=== PATIENT | male | born 1945 | race Caucasian/White ===

== ENCOUNTER 2017-10-09 15:33 | Inpatient (IN) ==
[2017-10-09] MEDS ORDERED: IOPAMIDOL 100 ML BOTTLE IV ONE (15:34)
[2017-10-09 17:16] LABS: Basophils # (Auto) 0 K/mcL (0.0-0.3); Basophils % (Auto) 0.3 % (0.0-2.0); Eosinophils # (Auto) 0.4 K/mcL (0.0-0.7); Eosinophils % (Auto) 5.2 % (0.0-7.0); Granulocytes % (Auto) 60.6 % (38.0-78.0); Lymphocytes # (Auto) 1.8 K/mcL (1.5-4.8); Lymphocytes % (Auto) 24.1 % (15.5-49.0); Mean Corpuscular HGB Conc 32.5 g/dL (31.0-36.0); Mean Corpuscular Hemoglobin 31.5 pg (26.0-34.0); Monocytes # (Auto) 0.7 K/mcL (0.1-0.9); Monocytes % (Auto) 9.8 % (1.0-12.0); Platelet Count 317 K/mcL (140-440); RBC 4.07 M/mcL (4.50-5.90); Red Cell Distribution Width 15.4 % (11.5-14.5)
[2017-10-09 17:29] LABS: Prealbumin 34.5 mg/dl (20-40)
[2017-10-09 17:39] LABS: ALT/SGPT 12 U/l (0-40); Albumin/Globulin Ratio 1.2 (1.0-2.3); Alkaline Phosphatase 97 U/L (39-117); Blood Urea Nitrogen 19 mg/dl (8-23); C-Reactive Protein 3.8 mg/dl (0.0-0.8)
--- NOTE | 2017-10-09 18:32 | Cat Scan Report ---
CLINICAL INFORMATION: Dorsal cutaneous ulcer pain and swelling evaluate for osteomyelitis COMPARISON: None. TECHNIQUE: 0.625 mm helical slices were obtained through the foot and ankle. Following reconstruction, sagittal, coronal axial reformatted images were processed and reviewed at bone and soft tissue windows. FINDINGS: Moderate diffuse cellulitis is seen throughout the lower tibia-fibula ankle and foot. There is no evidence of soft tissue abscess in the second ray amputation at the MTP level. The second metatarsal head is eroded and there is moderate surrounding cellulitis this could indicate osteomyelitis. No other potential regions of osteomyelitis. The calcaneus is deformed and fused with both the cuboid and talus. Talar dome is flattened. There is severe degenerative change in the first MTP also severe degeneration ankle mortise. Severe hallux valgus, metatarsus adductus deformity with hammertoe deformity second through fifth digits. The top of the first distal phalanx is eroded likely chronic IMPRESSION: 1. Second ray amputation at the MTP level. Moderate erosion of the second metatarsal head with overlying cellulitis - this could indicate osteomyelitis. No other potential regions of osteomyelitis 2. Moderate diffuse cellulitis 3. Solid talocalcaneal and calcaneal cuboid fusion 4. Other chronic changes - as described Interpreted and Authenticated by: Harrison Barbosa 10/09/17
[2017-10-09] MEDS ORDERED: VANCOMYCIN 1,000 MG in 0.9 % SODIUM CHLORIDE 250 ML IV ONE (18:54)
[2017-10-09] MEDS ORDERED: LABETALOL 5 MG/ML ML IV ONE (19:00)
[2017-10-09] MEDS ORDERED: VANCOMYCIN 500 MG in 0.9 % SODIUM CHLORIDE 100 ML IV ONE (19:26)
--- NOTE | 2017-10-09 20:18 | Internal Med History&Physical ---
Medical - H&P: HPI Patient information: Note initiated : 10/09/17 at 8:15 pm Service Date, if different from initiated Date: [] Patient: Taz Parra 72 y/o M admitted on 10/09/17 for 3 open wounds with r/o of ostomylitis. Chief Complaint: [] History of present illness: Mr. Parra is a 72 year old M with h/o HIV, left toe amputation in july, presents to the ER from the wound clinic for worsening infection on the left toe wound. The patient notes he has been following up in the wound care clinic for over 2 yrs for some wound or the other on the left foot. He had a left 2nd toe amputation in july, post op it seems wound was not healing well, but was being followed by Dr Seth in the wound clinic. The patent notes that for the last week or so there has been increased warmth and redness on the left foot, when noticed by the wound care physician he was advised to come to the ER for further evaluation. The patient denies any pain, any other acute issues he has h/o HIV aids, h/o UTI in the past, enterococcus, vre but sensitive to ampicilin (admitted to [facility] may 03), HIV is well controlled as per pt, undectable viral count, follows with ID physician in [place]. He is not sure of his CD4 count, but notes not been an issue. In the ER he was hemodynamically stable, afebrile, with good BP, labs unremarkable, CT of the leg done, shows cellulitis, possible osteomyelitis. 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 Given presence of osteomyelitis, pt admitted to the hospital for further management. 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) Osteoarthritis of ankle (Chronic) Degenerative joint disease (DJD) of lumbar spine (Chronic) Hip pain (Chronic) Renal insufficiency (Chronic) Hyperlipidemia (Chronic) Sprain and strain of unspecified site of shoulder and upper arm (Chronic) Pressure ulcer, stage III (Chronic) Unspecified osteomyelitis, site unspecified (Chronic) Dysphagia (Chronic) Abdominal pain (Chronic) Mental status change (Chronic) Dementia (Chronic) Hypogonadism (Chronic) Osteoarthritis of both hips (Chronic) Benign prostatic hyperplasia with lower urinary tract symptoms (Chronic) Acquired immune deficiency syndrome (Chronic) Nocturia (Chronic) Pressure ulcer of coccygeal region (Chronic) Daytime somnolence (Chronic) Pain in left lower leg (Chronic) Abdominal bloating (Chronic) Unspecified open wound, left foot, initial encounter (Chronic) Cellulitis of left leg (Chronic) Unspecified open wound, unspecified foot, subsequent encounter (Chronic) Unspecified open wound, unspecified knee, initial encounter (Chronic) Anemia due to acute blood loss (Chronic) Degenerative joint disease of left shoulder (Chronic) Degenerative joint disease of left hip (Chronic) Effusion of left knee (Chronic) Cellulitis of left knee (Chronic) Other acute osteomyelitis, left tibia and fibula (Chronic) Degenerative joint disease of left knee (Chronic) Osteoarthritis of shoulder (Chronic) Chronic hip pain (Acute) Testosterone deficiency (Acute) Osteoporosis (Acute) Wears partial dentures (Acute) HIV (human immunodeficiency virus infection) (Acute) DJD (degenerative joint disease) (Acute) GERD (gastroesophageal reflux disease) (Acute) Joint pain (Acute) Incontinence (Acute) Fatigue (Acute) Surgical history: Past Surgical History (Last Reviewed 05/27/17 @ 13:23 by Haydee Paniagua RN) History of surgery (Acute) Status post hip surgery (Acute) Hx of inguinal hernia surgery (Acute) Cleft palate (Acute) History of hand surgery (Acute) History of total right knee replacement (Acute) Hx of foot surgery (Acute) Status post total hip replacement, right (Acute) History of total left hip replacement (Chronic) Pertinent family history: Family History (Last Reviewed 05/27/17 @ 13:23 by Haydee Paniagua RN) Mother Malignant neoplasm Father Myocardial infarction Medical - H&P: Meds Home Medications Medication Instructions Recorded Confirmed Type sennosides 8.6 mg capsule 8.6 mg PO BID PRN cap 12/04/14 10/09/17 History tamsulosin 0.4 mg capsule 0.4 mg PO QDAY cap 12/04/14 10/09/17 History ferrous sulfate 325 mg (65 mg 325 mg PO QDAY 05/20/16 10/09/17 History iron) tablet memantine ER 28 mg-donepezil 10 mg 1 cap PO QDAY 05/20/16 10/09/17 History capsule sprinkle,ext.release 24 hr metoprolol succinate ER 50 mg 50 mg PO QDAY 05/20/16 10/09/17 History tablet,extended release 24 hr aspirin 81 mg tablet,delayed 81 mg PO QDAY 08/20/16 10/09/17 History release methadone 10 mg tablet 10 mg PO TID tab 08/20/16 10/09/17 History rilpivirine 25 mg tablet 25 mg PO QDAY 08/20/16 10/09/17 History Omeprazole [PriLOSEC] 20 mg PO DAILY 12/23/16 10/09/17 History abacavir 600 mg-lamivudine 300 mg 1 tab PO QDAY 01/20/17 10/09/17 History tablet pregabalin 150 mg capsule 150 mg PO QDAY cap 01/20/17 10/09/17 History trospium ER 60 mg capsule,extended 60 mg PO QAM #30 cap 01/21/17 10/09/17 Rx release 24 hr Sulfamethoxazole/Trimethoprim 1 tab PO BID #20 tab 06/12/17 10/09/17 Rx [Bactrim Ds] Allergies Allergy/AdvReac Type Severity Reaction Status Date / Time fentanyl Allergy Unknown unknown Verified 06/12/17 14:16 codeine AdvReac Mild Itching Verified 06/12/17 14:16 Medical - H&P: Exam - Constitutional Vitals: Temp Pulse Resp BP Pulse Ox 98.5 F 70 15 127/81 98 10/09/17 15:35 10/09/17 15:35 10/09/17 15:35 10/09/17 20:01 10/09/17 15:35 Exam: GENERAL: The patient is a well-developed, well-nourished in no apparent distress. Is alert and oriented x3. wc bound due to weight bearing restrictions. VITAL SIGNS: Reviewed and as noted elsewhere. HEENT: Head is normocephalic and atraumatic. Extraocular muscles are intact. Pupils are equal, round, and reactive to light. Nares appeared normal. Mouth appears any without lesions. Mucous membranes are moist. NECK: Normal to inspection, Supple, No lymphadenopathy or thyromegaly. LUNGS: Air entry equal on both sides, no wheezing, crackles or rhonchi noted. No accessory muscles of respiration HEART: Regular rate and rhythm normal, S1 and S2 heard, no Gallop, S3 or Rub Noted, No Gross murmur heard. ABDOMEN: Soft, mild flank tenderness , and nondistended. Positive bowel sounds. No hepatosplenomegaly was noted. EXTREMITIES: No cyanosis, clubbing, rash, lesions or edema. Left lower extremity- 2x3 cms wound left 2nd toe region, black ischar, surrounding cellulitis upto ankle. NEUROLOGIC: Cranial nerves II through XII are grossly intact. Motor and Sensory System Grossly Intact PSYCHIATRIC: Normal affect, Normal Mood. Appropriate Behavior. SKIN: No ulceration or wounds noted, No jaundice, No rash noted. Medical - H&P: Reslt - Labs CBC & Chem 7: 10/09/17 16:13 10/09/17 16:13 Labs: Short CBC 10/09/17 Range/Units 16:13 WBC 7.5 (4.5-11.0) K/mcL Hgb 12.8 L (13.5-16.5) g/dL Hct 39.4 L (41.0-55.0) % Plt Count 317 (140-440) K/mcL BMP 10/09/17 16:13 Sodium 137 Potassium 4.3 Chloride 101 Carbon Dioxide 22 BUN 19 Creatinine 1.1 Glucose 89 Calcium 9.4 Liver Function 10/09/17 Range/Units 16:13 Total Bilirubin 0.3 (0.0-1.0) mg/dL AST 14 (0-37) U/l ALT 12 (0-40) U/l Alkaline Phosphatase 97 (39-117) U/L Albumin 4.0 (3.2-5.2) gm/dL Medical - H&P: A/P - Narrative A/P Narrative: A/P Acute osteomyelitis Acute cellulitis HIV AIDS Urinary Incontinence HTN Chronic pain DJD Dementia Plan Admit to Med surg Given some ambiguity regarding osteomyelitis on CT, discuss with wound care on need for MRI to confirm, vs direct visuliazaion IV vanco adn zosyn picc line 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 Social History - Social History housing: house marital status: occupational status: retired - Exercise physical activity: none - Tobacco smoking status: Never smoker - Alcohol alcohol intake frequency: a few times a week - Substance use substance use type: does not use
[2017-10-09] MEDS ORDERED: ALBUTEROL SULFATE 2.5 MG/3 ML NEBULIZER NEB PRN (20:23)
[2017-10-09] MEDS ORDERED: HYDROmorphone 2 MG/ML VIAL IV PRN (20:23)
[2017-10-09] MEDS ORDERED: cloNIDine HCL 0.1 MG TABLET PO PRN (20:23)
[2017-10-09] MEDS ORDERED: VANCOMYCIN PER PHARMACY IV ONE (20:23)
[2017-10-09] MEDS ORDERED: ACETAMINOPHEN 325 MG TABLET PO PRN (20:23)
[2017-10-09] MEDS ORDERED: ONDANSETRON 4 MG/2 ML VIAL IV PRN (20:23)
[2017-10-09] MEDS ORDERED: NALOXONE HCL 0.4 MG/ML VIAL IV PRN (20:23)
[2017-10-09] MEDS ORDERED: SENNOSIDES 1 TABLET PO PRN (20:46)
--- NOTE | 2017-10-09 20:47 | General Surgery Consult Note ---
History of Present Illness Patient information: Note initiated : 10/09/17 at 8:30 pm Service Date, if different from initiated Date: [] Patient: Taz Parra 72 y/o M admitted on 10/09/17 for 3 open wounds with r/o of ostomylitis. Chief Complaint: [] Consult date: 10/09/17 Requesting physician: Jeanette Dimas (Cellulitis LEFT foot) History of present illness: Patient was admitted via ER with cellulitis of LEFT foot and CSSSI, evolving SIRS. He is an established patient at wound center with multiple co morbid problems / chronically immunosuppressed and past h/o undergoing several prior surgical procedures of LE. The last procedure was for LEFT 2 nd toe amputation for osteomyelitis. Post operatively the wound had dehisced and was being treated with debridement and local wound care. There was an interval change in his presentation today with acute inflammatory signs and drainage from the wound with purulence and cellulitis. He was sent to the ER for further work up, imaging and in house IV antibiotics and wound care. Medications and Allergies Home Medications Medication Instructions Recorded Confirmed Type sennosides 8.6 mg capsule 8.6 mg PO BID PRN cap 12/04/14 10/09/17 History tamsulosin 0.4 mg capsule 0.4 mg PO QDAY cap 12/04/14 10/09/17 History ferrous sulfate 325 mg (65 mg 325 mg PO QDAY 05/20/16 10/09/17 History iron) tablet memantine ER 28 mg-donepezil 10 mg 1 cap PO QDAY 05/20/16 10/09/17 History capsule sprinkle,ext.release 24 hr aspirin 81 mg tablet,delayed 81 mg PO QDAY 08/20/16 10/09/17 History release methadone 10 mg tablet 30 mg PO TID tab 08/20/16 10/10/17 History rilpivirine 25 mg tablet 25 mg PO QDAY 08/20/16 10/09/17 History abacavir 600 mg-lamivudine 300 mg 1 tab PO QDAY 01/20/17 10/09/17 History tablet trospium ER 60 mg capsule,extended 60 mg PO QAM #30 cap 01/21/17 10/09/17 Rx release 24 hr Clopidogrel Bisulfate [Plavix] 75 mg PO DAILY 10/10/17 10/10/17 History Metoprolol Succinate [Toprol Xl] 100 mg PO DAILY 10/10/17 10/10/17 History Pantoprazole Sodium [Protonix] 40 mg PO DAILY 10/10/17 10/10/17 History Pregabalin [Lyrica] 75 mg PO BID 10/10/17 10/10/17 History Allergies Allergy/AdvReac Type Severity Reaction Status Date / Time codeine AdvReac Mild Itching Verified 06/12/17 14:16 fentanyl AdvReac Unknown unknown Verified 10/09/17 21:00 Exam Temp Pulse Resp BP Pulse Ox 98.5 F 70 15 127/81 98 10/09/17 15:35 10/09/17 15:35 10/09/17 15:35 10/09/17 20:01 10/09/17 15:35 - General physical appearance well developed, well nourished, no distress, chronically ill, other (Mostly confined to bed or wheelchair. H/O HIV since 1980. 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 ) - Head Head exam IM: Present: atraumatic, normal inspection, normocephalic - Neck no masses, no bruits, trachea midline, no lymphadectomy, no venous distension - Cardiovascular Cardiovascular exam IM: Present: normal rate and rhythm - Respiratory normal expansion, normal respiratory effort, clear to auscultation - Abdomen Abdomen: Present: soft, non tender, bowel sounds - Integumentary Present: other (Acute inflammatory changes of LEFT foot from toes up to ankle. Patient with prior foot drop and hip / knee replacements and LEFT 2nd toe amptation with open surgical wound treated with local wound care. ) - Neurologic Present: other (Detailed examination NOT done. NO gross focalneurological deficits. ) - Musculoskeletal Present: other (Short statured. Non ambulatory. ) - Psychiatric Present: oriented to time, oriented to person, oriented to place, speech is normal, memory intact Results - Labs 10/10/17 04:10 10/10/17 04:10 Abnormal lab results 10/09/17 10/09/17 Range/Units 16:13 16:13 RBC 4.07 L (4.50-5.90) M/mcL Hgb 12.8 L (13.5-16.5) g/dL Hct 39.4 L (41.0-55.0) % RDW 15.4 H (11.5-14.5) % C-Reactive Protein 3.8 H (0.0-0.8) mg/dl Diabetes panel 10/09/17 Range/Units 16:13 Sodium 137 (133-145) mmol/L Potassium 4.3 (3.3-5.1) mmol/L Chloride 101 (96-108) mmol/L Carbon Dioxide 22 (22-30) mmol/L BUN 19 (8-23) mg/dl Creatinine 1.1 (0.7-1.2) mg/dl Glucose 89 (70-105) mg/dL Calcium 9.4 (8.6-10.4) mg/dl AST 14 (0-37) U/l ALT 12 (0-40) U/l Alkaline Phosphatase 97 (39-117) U/L Total Protein 7.3 (5.9-8.4) gm/dL Albumin 4.0 (3.2-5.2) gm/dL Thyroid panel 10/09/17 Range/Units 16:13 TSH 1.46 (0.27-5.01) uIU/ml Calcium panel 10/09/17 Range/Units 16:13 Calcium 9.4 (8.6-10.4) mg/dl Albumin 4.0 (3.2-5.2) gm/dL Pituitary panel 10/09/17 Range/Units 16:13 Sodium 137 (133-145) mmol/L Potassium 4.3 (3.3-5.1) mmol/L Chloride 101 (96-108) mmol/L Carbon Dioxide 22 (22-30) mmol/L BUN 19 (8-23) mg/dl Creatinine 1.1 (0.7-1.2) mg/dl Glucose 89 (70-105) mg/dL Calcium 9.4 (8.6-10.4) mg/dl TSH 1.46 (0.27-5.01) uIU/ml Adrenal panel 10/09/17 Range/Units 16:13 Sodium 137 (133-145) mmol/L Potassium 4.3 (3.3-5.1) mmol/L Chloride 101 (96-108) mmol/L Carbon Dioxide 22 (22-30) mmol/L BUN 19 (8-23) mg/dl Creatinine 1.1 (0.7-1.2) mg/dl Glucose 89 (70-105) mg/dL Calcium 9.4 (8.6-10.4) mg/dl Total Bilirubin 0.3 (0.0-1.0) mg/dL AST 14 (0-37) U/l ALT 12 (0-40) U/l Alkaline Phosphatase 97 (39-117) U/L Total Protein 7.3 (5.9-8.4) gm/dL Albumin 4.0 (3.2-5.2) gm/dL All other labs normal. Assessment and Plan (1) Sepsis affecting skin Assessment: CSSSI Sepsis. Source is LEFT foot and toe amputation site . Plan: See orders. Local wound care. Dressings / MIST treatment and IV antibiotics. INFECTIOUS DISEASE consult Dr. Rolly Elmore. Status: Acute Priority: High Comment: Evolving SIRS with CSSSI around LEFT foot open wound and spreading proximally. (2) Avulsion of skin Status: Acute Priority: Medium
[2017-10-09] MEDS ORDERED: SULFAMETHOXAZOLE/TRIMETHOPRIM 1 TABLET PO SCH (21:00)
[2017-10-09 21:49] LABS: Appearance,Urine CLEAR; Bacteria,Urine 0 /hpf (0); Bilirubin,Urine NEG (NEG); Color,Urine STRAW; Glucose,Urine (UA) NEGATIVE (NEG); Leukocyte Esterase,Urine NEG /uL (NEG); Protein,Urine NEG (NEG); Specific Gravity,Urine 1.025 (1.000-1.035); Urine Blood NEG mg/dL (<0.03); Urine RBC 2 /hpf (0-1); Urine Squamous Epithelial Cell 0 /hpf (0-4); Urine WBC 1 /hpf (0-4); Urobilinogen,Urine NEG (NEG)
[2017-10-09] MEDS ORDERED: GENTAMICIN SULFATE 40 MG, CLINDAMYCIN 300 MG, BACITRACIN 25,000 UNIT in SODIUM CHLORIDE... IRR ONE (22:00)
[2017-10-09] MEDS: oxyCODONE HCL 5 MG TABLET PO PRN (23:28)
[2017-10-09] MEDS: PIPERACILLIN SODIUM/TAZOBACTAM 3.375 GM in DEXTROSE 5% IN WATER 50 ML IV SCH (23:29)
[2017-10-09] MEDS: 0.9 % SODIUM CHLORIDE 10 ML SYRINGE IV SCH (23:34)
[2017-10-09] MEDS: HEPARIN 5,000 UNIT/ML VIAL SQ SCH (23:34)
[2017-10-09] MEDS: METHADONE 5 MG TABLET PO SCH (23:35)
--- NOTE | 2017-10-10 02:25 | Emergency Department Note ---
Wound/Laceration HPI - General Chief Complaint: Wound/Laceration Stated Complaint: 3 open wounds with r/o of ostomylitis Time Seen by Provider: 10/09/17 15:39 Source: patient Mode of arrival: wheelchair Limitations: no limitations - History of Present Illness HPI Narrative: This is a patient known and seen by wound care who was instructed to come to the ER today after an interval change was observed of his left foot wounds. History of a left 2nd oe amputation on 08/11 for osteomyelitis and post operatively the wound had dehisced and was being treated by local wound care. Patient reports that the redness has significantly worsened recently. No fevers or chills. He is unable to move the toes on his left side. the patient does have a history of HIV. - Related Data Home Medications Medication Instructions Recorded Confirmed sennosides 8.6 mg capsule 8.6 mg PO BID PRN cap 12/04/14 10/09/17 tamsulosin 0.4 mg capsule 0.4 mg PO QDAY cap 12/04/14 10/09/17 ferrous sulfate 325 mg (65 mg 325 mg PO QDAY 05/20/16 10/09/17 iron) tablet memantine ER 28 mg-donepezil 10 mg 1 cap PO QDAY 05/20/16 10/09/17 capsule sprinkle,ext.release 24 hr metoprolol succinate ER 50 mg 50 mg PO QDAY 05/20/16 10/09/17 tablet,extended release 24 hr aspirin 81 mg tablet,delayed 81 mg PO QDAY 08/20/16 10/09/17 release methadone 10 mg tablet 10 mg PO TID tab 08/20/16 10/09/17 rilpivirine 25 mg tablet 25 mg PO QDAY 08/20/16 10/09/17 abacavir 600 mg-lamivudine 300 mg 1 tab PO QDAY 01/20/17 10/09/17 tablet pregabalin 150 mg capsule 150 mg PO QDAY cap 01/20/17 10/09/17 Previous Rx's Medication Instructions Recorded trospium ER 60 mg capsule,extended 60 mg PO QAM #30 cap 01/21/17 release 24 hr Allergies Allergy/AdvReac Type Severity Reaction Status Date / Time codeine AdvReac Mild Itching Verified 06/12/17 14:16 fentanyl AdvReac Unknown unknown Verified 10/09/17 21:00 Review of Systems All systems ED: reviewed and negative except as stated. Past Medical History - Past Medical History Medical history: Reports: HIV/AIDS, other (long history of wound care left foot) - Social History smoking status: Never smoker Physical Exam Limitations: no limitations General appearance: alert, in no apparent distress (comes in in wheelchair with friend) Head: atraumatic ENT: normal exam Neck: Present: normal inspection Chest: Present: normal inspection Respiratory: Present: normal lung sounds bilaterally Cardiovascular: Present: regular rate, normal rhythm Abdominal: Present: soft, normal bowel sounds Foot/toe: Present: other (erythema at the midfoot on the left, healing wounds on hunter tissue just proximal to where the second toe was amputated - 3x1 cm , open sore on the third toe, 3x0.8 cm in size. ) Neurovascular/Tendon: Present: other (swelling diffusely on th left foot, unable to palpate pulses) Neurological: Present: alert, oriented X3 Psychiatric: Present: normal affect, normal mood Skin: Present: warm, dry Course Course Narrative: Patient sent here from wound care clinic. We got a CT of his foot, blood work ordered per the wound care doctor's request. Patient's vital signs had a slightly elevated blood pressure here for which she received labetalol 10 mg - Reevaluation(s) Reevaluation #1: CT results returned showing diffuse cellulitis with an area of possible osteomyelitis. Started on Vanco and admitted to the hospital service with Dr. Mcallister to consult Vital Signs Temperature 98.5 F 10/09/17 15:35 Pulse Rate 70 10/09/17 15:35 Respiratory Rate 15 10/09/17 15:35 Blood Pressure 195/89 10/09/17 15:35 Pulse Oximetry (%) 98 10/09/17 15:35 Temperature 97.7 F 10/10/17 00:00 Pulse Rate 86 10/10/17 00:00 Respiratory Rate 14 10/10/17 00:00 Blood Pressure 171/88 10/10/17 00:00 Pulse Oximetry (%) 100 10/10/17 00:00 Wound/Laceration - MDM Narrative Medical decision making narrative: HIV-positive patient with postsurgical complications from left second toe amputation, presenting with cellulitis and possible recurrence of osteomyelitis. - Lab Data Lab results reviewed: Yes I reviewed the patient's lab results. Result diagrams: 10/09/17 16:13 10/09/17 16:13 Lab Results 10/09/17 10/09/17 10/09/17 Range/Units 16:13 16:13 16:13 WBC 7.5 (4.5-11.0) K/mcL RBC 4.07 L (4.50-5.90) M/mcL Hgb 12.8 L (13.5-16.5) g/dL Hct 39.4 L (41.0-55.0) % POC Hct (41.0-55.0) % MCV 97.0 (80.0-100.0) fL MCH 31.5 (26.0-34.0) pg MCHC 32.5 (31.0-36.0) g/dL RDW 15.4 H (11.5-14.5) % Plt Count 317 (140-440) K/mcL MPV 8.4 (7.4-10.4) fL Gran % 60.6 (38.0-78.0) % Lymph % (Auto) 24.1 (15.5-49.0) % Cannon % (Auto) 9.8 (1.0-12.0) % Eos % (Auto) 5.2 (0.0-7.0) % Baso % (Auto) 0.3 (0.0-2.0) % Gran # 4.5 (1.8-8.0) K/mcL Lymph # (Auto) 1.8 (1.5-4.8) K/mcL Cannon # (Auto) 0.7 (0.1-0.9) K/mcL Eos # (Auto) 0.4 (0.0-0.7) K/mcL Baso # (Auto) 0 (0.0-0.3) K/mcL POC PT 14.4 (11.9-14.5) sec POC INR 1.2 (0.9-1.2) APTT 35 (20-37) sec POC Sodium (133-145) mmol/L Sodium (133-145) mmol/L POC Potassium (3.3-5.1) mmol/L Potassium (3.3-5.1) mmol/L POC Chloride (96-108) mmol/L Chloride (96-108) mmol/L Carbon Dioxide (22-30) mmol/L POC Total CO2 (22-30) mmol/L Anion Gap (8-16) POC BUN (8-23) mg/dl BUN (8-23) mg/dl Creatinine (0.7-1.2) mg/dl POC Creatinine (0.7-1.2) mg/dl GFR Calculation Glucose (70-105) mg/dL POC Glucose (70-105) mg/dL Calcium (8.6-10.4) mg/dl POC WB Ioniz Calcium (1.16-1.32) mmol/L Magnesium (1.6-2.5) mg/dL Total Bilirubin (0.0-1.0) mg/dL AST (0-37) U/l ALT (0-40) U/l Alkaline Phosphatase (39-117) U/L C-Reactive Protein (0.0-0.8) mg/dl Total Protein (5.9-8.4) gm/dL Albumin (3.2-5.2) gm/dL Globulin (2.2-3.7) gm/dL Albumin/Globulin Ratio (1.0-2.3) Prealbumin (20-40) mg/dl TSH (0.27-5.01) uIU/ml 10/09/17 Range/Units 16:13 WBC (4.5-11.0) K/mcL RBC (4.50-5.90) M/mcL Hgb (13.5-16.5) g/dL Hct (41.0-55.0) % POC Hct 41.0 (41.0-55.0) % MCV (80.0-100.0) fL MCH (26.0-34.0) pg MCHC (31.0-36.0) g/dL RDW (11.5-14.5) % Plt Count (140-440) K/mcL MPV (7.4-10.4) fL Gran % (38.0-78.0) % Lymph % (Auto) (15.5-49.0) % Cannon % (Auto) (1.0-12.0) % Eos % (Auto) (0.0-7.0) % Baso % (Auto) (0.0-2.0) % Gran # (1.8-8.0) K/mcL Lymph # (Auto) (1.5-4.8) K/mcL Cannon # (Auto) (0.1-0.9) K/mcL Eos # (Auto) (0.0-0.7) K/mcL Baso # (Auto) (0.0-0.3) K/mcL POC PT (11.9-14.5) sec POC INR (0.9-1.2) APTT (20-37) sec POC Sodium 141 (133-145) mmol/L Sodium 137 (133-145) mmol/L POC Potassium 4.3 (3.3-5.1) mmol/L Potassium 4.3 (3.3-5.1) mmol/L POC Chloride 106 (96-108) mmol/L Chloride 101 (96-108) mmol/L Carbon Dioxide 22 (22-30) mmol/L POC Total CO2 24 (22-30) mmol/L Anion Gap 14.0 (8-16) POC BUN 23 (8-23) mg/dl BUN 19 (8-23) mg/dl Creatinine 1.1 (0.7-1.2) mg/dl POC Creatinine 1.2 (0.7-1.2) mg/dl GFR Calculation 66 Glucose 89 (70-105) mg/dL POC Glucose 91 (70-105) mg/dL Calcium 9.4 (8.6-10.4) mg/dl POC WB Ioniz Calcium 1.19 (1.16-1.32) mmol/L Magnesium 1.8 (1.6-2.5) mg/dL Total Bilirubin 0.3 (0.0-1.0) mg/dL AST 14 (0-37) U/l ALT 12 (0-40) U/l Alkaline Phosphatase 97 (39-117) U/L C-Reactive Protein 3.8 H (0.0-0.8) mg/dl Total Protein 7.3 (5.9-8.4) gm/dL Albumin 4.0 (3.2-5.2) gm/dL Globulin 3.3 (2.2-3.7) gm/dL Albumin/Globulin Ratio 1.2 (1.0-2.3) Prealbumin 34.5 (20-40) mg/dl TSH 1.46 (0.27-5.01) uIU/ml Disposition Pt seen by CERTIFIED TECHNICIAN SPECIALIST/PA only: No Clinical Impression: Cellulitis Disposition: Xfer As Inpt ([facility]) Condition: Fair
[2017-10-10] MEDS: 0.9 % SODIUM CHLORIDE 10 ML SYRINGE IV SCH ×3 (04:55→21:34)
[2017-10-10] MEDS: PIPERACILLIN SODIUM/TAZOBACTAM 3.375 GM in DEXTROSE 5% IN WATER 50 ML IV SCH ×4 (04:55→23:45)
[2017-10-10 05:36] LABS: Basophils # (Auto) 0 K/mcL (0.0-0.3); Basophils % (Auto) 0.3 % (0.0-2.0); Eosinophils # (Auto) 0.4 K/mcL (0.0-0.7); Eosinophils % (Auto) 4.6 % (0.0-7.0); Granulocytes % (Auto) 63.4 % (38.0-78.0); Lymphocytes # (Auto) 1.8 K/mcL (1.5-4.8); Lymphocytes % (Auto) 22.6 % (15.5-49.0); Mean Cell Volume 96.8 fL (80.0-100.0); Mean Corpuscular HGB Conc 32.3 g/dL (31.0-36.0); Mean Corpuscular Hemoglobin 31.3 pg (26.0-34.0); Monocytes # (Auto) 0.7 K/mcL (0.1-0.9); Monocytes % (Auto) 9.1 % (1.0-12.0); Platelet Count 277 K/mcL (140-440); Red Cell Distribution Width 14.9 % (11.5-14.5)
[2017-10-10 06:18] LABS: ALT/SGPT 9 U/l (0-40); Albumin 3.5 gm/dL (3.2-5.2); Albumin/Globulin Ratio 1.2 (1.0-2.3); Alkaline Phosphatase 87 U/L (39-117); Bilirubin,Direct < 0.2 mg/dL (0.0-0.3); Blood Urea Nitrogen 17 mg/dl (8-23); Gamma Glutamyl Transpeptidase 41 U/L (8-61); Uric Acid 5.7 mg/dL (2.5-8.0)
[2017-10-10] MEDS ORDERED: VANCOMYCIN PER PHARMACY IV SCH (07:45)
[2017-10-10] MEDS: OMEPRAZOLE 20 MG CAPSULE PO SCH (07:55)
[2017-10-10] MEDS: FERROUS SULFATE 325 MG TABLET PO SCH (07:55)
[2017-10-10] MEDS: METHADONE 5 MG TABLET PO SCH ×3 (08:34→21:31)
[2017-10-10] MEDS: HEPARIN 5,000 UNIT/ML VIAL SQ SCH ×2 (08:35→21:33)
[2017-10-10] MEDS ORDERED: METOPROLOL SUCCINATE 50 MG TAB.XL.24H PO SCH (09:00)
[2017-10-10] MEDS ORDERED: TROSPIUM CHLORIDE 60 MG PO SCH (09:00)
[2017-10-10] MEDS ORDERED: PREGABALIN 150 MG CAPSULE PO SCH (09:00)
[2017-10-10] MEDS ORDERED: ASPIRIN 81 MG TAB.CHEW PO SCH (09:00)
[2017-10-10] MEDS ORDERED: TAMSULOSIN 0.4 MG CAPSULE PO SCH (09:00)
[2017-10-10] MEDS ORDERED: METHADONE 5 MG TABLET PO ONE (10:04)
[2017-10-10] MEDS: VANCOMYCIN 1,000 MG in 0.9 % SODIUM CHLORIDE 250 ML IV SCH (10:27)
[2017-10-10] MEDS: GENTAMICIN SULFATE 40 MG, CLINDAMYCIN 300 MG, BACITRACIN 25,000 UNIT in SODIUM CHLORIDE... IRR SCH ×2 (11:12→21:33)
--- NOTE | 2017-10-10 11:44 | General Surgery Progress Note ---
Subjective Patient reports: other (Patient had an uneventful night. Rounded on patient with Danica CROSS and Dr. Dimas, Hospitlaist Physician. ) Narrative: Note initiated : 10/10/17 at 11:42 am Service Date, if different from initiated Date: [] Patient: Taz Parra 72 y/o M admitted on 10/09/17 for 3 open wounds with r/o of ostomylitis. Chief Complaint: [] Objective Temp Pulse Resp BP Pulse Ox 99.5 F H 70 18 134/73 95 10/10/17 07:59 10/10/17 07:59 10/10/17 07:59 10/10/17 07:59 10/10/17 07:59 AVSS. No acute changes in JEAN. L/E: No tenderness. Minimal drainage and NO odor. Resolving redness and edema. - Additional Data Intake & Output - Last 24 hours: Intake & Output 10/08/17 10/09/17 10/10/17 10/11/17 05:59 05:59 05:59 05:59 Intake Total 500 / 500 Output Total 475 / 475 Balance Weight 136 lb - Labs 10/10/17 04:10 10/10/17 04:10 Diabetes panel 10/09/17 10/10/17 Range/Units 16:13 04:10 Sodium 137 139 (133-145) mmol/L Potassium 4.3 4.5 (3.3-5.1) mmol/L Chloride 101 101 (96-108) mmol/L Carbon Dioxide 22 24 (22-30) mmol/L BUN 19 17 (8-23) mg/dl Creatinine 1.1 1.1 (0.7-1.2) mg/dl Glucose 89 84 (70-105) mg/dL Calcium 9.4 9.0 (8.6-10.4) mg/dl AST 14 13 (0-37) U/l ALT 12 9 (0-40) U/l Alkaline Phosphatase 97 87 (39-117) U/L Total Protein 7.3 6.4 (5.9-8.4) gm/dL Albumin 4.0 3.5 (3.2-5.2) gm/dL Triglycerides 372 H (<150) mg/dl Thyroid panel 10/09/17 Range/Units 16:13 TSH 1.46 (0.27-5.01) uIU/ml Calcium panel 10/09/17 10/10/17 Range/Units 16:13 04:10 Calcium 9.4 9.0 (8.6-10.4) mg/dl Phosphorus 3.3 (2.7-4.5) mg/dL Albumin 4.0 3.5 (3.2-5.2) gm/dL Pituitary panel 10/09/17 10/10/17 Range/Units 16:13 04:10 Sodium 137 139 (133-145) mmol/L Potassium 4.3 4.5 (3.3-5.1) mmol/L Chloride 101 101 (96-108) mmol/L Carbon Dioxide 22 24 (22-30) mmol/L BUN 19 17 (8-23) mg/dl Creatinine 1.1 1.1 (0.7-1.2) mg/dl Glucose 89 84 (70-105) mg/dL Calcium 9.4 9.0 (8.6-10.4) mg/dl TSH 1.46 (0.27-5.01) uIU/ml Adrenal panel 10/09/17 10/10/17 Range/Units 16:13 04:10 Sodium 137 139 (133-145) mmol/L Potassium 4.3 4.5 (3.3-5.1) mmol/L Chloride 101 101 (96-108) mmol/L Carbon Dioxide 22 24 (22-30) mmol/L BUN 19 17 (8-23) mg/dl Creatinine 1.1 1.1 (0.7-1.2) mg/dl Glucose 89 84 (70-105) mg/dL Calcium 9.4 9.0 (8.6-10.4) mg/dl Total Bilirubin 0.3 0.3 (0.0-1.0) mg/dL AST 14 13 (0-37) U/l ALT 12 9 (0-40) U/l Alkaline Phosphatase 97 87 (39-117) U/L Total Protein 7.3 6.4 (5.9-8.4) gm/dL Albumin 4.0 3.5 (3.2-5.2) gm/dL Assessment and Plan (1) Sepsis affecting skin Problem details: Evolving SIRS with CSSSI around LEFT foot open wound and spreading proximally. Status: Acute Current Visit: Yes (2) Avulsion of skin Status: Acute Current Visit: No - Narrative A/P Narrative: Assessment: Satisfactory progress. Plan: Continue current management. AWAIT Infectious Disease Consult and recommendations. - Time Spent With Patient Total time spent is greater than 50% in coordination of care (as documented) at patient's floor/unit and/or counseling patient: 15 - 24 minutes
[2017-10-10] MEDS: RILPIVIRINE HCL 25 MG PO SCH ×2 (12:30→15:51)
[2017-10-10] MEDS: DONEPEZIL HCL PO SCH ×2 (12:30→21:33)
[2017-10-10] MEDS: ABACAVIR SULFATE PO SCH ×2 (12:30→15:50)
[2017-10-10] MEDS: LAMIVUDINE PO SCH ×2 (12:30→15:50)
[2017-10-10] MEDS: MEMANTINE HCL PO SCH ×2 (12:30→21:33)
--- NOTE | 2017-10-10 13:46 | Internal Med Progress Note ---
Medical - PN: Subj Patient information: Note initiated : 10/10/17 at 1:43 pm Service Date, if different from initiated Date: [] Patient: Taz Parra 72 y/o M admitted on 10/09/17 for 3 open wounds with r/o of ostomylitis. Chief Complaint: [] Interval history: Mr. Parra is a 72 year old M with h/o HIV, left toe amputation in july, presents to the ER from the wound clinic for worsening infection on the left toe wound. The patient notes he has been following up in the wound care clinic for over 2 yrs for some wound or the other on the left foot. He had a left 2nd toe amputation in july, post op it seems wound was not healing well, but was being followed by Dr Seth in the wound clinic. The patent notes that for the last week or so there has been increased warmth and redness on the left foot, when noticed by the wound care physician he was advised to come to the ER for further evaluation. The patient denies any pain, any other acute issues he has h/o HIV aids, h/o UTI in the past, enterococcus, vre but sensitive to ampicilin (admitted to [facility] may 03), HIV is well controlled as per pt, undectable viral count, follows with ID physician in [place]. He is not sure of his CD4 count, but notes not been an issue. In the ER he was hemodynamically stable, afebrile, with good BP, labs unremarkable, CT of the leg done, shows cellulitis, possible osteomyelitis. MRI not done due to non availability of instrumentation tech. Given presence of osteomyelitis, pt admitted to the hospital for further management. 09/10 Pt seen examined, no acute overnight issues pt infection / cellulitis much better pt has no new complaints labs stable await MRI, no tech over the weekend on iv abx, ID consult pending . Pertinent ROS: Denies headache, dizziness Denies chest pain, palpitations Denies cough or shortness of breath Denies abdominal pain, nausea or vomiting. - Constitutional Vitals: Vital Signs Temp Pulse Resp BP Pulse Ox 99 F 80 16 156/80 98 10/10/17 12:00 10/10/17 12:00 10/10/17 12:00 10/10/17 12:10/10/17 12:00 Period Temp Pulse Resp BP Sys/Celis Pulse Ox Last 24 Hr 97.7 F-99.5 F 70-86 14-18 127-216/69-174 94-100 Intake and Output 10/09/17 10/10/17 10/10/17 21:59 05:59 13:59 Intake Total 250 / 250 250 / 250 250 / 250 Output Total 475 / 475 Balance 250 / 250 -225 / -225 250 / 250 Weight 136 lb Intake & Output: Intake & Output 10/09/17 10/10/17 10/10/17 21:59 05:59 13:59 Intake Total 250 / 250 250 / 250 250 / 250 Output Total 475 / 475 Balance 250 / 250 -225 / -225 250 / 250 Weight 136 lb Intake: IV 250 / 250 100 / 100 250 / 250 Zosyn 3.375 gm In Dextrose 5% 100 / 100 in Water 50 ml @ 100 mls/hr IV Q6H [facility] Rx#:[id number] Vancomycin 1,000 mg In Sodium 250 / 250 Chloride 0.9% 250 ml @ 250 mls/ hr IV DAILY [facility] Rx#:[id number] Oral 150 / 150 Output: Void Amount 475 / 475 Exam: Constitutional; Afebrile, cooperative, alert, not in distress. Eyes- No icterus, , No periorbital swelling Ears- Ext ear normal, hearing normal to conversation. Neck- Midline trachea, supple Respiratory system: Air Entry equal on both sides, No crackles or wheezing, no rhonchi. CVS- Rate rhythm regular, S1,S2 heard, no gallop, no rub. 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 Foot- erythema improved, no pus draining. Medical - PN: Obj Da - Labs CBC & Chem 7: 10/10/17 04:10 10/10/17 04:10 Labs: Abnormal Lab Results 10/10/17 10/10/17 10/09/17 04:10 04:10 20:55 RBC 3.60 L Hgb 11.3 L Hct 34.9 L RDW 14.9 H C-Reactive Protein Triglycerides 372 H Urine RBC 2 H 10/09/17 10/09/17 16:13 16:13 RBC 4.07 L Hgb 12.8 L Hct 39.4 L RDW 15.4 H C-Reactive Protein 3.8 H Triglycerides Urine RBC Meds: Medications Acetaminophen (Tylenol) 650 mg PO Q6HP PRN PRN Reason: PAIN/FEVER > 101 Albuterol Sulfate (Ventolin) 2.5 mg NEB Q2HP PRN PRN Reason: Shortness Of Breath Aspirin (Aspirin) 81 mg PO HS [facility] Clonidine HCl (Catapres) 0.1 mg PO Q2HP PRN PRN Reason: Hypertension [facility]ous [facility]) [facility] Last Admin: 10/10/17 07:55 Dose: 325 mg Heparin Sodium (Porcine) (Heparin) 5,000 unit SQ Q12 [facility] Last Admin: 10/10/17 08:35 Dose: 5,000 unit Piperacillin Sod/Tazobactam (Sod 3.375 gm/ Dextrose) 50 mls @ 100 mls/hr IV Q6H [facility] Last Admin: 10/10/17 12:59 Dose: 100 mls/hr Gentamicin Sulfate 40 mg/Clindamycin Phosphate 300 mg/Bacitracin 25,000 unit/ Sodium Chloride 503 mls @ 0 mls/hr IRR BID [facility] Last Admin: 10/10/17 11:12 Dose: 1 mls/hr Vancomycin HCl 1,000 mg/ (Sodium Chloride) 250 mls @ 250 mls/hr IV DAILY [facility] Last Infusion: 10/10/17 11:27 Dose: Infused Methadone HCl (Dolophine) 30 mg PO TID [facility] Metoprolol Succinate (Toprol Xl) 100 mg PO DAILY@1500 [facility] Naloxone HCl (Narcan) 0.1 mg IV Q2MIN PRN PRN Reason: Opiate Reversal Omeprazole (Prilosec) 20 mg PO ACB [facility] Last Admin: 10/10/17 07:55 Dose: 20 mg Ondansetron HCl (Zofran) 4 mg IV Q6HP PRN PRN Reason: Nausea And Vomiting Oxycodone HCl (Roxicodone) 5 mg PO Q4HP PRN PRN Reason: PAIN LEVEL 3-6 Last Admin: 10/09/17 23:28 Dose: 5 mg Abacavir Sulfate/Lamivudine 600 Mg/300 Mg Tablet 1 dose PO DAILY@1500 [facility] Rilpivirine Hcl [ Edurant] 25 Mg Tablet 1 dose PO DAILY@1500 [facility] Trospium Chloride [ Trospium Chloride Er ] 60 Mg Capsule 1 dose PO DAILY@1500 [facility] Memantine Hcl/Donepezil Hcl [ Namzaric 28 Mg-10 Mg ] Capsule 1 dose PO HS [facility] Pregabalin (Lyrica) 75 mg PO HS [facility] Senna (Senokot) 1 tab PO BIDP PRN PRN Reason: Constipation Sodium Chloride (Saline Flush) 10 ml IV Q8 [facility] Last Admin: 10/10/17 04:55 Dose: 10 ml Tamsulosin HCl (Flomax) 0.4 mg PO DAILY@1500 [facility] Vancomycin HCl (Vancomycin Per Pharmacy) 1 order IV UD [facility] Medical - PN: A/P - Time Spent With Patient Total time spent is greater than 50% in coordination of care (as documented) at patient's floor/unit and/or counseling patient: - Narrative A/P Narrative: A/P Acute osteomyelitis Acute cellulitis HIV AIDS Urinary Incontinence HTN Chronic pain DJD Dementia Plan continue home meds for HIV and other chr meds continue iv vancomycin and zosyn ID consult awaited MRI pending, no tech available place picc if MRI confirms osteomyelitis DVT hep sq Diet regular Full code.
[2017-10-10] MEDS: TAMSULOSIN 0.4 MG CAPSULE PO SCH (15:54)
[2017-10-10] MEDS: METOPROLOL SUCCINATE 50 MG TAB.XL.24H PO SCH (15:54)
[2017-10-10] MEDS: TROSPIUM CHLORIDE 60 MG PO SCH (16:00)
[2017-10-10] MEDS: oxyCODONE HCL 5 MG TABLET PO PRN (19:22)
[2017-10-10] MEDS: ASPIRIN 81 MG TAB.CHEW PO SCH (21:31)
[2017-10-10] MEDS: PREGABALIN 75 MG CAPSULE PO SCH (21:33)
[2017-10-11] MEDS: oxyCODONE HCL 5 MG TABLET PO PRN ×3 (04:17→20:20)
[2017-10-11] MEDS: PIPERACILLIN SODIUM/TAZOBACTAM 3.375 GM in DEXTROSE 5% IN WATER 50 ML IV SCH ×3 (05:33→17:41)
[2017-10-11] MEDS: 0.9 % SODIUM CHLORIDE 10 ML SYRINGE IV SCH ×4 (05:33→23:07)
[2017-10-11 05:53] LABS: Basophils # (Auto) 0 K/mcL (0.0-0.3); Basophils % (Auto) 0.6 % (0.0-2.0); Eosinophils # (Auto) 0.4 K/mcL (0.0-0.7); Eosinophils % (Auto) 4.8 % (0.0-7.0); Lymphocytes # (Auto) 1.7 K/mcL (1.5-4.8); Lymphocytes % (Auto) 22.5 % (15.5-49.0); Mean Cell Volume 96.8 fL (80.0-100.0); Mean Corpuscular Hemoglobin 31.9 pg (26.0-34.0); Monocytes # (Auto) 0.8 K/mcL (0.1-0.9); Monocytes % (Auto) 11.1 % (1.0-12.0); Platelet Count 255 K/mcL (140-440); RBC 3.42 M/mcL (4.50-5.90); Red Cell Distribution Width 15.5 % (11.5-14.5)
[2017-10-11 06:17] LABS: ALT/SGPT 9 U/l (0-40); Albumin 3.3 gm/dL (3.2-5.2); Albumin/Globulin Ratio 1.1 (1.0-2.3); Alkaline Phosphatase 74 U/L (39-117); Bilirubin,Direct < 0.2 mg/dL (0.0-0.3); Blood Urea Nitrogen 24 mg/dl (8-23); Gamma Glutamyl Transpeptidase 38 U/L (8-61); Uric Acid 6.2 mg/dL (2.5-8.0)
[2017-10-11] MEDS ORDERED: 0.9 % SODIUM CHLORIDE 1,000 ML IV SCH (07:30)
[2017-10-11] MEDS: OMEPRAZOLE 20 MG CAPSULE PO SCH (08:19)
[2017-10-11] MEDS: FERROUS SULFATE 325 MG TABLET PO SCH (08:22)
[2017-10-11] MEDS: HEPARIN 5,000 UNIT/ML VIAL SQ SCH ×2 (08:22→20:20)
[2017-10-11] MEDS: METHADONE 5 MG TABLET PO SCH ×3 (08:22→20:19)
[2017-10-11] MEDS: GENTAMICIN SULFATE 40 MG, CLINDAMYCIN 300 MG, BACITRACIN 25,000 UNIT in SODIUM CHLORIDE... IRR SCH ×2 (10:37→20:20)
[2017-10-11] MEDS: VANCOMYCIN 1,000 MG in 0.9 % SODIUM CHLORIDE 250 ML IV SCH (10:37)
[2017-10-11 12:42] LABS: Appearance,Urine CLEAR; Bacteria,Urine 0 /hpf (0); Bilirubin,Urine NEG (NEG); Color,Urine YELLOW; Glucose,Urine (UA) NEGATIVE (NEG); Leukocyte Esterase,Urine 25 /uL (NEG); Protein,Urine 30 mg/dL (NEG); Specific Gravity,Urine 1.026 (1.000-1.035); Urine Blood NEG mg/dL (<0.03); Urine RBC 3 /hpf (0-1); Urine Squamous Epithelial Cell < 1 /hpf (0-4); Urine WBC 11 /hpf (0-4); Urobilinogen,Urine NEG (NEG)
--- NOTE | 2017-10-11 12:43 | General Surgery Progress Note ---
Subjective Patient reports: no new complaints, other (Tolerating in bed physical therapy.) Narrative: Note initiated : 10/11/17 at 12:41 pm Service Date, if different from initiated Date: [] Patient: Taz Parra 72 y/o M admitted on 10/09/17 for 3 Open Wounds with r/o of Ostomylitis. Chief Complaint: [] Objective Temp Pulse Resp BP Pulse Ox 98.9 F 72 18 117/69 97 10/11/17 08:00 10/11/17 08:00 10/11/17 08:00 10/11/17 08:00 10/11/17 08:00 AVSS. No changes JEAN. Local wound care is ongoing. Resolvin inflammatory changes. - Additional Data Intake & Output - Last 24 hours: Intake & Output 10/09/17 10/10/17 10/11/17 10/12/17 05:59 05:59 05:59 05:59 Intake Total 500 / 500 1015 / 1015 50 / 50 Output Total 475 / 475 351 / 351 Balance 664 / 664 50 / 50 Weight 136 lb 136 lb 8 oz - Labs 10/11/17 05:00 10/11/17 05:00 Diabetes panel 10/11/17 Range/Units 05:00 Sodium 139 (133-145) mmol/L Potassium 4.8 (3.3-5.1) mmol/L Chloride 104 (96-108) mmol/L Carbon Dioxide 22 (22-30) mmol/L BUN 24 H (8-23) mg/dl Creatinine 1.6 H (0.7-1.2) mg/dl Glucose 80 (70-105) mg/dL Calcium 8.7 (8.6-10.4) mg/dl AST 9 (0-37) U/l ALT 9 (0-40) U/l Alkaline Phosphatase 74 (39-117) U/L Total Protein 6.2 (5.9-8.4) gm/dL Albumin 3.3 (3.2-5.2) gm/dL Triglycerides 305 H (<150) mg/dl Calcium panel 10/11/17 Range/Units 05:00 Calcium 8.7 (8.6-10.4) mg/dl Phosphorus 4.7 H (2.7-4.5) mg/dL Albumin 3.3 (3.2-5.2) gm/dL Pituitary panel 10/11/17 Range/Units 05:00 Sodium 139 (133-145) mmol/L Potassium 4.8 (3.3-5.1) mmol/L Chloride 104 (96-108) mmol/L Carbon Dioxide 22 (22-30) mmol/L BUN 24 H (8-23) mg/dl Creatinine 1.6 H (0.7-1.2) mg/dl Glucose 80 (70-105) mg/dL Calcium 8.7 (8.6-10.4) mg/dl Adrenal panel 10/11/17 Range/Units 05:00 Sodium 139 (133-145) mmol/L Potassium 4.8 (3.3-5.1) mmol/L Chloride 104 (96-108) mmol/L Carbon Dioxide 22 (22-30) mmol/L BUN 24 H (8-23) mg/dl Creatinine 1.6 H (0.7-1.2) mg/dl Glucose 80 (70-105) mg/dL Calcium 8.7 (8.6-10.4) mg/dl Total Bilirubin 0.4 (0.0-1.0) mg/dL AST 9 (0-37) U/l ALT 9 (0-40) U/l Alkaline Phosphatase 74 (39-117) U/L Total Protein 6.2 (5.9-8.4) gm/dL Albumin 3.3 (3.2-5.2) gm/dL Assessment and Plan (1) Sepsis affecting skin Problem details: Evolving SIRS with CSSSI around LEFT foot open wound and spreading proximally. Status: Acute Current Visit: Yes (2) Avulsion of skin Status: Acute Current Visit: No - Time Spent With Patient Total time spent is greater than 50% in coordination of care (as documented) at patient's floor/unit and/or counseling patient: Assessment: Satisfactory progress at this time. Plan: CPT. less than 15 minutes
--- NOTE | 2017-10-11 13:53 | Internal Med Progress Note ---
Medical - PN: Subj Patient information: Note initiated : 10/11/17 at 1:50 pm Service Date, if different from initiated Date: [] Patient: Taz Parra 72 y/o M admitted on 10/09/17 for 3 Open Wounds with r/o of Ostomylitis. Chief Complaint: [] Interval history: Mr. Parra is a 72 year old M with h/o HIV, left toe amputation in july, presents to the ER from the wound clinic for worsening infection on the left toe wound. The patient notes he has been following up in the wound care clinic for over 2 yrs for some wound or the other on the left foot. He had a left 2nd toe amputation in july, post op it seems wound was not healing well, but was being followed by Dr Seth in the wound clinic. The patent notes that for the last week or so there has been increased warmth and redness on the left foot, when noticed by the wound care physician he was advised to come to the ER for further evaluation. The patient denies any pain, any other acute issues he has h/o HIV aids, h/o UTI in the past, enterococcus, vre but sensitive to ampicilin (admitted to [facility] may 03), HIV is well controlled as per pt, undectable viral count, follows with ID physician in [place]. He is not sure of his CD4 count, but notes not been an issue. In the ER he was hemodynamically stable, afebrile, with good BP, labs unremarkable, CT of the leg done, shows cellulitis, possible osteomyelitis. MRI not done due to non availability of communications tech. Given presence of osteomyelitis, pt admitted to the hospital for further management. 09/10 Pt seen examined, no acute overnight issues pt infection / cellulitis much better pt has no new complaints labs stable await MRI, no tech over the weekend on iv abx, ID consult pending . 09/11 Patient seen and examined, no acute overnight events. Today patient reports that his right shoulder has been hurting since that time he has been in the hospital, 3 days, progressively getting worse to a point that he is unable to move it. He thinks that maybe perhaps a medication caused it. The patient's kidney function slightly worsened today. IV fluids started. His vancomycin level is therapeutic. The patient notes in the past he has had some issues with vancomycin and kidney problems. Wound on his lower extremity improving, awaiting MRI of the foot, awaiting infectious disease consult. Pertinent ROS: Denies headache, dizziness Denies chest pain, palpitations Denies cough or shortness of breath Denies abdominal pain, nausea or vomiting. - Constitutional Vitals: Vital Signs Temp Pulse Resp BP Pulse Ox 98.3 F 85 18 154/83 95 10/11/17 12:30 10/11/17 12:30 10/11/17 12:30 10/11/17 12:30 10/11/17 12:30 Period Temp Pulse Resp BP Sys/Celis Pulse Ox Last 24 Hr 97.4 F-98.9 F 66-85 16-20 112-154/53-83 95-98 Intake and Output 10/10/17 10/11/17 10/11/17 21:59 05:59 13:59 Intake Total 590 / 590 125 / 125 50 / 50 Output Total 201 / 201 150 / 150 Balance 389 / 389 -25 / -25 50 / 50 Weight 136 lb 8 oz Intake & Output: Intake & Output 10/10/17 10/11/17 10/11/17 21:59 05:59 13:59 Intake Total 590 / 590 125 / 125 50 / 50 Output Total 201 / 201 150 / 150 Balance 389 / 389 -25 / -25 50 / 50 Weight 136 lb 8 oz Intake: IV 50 / 50 50 / 50 50 / 50 Zosyn 3.375 gm In Dextrose 5% 50 / 50 50 / 50 50 / 50 in Water 50 ml @ 100 mls/hr IV Q6H [facility] Rx#:[id number] Oral 540 / 540 75 / 75 Output: Void Amount 200 / 200 150 / 150 # of times incontinent of urine Exam: Constitutional; Afebrile, cooperative, alert, not in distress. Respiratory system: Air Entry equal on both sides, No crackles or wheezing, no rhonchi. CVS- Rate rhythm regular, S1,S2 heard, no gallop, no rub. 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 Ruight shoulder, mild swelling, tender to deep palpation. Medical - PN: Obj Da - Labs CBC & Chem 7: 10/11/17 05:00 10/11/17 05:00 Labs: Abnormal Lab Results 10/11/17 10/11/17 10/11/17 11:35 11:35 05:00 RBC Hgb Hct RDW BUN 24 H Creatinine 1.6 H Phosphorus 4.7 H C-Reactive Protein Triglycerides 305 H Urine Protein 30 A Ur Leukocyte Esterase 25 A Urine RBC 3 H Urine WBC 11 H U [place] Prot/Creat Ratio 0.24 H 10/11/17 10/10/17 10/10/17 05:00 04:10 04:10 RBC 3.42 L 3.60 L Hgb 10.9 L 11.3 L Hct 33.1 L 34.9 L RDW 15.5 H 14.9 H BUN Creatinine Phosphorus C-Reactive Protein Triglycerides 372 H Urine Protein Ur Leukocyte Esterase Urine RBC Urine WBC U [place] Prot/Creat Ratio 10/09/17 10/09/17 10/09/17 20:55 16:13 16:13 RBC 4.07 L Hgb 12.8 L Hct 39.4 L RDW 15.4 H BUN Creatinine Phosphorus C-Reactive Protein 3.8 H Triglycerides Urine Protein Ur Leukocyte Esterase Urine RBC 2 H Urine WBC U [place] Prot/Creat Ratio Meds: Medications Acetaminophen (Tylenol) 650 mg PO Q6HP PRN PRN Reason: PAIN/FEVER > 101 Last Admin: 10/10/17 16:22 Dose: 650 mg Albuterol Sulfate (Ventolin) 2.5 mg NEB Q2HP PRN PRN Reason: Shortness Of Breath Aspirin (Aspirin) 81 mg PO [facility] Last Admin: 10/10/17 21:31 Dose: 81 mg Clonidine HCl (Catapres) 0.1 mg PO Q2HP PRN PRN Reason: Hypertension Ferrous Sulfate (Ferrous Sulfate) 325 mg PO [facility] Last Admin: 10/11/17 08:22 Dose: Not Given Heparin Sodium (Porcine) (Heparin) 5,000 unit SQ Q12 [facility] Last Admin: 10/11/17 08:22 Dose: 5,000 unit Piperacillin Sod/Tazobactam (Sod 3.375 gm/ Dextrose) 50 mls @ 100 mls/hr IV Q6H [facility] Last Admin: 10/11/17 12:45 Dose: 100 mls/hr Gentamicin Sulfate 40 mg/Clindamycin Phosphate 300 mg/Bacitracin 25,000 unit/ Sodium Chloride 503 mls @ 0 mls/hr IRR BID [facility] Last Admin: 10/11/17 10:37 Dose: 1 mls/hr Vancomycin HCl 1,000 mg/ (Sodium Chloride) 250 mls @ 250 mls/hr IV DAILY [facility] Last Admin: 10/11/17 10:37 Dose: 250 mls/hr Sodium Chloride (Sodium Chloride 0.9%) 1,000 mls @ 150 mls/hr IV .Q6H40M [facility] Stop: 10/11/17 14:09 Last Admin: 10/11/17 08:18 Dose: 150 mls/hr Methadone HCl (Dolophine) 30 mg PO TID [facility] Last Admin: 10/11/17 08:22 Dose: 30 mg Metoprolol Succinate (Toprol Xl) 100 mg PO DAILY@1500 [facility] Last Admin: 10/10/17 15:54 Dose: 100 mg Naloxone HCl (Narcan) 0.1 mg IV Q2MIN PRN PRN Reason: Opiate Reversal Omeprazole (Prilosec) 20 mg PO ACB [facility] Last Admin: 10/11/17 08:19 Dose: 20 mg Ondansetron HCl (Zofran) 4 mg IV Q6HP PRN PRN Reason: Nausea And Vomiting Oxycodone HCl (Roxicodone) 5 mg PO Q4HP PRN PRN Reason: PAIN LEVEL 3-6 Last Admin: 10/11/17 13:07 Dose: 5 mg Abacavir Sulfate/Lamivudine 600 Mg/300 Mg Tablet 1 dose PO DAILY@1500 [facility] Last Admin: 10/10/17 15:50 Dose: 1 dose Rilpivirine Hcl [ Edurant] 25 Mg Tablet 1 dose PO DAILY@1500 [facility] Last Admin: 10/10/17 15:51 Dose: 1 dose Trospium Chloride [ Trospium Chloride Er ] 60 Mg Capsule 1 dose PO DAILY@1500 [facility] Last Admin: 10/10/17 16:00 Dose: Not Given Memantine Hcl/Donepezil Hcl [ Namzaric 28 Mg-10 Mg ] Capsule 1 dose PO [facility] Last Admin: 10/10/17 21:33 Dose: 1 dose Pregabalin (Lyrica) 75 mg PO [facility] Last Admin: 10/10/17 21:33 Dose: 75 mg Senna (Senokot) 1 tab PO BIDP PRN PRN Reason: Constipation Sodium Chloride (Saline Flush) 10 ml IV Q8 [facility] Last Admin: 10/11/17 05:33 Dose: 10 ml Tamsulosin HCl (Flomax) 0.4 mg PO DAILY@1500 [facility] Last Admin: 10/10/17 15:54 Dose: 0.4 mg Vancomycin HCl (Vancomycin Per Pharmacy) 1 order IV UD [facility] Medical - PN: A/P - Time Spent With Patient Total time spent is greater than 50% in coordination of care (as documented) at patient's floor/unit and/or counseling patient: - Narrative A/P Narrative: A/P Acute osteomyelitis Acute cellulitis HIV AIDS Urinary Incontinence HTN Chronic pain DJD Dementia Right shoulder pain Acute kidney injury Plan continue home meds for HIV and other chr meds continue iv vancomycin and zosyn, vanco level therapeutic ID consult awaited MRI pending, no tech available place picc if MRI confirms osteomyelitis IV saliuen 1 L to be givne CT shoulder to further evaluate swelling and pain, if neg consider steroid injection DVT hep sq Diet regular Full code.
[2017-10-11] MEDS: TAMSULOSIN 0.4 MG CAPSULE PO SCH (15:36)
[2017-10-11] MEDS: METOPROLOL SUCCINATE 50 MG TAB.XL.24H PO SCH (15:36)
[2017-10-11] MEDS: ABACAVIR SULFATE PO SCH (15:37)
[2017-10-11] MEDS: TROSPIUM CHLORIDE 60 MG PO SCH (15:37)
[2017-10-11] MEDS: RILPIVIRINE HCL 25 MG PO SCH (15:37)
[2017-10-11] MEDS: LAMIVUDINE PO SCH (15:37)
[2017-10-11] MEDS ORDERED: LIDOCAINE 1% 20 ML VIAL SQ ONE (17:30)
--- NOTE | 2017-10-11 17:47 | XRay Report ---
CLINICAL INFORMATION: Right shoulder pain with effusion evaluate for septic arthritis TECHNIQUE: The procedure and risks collecting the possibility of bleeding and infection were explained to the patient. He understood and wished to proceed. With the patient supine on fluoroscopy table, the skin overlying inferior glenohumeral joint was fluoroscopically marked, prepped and locally anesthetized with a 25-gauge spinal needle using 1% lidocaine to the level of the inferior humeral head. An 18-gauge spinal needle was then placed under fluoroscopic guidance into the inferior periarticular region and approximately 8 cc of synovitis tinged joint fluid was aspirated. It appeared to be apurulent. It was sent in a sterile specimen cup for requested studies. No apparent complication. Patient tolerated procedure well. IMPRESSION: Successful fluoroscopic guided aspiration of right glenohumeral joint yielding 8 cc of sanguinous tinged, but otherwise normal appearing, synovial fluid. No evidence of purulence. Fluid was sent for requested studies to pathology Interpreted and Authenticated by: Harrison Barbosa 10/11/17
--- NOTE | 2017-10-11 18:09 | Cat Scan Report ---
CLINICAL INFORMATION: Pain and swelling HIV positivity TECHNIQUE: 2.625 mm helical slices were obtained of the right shoulder, following reconstruction, 2.5 mm oblique sagittal coronal axial images were processed and reviewed at bone and soft tissue windows. COMPARISON: None. FINDINGS: A large effusion in the glenohumeral joint distends all synovial recesses. No evidence of periarticular erosion, but there is severe glenohumeral degeneration featuring severe joint space narrowing, large marginal osteophytes and subchondral erosions. A nondisplaced old fracture through the posterior superior osseous glenoid is noted. The coracoacromial clavicular joint shows moderate degeneration. No evidence of AC inflammation. Periarticular muscle and fascial planes are otherwise normal IMPRESSION: Large glenohumeral effusion distending all synovial recesses. 3-4 small loose bodies are present in the synovial fluid ranging up to 11 mm. This could indicate infectious or inflammatory arthropathy. Follow-up fluoroscopic guided aspiration will be performed for synovial fluid analysis. Severe glenohumeral degenerative change and moderate acromioclavicular degenerative change Minimally displaced old ununited fracture - posterior superior osseous glenoid Interpreted and Authenticated by: Harrison Barbosa 10/11/17
[2017-10-11] MEDS: PREGABALIN 75 MG CAPSULE PO SCH (20:19)
[2017-10-11] MEDS: ASPIRIN 81 MG TAB.CHEW PO SCH (20:20)
[2017-10-11] MEDS: MEMANTINE HCL PO SCH (20:21)
[2017-10-11] MEDS: DONEPEZIL HCL PO SCH (20:21)
[2017-10-11] MEDS: HYDROmorphone 2 MG/ML VIAL IV PRN (23:05)
[2017-10-11] MEDS ORDERED: HYDROmorphone 2 MG/ML VIAL ONE (23:07)
[2017-10-12] MEDS: oxyCODONE HCL 5 MG TABLET PO PRN ×2 (00:20→05:01)
[2017-10-12] MEDS: PIPERACILLIN SODIUM/TAZOBACTAM 3.375 GM in DEXTROSE 5% IN WATER 50 ML IV SCH ×5 (00:20→23:22)
[2017-10-12] MEDS ORDERED: HYDROmorphone 2 MG/ML VIAL ONE (02:53)
[2017-10-12 05:35] LABS: Basophils # (Auto) 0 K/mcL (0.0-0.3); Basophils % (Auto) 0.4 % (0.0-2.0); Eosinophils # (Auto) 0.4 K/mcL (0.0-0.7); Eosinophils % (Auto) 4.3 % (0.0-7.0); Granulocytes % (Auto) 64.3 % (38.0-78.0); Lymphocytes # (Auto) 1.6 K/mcL (1.5-4.8); Lymphocytes % (Auto) 19.1 % (15.5-49.0); Mean Cell Volume 96.5 fL (80.0-100.0); Mean Corpuscular HGB Conc 32.3 g/dL (31.0-36.0); Mean Corpuscular Hemoglobin 31.2 pg (26.0-34.0); Monocytes % (Auto) 11.9 % (1.0-12.0); Platelet Count 268 K/mcL (140-440); RBC 3.69 M/mcL (4.50-5.90); Red Cell Distribution Width 15.2 % (11.5-14.5)
[2017-10-12 06:07] LABS: ALT/SGPT 9 U/l (0-40); Albumin 3.5 gm/dL (3.2-5.2); Albumin/Globulin Ratio 1.1 (1.0-2.3); Alkaline Phosphatase 80 U/L (39-117); Bilirubin,Direct < 0.2 mg/dL (0.0-0.3); Blood Urea Nitrogen 20 mg/dl (8-23); Gamma Glutamyl Transpeptidase 46 U/L (8-61); Uric Acid 4.7 mg/dL (2.5-8.0)
[2017-10-12] MEDS: 0.9 % SODIUM CHLORIDE 10 ML SYRINGE IV SCH ×3 (06:07→23:26)
[2017-10-12] MEDS: OMEPRAZOLE 20 MG CAPSULE PO SCH (07:18)
[2017-10-12] MEDS: HYDROmorphone 2 MG/ML VIAL IV PRN ×2 (07:45→15:55)
[2017-10-12] MEDS: HEPARIN 5,000 UNIT/ML VIAL SQ SCH ×2 (08:29→23:14)
[2017-10-12] MEDS: FERROUS SULFATE 325 MG TABLET PO SCH (08:29)
[2017-10-12] MEDS: METHADONE 5 MG TABLET PO SCH ×3 (08:29→23:11)
[2017-10-12] MEDS: GENTAMICIN SULFATE 40 MG, CLINDAMYCIN 300 MG, BACITRACIN 25,000 UNIT in SODIUM CHLORIDE... IRR SCH ×3 (12:22→23:21)
--- NOTE | 2017-10-12 14:44 | Consultation ---
DATE OF CONSULTATION: 10/12/2017 REASON FOR CONSULTATION: rule out right shoulder septic arthritis. HISTORY OF PRESENT ILLNESS: Orthopedics was consulted by Dr. Wing Reid evaluation of increasing right shoulder pain and rule out septic arthritis. Patient is a 72-year-old male with HIV/AIDs who was admitted 09 October 2017 for left foot cellulitis and to rule out osteomyelitis. He had a 2nd toe amputation in July by Dr. Almanzar with post op wound healing issues and has been followed by wound care. He has been on zosyn and vancomycin since admit for his foot cellulitis with MRI being completed today. Pending results may require PICC line. With regards to his shoulder- has had progressive pain and decrease in motion. He is to the point that he is unable to move the shoulder at all secondary to pain. He had a joint aspirate but reported to be clotted by pathology and unable to complete cell count but was negative for crystals. Dr. Reid reported that initially he was able to take his shoulder through a ROM but now is unable to move it at all secondary to pain. Patient denies any prior episodes of such pain or gout affecting the joint. PAST MEDICAL HISTORY: HIV/AIDS, renal insufficiency, prior osteomyelitis lower extremity, dementia, GERD, hyperlipidemia, hypogonadism, incontinence, idiopathic hypertension, DJD affecting multiple joints. PAST SURGICAL HISTORY: Significant for cleft palate, right hand joint fusion, hemorrhoidectomy, left total hip, right total knee replacement, bilateral club foot surgery, inguinal hernia repair in addition to HPI ALLERGIES: 1. CODEINE. 2. FENTANYL. MEDICATIONS: 1. Aspirin 81 mg. 2. Plavix- no cardiac history per pt and no prior DVT. 3. Iron. 4. Memantine ER. 5. Methadone. 6. Metoprolol. 7. Pregabalin. 8. Sennoside. 9. Abacavir 600 mg - lamivudine 300 mg. Social Hx: non tobacco user, wheelchair dependent, resides with partner at home Family Hx: no history of coagulopathy REVIEW OF SYSTEMS: He has no shortness of breath or chest pain, no recent illnesses, no cough. PHYSICAL EXAMINATION: GENERAL: The patient is resting comfortably in nonacute distress in supine position, easily arousable. EXTREMITIES: Right shoulder: skin intact with obvious swelling through anterior shoulder. Positive tenderness to palpation throughout the anterior shoulder including posterior shoulder as well. No skin erythema notable. Pain with any motion with ER maximum 10 degrees with 0 degrees abduction and position of comfort being IR to belly. No abduction or forward flexion. His sensation is intact distally and has a warm and well-perfused hand LABS: CRP on admission 3.8. WBC Nl with todays being 8.2 with very slight shift this AM. INR 1.2 Joint aspirate 11 October 2017: 8ml of serious fluid with minimal bld, no purulence. Per Lab- clotted unable to perform cell count. Negative crystals. Gram stain positive IMAGING: CT scan of his right shoulder demonstrated a joint effusion, primarily in the axillary and posteriorly. Significant arthritic findings with osteophytosis, as well as subchondral cyst, loose bodies within the shoulder joint itself. ASSESSMENT AND PLAN: This is a 72-year-old male with past medical history of HIV/AIDS admitted for cellulitis/osteomyelitis with concerning clinic exam of the right shoulder. However, is underlying arthritis could contribute to the pain as well as a non infectious inflammatory process such as gout. However, no crystals seen on aspirate. Joint fluid does not clot in my experience. Discussed this with the pathologist at the lab and she assured me that it indeed had clotted. It was non purulent in appearance. They are off site so I did not visualize the fluid. The infection labs are not overly concerning. However, given his underlying diagnosis and immunocompromised state, I wish to repeat the joint aspirate including cultures/fungals. Will re visit treatment options upon completion. UPDATE: repeat aspirate: almost 12K with 95% neutrophils. I think given the overall clinical exam, immunocompromised nature of the patient, negative crystals that doing an irrigation and debridement of the shoulder is very reasonable. Discussed the options with the patient and his partner at home who agree with proceeding with surgery. Discussed the risks and may require multiple washouts as well. Discussed the risks of not treating septic shoulders with an I&D leads to cartilage damage which he already has very significant right shoulder arthritis. They both understand the risks and treatment options and wish to proceed. [id number] Business Services Clerk: CC: ~ Portions of this chart may have been created with [employer] voice recognition software. Occasional wrong-word or sound-like substitutions may have occurred due to the inherent limitations of voice recognition software. Please read the chart carefully and recognize, using context, where the substitutions have occurred. CLINTON:miakol Job ID: [id number] Doc ID: [id number] Luke LINDQUIST
--- NOTE | 2017-10-12 14:51 | Internal Medicine Consult Note ---
Medical - CN: HPI - Data of Consult Consult date: 10/12/17 Requesting Physician: Jeanette Dimas Primary Care Provider: Jimy Platt Family Provider: Jimy Platt - Consult Narrative Reason for consult: left foot SSTI with concerns for Osteomyelitis History of present illness: Mr. 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 He noted for the last week there has been redness over his left foot accompanied with warmth. Denied any pain, fever, chills, local trauma. His VS in ER were normal, with temp of 98.5F, BP 195/89, O2 sats 98% on room air. CT of the Left LE on same day showed moderate erosion of the second metatarsal head with overlying cellulitis, with concerns for osteomyelitis, and moderate diffuse cellulitis. MRI not done due to non-availability of electrical laboratory technician. Pt was started on IV Vanc and IV Zosyn per admitting team. No wound cultures were sent. Hospital course had been unremarkable except for mild elev in Cr to 1.6 (CrCl 36 ). WBC have remained around 7.5, with no fever. Pt reported pain in his right shoulder for last 2 days or so, with worsening with movement. A tap was attempted but was bloody, but didnot show any crystals. Pt also had a brief elevation in Cr to 1.6 yesterday, following which IV Vanc was stopped. Today at time of visit: Pt was lying in bed. He endorsed pain in his right shoulder, rated it 9/10. For the left foot pain, he reported 5/10 pain, much better than when he came initially. Denied any fever, chills, n/v/ diarrhea. Patient denies any other joint pain, shortness of breath, rash, headache, difficulty swallowing, oral sores. CC: Jeanette Dimas Medical - CN: PMH Pertinent family history: mother had a malignant neoplasm and father had a [place] Social history: Sexual history: Patient has been sexually active in the past with multiple male partners. Last few years he has been sexually active with one male partner, who is also HIV positive, and on treatment. Denies smoking, alcohol, illicit drugs. Medical - CN: Meds Home Medications Medication Instructions Recorded Confirmed Type sennosides 8.6 mg capsule 8.6 mg PO BID PRN cap 12/04/14 10/09/17 History tamsulosin 0.4 mg capsule 0.4 mg PO QDAY cap 12/04/14 10/09/17 History ferrous sulfate 325 mg (65 mg 325 mg PO QDAY 05/20/16 10/09/17 History iron) tablet memantine ER 28 mg-donepezil 10 mg 1 cap PO QDAY 05/20/16 10/09/17 History capsule sprinkle,ext.release 24 hr aspirin 81 mg tablet,delayed 81 mg PO QDAY 08/20/16 10/09/17 History release methadone 10 mg tablet 30 mg PO TID tab 08/20/16 10/10/17 History rilpivirine 25 mg tablet 25 mg PO QDAY 08/20/16 10/09/17 History abacavir 600 mg-lamivudine 300 mg 1 tab PO QDAY 01/20/17 10/09/17 History tablet trospium ER 60 mg capsule,extended 60 mg PO QAM #30 cap 01/21/17 10/09/17 Rx release 24 hr Clopidogrel Bisulfate [Plavix] 75 mg PO DAILY 10/10/17 10/10/17 History Metoprolol Succinate [Toprol Xl] 100 mg PO DAILY 10/10/17 10/10/17 History Pantoprazole Sodium [Protonix] 40 mg PO DAILY 10/10/17 10/10/17 History Pregabalin [Lyrica] 75 mg PO BID 10/10/17 10/10/17 History Allergies Allergy/AdvReac Type Severity Reaction Status Date / Time codeine AdvReac Mild Itching Verified 06/12/17 14:16 fentanyl AdvReac Unknown unknown Verified 10/09/17 21:00 Medical - CN: Exam - Constitutional Vitals: Temp Pulse Resp BP Pulse Ox 99 F 75 18 187/92 98 10/12/17 11:17 10/12/17 05:33 10/12/17 11:17 10/12/17 11:17 10/12/17 11:17 General appearance: thin - ENT ENT exam: Present: mucous membranes moist - Neck Neck exam: Present: normal inspection. Absent: lymphadenopathy - Respiratory Respiratory exam: Present: CTAB - Cardiovascular Cardiovascular exam: Present: +S1, +S2 - GI/Abdominal GI/Abdominal exam: Present: normal bowel sounds, soft. Absent: tenderness - Extremities Exam Additional comments: Left foot was wrapped in a bandage. On unwrapping the left foot showed deformity of toes, with superficial shallow ulcerations over the toes and dorsum of the foot, with resolving redness, no purulent drainage, minimally tender. 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] Medical - CN: Result - Labs CBC & Chem 7: 10/12/17 04:15 10/12/17 04:15 Labs: Short CBC 10/12/17 Range/Units 04:15 WBC 8.2 (4.5-11.0) K/mcL Hgb 11.5 L (13.5-16.5) g/dL Hct 35.6 L (41.0-55.0) % Plt Count 268 (140-440) K/mcL BMP 10/12/17 04:15 Sodium 139 Potassium 4.3 Chloride 103 Carbon Dioxide 20 L BUN 20 Creatinine 1.3 H Glucose 94 Calcium 9.0 Liver Function 10/12/17 Range/Units 04:15 Total Bilirubin 0.5 (0.0-1.0) mg/dL Direct Bilirubin < 0.2 (0.0-0.3) mg/dL GGT 46 (8-61) U/L AST 10 (0-37) U/l ALT 9 (0-40) U/l Alkaline Phosphatase 80 (39-117) U/L Albumin 3.5 (3.2-5.2) gm/dL Medical - CN: A/P - Narrative A/P Narrative: 72-year-old man with HIV [on Abacavir/Lamivudine and Rilpivirine], seems well controlled according to patient [records need to be obtained from the HIV doctor in [place]], with chronic left foot ulcers admitted with: #1 cellulitis of the left foot; MRI report s/o 2nd toe osteomyelitis - no Cx data available so far #No sepsis # Rt shoulder arthritis: s/p I&D today, with op findings of :"non purulence, appeared somewhat calcification in the soft tissues consistant with gout/ pseudogout, severe GH joint arthritis, RTC tendonitis with significant intra substance tearing, bicep autoruptured, degen labrum" Recommendations: -will request a bone biopsy to get a microbiological diagnosis, so as to decide choice and dose of antibiotics - hold off antibiotics for now to increase the yield of bone Bx. If pt spikes a fever or becomes hemodynamically unstable, consider sending blood Cx and starting IV Vanc and IV Zosyn. -Given creatinine has stabilized around normal, continue HAART with Abacavir/ Lamivudine and Rilpiverine. Will plan to get more data from his HIV doctor in [place]. Patient agreeable to follow-up with ID clinic at [facility] after discharge for his HIV care Will follow Rolly Elmore MD Infectious disease
[2017-10-12] MEDS ORDERED: LIDOCAINE 1% 20 ML VIAL SQ ONE (15:07)
--- NOTE | 2017-10-12 15:24 | XRay Report ---
CLINICAL INFORMATION: HIV-positive right shoulder pain with effusion. Evaluate for septic arthritis TECHNIQUE: Procedure risks including possibly bleeding and infection were explained the patient. He understood and wished to proceed. With the patient supine on fluoroscopy table, the skin overlying the inferior glenohumeral joint was marked, prepped and locally anesthetized 1% lidocaine using a 25-gauge spinal needle. An 18-gauge spinal was then placed under fluoroscopic guidance and the axillary recess and approximately five cc of nonpurulent synovial fluid was aspirated. Sample was sent to pathology for requested studies. Needle was removed. No apparent complication IMPRESSION: Successful fluoroscopic guided aspiration of the right glenohumeral joint yielding five cc of nonpurulent synovial fluid.. Interpreted and Authenticated by: Harrison Barbosa 10/12/17
--- NOTE | 2017-10-12 16:16 | Internal Med Progress Note ---
Medical - PN: Subj Patient information: Note initiated : 10/12/17 at 4:15 pm Service Date, if different from initiated Date: [] Patient: Taz Parra 72 y/o M admitted on 10/09/17 for 3 Open Wounds with r/o of Ostomylitis. Chief Complaint: [] Interval history: Mr. Parra is a 72 year old M with h/o HIV, left toe amputation in july, presents to the ER from the wound clinic for worsening infection on the left toe wound. The patient notes he has been following up in the wound care clinic for over 2 yrs for some wound or the other on the left foot. He had a left 2nd toe amputation in july, post op it seems wound was not healing well, but was being followed by Dr Seth in the wound clinic. The patent notes that for the last week or so there has been increased warmth and redness on the left foot, when noticed by the wound care physician he was advised to come to the ER for further evaluation. The patient denies any pain, any other acute issues he has h/o HIV aids, h/o UTI in the past, enterococcus, vre but sensitive to ampicilin (admitted to [facility] may 03), HIV is well controlled as per pt, undectable viral count, follows with ID physician in [place]. He is not sure of his CD4 count, but notes not been an issue. In the ER he was hemodynamically stable, afebrile, with good BP, labs unremarkable, CT of the leg done, shows cellulitis, possible osteomyelitis. MRI not done due to non availability of pharmacy tech customer service. Given presence of osteomyelitis, pt admitted to the hospital for further management. 09/10 Pt seen examined, no acute overnight issues pt infection / cellulitis much better pt has no new complaints labs stable await MRI, no tech over the weekend on iv abx, ID consult pending . 09/11 Patient seen and examined, no acute overnight events. Today patient reports that his right shoulder has been hurting since that time he has been in the hospital, 3 days, progressively getting worse to a point that he is unable to move it. He thinks that maybe perhaps a medication caused it. The patient's kidney function slightly worsened today. IV fluids started. His vancomycin level is therapeutic. The patient notes in the past he has had some issues with vancomycin and kidney problems. Wound on his lower extremity improving, awaiting MRI of the foot, awaiting infectious disease consult. 09/12 Patient seen and examined, still has significant right shoulder pain, swelling in his right shoulder has worsened compared to yesterday. We had a CT scan of the shoulder done which showed effusion, we aspirated the shoulder joint, she was inflammatory cells on the Gram stain but no organism, no crystals. The patient cell count was not done because the sample clotted?. Orthopedics was consulted, repeat cell count ordered repeat sample to be sent. If sample suggestive of an infection patient will get surgical drainage. Patient denies any other acute complaints or concerns Pertinent ROS: Denies headache, dizziness Denies chest pain, palpitations Denies cough or shortness of breath Denies abdominal pain, nausea or vomiting. - Constitutional Vitals: Vital Signs Temp Pulse Resp BP Pulse Ox 99 F 75 18 134/77 96 10/12/17 15:59 10/12/17 05:33 10/12/17 15:59 10/12/17 15:59 10/12/17 15:59 Period Temp Pulse Resp BP Sys/Celis Pulse Ox Last 24 Hr 98.5 F-99.1 F 74-86 14-18 134-187/75-92 93-98 Intake and Output 10/12/17 10/12/17 10/12/17 05:59 13:59 21:59 Intake Total 198 / 198 50 / 50 800 / 800 Output Total 201 / 201 2 / 2 Balance -3 / -3 50 / 50 798 / 798 Intake & Output: Intake & Output 10/12/17 10/12/17 10/12/17 05:59 13:59 21:59 Intake Total 198 / 198 50 / 50 800 / 800 Output Total 201 / 201 2 / 2 Balance -3 / -3 50 / 50 798 / 798 Intake: IV 98 / 98 50 / 50 Zosyn 3.375 gm In Dextrose 5% 98 / 98 50 / 50 in Water 50 ml @ 100 mls/hr IV Q6H [facility] Rx#:[id number] Oral 100 / 100 800 / 800 Output: Void Amount 200 / 200 # of times incontinent of urine 1 / 1 2 / 2 Other: Stool Size Moderate Stool Color Brown Green Black Stool Consistency Soft Loose # Bowel Movements 1 Exam: Constitutional; Afebrile, cooperative, alert, not in distress. Eyes- No icterus, , No periorbital swelling Ears- Ext ear normal, hearing normal to conversation. Neck- Midline trachea, supple Respiratory system: Air Entry equal on both sides, No crackles or wheezing, no rhonchi. CVS- Rate rhythm regular, S1,S2 heard, no gallop, no rub. Abdomen- Soft nontender abdomen, no organomegaly, no tenderness, no guarding or rigidity, [employer]GE [employer] TE[employer]ER- AOOx3, moving all extremities, no gross focal deficit noted. Right shoulder- painful, distended veins on top, effusion clearly obvious. Medical - PN: Obj Da - Labs CBC & Chem 7: 10/12/17 04:15 10/12/17 04:15 Labs: Abnormal Lab Results 10/12/17 10/12/17 10/11/17 04:15 04:15 11:35 RBC 3.69 L Hgb 11.5 L Hct 35.6 L RDW 15.2 H [place] # (Auto) 1.0 H Carbon Dioxide 20 L BUN Creatinine 1.3 H Phosphorus C-Reactive Protein Triglycerides 332 H Urine Protein 30 A Ur Leukocyte Esterase 25 A Urine RBC 3 H Urine WBC 11 H U [place] Prot/Creat Ratio 10/11/17 10/11/17 10/11/17 11:35 05:00 05:00 RBC 3.42 L Hgb 10.9 L Hct 33.1 L RDW 15.5 H [place] # (Auto) Carbon Dioxide BUN 24 H Creatinine 1.6 H Phosphorus 4.7 H C-Reactive Protein Triglycerides 305 H Urine Protein Ur Leukocyte Esterase Urine RBC Urine WBC U [place] Prot/Creat Ratio 0.24 H 10/10/17 10/10/17 10/09/17 04:10 04:10 20:55 RBC 3.60 L Hgb 11.3 L Hct 34.9 L RDW 14.9 H [place] # (Auto) Carbon Dioxide BUN Creatinine Phosphorus C-Reactive Protein Triglycerides 372 H Urine Protein Ur Leukocyte Esterase Urine RBC 2 H Urine WBC U [place] Prot/Creat Ratio 10/09/17 10/09/17 16:13 16:13 RBC 4.07 L Hgb 12.8 L Hct 39.4 L RDW 15.4 H [place] # (Auto) Carbon Dioxide BUN Creatinine Phosphorus C-Reactive Protein 3.8 H Triglycerides Urine Protein Ur Leukocyte Esterase Urine RBC Urine WBC U [place] Prot/Creat Ratio Meds: Medications Acetaminophen (Tylenol) 650 mg PO Q6HP PRN PRN Reason: PAIN/FEVER > 101 Last Admin: 10/10/17 16:22 Dose: 650 mg Albuterol Sulfate (Ventolin) 2.5 mg NEB Q2HP PRN PRN Reason: Shortness Of Breath Aspirin (Aspirin) 81 mg PO HS [facility] Last Admin: 10/11/17 20:20 Dose: 81 mg Clonidine HCl (Catapres) 0.1 mg PO Q2HP PRN PRN Reason: Hypertension Ferrous Sulfate ([facility]errous Sulfate) [facility] [address] [facility] Last Admin: 10/12/17 08:29 Dose: 325 mg Heparin Sodium (Porcine) (Heparin) 5,000 unit SQ Q12 [facility] Last Admin: 10/12/17 08:29 Dose: 5,000 unit Hydromorphone HCl (Dilaudid) 1 mg IV Q4HP PRN PRN Reason: PAIN LEVEL > 6 Last Admin: 10/12/17 15:55 Dose: 1 mg Piperacillin Sod/Tazobactam (Sod 3.375 gm/ Dextrose) 50 mls @ 100 mls/hr IV Q6H [facility] Last Infusion: 10/12/17 13:25 Dose: Infused Gentamicin Sulfate 40 mg/Clindamycin Phosphate 300 mg/Bacitracin 25,000 unit/ Sodium Chloride 503 mls @ 0 mls/hr IRR BID [facility] Last Admin: 10/12/17 12:22 Dose: 1 mls/hr Methadone HCl (Dolophine) 30 mg PO TID [facility] Last Admin: 10/12/17 08:29 Dose: 30 mg Metoprolol Succinate (Toprol Xl) 100 mg PO DAILY@1500 [facility] Last Admin: 10/11/17 15:36 Dose: 100 mg Naloxone HCl (Narcan) 0.1 mg IV Q2MIN PRN PRN Reason: Opiate Reversal Omeprazole (Prilosec) 20 mg PO ACB [facility] Last Admin: 10/12/17 07:18 Dose: 20 mg Ondansetron HCl (Zofran) 4 mg IV Q6HP PRN PRN Reason: Nausea And Vomiting Oxycodone HCl (Roxicodone) 5 mg PO Q4HP PRN PRN Reason: PAIN LEVEL 3-6 Last Admin: 10/12/17 05:01 Dose: 5 mg Abacavir Sulfate/Lamivudine 600 Mg/300 Mg Tablet 1 dose PO DAILY@1500 [facility] Last Admin: 10/11/17 15:37 Dose: 1 dose Rilpivirine Hcl [ Edurant] 25 Mg Tablet 1 dose PO DAILY@1500 [facility] Last Admin: 10/11/17 15:37 Dose: 1 dose Trospium Chloride [ Trospium Chloride Er ] 60 Mg Capsule 1 dose PO DAILY@1500 [facility] Last Admin: 10/11/17 15:37 Dose: Not Given Memantine Hcl/Donepezil Hcl [ Namzaric 28 Mg-10 Mg ] Capsule 1 dose PO HS [facility] Last Admin: 10/11/17 20:21 Dose: 1 dose Pregabalin (Lyrica) 75 mg PO [facility] Last Admin: 10/11/17 20:19 Dose: 75 mg Senna (Senokot) 1 tab PO BIDP PRN PRN Reason: Constipation Sodium Chloride (Saline Flush) 10 ml IV Q8 [facility] Last Admin: 10/12/17 13:41 Dose: Not Given Tamsulosin HCl (Flomax) 0.4 mg PO DAILY@1500 [facility] Last Admin: 10/11/17 15:36 Dose: 0.4 mg Medical - PN: A/P - Time Spent With Patient Total time spent is greater than 50% in coordination of care (as documented) at patient's floor/unit and/or counseling patient: - Narrative A/P Narrative: A/P Acute osteomyelitis Acute cellulitis HIV AIDS Urinary Incontinence HTN Chronic pain DJD Dementia Right shoulder pain Acute kidney injury Plan continue home meds for HIV and other chr meds d/c vanco, given worsening renal function continue zosyn ID consult appreciated, ortho consult appreciated MRI pending, no tech available place picc if MRI confirms osteomyelitis shoulder tap, repeate today await cell count and microbiology DVT hep sq Diet regular Full code.
[2017-10-12] MEDS: METOPROLOL SUCCINATE 50 MG TAB.XL.24H PO SCH (16:23)
[2017-10-12] MEDS: TAMSULOSIN 0.4 MG CAPSULE PO SCH (16:24)
[2017-10-12] MEDS: ABACAVIR SULFATE PO SCH ×2 (16:25)
[2017-10-12] MEDS: LAMIVUDINE PO SCH ×2 (16:25)
[2017-10-12] MEDS: RILPIVIRINE HCL 25 MG PO SCH ×2 (16:26)
[2017-10-12] MEDS: MEMANTINE HCL PO SCH (16:26)
[2017-10-12] MEDS: DONEPEZIL HCL PO SCH (16:26)
[2017-10-12] MEDS: TROSPIUM CHLORIDE 60 MG PO SCH (16:27)
[2017-10-12 17:23] LABS: Appearance,Synovial Fluid CLOUDY; Color,Synovial Fluid RED; Lymphocytes,Synovial Fluid 5 %; Neutrophils,Synovial Fluid 95 % (0-25)
--- NOTE | 2017-10-12 17:52 | Magnetic Resonance Report ---
CLINICAL INFORMATION: Osteomyelitis COMPARISON: Plain films from 11/02/2016 and 06/12/2017. TECHNIQUE: Axial T1-T2 sagittal STIR images were obtained of the foot and ankle FINDINGS: Since plain films, four months prior, a second ray amputation has been performed at the MTP level. There is moderate erosive changes in the second metatarsal head and neck. In addition, increased intramedullary signal is seen throughout the mid and distal diaphysis of the second metatarsal compatible osteomyelitis. There is moderate cellulitis and fasciitis in these adjacent plantar soft tissues. No discrete abscess is appreciated. The marrow signal of the foot and ankle is normal. There is solid fusion of the hindfoot joints including the talonavicular and calcaneocuboid joints. Marked pes planus is noted. Moderate degeneration noted in the ankle mortise. There is diffuse cellulitis lateral fasciitis seen throughout the entire foot and ankle. Tendons and sheaths are grossly normal IMPRESSION: 1. Second ray amputation at the MTP level. The second metatarsal head and neck is moderately eroded and there is increased intramedullary signal throughout the distal one half of the second metatarsal diaphysis. Findings compatible with osteomyelitis. There is moderate phlegmon in the adjacent soft tissues and diffuse cellulitis throughout the entire foot and ankle. 2. Chronic hindfoot fusion changes, either congenital or surgical, as previously seen. There is marked pes planus. Interpreted and Authenticated by: Harrison Barbosa 10/12/17
--- NOTE | 2017-10-12 18:18 | General Surgery Progress Note ---
Subjective Patient reports: other (In pain Right shoulder area. Seen by ALESSANDRA Lowry and awaits irrigation of right shoulder .) Narrative: Note initiated : 10/12/17 at 6:14 pm Service Date, if different from initiated Date: [] Patient: Taz Parra 72 y/o M admitted on 10/09/17 for 3 Open Wounds with r/o of Ostomylitis. Chief Complaint: [] Objective Temp Pulse Resp BP Pulse Ox 99 F 75 18 134/77 96 10/12/17 15:59 10/12/17 05:33 10/12/17 15:59 10/12/17 15:59 10/12/17 15:59 In pain and awaiting surgery for Right shoulder irrigation tonite. Left foot inflammatory changes improved over week end. Dressings changed per Bebe CROSS I have reviewed input from ID, Orthopedics and Hospitalist physicians and lab results and imaging studies. - Additional Data Intake & Output - Last 24 hours: Intake & Output 10/10/17 10/11/17 10/12/17 10/13/17 05:59 05:59 05:59 05:59 Intake Total 500 / 500 1015 / 1015 1803 / 1803 850 / 850 Output Total 475 / 475 351 / 351 602 / 602 2 / 2 Balance 664 / 664 1201 / 1201 848 / 848 Weight 136 lb 136 lb 8 oz 137 lb - Labs 10/12/17 04:15 10/12/17 04:15 Diabetes panel 10/12/17 Range/Units 04:15 Sodium 139 (133-145) mmol/L Potassium 4.3 (3.3-5.1) mmol/L Chloride 103 (96-108) mmol/L Carbon Dioxide 20 L (22-30) mmol/L BUN 20 (8-23) mg/dl Creatinine 1.3 H (0.7-1.2) mg/dl Glucose 94 (70-105) mg/dL Calcium 9.0 (8.6-10.4) mg/dl AST 10 (0-37) U/l ALT 9 (0-40) U/l Alkaline Phosphatase 80 (39-117) U/L Total Protein 6.7 (5.9-8.4) gm/dL Albumin 3.5 (3.2-5.2) gm/dL Triglycerides 332 H (<150) mg/dl Calcium panel 10/12/17 Range/Units 04:15 Calcium 9.0 (8.6-10.4) mg/dl Phosphorus 2.8 (2.7-4.5) mg/dL Albumin 3.5 (3.2-5.2) gm/dL Pituitary panel 10/12/17 Range/Units 04:15 Sodium 139 (133-145) mmol/L Potassium 4.3 (3.3-5.1) mmol/L Chloride 103 (96-108) mmol/L Carbon Dioxide 20 L (22-30) mmol/L BUN 20 (8-23) mg/dl Creatinine 1.3 H (0.7-1.2) mg/dl Glucose 94 (70-105) mg/dL Calcium 9.0 (8.6-10.4) mg/dl Adrenal panel 10/12/17 Range/Units 04:15 Sodium 139 (133-145) mmol/L Potassium 4.3 (3.3-5.1) mmol/L Chloride 103 (96-108) mmol/L Carbon Dioxide 20 L (22-30) mmol/L BUN 20 (8-23) mg/dl Creatinine 1.3 H (0.7-1.2) mg/dl Glucose 94 (70-105) mg/dL Calcium 9.0 (8.6-10.4) mg/dl Total Bilirubin 0.5 (0.0-1.0) mg/dL AST 10 (0-37) U/l ALT 9 (0-40) U/l Alkaline Phosphatase 80 (39-117) U/L Total Protein 6.7 (5.9-8.4) gm/dL Albumin 3.5 (3.2-5.2) gm/dL Assessment and Plan (1) Sepsis affecting skin Problem details: Evolving SIRS with CSSSI around LEFT foot open wound and spreading proximally. Status: Acute Current Visit: Yes (2) Avulsion of skin Status: Acute Current Visit: No - Narrative A/P Narrative: Assessment: ?? Arthritis Right shoulder Etiology unknown at present. Post surgical inflammatory changes of LEFT foot vs osteomyelitis Plan: Await developments and results of studies / procedure pending. Following patient. - Time Spent With Patient Total time spent is greater than 50% in coordination of care (as documented) at patient's floor/unit and/or counseling patient: 15 - 24 minutes
[2017-10-12] MEDS ORDERED: ONDANSETRON 4 MG/2 ML VIAL IV ONE (19:30)
[2017-10-12] MEDS ORDERED: ePHEDrine 50 MG/ML AMPUL IV ONE (19:30)
[2017-10-12] MEDS ORDERED: PROPOFOL 200 MG/20 ML VIAL IV ONE (19:30)
[2017-10-12] MEDS ORDERED: MIDAZOLAM 5 MG/5 ML VIAL IV ONE (19:30)
[2017-10-12] MEDS ORDERED: SUCCINYLCHOLINE 20 MG/ML ML IV ONE (19:30)
[2017-10-12] MEDS ORDERED: DEXAMETHASONE 10 MG/ML VIAL IV ONE (19:30)
[2017-10-12] MEDS ORDERED: LIDOCAINE HCL/PF 100 MG/5 ML SYRINGE IV ONE (19:30)
[2017-10-12] MEDS ORDERED: fentaNYL 100 MCG/2 ML VIAL IV ONE (19:30)
[2017-10-12] MEDS ORDERED: diphenhydrAMINE 50 MG/ML VIAL IV PRN ×2 (20:09→20:58)
[2017-10-12] MEDS ORDERED: PROMETHAZINE 25 MG/ML VIAL IV PRN (20:09)
[2017-10-12] MEDS ORDERED: MEPERIDINE 25 MG/ML SYRINGE IV PRN (20:09)
[2017-10-12] MEDS ORDERED: HYDROmorphone 2 MG/ML VIAL IV PRN ×3 (20:09→20:58)
[2017-10-12] MEDS ORDERED: BENZOCAINE/MENTHOL 1 LOZENGE PO PRN ×2 (20:09→20:58)
[2017-10-12] MEDS ORDERED: ACETAMINOPHEN 1,000 MG/100 ML BOTTLE IV ONE (20:09)
[2017-10-12] MEDS ORDERED: LACTATED RINGERS 250 ML IV PRN ×2 (20:09→20:58)
[2017-10-12] MEDS ORDERED: NALOXONE HCL 0.4 MG/ML VIAL IV PRN ×2 (20:09→20:58)
[2017-10-12] MEDS ORDERED: ONDANSETRON 4 MG/2 ML VIAL IV PRN ×3 (20:09→20:58)
[2017-10-12] MEDS ORDERED: FLUMAZENIL 0.1 MG/ML ML IV PRN (20:09)
[2017-10-12] MEDS ORDERED: IPRATROPIUM/ALBUTEROL 3 ML AMPUL.NEB NEB PRN ×2 (20:09→20:58)
[2017-10-12] MEDS ORDERED: LACTATED RINGERS 1,000 ML IV SCH ×2 (20:15→20:58)
--- NOTE | 2017-10-12 20:23 | Brief Operative Note ---
Date of procedure: 10/12/17 Pre-op diagnosis: Right shoulder septic arthritis Post-op diagnosis: same Procedure: Right shoulder arthroscopic irrigation and debridement Grafts/Implants: No Anesthesia: GETA Findings: non purulence, appeared somewhat calcification in the soft tissues consistant with gout/pseudogout, severe GH joint arthritis, RTC tendonitis with significant intra substance tearing, bicep autoruptured, degen labrum Complications: none Surgeon: Luke Newman Braider Setter: Jose Veliz Estimated blood loss (cc): 1 Tourniquet Time (Minutes): 0 Specimens Removed/Pathology: other (right shoulder aspirate in culture tubes and blood culture tubes) Condition: stable Disposition: PACU
[2017-10-12] MEDS ORDERED: SENNOSIDES 1 TABLET PO PRN (20:58)
[2017-10-12] MEDS ORDERED: cloNIDine HCL 0.1 MG TABLET PO PRN (20:58)
[2017-10-12] MEDS ORDERED: ALBUTEROL SULFATE 2.5 MG/3 ML NEBULIZER NEB PRN (20:58)
--- NOTE | 2017-10-12 21:55 | Orthopedic Consult Note ---
History of Present Illness - HPI Patient information: Note initiated : 10/12/17 at 9:53 pm Service Date, if different from initiated Date: [] Patient: Taz Parra 72 y/o M admitted on 10/09/17 for 3 Open Wounds with r/o of Ostomylitis. Chief Complaint: [] Consult date: 10/12/17 Requesting physician: Jeanette Dimas Medications and Allergies Home Medications Medication Instructions Recorded Confirmed Type sennosides 8.6 mg capsule 8.6 mg PO BID PRN cap 12/04/14 10/09/17 History tamsulosin 0.4 mg capsule 0.4 mg PO QDAY cap 12/04/14 10/09/17 History ferrous sulfate 325 mg (65 mg 325 mg PO QDAY 05/20/16 10/09/17 History iron) tablet memantine ER 28 mg-donepezil 10 mg 1 cap PO QDAY 05/20/16 10/09/17 History capsule sprinkle,ext.release 24 hr aspirin 81 mg tablet,delayed 81 mg PO QDAY 08/20/16 10/09/17 History release methadone 10 mg tablet 30 mg PO TID tab 08/20/16 10/10/17 History rilpivirine 25 mg tablet 25 mg PO QDAY 08/20/16 10/09/17 History abacavir 600 mg-lamivudine 300 mg 1 tab PO QDAY 01/20/17 10/09/17 History tablet trospium ER 60 mg capsule,extended 60 mg PO QAM #30 cap 01/21/17 10/09/17 Rx release 24 hr Clopidogrel Bisulfate [Plavix] 75 mg PO DAILY 10/10/17 10/10/17 History Metoprolol Succinate [Toprol Xl] 100 mg PO DAILY 10/10/17 10/10/17 History Pantoprazole Sodium [Protonix] 40 mg PO DAILY 10/10/17 10/10/17 History Pregabalin [Lyrica] 75 mg PO BID 10/10/17 10/10/17 History Allergies Allergy/AdvReac Type Severity Reaction Status Date / Time codeine AdvReac Mild Itching Verified 06/12/17 14:16 fentanyl AdvReac Unknown unknown Verified 10/09/17 21:00
[2017-10-12] MEDS: PREGABALIN 75 MG CAPSULE PO SCH (23:11)
[2017-10-12] MEDS: ASPIRIN 81 MG TAB.CHEW PO SCH (23:11)
[2017-10-12] MEDS: DONEPEZIL PO SCH (23:21)
[2017-10-12] MEDS: MEMANTINE PO SCH (23:21)
[2017-10-13 05:48] LABS: Basophils # (Auto) 0 K/mcL (0.0-0.3); Basophils % (Auto) 0 % (0.0-2.0); Eosinophils # (Auto) 0 K/mcL (0.0-0.7); Eosinophils % (Auto) 0 % (0.0-7.0); Granulocytes % (Auto) 90.1 % (38.0-78.0); Lymphocytes # (Auto) 0.5 K/mcL (1.5-4.8); Lymphocytes % (Auto) 6.6 % (15.5-49.0); Mean Cell Volume 96.4 fL (80.0-100.0); Mean Corpuscular Hemoglobin 31.8 pg (26.0-34.0); Monocytes # (Auto) 0.2 K/mcL (0.1-0.9); Monocytes % (Auto) 3.3 % (1.0-12.0); Platelet Count 239 K/mcL (140-440); RBC 3.36 M/mcL (4.50-5.90); Red Cell Distribution Width 15.1 % (11.5-14.5)
[2017-10-13] MEDS: PIPERACILLIN SODIUM/TAZOBACTAM 3.375 GM in DEXTROSE 5% IN WATER 50 ML IV SCH ×2 (05:51→12:49)
[2017-10-13] MEDS: 0.9 % SODIUM CHLORIDE 10 ML SYRINGE IV SCH ×2 (05:58→15:09)
[2017-10-13 06:17] LABS: ALT/SGPT 9 U/l (0-40); Albumin 3.2 gm/dL (3.2-5.2); Albumin/Globulin Ratio 0.9 (1.0-2.3); Alkaline Phosphatase 69 U/L (39-117); Bilirubin,Direct < 0.2 mg/dL (0.0-0.3); Blood Urea Nitrogen 14 mg/dl (8-23); Gamma Glutamyl Transpeptidase 48 U/L (8-61); Uric Acid 4.6 mg/dL (2.5-8.0)
[2017-10-13] MEDS: OMEPRAZOLE 20 MG CAPSULE PO SCH (07:16)
--- NOTE | 2017-10-13 08:18 | Operative Note ---
DATE OF OPERATION: 10/12/2017 PREOPERATIVE DIAGNOSIS: Right septic shoulder. POSTOPERATIVE DIAGNOSIS: Questionable septic shoulder. PROCEDURE PERFORMED: Right shoulder irrigation and debridement. SURGEON: Lkue Newman MD PROJECT MANAGER INTERIOR DESIGN: Jose Veliz PA-C ANESTHESIA: General endotracheal anesthesia. IV FLUIDS: Less than 500 mL IV ANTIBIOTICS: 1 gram Ancef. ESTIMATED BLOOD LOSS: Minimal. IMPLANTS: None. PATHOLOGY: Joint fluid aspirate and cultures x3, fungal cultures. FINDINGS: Upon inserting the scope into the joint itself, there was no purulence. There was minimal joint fluid at that time which was likely given the two prior aspirates the joint fluid earlier today. He had severe glenohumeral joint arthritis, bone on bone. He has significant rotator cuff tendinopathy. The footprint did have majority of insertion on it. The subscap had significant tendinopathy as well. The biceps tendon had auto ruptured from the superior glenoid. There were significant degenerative labral findings as expected and there were no free floating loose bodies. These were all well mobilized. Again, there was some soft tissue calcification indicative of pseudogout or gout itself. INDICATION FOR PROCEDURE: The patient is a 72-year-old male with known HIV/AIDS, who has been admitted to the hospital 10/09 for left foot cellulitis with suspicion for osteomyelitis being treated by the wound care service as well as medicine service. They consulted me today for evaluation of progressive right shoulder pain to the point that he is unable to move his shoulder. The joint aspirate initially had clotted which was a little bit unusual with repeat aspirate demonstrating 95% neutrophils with a white count of nearly 12,000. Overall would not find this to be impressive and likely will watch and monitor However, given the underlying immunocompromised position and clinical exam I was very concerned that this could be an underlying infection in the joint. I discussed this with him as well as his partner, with treatment option being to irrigate and debride the shoulder or continue to monitor it from a clinical standpoint. With their input, we elected to proceed with a right shoulder arthroscopic irrigation and debridement. DESCRIPTION OF PROCEDURE: The patient was prepped in the holding area. The site was verified and marked with the patient's input and he was taken back to the operating room where he underwent successful endotracheal anesthesia. He is placed in the beach chair position. His right upper extremity was prepped and draped in the usual sterile fashion with ChloraPrep. Bilateral lower extremities had sequential compression devices placed in the case as well. Surgical time out was performed to verify patient and correct procedure being performed, correct extremity being operated, everyone was in agreement. The shoulder arthroscopy was completed through the standard posterior portal with additional anterior portal made to the rotator interval. This was completed with the above noted findings. At this point, 3 liters of normal saline were irrigated through the shoulder. Shaver was utilized to loosely debride any of the frayed labrum as well as the synovium/capsule itself. No loose bodies were removed as they were all well synovialized. At this point, the arthroscope and arthroscopic instrument was removed from the shoulder. The portals themselves were copiously irrigated and I felt that given the non-concerning appearance of the shoulder itself I closed the portals with suture. The shoulder was then cleaned and dried. Xeroform was placed along with fluffs and Hypafix tape to secure the dressing and placed in a shoulder immobilizer for comfort. The patient was then awoken from anesthesia and transferred to PACU in stable condition. POSTOPERATIVE PLAN: Will continue to be an inpatient. We will monitor the cultures, but my suspicion is low for any growth long-term; for one, the shoulder did not appear to have be significantly infected, and he has been on antibiotics for 3 days prior. Activity as tolerated. CLINTON:amrit Job ID: [id number] Doc ID: [id number] Luke LINDQUIST
[2017-10-13] MEDS: ACETAMINOPHEN 325 MG TABLET PO PRN ×2 (08:55→21:29)
[2017-10-13] MEDS: FERROUS SULFATE 325 MG TABLET PO SCH (08:55)
[2017-10-13] MEDS: METHADONE 5 MG TABLET PO SCH ×3 (08:57→21:28)
[2017-10-13] MEDS: HEPARIN 5,000 UNIT/ML VIAL SQ SCH ×2 (08:58→21:29)
--- NOTE | 2017-10-13 10:05 | Internal Med Progress Note ---
Medical - PN: Subj Patient information: Note initiated : 10/13/17 at 10:02 am Service Date, if different from initiated Date: [] Patient: Taz Parra 72 y/o M admitted on 10/09/17 for 3 Open Wounds with r/o of Ostomylitis. Chief Complaint: [] Interval history: Patient doing well. He underwent emergent right shoulder I&D yesterday. Denies any nausea, vomiting, diarrhea. The pain is much better now, both in shoulders and the feet. Discussed the plan with him to do a bone biopsy to get a diagnosis before deciding the choice of antibiotics. Patient voiced understanding - Constitutional Vitals: Vital Signs Temp Pulse Resp BP Pulse Ox 98.4 F 68 16 147/66 98 10/13/17 08:00 10/13/17 08:00 10/13/17 08:00 10/13/17 08:00 10/13/17 08:00 Period Temp Pulse Resp BP Sys/Celis Pulse Ox Last 24 Hr 97.9 F-99.2 F 68-94 12-19 115-187/60-92 90-100 Intake and Output 10/12/17 10/13/17 10/13/17 21:59 05:59 13:59 Intake Total 800 / 800 200 / 200 Output Total Balance 798 / 798 199 / 199 Weight 138 lb Intake & Output: Intake & Output 10/12/17 10/13/17 10/13/17 21:59 05:59 13:59 Intake Total 800 / 800 200 / 200 Output Total Balance 798 / 798 199 / 199 Weight 138 lb Intake: IV 50 / 50 Zosyn 3.375 gm In Dextrose 5% 50 / 50 in Water 50 ml @ 100 mls/hr IV Q6H [facility] Rx#:[id number] Oral 800 / 800 150 / 150 Output: # of times incontinent of urine / 2 Other: # of times incontinent of 1 Bowels General appearance: average body habitus - Extremities Exam Additional comments: Has 2 ulcerations over the left foot mainly over the dorsum. No signs of purulence, foul odor. Minimal redness and swelling, nontender. Medical - PN: Obj Da - Labs CBC & Chem 7: 10/13/17 04:23 10/13/17 04:23 Labs: Abnormal Lab Results 10/13/17 10/13/17 10/12/17 04:23 04:23 13:25 RBC 3.36 L Hgb 10.7 L Hct 32.4 L RDW 15.1 H Gran % 90.1 H Lymph % (Auto) 6.6 L Lymph # (Auto) 0.5 L [place] # (Auto) Carbon Dioxide 20 L BUN Creatinine Glucose 191 H Phosphorus Albumin/Globulin Ratio 0.9 L Triglycerides 210 H Urine Protein Ur Leukocyte Esterase Urine RBC Urine WBC U [place] Prot/Creat Ratio Synovial Neutrophils 95 H 10/12/17 10/12/17 10/11/17 04:15 04:15 11:35 RBC 3.69 L Hgb 11.5 L Hct 35.6 L RDW 15.2 H Gran % Lymph % (Auto) Lymph # (Auto) [place] # (Auto) 1.0 H Carbon Dioxide 20 L BUN Creatinine 1.3 H Glucose Phosphorus Albumin/Globulin Ratio Triglycerides 332 H Urine Protein 30 A Ur Leukocyte Esterase 25 A Urine RBC 3 H Urine WBC 11 H U [place] Prot/Creat Ratio Synovial Neutrophils 10/11/17 10/11/17 10/11/17 11:35 05:00 05:00 RBC 3.42 L Hgb 10.9 L Hct 33.1 L RDW 15.5 H Gran % Lymph % (Auto) Lymph # (Auto) [place] # (Auto) Carbon Dioxide BUN 24 H Creatinine 1.6 H Glucose Phosphorus 4.7 H Albumin/Globulin Ratio Triglycerides 305 H Urine Protein Ur Leukocyte Esterase Urine RBC Urine WBC U [place] Prot/Creat Ratio 0.24 H Synovial Neutrophils Meds: Medications Acetaminophen (Tylenol) 650 mg PO Q6HP PRN PRN Reason: PAIN/FEVER > 101 Last Admin: 10/13/17 08:55 Dose: 650 mg Albuterol Sulfate (Ventolin) 2.5 mg NEB Q2HP PRN PRN Reason: Shortness Of Breath Aspirin (Aspirin) 81 mg PO [facility] Last Admin: 10/12/17 23:11 Dose: 81 mg Clonidine HCl (Catapres) 0.1 mg PO Q2HP PRN PRN Reason: Hypertension Ferrous Sulfate (Ferrous Sulfate) 325 mg PO [facility] Last Admin: 10/13/17 08:55 Dose: 325 mg Heparin Sodium (Porcine) (Heparin) 5,000 unit SQ Q12 [facility] Last Admin: 10/13/17 08:58 Dose: 5,000 unit Hydromorphone HCl (Dilaudid) 1 mg IV Q4HP PRN PRN Reason: PAIN LEVEL > 6 Gentamicin Sulfate 40 mg/Clindamycin Phosphate 300 mg/Bacitracin 25,000 unit/ Sodium Chloride 503 mls @ 0 mls/hr IRR BID [facility] Last Admin: 10/12/17 23:21 Dose: 1 mls/hr Piperacillin Sod/Tazobactam (Sod 3.375 gm/ Dextrose) 50 mls @ 100 mls/hr IV Q6H [facility] Last Admin: 10/13/17 05:51 Dose: 100 mls/hr Methadone HCl (Dolophine) 30 mg PO TID [facility] Last Admin: 10/13/17 08:57 Dose: 30 mg Metoprolol Succinate (Toprol Xl) 100 mg PO DAILY@1500 [facility] Naloxone HCl (Narcan) 0.1 mg IV Q2MIN PRN PRN Reason: Opiate Reversal Omeprazole (Prilosec) 20 mg PO ACB [facility] Last Admin: 10/13/17 07:16 Dose: 20 mg Ondansetron HCl (Zofran) 4 mg IV Q6HP PRN PRN Reason: Nausea And Vomiting Oxycodone HCl (Roxicodone) 5 mg PO Q4HP PRN PRN Reason: PAIN LEVEL 3-6 Abacavir/Lamivudine (600 Mg/300 Mg Tablet) 1 dose PO DAILY@1500 [facility] Rilpivirine Hcl [ Edurant] 25 Mg Tablet 1 dose PO DAILY@1500 [facility] Trospium Chloride Er (60 Mg Capsule) 1 dose PO DAILY@1500 [facility] Memantine/Donepezil[ Namzaric 28 Mg-10 Mg ] Cap 1 dose PO [facility] Last Admin: 10/12/17 23:21 Dose: 1 dose Pregabalin (Lyrica) 75 mg PO [facility] Last Admin: 10/12/17 23:11 Dose: 75 mg Senna (Senokot) 1 tab PO BIDP PRN PRN Reason: Constipation Sodium Chloride (Saline Flush) 10 ml IV Q8 [facility] Last Admin: 10/13/17 05:58 Dose: 10 ml Tamsulosin HCl (Flomax) 0.4 mg PO DAILY@1500 [facility] Medical - PN: A/P - Time Spent With Patient Total time spent is greater than 50% in coordination of care (as documented) at patient's floor/unit and/or counseling patient: 15 - 24 minutes - Narrative A/P Narrative: 72-year-old man with HIV [on Abacavir/Lamivudine and Rilpivirine], seems well controlled according to patient [records to be obtained from the HIV doctor in [place] today], with chronic left foot ulcers admitted with: #1 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 If pt spikes a fever or becomes hemodynamically unstable, consider sending blood Cx and starting IV Vanc and IV Zosyn. -Given creatinine has stabilized around normal, continue HAART with Abacavir/ Lamivudine and Rilpiverine. Will plan to get more data from his HIV doctor in [place]. Patient agreeable to follow-up with ID clinic at [facility] after discharge for his HIV care -Send baseline ESR and CRP Will follow Rolly Elmore MD Infectious disease
[2017-10-13] MEDS: GENTAMICIN SULFATE 40 MG, CLINDAMYCIN 300 MG, BACITRACIN 25,000 UNIT in SODIUM CHLORIDE... IRR SCH ×2 (10:09→23:15)
--- NOTE | 2017-10-13 11:03 | General Surgery Progress Note ---
Subjective Patient reports: other (Underwent Right shoulder surgery yesterday. Tolerated well. Cultures / Biopsy specimens obtained. ) Narrative: Note initiated : 10/13/17 at 10:58 am Service Date, if different from initiated Date: [] Patient: Taz Parra 72 y/o M admitted on 10/09/17 for 3 Open Wounds with r/o of Ostomylitis. Chief Complaint: [] Objective Temp Pulse Resp BP Pulse Ox 98.4 F 68 16 147/66 98 10/13/17 08:00 10/13/17 08:00 10/13/17 08:00 10/13/17 08:00 10/13/17 08:00 AVSS. Analgesia is adequate. Dressings Right shoulder CDI Left foot wound examined. Significant improvement with resolution of soft tissue inflammatory changes fore foot and open wound of 2 nd toe amputation site and dorsal surface of third toe. Dry adherent black eschar along edges. No purulence and No odor. Spoke with ID Dr. Elmore. Will request Dr. Almanzar about surgical exploration of Left foot amputation wound and bone biopsies for tissue diagnosis and ruling out osteomyelitis. - Additional Data Intake & Output - Last 24 hours: Intake & Output 10/11/17 10/12/17 10/13/17 10/14/17 05:59 05:59 05:59 05:59 Intake Total 1015 / 1015 1803 / 1803 1050 / 1050 Output Total 351 / 351 602 / 602 3 / 3 Balance 664 / 664 1201 / 1201 1047 / 1047 Weight 136 lb 8 oz 137 lb 138 lb - Labs 10/13/17 04:23 10/13/17 04:23 Diabetes panel 10/13/17 Range/Units 04:23 Sodium 136 (133-145) mmol/L Potassium 4.4 (3.3-5.1) mmol/L Chloride 103 (96-108) mmol/L Carbon Dioxide 20 L (22-30) mmol/L BUN 14 (8-23) mg/dl Creatinine 1.2 (0.7-1.2) mg/dl Glucose 191 H (70-105) mg/dL Calcium 9.1 (8.6-10.4) mg/dl AST 10 (0-37) U/l ALT 9 (0-40) U/l Alkaline Phosphatase 69 (39-117) U/L Total Protein 6.6 (5.9-8.4) gm/dL Albumin 3.2 (3.2-5.2) gm/dL Triglycerides 210 H (<150) mg/dl Calcium panel 10/13/17 Range/Units 04:23 Calcium 9.1 (8.6-10.4) mg/dl Phosphorus 3.5 (2.7-4.5) mg/dL Albumin 3.2 (3.2-5.2) gm/dL Pituitary panel 10/13/17 Range/Units 04:23 Sodium 136 (133-145) mmol/L Potassium 4.4 (3.3-5.1) mmol/L Chloride 103 (96-108) mmol/L Carbon Dioxide 20 L (22-30) mmol/L BUN 14 (8-23) mg/dl Creatinine 1.2 (0.7-1.2) mg/dl Glucose 191 H (70-105) mg/dL Calcium 9.1 (8.6-10.4) mg/dl Adrenal panel 10/13/17 Range/Units 04:23 Sodium 136 (133-145) mmol/L Potassium 4.4 (3.3-5.1) mmol/L Chloride 103 (96-108) mmol/L Carbon Dioxide 20 L (22-30) mmol/L BUN 14 (8-23) mg/dl Creatinine 1.2 (0.7-1.2) mg/dl Glucose 191 H (70-105) mg/dL Calcium 9.1 (8.6-10.4) mg/dl Total Bilirubin 0.4 (0.0-1.0) mg/dL AST 10 (0-37) U/l ALT 9 (0-40) U/l Alkaline Phosphatase 69 (39-117) U/L Total Protein 6.6 (5.9-8.4) gm/dL Albumin 3.2 (3.2-5.2) gm/dL Assessment and Plan (1) Sepsis affecting skin Problem details: Evolving SIRS with CSSSI around LEFT foot open wound and spreading proximally. Status: Acute Current Visit: Yes (2) Avulsion of skin Status: Acute Current Visit: No - Narrative A/P Narrative: Assessment: Resolving CSSSI around open wound of Left foot toe amputation site. and dorsal surface of 3 rd toe. S/P Irrigation and Debridement of Right shoulder and tissue specimens for cultures / biopsies . Plan: Continue current local wound care. Consult Orthopedic surgery Dr. Elijah Almanzar for Left foot wound exploration and bone biopsy of amputation site metatarsal bone. - Time Spent With Patient Total time spent is greater than 50% in coordination of care (as documented) at patient's floor/unit and/or counseling patient:
--- NOTE | 2017-10-13 13:14 | Orthopedic Progress Note ---
Subjective Patient information: Note initiated : 10/13/17 at 1:12 pm Service Date, if different from initiated Date: [] Patient: Taz Parra 72 y/o M admitted on 10/09/17 for 3 Open Wounds with r/o of Ostomylitis. Chief Complaint: POD 1 s/p R shoulder arthroscopic irrigation and debridement. Reports shoulder is still painful to move but slightly better. [] Objective Vital signs: Vital Signs Temp Pulse Pulse Resp BP BP Pulse Ox 10/13/17 12:00 98.7 F 74 16 130/67 96 10/13/17 08:00 98.4 F 68 16 147/66 98 10/13/17 03:30 91 H 150/75 96 10/13/17 00:00 99.2 F H 82 12 128/71 95 10/12/17 23:45 87 118/67 90 10/12/17 23:30 88 143/78 95 10/12/17 23:15 90 148/74 95 10/12/17 23:00 92 H 127/77 95 10/12/17 22:45 78 134/73 92 10/12/17 22:30 90 133/75 95 10/12/17 22:15 91 H 131/77 96 10/12/17 22:00 91 H 150/75 96 10/12/17 21:45 94 H 157/76 93 10/12/17 21:38 90 18 10/12/17 21:30 90 164/84 96 10/12/17 21:17 91 H 10/12/17 21:15 90 160/74 97 10/12/17 21:00 90 140/77 93 10/12/17 20:59 98.2 F 91 H 16 141/70 97 10/12/17 20:43 98.4 F 90 19 127/69 98 10/12/17 20:39 91 H 18 127/69 97 10/12/17 20:34 88 14 117/60 100 10/12/17 20:29 97.9 F 87 16 115/61 100 10/12/17 15:59 99 F 18 134/77 96 Intake and Output 10/12/17 10/13/17 10/13/17 21:59 05:59 13:59 Intake Total 800 / 800 200 / 200 Output Total 2 / 2 Balance 798 / 798 199 / 199 Intake: IV 50 / 50 Zosyn 3.375 gm In Dextrose 5% 50 / 50 in Water 50 ml @ 100 mls/hr IV Q6H [facility] Rx#:[id number] Oral 800 / 800 150 / 150 Output: # of times incontinent of urine 2 / 2 Other: # of times incontinent of 1 Bowels Weight 138 lb Intake & Output: Intake & Output 10/12/17 10/13/17 10/13/17 21:59 05:59 13:59 Intake Total 800 / 800 200 / 200 Output Total 2 / 2 Balance 798 / 798 199 / 199 Weight 138 lb Intake: IV 50 / 50 Zosyn 3.375 gm In Dextrose 5% 50 / 50 in Water 50 ml @ 100 mls/hr IV Q6H [facility] Rx#:[id number] Oral 800 / 800 150 / 150 Output: # of times incontinent of urine 2 / 2 Other: # of times incontinent of 1 Bowels Incision clean and dry: Yes Dressing: Yes dry, Yes intact Weight bearing status: as tolerated Range of motion: limited secondary to pain about the shoulder- no pain with elbow ROM Extremities exam IM: Yes normal capillary refill - Labs CBC & BMP: 10/13/17 04:23 10/13/17 04:23 Labs: Orthopedic Labs 10/09/17 10/09/17 16:13 16:13 POC PT 14.4 POC INR 1.2 APTT 35 10/13/17 10/12/17 10/11/17 04:23 04:15 05:00 Hgb 10.7 L 11.5 L 10.9 L Hct 32.4 L 35.6 L 33.1 L 10/10/17 10/09/17 04:10 16:13 Hgb 11.3 L 12.8 L Hct 34.9 L 39.4 L Assessment and Plan (1) Joint pain 72 y/o male admitted for wound issues of left foot and pending eval for osteomyelitis of L foot as well who is now POD 1 s/p R shoulder irrigation and debridement for suspected septic arthritis. However, inspection of shoulder very under whelming for infection and likely not the case. However, has severe GH joint arthritis. WIll continue to monitor cultures, if any growth developes would then treat according. Can be activity as tolerated on the right upper extremity. Otherwise abx per foot wound. Status: Acute Qualifiers: Joint pain location: shoulder Laterality: right Qualified Code(s): M25.511 - Pain in right shoulder
[2017-10-13] MEDS: TAMSULOSIN 0.4 MG CAPSULE PO SCH (15:07)
[2017-10-13] MEDS: METOPROLOL SUCCINATE 50 MG TAB.XL.24H PO SCH (15:09)
[2017-10-13] MEDS: LAMIVUDINE PO SCH (15:10)
[2017-10-13] MEDS: ABACAVIR PO SCH (15:10)
[2017-10-13] MEDS: RILPIVIRINE HCL 25 MG PO SCH (15:11)
--- NOTE | 2017-10-13 15:21 | Internal Med Progress Note ---
Medical - PN: Subj Patient information: Note initiated : 10/13/17 at 3:19 pm Service Date, if different from initiated Date: [] Patient: Taz Parra 72 y/o M admitted on 10/09/17 for 3 Open Wounds with r/o of Ostomylitis. Chief Complaint: [] Interval history: Mr. Parra is a 72 year old M with h/o HIV, left toe amputation in july, presents to the ER from the wound clinic for worsening infection on the left toe wound. The patient notes he has been following up in the wound care clinic for over 2 yrs for some wound or the other on the left foot. He had a left 2nd toe amputation in july, post op it seems wound was not healing well, but was being followed by Dr Seth in the wound clinic. The patent notes that for the last week or so there has been increased warmth and redness on the left foot, when noticed by the wound care physician he was advised to come to the ER for further evaluation. The patient denies any pain, any other acute issues he has h/o HIV aids, h/o UTI in the past, enterococcus, vre but sensitive to ampicilin (admitted to [facility] may 03), HIV is well controlled as per pt, undectable viral count, follows with ID physician in [place]. He is not sure of his CD4 count, but notes not been an issue. In the ER he was hemodynamically stable, afebrile, with good BP, labs unremarkable, CT of the leg done, shows cellulitis, possible osteomyelitis. MRI not done due to non availability of research technologist. Given presence of osteomyelitis, pt admitted to the hospital for further management. 09/10 Pt seen examined, no acute overnight issues pt infection / cellulitis much better pt has no new complaints labs stable await MRI, no tech over the weekend on iv abx, ID consult pending . 09/11 Patient seen and examined, no acute overnight events. Today patient reports that his right shoulder has been hurting since that time he has been in the hospital, 3 days, progressively getting worse to a point that he is unable to move it. He thinks that maybe perhaps a medication caused it. The patient's kidney function slightly worsened today. IV fluids started. His vancomycin level is therapeutic. The patient notes in the past he has had some issues with vancomycin and kidney problems. Wound on his lower extremity improving, awaiting MRI of the foot, awaiting infectious disease consult. 09/12 Patient seen and examined, still has significant right shoulder pain, swelling in his right shoulder has worsened compared to yesterday. We had a CT scan of the shoulder done which showed effusion, we aspirated the shoulder joint, she was inflammatory cells on the Gram stain but no organism, no crystals. The patient cell count was not done because the sample clotted?. Orthopedics was consulted, repeat cell count ordered repeat sample to be sent. If sample suggestive of an infection patient will get surgical drainage. Patient denies any other acute complaints or concerns 10/13 Patient seen and examined, overnight had shoulder washout for possible infection , no clinical evidence of infection postop suspicion for infection is quite low. Labs are stable creatinine trending down. Plan of care reviewed with infectious disease physician. Discontinue antibiotics for now. Plan to get a bone biopsy. Wound care notified about the need for bone biopsy. Dr. Seth plans to talk with Dr. Galvan who had done the previous surgery. Plan to get the bone biopsy hopefully tomorrow. Patient has no acute complaints or concerns Pertinent ROS: Denies headache, dizziness Denies chest pain, palpitations Denies cough or shortness of breath Denies abdominal pain, nausea or vomiting. - Constitutional Vitals: Vital Signs Temp Pulse Resp BP Pulse Ox 98.7 F 74 16 130/67 96 10/13/17 12:00 10/13/17 12:00 10/13/17 12:00 10/13/17 12:00 10/13/17 12:00 Period Temp Pulse Resp BP Sys/Celis Pulse Ox Last 24 Hr 97.9 F-99.2 F 68-94 12-19 115-164/60-84 90-100 Intake and Output 10/13/17 10/13/17 10/13/17 05:59 13:59 21:59 Intake Total 200 / 200 Output Total Balance 199 / 199 Weight 138 lb Intake & Output: Intake & Output 10/13/17 10/13/17 10/13/17 05:59 13:59 21:59 Intake Total 200 / 200 Output Total Balance 199 / 199 Weight 138 lb Intake: IV 50 / 50 Zosyn 3.375 gm In Dextrose 5% 50 / 50 in Water 50 ml @ 100 mls/hr IV Q6H [facility] Rx#:[id number] Oral 150 / 150 Output: # of times incontinent of urine Other: # of times incontinent of 1 Bowels Exam: Constitutional; Afebrile, cooperative, alert, not in distress. Respiratory system: Air Entry equal on both sides, No crackles or wheezing, no rhonchi. CVS- Rate rhythm regular, S1,S2 heard, no gallop, no rub. Abdomen- Soft nontender abdomen, no organomegaly, no tenderness, no guarding or rigidity, HAND SLITTER- AOOx3, moving all extremities, no gross focal deficit noted. Medical - PN: Obj Da - Labs CBC & Chem 7: 10/13/17 04:23 10/13/17 04:23 Labs: Abnormal Lab Results 10/13/17 10/13/17 10/12/17 04:23 04:23 13:25 RBC 3.36 L Hgb 10.7 L Hct 32.4 L RDW 15.1 H Gran % 90.1 H Lymph % (Auto) 6.6 L Lymph # (Auto) 0.5 L [place] # (Auto) Carbon Dioxide 20 L BUN Creatinine Glucose 191 H Phosphorus Albumin/Globulin Ratio 0.9 L Triglycerides 210 H Urine Protein Ur Leukocyte Esterase Urine RBC Urine WBC U [place] Prot/Creat Ratio Synovial Neutrophils 95 H 10/12/17 10/12/17 10/11/17 04:15 04:15 11:35 RBC 3.69 L Hgb 11.5 L Hct 35.6 L RDW 15.2 H Gran % Lymph % (Auto) Lymph # (Auto) [place] # (Auto) 1.0 H Carbon Dioxide 20 L BUN Creatinine 1.3 H Glucose Phosphorus Albumin/Globulin Ratio Triglycerides 332 H Urine Protein 30 A Ur Leukocyte Esterase 25 A Urine RBC 3 H Urine WBC 11 H U [place] Prot/Creat Ratio Synovial Neutrophils 10/11/17 10/11/17 10/11/17 11:35 05:00 05:00 RBC 3.42 L Hgb 10.9 L Hct 33.1 L RDW 15.5 H Gran % Lymph % (Auto) Lymph # (Auto) [place] # (Auto) Carbon Dioxide BUN 24 H Creatinine 1.6 H Glucose Phosphorus 4.7 H Albumin/Globulin Ratio Triglycerides 305 H Urine Protein Ur Leukocyte Esterase Urine RBC Urine WBC U [place] Prot/Creat Ratio 0.24 H Synovial Neutrophils Meds: Medications Acetaminophen (Tylenol) 650 mg PO Q6HP PRN PRN Reason: PAIN/FEVER > 101 Last Admin: 10/13/17 08:55 Dose: 650 mg Albuterol Sulfate (Ventolin) 2.5 mg NEB Q2HP PRN PRN Reason: Shortness Of Breath Aspirin (Aspirin) 81 mg PO [facility] Last Admin: 10/12/17 23:11 Dose: 81 mg Clonidine HCl (Catapres) 0.1 mg PO Q2HP PRN PRN Reason: Hypertension Ferrous Sulfate ([facility] Sulfate) [facility] Last Admin: 10/13/17 08:55 Dose: 325 mg Heparin Sodium (Porcine) (Heparin) 5,000 unit SQ Q12 [facility] Last Admin: 10/13/17 08:58 Dose: 5,000 unit Hydromorphone HCl (Dilaudid) 1 mg IV Q4HP PRN PRN Reason: PAIN LEVEL > 6 Gentamicin Sulfate 40 mg/Clindamycin Phosphate 300 mg/Bacitracin 25,000 unit/ Sodium Chloride 503 mls @ 0 mls/hr IRR BID [facility] Last Admin: 10/13/17 10:09 Dose: 500 mls/hr Methadone HCl (Dolophine) 30 mg PO TID [facility] Last Admin: 10/13/17 15:07 Dose: 30 mg Metoprolol Succinate (Toprol Xl) 100 mg PO DAILY@1500 [facility] Last Admin: 10/13/17 15:09 Dose: 100 mg Naloxone HCl (Narcan) 0.1 mg IV Q2MIN PRN PRN Reason: Opiate Reversal Omeprazole (Prilosec) 20 mg PO ACB [facility] Last Admin: 10/13/17 07:16 Dose: 20 mg Ondansetron HCl (Zofran) 4 mg IV Q6HP PRN PRN Reason: Nausea And Vomiting Oxycodone HCl (Roxicodone) 5 mg PO Q4HP PRN PRN Reason: PAIN LEVEL 3-6 Abacavir/Lamivudine (600 Mg/300 Mg Tablet) 1 dose PO DAILY@1500 [facility] Last Admin: 10/13/17 15:10 Dose: 1 dose Rilpivirine Hcl [ Edurant] 25 Mg Tablet 1 dose PO DAILY@1500 [facility] Last Admin: 10/13/17 15:11 Dose: 1 dose Trospium Chloride Er (60 Mg Capsule) 1 dose PO DAILY@1500 [facility] Last Admin: 10/13/17 15:11 Dose: Not Given Memantine/Donepezil[ Namzaric 28 Mg-10 Mg ] Cap 1 dose PO HS [facility] Last Admin: 10/12/17 23:21 Dose: 1 dose Pregabalin (Lyrica) 75 mg PO [facility] Last Admin: 10/12/17 23:11 Dose: 75 mg Senna (Senokot) 1 tab PO BIDP PRN PRN Reason: Constipation Sodium Chloride (Saline Flush) 10 ml IV Q8 [facility] Last Admin: 10/13/17 15:09 Dose: 10 ml Tamsulosin HCl (Flomax) 0.4 mg PO DAILY@1500 [facility] Last Admin: 10/13/17 15:07 Dose: 0.4 mg Medical - PN: A/P - Time Spent With Patient Total time spent is greater than 50% in coordination of care (as documented) at patient's floor/unit and/or counseling patient: - Narrative A/P Narrative: A/P Acute osteomyelitis Acute cellulitis HIV AIDS Urinary Incontinence HTN Chronic pain DJD Dementia Right shoulder pain Acute kidney injury Plan continue home meds for HIV and other chr meds d/c vanco and zosy, plan for bone biopsy. ID consult appreciated, ortho consult appreciated MRI confirms osteomyelitis, will need bone biopsy, Dr galvan to be consulted by Dr Seth. DVT hep sq Diet regular Full code.
--- NOTE | 2017-10-13 15:51 | Orthopedic Consult Note ---
History of Present Illness - [facility] Patient information: Note initiated : 10/13/17 at 3:49 pm Service Date, if different from initiated Date: [] Patient: Taz Parra 72 y/o M admitted on 10/09/17 for 3 Open Wounds with r/o of Ostomylitis. Chief Complaint: [] Consult date: 10/13/17 Requesting physician: Adrián Seth Consult reason: other (chronic ulceration left foot) History of present illness: chronic ulceration dorsal left foot. 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 hx AIDS Review of Systems All systems PM: reviewed and no additional remarkable complaints except as stated Constitutional: as per HPI Musculoskeletal: deformity, limited range of motion, muscle weakness, other ( ulceration, dorsal foot, s/p second toe amputation) Integumentary: wounds (left foot) Neurological: weakness (weak ankle df) Medications and Allergies Home Medications Medication Instructions Recorded Confirmed Type sennosides 8.6 mg capsule 8.6 mg PO BID PRN cap 12/04/14 10/09/17 History tamsulosin 0.4 mg capsule 0.4 mg PO QDAY cap 12/04/14 10/09/17 History ferrous sulfate 325 mg (65 mg 325 mg PO QDAY 05/20/16 10/09/17 History iron) tablet memantine ER 28 mg-donepezil 10 mg 1 cap PO QDAY 05/20/16 10/09/17 History capsule sprinkle,ext.release 24 hr aspirin 81 mg tablet,delayed 81 mg PO QDAY 08/20/16 10/09/17 History release methadone 10 mg tablet 30 mg PO TID tab 08/20/16 10/10/17 History rilpivirine 25 mg tablet 25 mg PO QDAY 08/20/16 10/09/17 History abacavir 600 mg-lamivudine 300 mg 1 tab PO QDAY 01/20/17 10/09/17 History tablet trospium ER 60 mg capsule,extended 60 mg PO QAM #30 cap 01/21/17 10/09/17 Rx release 24 hr Clopidogrel Bisulfate [Plavix] 75 mg PO DAILY 10/10/17 10/10/17 History Metoprolol Succinate [Toprol Xl] 100 mg PO DAILY 10/10/17 10/10/17 History Pantoprazole Sodium [Protonix] 40 mg PO DAILY 10/10/17 10/10/17 History Pregabalin [Lyrica] 75 mg PO BID 10/10/17 10/10/17 History Allergies Allergy/AdvReac Type Severity Reaction Status Date / Time codeine AdvReac Mild Itching Verified 06/12/17 14:16 fentanyl AdvReac Unknown unknown Verified 10/09/17 21:00 Physical Examination - Ankle & Foot left Ankle appearance: normal Effusion grade: trace Foot appearance: excessive supination (flexion deformity of toes; one toe missing), other Foot swelling: dorsal Tenderness with palpation: none Ankle pain worse with weight bearing: No Foot pain worse with weight bearing: No Assessment and Plan (1) Cellulitis chronic osteomyelitis of concern, changes noted in 2 on MRI recommend needle bx second and 3rd MT to help determine need for atb Schedules for tomorrow at 5 pm PAR rev Orders written PAR reviewed with pt Status: Acute Priority: High Qualifiers: Site of cellulitis of extremity: toe Laterality: left
[2017-10-13] MEDS: oxyCODONE HCL 5 MG TABLET PO PRN (21:27)
[2017-10-13] MEDS: ASPIRIN 81 MG TAB.CHEW PO SCH (21:27)
[2017-10-13] MEDS: PREGABALIN 75 MG CAPSULE PO SCH (21:28)
[2017-10-13] MEDS: DONEPEZIL PO SCH (21:31)
[2017-10-13] MEDS: MEMANTINE PO SCH (21:31)
[2017-10-14] MEDS: 0.9 % SODIUM CHLORIDE 10 ML SYRINGE IV SCH ×3 (01:09→17:29)
[2017-10-14] MEDS: oxyCODONE HCL 5 MG TABLET PO PRN ×3 (01:51→20:24)
[2017-10-14 07:20] LABS: Basophils # (Auto) 0 K/mcL (0.0-0.3); Basophils % (Auto) 0 % (0.0-2.0); Eosinophils # (Auto) 0 K/mcL (0.0-0.7); Eosinophils % (Auto) 0 % (0.0-7.0); Granulocytes % (Auto) 83.5 % (38.0-78.0); Lymphocytes % (Auto) 10.1 % (15.5-49.0); Mean Cell Volume 96.9 fL (80.0-100.0); Mean Corpuscular HGB Conc 32.7 g/dL (31.0-36.0); Mean Corpuscular Hemoglobin 31.7 pg (26.0-34.0); Monocytes # (Auto) 0.6 K/mcL (0.1-0.9); Monocytes % (Auto) 6.4 % (1.0-12.0); Platelet Count 242 K/mcL (140-440); RBC 3.24 M/mcL (4.50-5.90); Red Cell Distribution Width 14.7 % (11.5-14.5)
[2017-10-14] MEDS: OMEPRAZOLE 20 MG CAPSULE PO SCH (07:49)
[2017-10-14] MEDS: FERROUS SULFATE 325 MG TABLET PO SCH (07:49)
[2017-10-14] MEDS: HEPARIN 5,000 UNIT/ML VIAL SQ SCH ×2 (07:50→20:23)
[2017-10-14 08:00] LABS: ALT/SGPT 8 U/l (0-40); Albumin 3.1 gm/dL (3.2-5.2); Albumin/Globulin Ratio 0.9 (1.0-2.3); Alkaline Phosphatase 60 U/L (39-117); Bilirubin,Direct < 0.2 mg/dL (0.0-0.3); Blood Urea Nitrogen 22 mg/dl (8-23); Gamma Glutamyl Transpeptidase 40 U/L (8-61); Uric Acid 5.1 mg/dL (2.5-8.0)
[2017-10-14] MEDS: METHADONE 5 MG TABLET PO SCH ×3 (09:36→20:23)
[2017-10-14] MEDS: GENTAMICIN SULFATE 40 MG, CLINDAMYCIN 300 MG, BACITRACIN 25,000 UNIT in SODIUM CHLORIDE... IRR SCH ×2 (09:37→21:48)
[2017-10-14] MEDS: ACETAMINOPHEN 325 MG TABLET PO PRN (09:43)
--- NOTE | 2017-10-14 10:01 | Internal Med Progress Note ---
Medical - PN: Subj Patient information: Note initiated : 10/14/17 at 9:59 am Service Date, if different from initiated Date: [] Patient: Taz Parra 72 y/o M admitted on 10/09/17 for 3 Open Wounds with r/o of Ostomylitis. Chief Complaint: [] Interval history: Mr. Parra is a 72 year old M with h/o HIV, left toe amputation in july, presents to the ER from the wound clinic for worsening infection on the left toe wound. The patient notes he has been following up in the wound care clinic for over 2 yrs for some wound or the other on the left foot. He had a left 2nd toe amputation in july, post op it seems wound was not healing well, but was being followed by Dr Seth in the wound clinic. The patent notes that for the last week or so there has been increased warmth and redness on the left foot, when noticed by the wound care physician he was advised to come to the ER for further evaluation. The patient denies any pain, any other acute issues he has h/o HIV aids, h/o UTI in the past, enterococcus, vre but sensitive to ampicilin (admitted to [facility] may 03), HIV is well controlled as per pt, undectable viral count, follows with ID physician in [place]. He is not sure of his CD4 count, but notes not been an issue. In the ER he was hemodynamically stable, afebrile, with good BP, labs unremarkable, CT of the leg done, shows cellulitis, possible osteomyelitis. MRI not done due to non availability of aircraft ordnance technician. Given presence of osteomyelitis, pt admitted to the hospital for further management. 09/10 Pt seen examined, no acute overnight issues pt infection / cellulitis much better pt has no new complaints labs stable await MRI, no tech over the weekend on iv abx, ID consult pending . 09/11 Patient seen and examined, no acute overnight events. Today patient reports that his right shoulder has been hurting since that time he has been in the hospital, 3 days, progressively getting worse to a point that he is unable to move it. He thinks that maybe perhaps a medication caused it. The patient's kidney function slightly worsened today. IV fluids started. His vancomycin level is therapeutic. The patient notes in the past he has had some issues with vancomycin and kidney problems. Wound on his lower extremity improving, awaiting MRI of the foot, awaiting infectious disease consult. 09/12 Patient seen and examined, still has significant right shoulder pain, swelling in his right shoulder has worsened compared to yesterday. We had a CT scan of the shoulder done which showed effusion, we aspirated the shoulder joint, she was inflammatory cells on the Gram stain but no organism, no crystals. The patient cell count was not done because the sample clotted?. Orthopedics was consulted, repeat cell count ordered repeat sample to be sent. If sample suggestive of an infection patient will get surgical drainage. Patient denies any other acute complaints or concerns 10/13 Patient seen and examined, overnight had shoulder washout for possible infection , no clinical evidence of infection postop suspicion for infection is quite low. Labs are stable creatinine trending down. Plan of care reviewed with infectious disease physician. Discontinue antibiotics for now. Plan to get a bone biopsy. Wound care notified about the need for bone biopsy. Dr. Seth plans to talk with Dr. Almanzar who had done the previous surgery. Plan to get the bone biopsy hopefully tomorrow. Patient has no acute complaints or concerns 10/14 Patient seen and examined, no acute overnight events, pain in the shoulder is there but not as bad as before. Still some soreness postoperative day 2. Cultures are negative so far. MRI shows osteomyelitis Dr. Almanzar has been consulted and for bone biopsy today. All questions answered plan of care reviewed with the patient Pertinent ROS: Denies headache, dizziness Denies chest pain, palpitations Denies cough or shortness of breath Denies abdominal pain, nausea or vomiting. - Constitutional Vitals: Vital Signs Temp Pulse Resp BP Pulse Ox 97.8 F 56 L 14 153/78 97 10/14/17 08:00 10/14/17 08:00 10/14/17 08:00 10/14/17 08:00 10/14/17 08:00 Period Temp Pulse Resp BP Sys/Celis Pulse Ox Last 24 Hr 97.5 F-98.7 F 56-76 14-18 130-153/62-78 95-97 Intake and Output 10/13/17 10/14/17 10/14/17 21:59 05:59 13:59 Intake Total 820 / 820 420 / 420 Output Total Balance 819 / 819 420 / 420 -2 / -2 Weight 138 lb Intake & Output: Intake & Output 10/13/17 10/14/17 10/14/17 21:59 05:59 13:59 Intake Total 820 / 820 420 / 420 Output Total 2 Balance 819 / 819 420 / 420 -2 / -2 Weight 138 lb Intake: Oral 820 / 820 420 / 420 Output: # of times incontinent of urine Other: Meal Breakfast Percent of Meal Consumed 75% Feeding Ability Independent Stool Size Small Smear Stool Color Brown Brown Green Stool Consistency Soft # Voids 0 # Bowel Movements 1 2 # of times incontinent of 1 2 Bowels Exam: Constitutional; Afebrile, cooperative, alert, not in distress. Respiratory system: Air Entry equal on both sides, No crackles or wheezing, no rhonchi. CVS- Rate rhythm regular, S1,S2 heard, no gallop, no rub. Abdomen- Soft nontender abdomen, no organomegaly, no tenderness, no guarding or rigidity, [employer]- AOOx3, moving all extremities, no gross focal deficit noted. Medical - PN: Obj Da - Labs CBC & Chem 7: 10/14/17 05:27 10/14/17 05:27 Labs: Abnormal Lab Results 10/14/17 10/14/17 10/13/17 05:27 05:27 04:23 RBC 3.24 L Hgb 10.3 L Hct 31.4 L RDW 14.7 H Gran % 83.5 H Lymph % (Auto) 10.1 L Gran # 8.4 H Lymph # (Auto) 1.0 L [place] # (Auto) Carbon Dioxide 20 L 20 L Creatinine Glucose 191 H Phosphorus 2.6 L Albumin 3.1 L Albumin/Globulin Ratio 0.9 L 0.9 L Triglycerides 185 H 210 H Urine Protein Ur Leukocyte Esterase Urine RBC Urine WBC U [place] Prot/Creat Ratio Synovial Neutrophils 10/13/17 10/12/17 10/12/17 04:23 13:25 04:15 RBC 3.36 L Hgb 10.7 L Hct 32.4 L RDW 15.1 H Gran % 90.1 H Lymph % (Auto) 6.6 L Gran # Lymph # (Auto) 0.5 L [place] # (Auto) Carbon Dioxide 20 L Creatinine 1.3 H Glucose Phosphorus Albumin Albumin/Globulin Ratio Triglycerides 332 H Urine Protein Ur Leukocyte Esterase Urine RBC Urine WBC U [place] Prot/Creat Ratio Synovial Neutrophils 95 H 10/12/17 10/11/17 10/11/17 04:15 11:35 11:35 RBC 3.69 L Hgb 11.5 L Hct 35.6 L RDW 15.2 H Gran % Lymph % (Auto) Gran # Lymph # (Auto) [place] # (Auto) 1.0 H Carbon Dioxide Creatinine Glucose Phosphorus Albumin Albumin/Globulin Ratio Triglycerides Urine Protein 30 A Ur Leukocyte Esterase 25 A Urine RBC 3 H Urine WBC 11 H U [place] Prot/Creat Ratio 0.24 H Synovial Neutrophils Meds: Medications Acetaminophen (Tylenol) 650 mg PO Q6HP PRN PRN Reason: PAIN/FEVER > 101 Last Admin: 10/14/17 09:43 Dose: 650 mg Albuterol Sulfate (Ventolin) 2.5 mg NEB Q2HP PRN PRN Reason: Shortness Of Breath Aspirin (Aspirin) 81 mg PO [facility] Last Admin: 10/13/17 21:27 Dose: 81 mg Clonidine HCl (Catapres) 0.1 mg PO Q2HP PRN PRN Reason: Hypertension Last Admin: 10/13/17 21:27 Dose: 0.1 mg Ferrous Sulfate ([facility]) [facility] Last Admin: 10/14/17 07:49 Dose: Not Given Heparin Sodium (Porcine) (Heparin) 5,000 unit SQ Q12 [facility] Last Admin: 10/14/17 07:50 Dose: Not Given Hydromorphone HCl (Dilaudid) 1 mg IV Q4HP PRN PRN Reason: PAIN LEVEL > 6 Gentamicin Sulfate 40 mg/Clindamycin Phosphate 300 mg/Bacitracin 25,000 unit/ Sodium Chloride 503 mls @ 0 mls/hr IRR BID [facility] Last Admin: 10/14/17 09:37 Dose: 1 mls/hr Methadone HCl (Dolophine) 30 mg PO TID [facility] Last Admin: 10/14/17 09:36 Dose: 30 mg Metoprolol Succinate (Toprol Xl) 100 mg PO DAILY@1500 [facility] Last Admin: 10/13/17 15:09 Dose: 100 mg Naloxone HCl (Narcan) 0.1 mg IV Q2MIN PRN PRN Reason: Opiate Reversal Omeprazole (Prilosec) 20 mg PO ACB [facility] Last Admin: 10/14/17 07:49 Dose: Not Given Ondansetron HCl (Zofran) 4 mg IV Q6HP PRN PRN Reason: Nausea And Vomiting Oxycodone HCl (Roxicodone) 5 mg PO Q4HP PRN PRN Reason: PAIN LEVEL 3-6 Last Admin: 10/14/17 01:51 Dose: 5 mg Abacavir/Lamivudine (600 Mg/300 Mg Tablet) 1 dose PO DAILY@1500 [facility] Last Admin: 10/13/17 15:10 Dose: 1 dose Rilpivirine Hcl [ Edurant] 25 Mg Tablet 1 dose PO DAILY@1500 [facility] Last Admin: 10/13/17 15:11 Dose: 1 dose Trospium Chloride Er (60 Mg Capsule) 1 dose PO DAILY@1500 [facility] Last Admin: 10/13/17 15:11 Dose: Not Given Memantine/Donepezil[ Namzaric 28 Mg-10 Mg ] Cap 1 dose PO [facility] Last Admin: 10/13/17 21:31 Dose: 1 dose Pregabalin (Lyrica) 75 mg PO [facility] Last Admin: 10/13/17 21:28 Dose: 75 mg Senna (Senokot) 1 tab PO BIDP PRN PRN Reason: Constipation Sodium Chloride (Saline Flush) 10 ml IV Q8 [facility] Last Admin: 10/14/17 06:00 Dose: 10 ml Tamsulosin HCl (Flomax) 0.4 mg PO DAILY@1500 [facility] Last Admin: 10/13/17 15:07 Dose: 0.4 mg Medical - PN: A/P - Time Spent With Patient Total time spent is greater than 50% in coordination of care (as documented) at patient's floor/unit and/or counseling patient: - Narrative A/P Narrative: A/P Acute osteomyelitis Acute cellulitis HIV AIDS Urinary Incontinence HTN Chronic pain DJD Dementia Right shoulder pain Acute kidney injury Plan continue home meds for HIV and other chr meds d/c vanco and zosy, plan for bone biopsy today ID consult appreciated, ortho consult appreciated Creat is improving pain control is reasonable, consider picc placement after discussion with ID net developer consultant DVT hep sq Diet regular Full code.
--- NOTE | 2017-10-14 12:35 | Orthopedic Progress Note ---
Subjective Patient information: Note initiated : 10/14/17 at 12:32 pm Service Date, if different from initiated Date: [] Patient: Taz Parra 72 y/o M admitted on 10/09/17 for 3 Open Wounds with r/o of Ostomylitis. Chief Complaint: [POD 2 s/p arthroscopic R shoulder irrigation and debridement. His shoulder pain is improving slightly. He is out of bed today and pending bx of his left foot this afternoon.] Objective Vital signs: Vital Signs Temp Pulse Resp BP Pulse Ox 10/14/17 12:03 98.0 F 52 L 12 145/70 10/14/17 08:00 97.8 F 56 L 14 153/78 97 10/14/17 03:37 98.6 F 59 L 16 141/73 96 10/14/17 00:00 97.5 F 71 14 140/78 97 10/13/17 20:00 97.7 F 76 14 153/71 95 10/13/17 15:48 98.6 F 72 18 136/62 Intake and Output 10/13/17 10/14/17 10/14/17 21:59 05:59 13:59 Intake Total 820 / 820 420 / 420 Output Total 2 / 2 Balance 819 / 819 420 / 420 -2 / -2 Intake: Oral 820 / 820 420 / 420 Output: # of times incontinent of urine 2 / 2 Other: Meal Breakfast Percent of Meal Consumed 75% Feeding Ability Independent Stool Size Small Smear Stool Color Brown Brown Green Stool Consistency Soft # Voids 0 # Bowel Movements 1 2 # of times incontinent of 1 2 Bowels Weight 138 lb Intake & Output: Intake & Output 10/13/17 10/14/17 10/14/17 21:59 05:59 13:59 Intake Total 820 / 820 420 / 420 Output Total 2 / 2 Balance 819 / 819 420 / 420 -2 / -2 Weight 138 lb Intake: Oral 820 / 820 420 / 420 Output: # of times incontinent of urine 2 / 2 Other: Meal Breakfast Percent of Meal Consumed 75% Feeding Ability Independent Stool Size Small Smear Stool Color Brown Brown Green Stool Consistency Soft # Voids 0 # Bowel Movements 1 2 # of times incontinent of 1 2 Bowels Incision: Yes healing, Yes clean and dry Incision clean and dry: Yes Dressing: Yes dry, Yes intact Weight bearing status: as tolerated Range of motion: Has improved ER and abduction of 20 and 20 degrees. Extremities exam IM: Yes normal capillary refill - Labs CBC & BMP: 10/14/17 05:27 10/14/17 05:27 Labs: Orthopedic Labs 10/09/17 10/09/17 16:13 16:13 POC PT 14.4 POC INR 1.2 APTT 35 10/14/17 10/13/17 10/12/17 05:27 04:23 04:15 Hgb 10.3 L 10.7 L 11.5 L Hct 31.4 L 32.4 L 35.6 L 10/11/17 10/10/17 10/09/17 05:00 04:10 16:13 Hgb 10.9 L 11.3 L 12.8 L Hct 33.1 L 34.9 L 39.4 L Assessment and Plan (1) Joint pain 72 y/o male admitted for wound issues of left foot and pending eval for osteomyelitis of L foot as well who is now POD 2 s/p R shoulder irrigation and debridement for suspected septic arthritis. Cultures no growth to date and no organisms on gram stain. Again unlikely to grow anything given appearance of shoulder and was on abx for several days prior to cultures. Activity as tolerated for R shoulder. Sling for comfort but should wean out of it which he understands. His motion is improving some but still painful as expected. Will follow via chart review. If he remains inpt through POD 7 will stop by and d/c sutures. Otherwise will need f/u with myself in 10-12 days post operatively for suture removal. Status: Acute Qualifiers: Joint pain location: shoulder Laterality: right Qualified Code(s): M25.511 - Pain in right shoulder
--- NOTE | 2017-10-14 15:02 | Internal Med Progress Note ---
Medical - PN: Subj Patient information: Note initiated : 10/14/17 at 3:00 pm Service Date, if different from initiated Date: [] Patient: Taz Parra 72 y/o M admitted on 10/09/17 for 3 Open Wounds with r/o of Ostomylitis. Chief Complaint: [] Interval history: Patient doing well. Feels his shoulder pain is much better. Is ready for his foot biopsy today. Discussed the plan with him that if he does well a day after his biopsy he may be sent home and I would follow his cultures and prescribed therapy based on results as outpatient. - Constitutional Vitals: Vital Signs Temp Pulse Resp BP Pulse Ox 36.7 C 52 L 12 145/70 98 10/14/17 12:03 10/14/17 12:03 10/14/17 12:03 10/14/17 12:03 10/14/17 12:03 Period Temp Pulse Resp BP Sys/Celis Pulse Ox Last 24 Hr 36.4 C-37.0 C 52-76 - 136-153/62-78 95-98 Intake and Output 10/14/17 10/14/17 10/14/17 05:59 13:59 21:59 Intake Total 420 / 420 Output Total 2 / 2 Balance 420 / 420 -2 / -2 Intake & Output: Intake & Output 10/14/17 10/14/17 10/14/17 05:59 13:59 21:59 Intake Total 420 / 420 Output Total 2 / 2 Balance 420 / 420 -2 / -2 Intake: Oral 420 / 420 Output: # of times incontinent of urine 2 / 2 Other: Stool Size Small Smear Stool Color Brown Brown Green Stool Consistency Soft # Bowel Movements 2 # of times incontinent of 1 2 Bowels General appearance: cooperative, no acute distress - Respiratory Respiratory exam: Present: CTAB. Absent: rales, rhonchi, wheezes - Cardiovascular Cardiovascular exam: Present: +S1, +S2. Absent: systolic murmur - Extremities Exam Additional comments: Time in the foot, as it was recently wrapped in [employer] - PN: Obj Da - Labs CBC & Chem 7: 10/14/17 05:27 10/14/17 05:27 Labs: Abnormal Lab Results 10/14/17 10/14/17 10/13/17 05:27 05:27 04:23 RBC 3.24 L Hgb 10.3 L Hct 31.4 L RDW 14.7 H Gran % 83.5 H Lymph % (Auto) 10.1 L Gran # 8.4 H Lymph # (Auto) 1.0 L [place] # (Auto) Carbon Dioxide 20 L 20 L Creatinine Glucose 191 H Phosphorus 2.6 L Albumin 3.1 L Albumin/Globulin Ratio 0.9 L 0.9 L Triglycerides 185 H 210 H Synovial Neutrophils 10/13/17 10/12/17 10/12/17 04:23 13:25 04:15 RBC 3.36 L Hgb 10.7 L Hct 32.4 L RDW 15.1 H Gran % 90.1 H Lymph % (Auto) 6.6 L Gran # Lymph # (Auto) 0.5 L [place] # (Auto) Carbon Dioxide 20 L Creatinine 1.3 H Glucose Phosphorus Albumin Albumin/Globulin Ratio Triglycerides 332 H Synovial Neutrophils 95 H 10/12/17 04:15 RBC 3.69 L Hgb 11.5 L Hct 35.6 L RDW 15.2 H Gran % Lymph % (Auto) Gran # Lymph # (Auto) [place] # (Auto) 1.0 H Carbon Dioxide Creatinine Glucose Phosphorus Albumin Albumin/Globulin Ratio Triglycerides Synovial Neutrophils Meds: Medications Acetaminophen (Tylenol) 650 mg PO Q6HP PRN PRN Reason: PAIN/FEVER > 101 Last Admin: 10/14/17 09:43 Dose: 650 mg Albuterol Sulfate (Ventolin) 2.5 mg NEB Q2HP PRN PRN Reason: Shortness Of Breath Aspirin (Aspirin) 81 mg PO [facility] Last Admin: 10/13/17 21:27 Dose: 81 mg Clonidine HCl (Catapres) 0.1 mg PO Q2HP PRN PRN Reason: Hypertension Last Admin: 10/13/17 21:27 Dose: 0.1 mg Ferrous Sulfate (Ferrous Sulfate) 325 mg PO [facility] Last Admin: 10/14/17 07:49 Dose: Not Given Heparin Sodium (Porcine) (Heparin) 5,000 unit SQ Q12 [facility] Last Admin: 10/14/17 07:50 Dose: Not Given Hydromorphone HCl (Dilaudid) 1 mg IV Q4HP PRN PRN Reason: PAIN LEVEL > 6 Gentamicin Sulfate 40 mg/Clindamycin Phosphate 300 mg/Bacitracin 25,000 unit/ Sodium Chloride 503 mls @ 0 mls/hr IRR BID [facility] Last Admin: 10/14/17 09:37 Dose: 1 mls/hr Methadone HCl (Dolophine) 30 mg PO TID [facility] Last Admin: 10/14/17 09:36 Dose: 30 mg Metoprolol Succinate (Toprol Xl) 100 mg PO DAILY@1500 [facility] Last Admin: 10/13/17 15:09 Dose: 100 mg Naloxone HCl (Narcan) 0.1 mg IV Q2MIN PRN PRN Reason: Opiate Reversal Omeprazole (Prilosec) 20 mg PO ACB [facility] Last Admin: 10/14/17 07:49 Dose: Not Given Ondansetron HCl (Zofran) 4 mg IV Q6HP PRN PRN Reason: Nausea And Vomiting Oxycodone HCl (Roxicodone) 5 mg PO Q4HP PRN PRN Reason: PAIN LEVEL 3-6 Last Admin: 10/14/17 10:51 Dose: 5 mg Abacavir/Lamivudine (600 Mg/300 Mg Tablet) 1 dose PO DAILY@1500 [facility] Last Admin: 10/13/17 15:10 Dose: 1 dose Rilpivirine Hcl [ Edurant] 25 Mg Tablet 1 dose PO DAILY@1500 [facility] Last Admin: 10/13/17 15:11 Dose: 1 dose Trospium Chloride Er (60 Mg Capsule) 1 dose PO DAILY@1500 [facility] Last Admin: 10/13/17 15:11 Dose: Not Given Memantine/Donepezil[ Namzaric 28 Mg-10 Mg ] Cap 1 dose PO [facility] Last Admin: 10/13/17 21:31 Dose: 1 dose Pregabalin (Lyrica) 75 mg PO [facility] Last Admin: 10/13/17 21:28 Dose: 75 mg Senna (Senokot) 1 tab PO BIDP PRN PRN Reason: Constipation Sodium Chloride (Saline Flush) 10 ml IV Q8 [facility] Last Admin: 10/14/17 06:00 Dose: 10 ml Tamsulosin HCl (Flomax) 0.4 mg PO DAILY@1500 [facility] Last Admin: 10/13/17 15:07 Dose: 0.4 mg Medical - PN: A/P - Time Spent With Patient Total time spent is greater than 50% in coordination of care (as documented) at patient's floor/unit and/or counseling patient: less than 15 minutes - Narrative A/P Narrative: 72-year-old man with HIV [on Abacavir/Lamivudine and Rilpivirine], well controlled [last CD4 more than 900, viral load less than 20 in August 2017]'s, with chronic left foot ulcers admitted with: #1 2nd left metatarsal head and neck osteomyelitis -Plans to get a bone biopsy today #No sepsis # Rt shoulder arthritis: s/p I&D 10/12, op findings with reddish synovial fluid , 11,754 white cells and tissue findings concerning for gout/pseudogout, no purulence observed Recommendations: -Await bone biopsy of left foot today. Send biopsy for Gram stain, culture/ sensitivity, pathology - hold off antibiotics for now to increase the yield of bone Bx -continue HAART with Abacavir/Lamivudine and Rilpiverine. -Send baseline ESR and CRP Will follow Rolly Elmore MD Infectious disease
[2017-10-14] MEDS: RILPIVIRINE HCL 25 MG PO SCH (15:20)
[2017-10-14] MEDS: LAMIVUDINE PO SCH (15:20)
[2017-10-14] MEDS: ABACAVIR PO SCH (15:20)
[2017-10-14] MEDS: METOPROLOL SUCCINATE 50 MG TAB.XL.24H PO SCH ×2 (15:21→15:35)
[2017-10-14] MEDS: TAMSULOSIN 0.4 MG CAPSULE PO SCH (15:35)
[2017-10-14] MEDS ORDERED: MIDAZOLAM 2 MG/2 ML VIAL IV ONE (16:55)
[2017-10-14] MEDS ORDERED: ONDANSETRON 4 MG/2 ML VIAL IV ONE (16:55)
[2017-10-14] MEDS ORDERED: KETAMINE 100 MG/ML ML IV ONE (16:55)
[2017-10-14] MEDS ORDERED: GLYCOPYRROLATE 0.2 MG/ML VIAL IV ONE (16:55)
--- NOTE | 2017-10-14 17:30 | Brief Operative Note ---
Date of procedure: 10/14/17 Pre-op diagnosis: possible osteomyelitis left second or third MT Post-op diagnosis: same Procedure: Alan needle biopsy left 2 MT Alan needle bx left 3 MT Grafts/Implants: No Anesthesia: conscious sedation Findings: possible infection Complications: none Surgeon: Elijah Almanzar Estimated blood loss (cc): 0 Specimens Removed/Pathology: other (biopsy x 2; cx requested on each specimen for aerobic, anaerobic, acid fast, and fungal) Condition: stable Disposition: floor
[2017-10-14] MEDS: ASPIRIN 81 MG TAB.CHEW PO SCH (20:23)
[2017-10-14] MEDS: PREGABALIN 75 MG CAPSULE PO SCH (20:24)
[2017-10-14] MEDS: MEMANTINE PO SCH (20:25)
[2017-10-14] MEDS: DONEPEZIL PO SCH (20:25)
[2017-10-15] MEDS: 0.9 % SODIUM CHLORIDE 10 ML SYRINGE IV SCH ×3 (01:32→14:48)
[2017-10-15 06:49] LABS: Basophils # (Auto) 0 K/mcL (0.0-0.3); Basophils % (Auto) 0.5 % (0.0-2.0); Eosinophils # (Auto) 0.1 K/mcL (0.0-0.7); Eosinophils % (Auto) 2.3 % (0.0-7.0); Granulocytes % (Auto) 61.4 % (38.0-78.0); Lymphocytes # (Auto) 1.7 K/mcL (1.5-4.8); Lymphocytes % (Auto) 27.8 % (15.5-49.0); Mean Cell Volume 97.2 fL (80.0-100.0); Mean Corpuscular HGB Conc 32.6 g/dL (31.0-36.0); Mean Corpuscular Hemoglobin 31.7 pg (26.0-34.0); Monocytes # (Auto) 0.5 K/mcL (0.1-0.9); Platelet Count 255 K/mcL (140-440); Red Cell Distribution Width 15.2 % (11.5-14.5)
[2017-10-15] MEDS: OMEPRAZOLE 20 MG CAPSULE PO SCH (07:08)
[2017-10-15 07:10] LABS: ALT/SGPT 9 U/l (0-40); Albumin/Globulin Ratio 0.9 (1.0-2.3); Alkaline Phosphatase 58 U/L (39-117); Bilirubin,Direct < 0.2 mg/dL (0.0-0.3); Blood Urea Nitrogen 20 mg/dl (8-23); Gamma Glutamyl Transpeptidase 39 U/L (8-61); Uric Acid 5.6 mg/dL (2.5-8.0)
--- NOTE | 2017-10-15 07:19 | Operative Note ---
DATE OF OPERATION: 10/14/2017 PREOPERATIVE DIAGNOSIS: Possible osteomyelitis, left second metatarsal second possible osteomyelitis, left third metatarsal. POSTOPERATIVE DIAGNOSIS: Possible osteomyelitis, left second metatarsal and second possible osteomyelitis, left third metatarsal. OPERATION: Alan needle biopsy the second metatarsal and Alan needle biopsy of the third metatarsal. SURGEON: Elijah Almanzar MD ANESTHESIA: Sedation. SUMMARY OF PROCEDURE: The patient was sedated. The area was prepped and draped. A 5 mm incision was made over the second metatarsal using x-ray guidance. I used a Alan needle set to harvest a core of bone successfully. This was then sent for biopsy as well as for culture. I instructed Kike to send cultures for aerobic, anaerobic, acid fast, and fungal analysis. The same technique was then used to the third metatarsal under mini C-arm control. I confirmed no fracture on mini C-arm after completing the two biopsies. Each biopsy site was closed with 1 stitch of 3-0 nylon. A sterile compressive dressing was applied. The patient tolerated the biopsy well and was taken back to his room in stable condition. TJF:amrit Job ID: [id number] Doc ID: [id number] Elijah Almanzar MD
[2017-10-15] MEDS: HEPARIN 5,000 UNIT/ML VIAL SQ SCH (09:02)
[2017-10-15] MEDS: METHADONE 5 MG TABLET PO SCH ×2 (09:03→14:48)
[2017-10-15] MEDS: FERROUS SULFATE 325 MG TABLET PO SCH (09:07)
[2017-10-15] MEDS: GENTAMICIN SULFATE 40 MG, CLINDAMYCIN 300 MG, BACITRACIN 25,000 UNIT in SODIUM CHLORIDE... IRR SCH (10:19)
--- NOTE | 2017-10-15 11:14 | Discharge Summary ---
Medical - DS: Prov Patient information: Note initiated : 10/15/17 at 11:11 am Service Date, if different from initiated Date: [] Patient: Taz Parra 72 y/o M admitted on 10/09/17 for 3 Open Wounds with r/o of Ostomylitis. Chief Complaint: [] Date of admission: 10/09/17 20:13 Discharge date: 10/15/17 Primary care physician: Jimy Platt Admitting clinician: Jeanette Dimas Consults: 10/09/17 18:52 Consult to Physician [CONS] Stat Comment: Consulting Provider: Jeanette Dimas Reason For Exam: Physician to Consult 10/09/17 18:53 Consult to Physician [CONS] Stat Comment: Consulting Provider: Adrián Seth Reason For Exam: Physician to Consult 10/09/17 20:23 Consult to Physician [CONS] Stat Comment: HIV, Osteomyelitis Consulting Provider: Rolly Elmore Reason For Exam: Physician to Consult 10/12/17 10:59 Consult to Physician [CONS] Routine Comment: Consulting Provider: Luke Newman Reason For Exam: Physician to Consult 10/13/17 10:56 Consult to Physician [CONS] Routine Comment: Patient with HIV, Non healing wound. R/O osteo Consulting Provider: Elijah Almanzar Reason For Exam: Bone biopsy LEFT foot amputation site Discharging clinician: Jeanette Dimas Medical - DS: Meds - Discharge Medications Active and Home Medications: Home Medications sennosides 8.6 mg capsule 8.6 mg PO BID PRN cap 12/04/14 [History Confirmed Last Taken 10/08/17 21:00] tamsulosin 0.4 mg capsule 0.4 mg PO QDAY cap 12/04/14 [History Confirmed Last Taken 10/08/17 15:00] ferrous sulfate 325 mg (65 mg iron) tablet 325 mg PO QDAY 05/20/16 [History Confirmed 10/09/17 Last Taken 10/08/17 21:00] memantine ER 28 mg-donepezil 10 mg capsule sprinkle,ext.release 24 hr 1 cap PO QDAY 05/20/16 [History Confirmed 10/09/17 Last Taken 10/08/17 21:00] aspirin 81 mg tablet,delayed release 81 mg PO QDAY 08/20/16 [History Confirmed 10/09/17 Last Taken 10/08/17 21:00] methadone 10 mg tablet 30 mg PO TID tab 08/20/16 [History Confirmed 10/10/17 Last Taken 10/09/17 08:00] rilpivirine 25 mg tablet 25 mg PO QDAY 08/20/16 [History Confirmed 10/09/17 Last Taken 10/09/17 15:00] abacavir 600 mg-lamivudine 300 mg tablet 1 tab PO QDAY 01/20/17 [History Confirmed 10/09/17 Last Taken 10/09/17 18:30] trospium ER 60 mg capsule,extended release 24 hr 60 mg PO QAM #30 cap 01/21/17 [ Rx Confirmed 10/09/17 Last Taken Unknown] Clopidogrel Bisulfate [Plavix] 75 mg PO DAILY 10/10/17 [History Confirmed Last Taken Unknown] Metoprolol Succinate [Toprol Xl] 100 mg PO DAILY 10/10/17 [History Confirmed Last Taken Unknown] Pantoprazole Sodium [Protonix] 40 mg PO DAILY 10/10/17 [History Confirmed Last Taken Unknown] Pregabalin [Lyrica] 75 mg PO BID 10/10/17 [History Confirmed 10/10/17 Last Taken Unknown] Medical - DS: Hosp Hospital course: Mr. Parra is a 72 year old M with h/o HIV, left toe amputation in july, presented to the ER from the wound clinic for worsening infection on the left toe wound. The patient notes he has been following up in the wound care clinic for over 2 yrs for some wound or the other on the left foot. He had a left 2nd toe amputation in july, post op it seems wound was not healing well, but was being followed by Dr Seth in the wound clinic. The patent notes that for the last week or so there has been increased warmth and redness on the left foot , when noticed by the wound care physician he was advised to come to the ER for further evaluation. The patient denies any pain, any other acute issues He has h/o HIV aids, h/o UTI in the past, enterococcus, vre but sensitive to ampicillin (admitted to [facility] may 03), HIV is well controlled as per pt, undetectable viral count, follows with ID physician in [place]. He is not sure of his CD4 count, but notes not been an issue. In the ER he was hemodynamically stable, afebrile, with good BP, labs unremarkable, CT of the leg done, shows cellulitis, possible osteomyelitis. MRI not done due to non availability of pathology technologist. Given presence of osteomyelitis, pt admitted to the hospital for further management. Acute Osteomyelitis- The patient has osteomyelitis along with cellulitis, initially treated with IV vancomycin and zosyn with good response to cellulitis , no e/o sepsis or systemic infection. The patient was seen by Wound care provider Dr Zhang, he was also seen by Infectious disease physician Dr Elmore. ID physician advised to get a bone biopsy, advised to hold antibiotics till cultures are back as patient has no systemic signs of infection and cellulitis is controlled with IV abx, Dr Almanzar was consulted for bione biopsy, which was performed yesterday, sent for culture. The patient is stable for discharge from ID/ Wound care/ Ortho stand point. He will be discharged with follow up in wound care and ID clinic. Antibiotic regime to be decided by Dr Elmore after review of results of the bone biopsy/ culture Shoulder swelling/ inflammation- During this hospital stay the patient had right shoulder pain w hich kept getting worse, the patient had swelling in the shoulder, CT showed large effusion. Should was tapped twice showed 11K nucleated cells but 95 percent neutrophils. Given his HIV status, we were not sure if he would mount a good immune response. Orthopedic consulted Dr Newman evaluated the patient and peformed a wash out of the shoulder joint, post op very low concern for infection, microbiology sent. cyrstals x 2 negative. The rest of the stay in the hospital was uneventful, no changes made to his chronic home medication list, patient tolerating po well. He had mild renal dysfunction, which improved during the hospital stay he wishes to go home and has good support system in place. Will d/c home with friend, and resume home health services. Discharge diagnosis: Cellutlitis/ Osteomyelitis, right shoulder arthritis - Time Spent with Patient Total time spent providing and/or coordinating discharge services: Greater than 30 minutes Medical - DS: Exam - Constitutional Vitals: Vital Signs Temp Pulse Resp BP Pulse Ox 10/15/17 07:13 97.6 F 56 L 9 L 146/76 97 10/15/17 03:50 98.4 F 64 10 L 137/74 93 10/15/17 00:00 98.8 F 58 L 12 131/64 94 10/14/17 20:39 72 169/85 99 10/14/17 20:38 73 174/86 99 10/14/17 18:35 67 166/82 97 10/14/17 18:20 64 155/81 97 10/14/17 18:05 69 167/83 96 10/14/17 17:50 73 159/76 93 10/14/17 17:35 66 157/78 10/14/17 12:03 98.0 F 52 L 12 145/70 98 Intake and Output 10/14/17 10/15/17 10/15/17 21:59 05:59 13:59 Intake Total 800 / 800 Output Total Balance 799 / 799 Intake: Oral 800 / 800 Output: # of times incontinent of urine Other: Weight 137 lb Additional comments: Constitutional; Afebrile, cooperative, alert, not in distress. Respiratory system: Air Entry equal on both sides, No crackles or wheezing, no rhonchi. CVS- Rate rhythm regular, S1,S2 heard, no gallop, no rub. Abdomen- Soft nontender abdomen, no organomegaly, no tenderness, no guarding or rigidity, TRANSPORT RN- AOOx3, moving all extremities, no gross focal deficit noted. Medical - DS: Data Labs on day of discharge: Labs from last 24 hours 10/15/17 10/15/17 05:20 05:20 WBC 6.2 RBC 3.20 L Hgb 10.1 L Hct 31.1 L MCV 97.2 MCH 31.7 MCHC 32.6 RDW 15.2 H Plt Count 255 MPV 8.6 Gran % 61.4 Lymph % (Auto) 27.8 [place] % (Auto) 8.0 Eos % (Auto) 2.3 Baso % (Auto) 0.5 Gran # 3.8 Lymph # (Auto) 1.7 [place] # (Auto) 0.5 Eos # (Auto) 0.1 Baso # (Auto) 0 Sodium 144 Potassium 3.8 Chloride 106 Carbon Dioxide 24 Anion Gap 14.0 BUN 20 Creatinine 1.0 GFR Calculation 74 Glucose 83 Uric Acid 5.6 Calcium 8.9 Phosphorus 3.1 Magnesium 1.7 Total Bilirubin 0.2 Direct Bilirubin < 0.2 GGT 39 AST 13 ALT 9 Alkaline Phosphatase 58 Lactate Dehydrogenase 146 Total Protein 6.2 Albumin 3.0 L Globulin 3.2 Albumin/Globulin Ratio 0.9 L Triglycerides 323 H Preliminary micro results at discharge 10/14/17 20:08 Tissue Culture - Preliminary Other - Third 10/11/17 17:27 Body Fluid Culture - Preliminary Synovial Fluid - Right 10/12/17 21:00 Anaerobic Culture - Preliminary Shoulder - Right 10/12/17 21:00 Anaerobic Culture - Preliminary Aspirate - Right Medical - DS: A/P - Patient/Caregiver Discharge Instructions Activity: increase activity as tolerated Diet: Regular Diet Additional Instructions: Please keep the dressing on the foot till seen by Dr Zhang in the wound care clinic on thursday. Follow up with wound care in 4 day Follow up with Dr Elmore Infectious disease physician, who will evaluate you on thursday/ thursday. He will decide the type and duration of antibiotic for the bone infection. At this time no new antibiotic is being prescribed. Follow up with Dr Newman/ ortho pedic surgeon (who did shoulder surgery) in 12 days for follow up. go to the ER if worsening symptoms, fever, chest pain, shortness of breath or any other concern I have made no changes to your home medication list please take all your medications as prescribed by your regular doctor. - Follow up Plan Follow up with: Adrián Seth MD [Physician] - (Follow up at wound healing clinic Thursday after discharge from hospital) Jimy Platt MD [Primary Care Provider] - Rolly Elmore MD [Physician] - Luke Newman MD [Physician] - Disposition: Home Health Service Prognosis: Fair Rehab Potential: Fair I certify that the patient requires SNF services: No Overall status at discharge: patient is progressing back to baseline
[2017-10-15] MEDS: ACETAMINOPHEN 325 MG TABLET PO PRN (11:18)
[2017-10-15] MEDS: oxyCODONE HCL 5 MG TABLET PO PRN (11:18)
--- NOTE | 2017-10-15 11:23 | Internal Med Progress Note ---
Medical - PN: Subj Patient information: Note initiated : 10/15/17 at 11:21 am Service Date, if different from initiated Date: [] Patient: Taz Parra 72 y/o M admitted on 10/09/17 for 3 Open Wounds with r/o of Ostomylitis. Chief Complaint: [] Interval history: Patient doing well. His bone biopsy procedure yesterday was uneventful. Denies any fever, chills, nausea, vomiting, diarrhea, cough. Pain is much better. Discussed with him the plan to follow-up with ID clinic as outpatient next week, and the fact that the results for his bone biopsy cultures would also be available, and a treatment plan can be devised. - Constitutional Vitals: Vital Signs Temp Pulse Resp BP Pulse Ox 36.4 C 56 L 9 L 146/76 97 10/15/17 07:13 10/15/17 07:13 10/15/17 07:13 10/15/17 07:13 10/15/17 07:13 Period Temp Pulse Resp BP Sys/Celis Pulse Ox Last 24 Hr 36.4 C-37.1 C 52-73 9-12 131-174/64-86 93-99 Intake and Output 10/14/17 10/15/17 10/15/17 21:59 05:59 13:59 Intake Total 800 / 800 Output Total Balance 799 / 799 Weight 62.142 kg Intake & Output: Intake & Output 10/14/17 10/15/17 10/15/17 21:59 05:59 13:59 Intake Total 800 / 800 Output Total Balance 799 / 799 Weight 62.142 kg Intake: Oral 800 / 800 Output: # of times incontinent of urine General appearance: average body habitus, cooperative, no acute distress - Respiratory Respiratory exam: Present: CTAB. Absent: rales, rhonchi, wheezes - Cardiovascular Cardiovascular exam: Present: +S1, +S2. Absent: systolic murmur - GI/Abdominal GI/Abdominal exam: Present: normal bowel sounds - Extremities Exam Additional comments: Left foot wrapped in bandage Medical - PN: Obj Da - Labs CBC & Chem 7: 10/15/17 05:20 10/15/17 05:20 Labs: Abnormal Lab Results 10/15/17 10/15/17 10/14/17 05:20 05:20 05:27 RBC 3.20 L Hgb 10.1 L Hct 31.1 L RDW 15.2 H Gran % Lymph % (Auto) Gran # Lymph # (Auto) Carbon Dioxide 20 L Glucose Phosphorus 2.6 L Albumin 3.0 L 3.1 L Albumin/Globulin Ratio 0.9 L 0.9 L Triglycerides 323 H 185 H Synovial Neutrophils 10/14/17 10/13/17 10/13/17 05:27 04:23 04:23 RBC 3.24 L 3.36 L Hgb 10.3 L 10.7 L Hct 31.4 L 32.4 L RDW 14.7 H 15.1 H Gran % 83.5 H 90.1 H Lymph % (Auto) 10.1 L 6.6 L Gran # 8.4 H Lymph # (Auto) 1.0 L 0.5 L Carbon Dioxide 20 L Glucose 191 H Phosphorus Albumin Albumin/Globulin Ratio 0.9 L Triglycerides 210 H Synovial Neutrophils 10/12/17 13:25 RBC Hgb Hct RDW Gran % Lymph % (Auto) Gran # Lymph # (Auto) Carbon Dioxide Glucose Phosphorus Albumin Albumin/Globulin Ratio Triglycerides Synovial Neutrophils 95 H Meds: Medications Acetaminophen (Tylenol) 650 mg PO Q6HP PRN PRN Reason: PAIN/FEVER > 101 Last Admin: 10/15/17 11:18 Dose: 650 mg Albuterol Sulfate (Ventolin) 2.5 mg NEB Q2HP PRN PRN Reason: Shortness Of Breath Aspirin (Aspirin) 81 mg PO [facility] Last Admin: 10/14/17 20:23 Dose: 81 mg Clonidine HCl (Catapres) 0.1 mg PO Q2HP PRN PRN Reason: Hypertension Last Admin: 10/13/17 21:27 Dose: 0.1 mg Ferrous Sulfate (Ferrous Sulfate) 325 mg PO [facility] Last Admin: 10/15/17 09:07 Dose: 325 mg Heparin Sodium (Porcine) (Heparin) 5,000 unit SQ Q12 [facility] Last Admin: 10/15/17 09:02 Dose: 5,000 unit Hydromorphone HCl (Dilaudid) 1 mg IV Q4HP PRN PRN Reason: PAIN LEVEL > 6 Gentamicin Sulfate 40 mg/Clindamycin Phosphate 300 mg/Bacitracin 25,000 unit/ Sodium Chloride 503 mls @ 0 mls/hr IRR BID [facility] Last Admin: 10/15/17 10:19 Dose: Not Given Methadone HCl (Dolophine) 30 mg PO TID [facility] Last Admin: 10/15/17 09:03 Dose: 30 mg Naloxone HCl (Narcan) 0.1 mg IV Q2MIN PRN PRN Reason: Opiate Reversal Omeprazole (Prilosec) 20 mg PO ACB [facility] Last Admin: 10/15/17 07:08 Dose: 20 mg Ondansetron HCl (Zofran) 4 mg IV Q6HP PRN PRN Reason: Nausea And Vomiting Oxycodone HCl (Roxicodone) 5 mg PO Q4HP PRN PRN Reason: PAIN LEVEL 3-6 Last Admin: 10/15/17 11:18 Dose: 5 mg Abacavir/Lamivudine (600 Mg/300 Mg Tablet) 1 dose PO DAILY@1500 [facility] Last Admin: 10/14/17 15:20 Dose: 1 dose Rilpivirine Hcl [ Edurant] 25 Mg Tablet 1 dose PO DAILY@1500 [facility] Last Admin: 10/14/17 15:20 Dose: 1 dose Trospium Chloride Er (60 Mg Capsule) 1 dose PO DAILY@1500 [facility] Last Admin: 10/14/17 15:20 Dose: Not Given Memantine/Donepezil[ Namzaric 28 Mg-10 Mg ] Cap 1 dose PO [facility] Last Admin: 10/14/17 20:25 Dose: 1 dose Pregabalin (Lyrica) 75 mg PO [facility] Last Admin: 10/14/17 20:24 Dose: 75 mg Senna (Senokot) 1 tab PO BIDP PRN PRN Reason: Constipation Sodium Chloride (Saline Flush) 10 ml IV Q8 [facility] Last Admin: 10/15/17 05:27 Dose: 10 ml Tamsulosin HCl (Flomax) 0.4 mg PO DAILY@1500 [facility] Last Admin: 10/14/17 15:35 Dose: Not Given Medical - PN: A/P - Time Spent With Patient Total time spent is greater than 50% in coordination of care (as documented) at patient's floor/unit and/or counseling patient: less than 15 minutes - Narrative A/P Narrative: 72-year-old man with HIV [on Abacavir/Lamivudine and Rilpivirine], well controlled [last CD4 more than 900, viral load less than 20 in August 2017]'s, with chronic left foot ulcers admitted with: #1 2nd left metatarsal head and neck osteomyelitis -s/p bone biopsy on 10/14, with prelim Cx NGTD, neg GS #No sepsis # Rt shoulder arthritis: s/p I&D 10/12, op findings with reddish synovial fluid , 11,754 white cells and tissue findings concerning for gout/pseudogout, no purulence observed Recommendations: -We will follow the bone biopsy culture results, and then decide the choice and dose of antibiotics. It is okay to discharge the patient without antibiotics -continue HAART with Abacavir/Lamivudine and Rilpiverine as outpatient. -Send baseline ESR and CRP before discharge Please schedule a ID follow-up appointment in 4-5 days Rolly Elmore MD Infectious disease
--- NOTE | 2017-10-15 13:08 | General Surgery Progress Note ---
Subjective Patient reports: other (Events / Progress noted. Discussed with ID and Hospitalist MD) Narrative: Note initiated : 10/15/17 at 1:06 pm Service Date, if different from initiated Date: [] Patient: Taz Parra 72 y/o M admitted on 10/09/17 for 3 Open Wounds with r/o of Ostomylitis. Chief Complaint: [] Objective Temp Pulse Resp BP Pulse Ox 98.6 F 60 16 137/65 97 10/15/17 12:00 10/15/17 12:00 10/15/17 12:00 10/15/17 12:00 10/15/17 12:00 AVSS. No changes in JEAN Post surgical wounds Right chest wall and Left foot ( Bone Biopsy ) stable. Sensilase Lase Doppler study LLE reviewed. PAD VALORIE 0.6 Patient for discharge today. - Additional Data Intake & Output - Last 24 hours: Intake & Output 10/13/17 10/14/17 10/15/17 10/16/17 05:59 05:59 05:59 05:59 Intake Total 1050 / 1050 1240 / 1240 800 / 800 Output Total 4 / Balance 1047 / 1047 1236 / 1236 797 / 797 Weight 138 lb 138 lb 137 lb - Labs 10/15/17 05:20 10/15/17 05:20 Diabetes panel 10/15/17 Range/Units 05:20 Sodium 144 (133-145) mmol/L Potassium 3.8 (3.3-5.1) mmol/L Chloride 106 (96-108) mmol/L Carbon Dioxide 24 (22-30) mmol/L BUN 20 (8-23) mg/dl Creatinine 1.0 (0.7-1.2) mg/dl Glucose 83 (70-105) mg/dL Calcium 8.9 (8.6-10.4) mg/dl AST 13 (0-37) U/l ALT 9 (0-40) U/l Alkaline Phosphatase 58 (39-117) U/L Total Protein 6.2 (5.9-8.4) gm/dL Albumin 3.0 L (3.2-5.2) gm/dL Triglycerides 323 H (<150) mg/dl Calcium panel 10/15/17 Range/Units 05:20 Calcium 8.9 (8.6-10.4) mg/dl Phosphorus 3.1 (2.7-4.5) mg/dL Albumin 3.0 L (3.2-5.2) gm/dL Pituitary panel 10/15/17 Range/Units 05:20 Sodium 144 (133-145) mmol/L Potassium 3.8 (3.3-5.1) mmol/L Chloride 106 (96-108) mmol/L Carbon Dioxide 24 (22-30) mmol/L BUN 20 (8-23) mg/dl Creatinine 1.0 (0.7-1.2) mg/dl Glucose 83 (70-105) mg/dL Calcium 8.9 (8.6-10.4) mg/dl Adrenal panel 10/15/17 Range/Units 05:20 Sodium 144 (133-145) mmol/L Potassium 3.8 (3.3-5.1) mmol/L Chloride 106 (96-108) mmol/L Carbon Dioxide 24 (22-30) mmol/L BUN 20 (8-23) mg/dl Creatinine 1.0 (0.7-1.2) mg/dl Glucose 83 (70-105) mg/dL Calcium 8.9 (8.6-10.4) mg/dl Total Bilirubin 0.2 (0.0-1.0) mg/dL AST 13 (0-37) U/l ALT 9 (0-40) U/l Alkaline Phosphatase 58 (39-117) U/L Total Protein 6.2 (5.9-8.4) gm/dL Albumin 3.0 L (3.2-5.2) gm/dL Assessment and Plan (1) Sepsis affecting skin Problem details: Evolving SIRS with CSSSI around LEFT foot open wound and spreading proximally. Status: Acute Current Visit: Yes (2) Avulsion of skin Status: Acute Current Visit: No - Time Spent With Patient Total time spent is greater than 50% in coordination of care (as documented) at patient's floor/unit and/or counseling patient: Assessment : Satisfactory progress from wound care point of view. PAD LE stable. S/p Right shoulder and Left foot bone biopsies. Doing well Post procedures. Plan: Patient for discharge later today. F/U as out patient at wound center later as scheduled. less than 15 minutes
[2017-10-15] MEDS: RILPIVIRINE HCL 25 MG PO SCH (14:48)
[2017-10-15] MEDS: ABACAVIR PO SCH (14:48)
[2017-10-15] MEDS: TAMSULOSIN 0.4 MG CAPSULE PO SCH (14:48)
[2017-10-15] MEDS: LAMIVUDINE PO SCH (14:48)
--- NOTE | 2017-10-16 13:14 | Surgical Pathology Report ---
HISTOLOGY SPECIMEN MICROSCOPIC DIAGNOSIS SPECIMEN A - SOFT TISSUE, LEFT SECOND METATARSAL, BIOPSY: -- FIBROVASCULAR TISSUE WITH SCANT TRABECULAR BONE FRAGMENTS, SEE COMMENT. SPECIMEN B - SOFT TISSUE, LEFT THIRD METATARSAL, BIOPSY: -- FIBROVASCULAR TISSUE WITH MILD FIBROSIS AND CHRONIC INFLAMMATION. -- NO BONE IDENTIFIED. (RLF:djf) COMMENT: The biopsies (specimens A and B) demonstrate predominately fibrovascular tissue with mild chronic inflammation and fibrosis. There are scant trabecular bony fragments present in specimen A that lack marrow space and no bone is identified in specimen B. Evaluation for osteomyelitis cannot be performed. Recommend correlation with microbiologic studies. PROCEDURAL IMPRESSION Rule out osteomyelitis. GROSS DESCRIPTION Specimen A: Received in formalin labeled "A second", is a 0.5 x 0.4 x 0.2 cm corey tissue fragment. Totally submitted - one cassette. Specimen B: Received in formalin labeled "B third", is a 0.5 x 0.4 x 0.2 cm corey to yellow-corey tissue fragment. Totally submitted - one cassette. (STS:sln) Electronically Signed by: Jasmin Alonzo M.D.
== END 2017-10-15 15:15 | disposition home health service (06) | DRG 477 ==
LOC: ED 15:33 → MEDSUR 20:13
PROVIDERS: ADMIT Internal Medicine; ATTEND Internal Medicine
PROC: [UNRECOGNIZED PROCEDURE] (2017-10-14 16:55)

== ENCOUNTER 2018-04-04 11:45 | Inpatient (IN) ==
[2018-04-04] MEDS ORDERED: ONDANSETRON 4 MG/2 ML VIAL IV ONE (12:04)
[2018-04-04] MEDS ORDERED: LACTATED RINGERS 1,000 ML IV ONE ×2 (12:04→16:56)
--- NOTE | 2018-04-04 12:04 | Emergency Department Note ---
Nausea/Vomiting/Diarrhea HPI - General Chief complaint: Nausea/Vomiting/Diarrhea Stated complaint: Vomiting Time Seen by Provider: 04/04/18 11:55 Mode of arrival: wheelchair Limitations: physical limitation - History of Present Illness HPI Narrative: This patient has had nausea and vomiting slight diarrhea for the last day. There is concern about aspiration but he has not been coughing. Does not feel short of breath does not have any pain. - Related Data Home Medications Medication Instructions Recorded Confirmed aspirin 81 mg tablet,delayed 81 mg PO QDAY 08/20/16 04/04/18 release HYDROcodone/APAP 10/325MG [Zortman 10 mg PO Q6HP PRN 12/07/17 04/04/18 10-325Mg] hydrocortisone 2.5 % topical cream 1 applic TOPICAL QHS PRN 12/15/17 04/04/18 ketorolac 0.5 % eye drops 1 drp OPHTHALMIC Q8H PRN 12/15/17 04/04/18 testosterone cypionate 200 mg/mL 400 mg IM Q28D ml 12/15/17 04/04/18 intramuscular oil fentanyl 50 mcg/hr transdermal 50 mcg TRANSDERMA Q72H 03/23/18 04/04/18 patch Carvedilol [Coreg] 12.5 mg PO BID 04/04/18 04/04/18 Previous Rx's Medication Instructions Recorded tamsulosin 0.4 mg capsule 0.4 mg PO QDAY #1 cap 12/30/17 trospium ER 60 mg capsule,extended 60 mg PO QAM #30 cap 01/11/18 release 24 hr Allergies Allergy/AdvReac Type Severity Reaction Status Date / Time codeine AdvReac Mild Itching Verified 03/23/18 14:31 fentanyl AdvReac Mild disorientat Verified 03/23/18 14:31 ion Review of Systems All systems ED: reviewed and negative except as stated. 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) Hip pain (Chronic) Renal insufficiency (Chronic) Hyperlipidemia (Chronic) Sprain and strain of unspecified site of shoulder and upper arm (Chronic) Pressure ulcer, stage III (Chronic) Unspecified osteomyelitis, site unspecified (Chronic) Dysphagia (Chronic) Abdominal pain (Chronic) Mental status change (Chronic) Dementia (Chronic) Hypogonadism (Chronic) Osteoarthritis of both hips (Chronic) Benign prostatic hyperplasia with lower urinary tract symptoms (Chronic) Acquired immune deficiency syndrome (Chronic) Nocturia (Chronic) Pressure ulcer of coccygeal region (Chronic) Daytime somnolence (Chronic) Pain in left lower leg (Chronic) Abdominal bloating (Chronic) Unspecified open wound, left foot, initial encounter (Chronic) Cellulitis of left leg (Chronic) Unspecified open wound, unspecified foot, subsequent encounter (Chronic) Unspecified open wound, unspecified knee, initial encounter (Chronic) Anemia due to acute blood loss (Chronic) Degenerative joint disease of left shoulder (Chronic) Degenerative joint disease of left hip (Chronic) Effusion of left knee (Chronic) Cellulitis of left knee (Chronic) Other acute osteomyelitis, left tibia and fibula (Chronic) Degenerative joint disease of left knee (Chronic) Osteoarthritis of shoulder (Chronic) Chronic hip pain (Acute) Testosterone deficiency (Acute) Osteoporosis (Acute) Wears partial dentures (Acute) HIV (human immunodeficiency virus infection) (Acute) DJD (degenerative joint disease) (Acute) GERD (gastroesophageal reflux disease) (Acute) Joint pain (Acute) Incontinence (Acute) Fatigue (Acute) Past Surgical History (Last Reviewed 01/18/18 @ 09:49 by Latoya Pederson RN) History of surgery (Acute) Status post hip surgery (Acute) Hx of inguinal hernia surgery (Acute) Cleft palate (Acute) History of hand surgery (Acute) History of total right knee replacement (Acute) Hx of foot surgery (Acute) Status post total hip replacement, right (Acute) History of total left hip replacement (Chronic) Family History (Last Updated 01/22/18 @ 10:22 by Sally Kay) Mother Malignant neoplasm High blood pressure Father Myocardial infarction High blood pressure Medical history: Reports: HIV/AIDS, other (long history of wound care left foot) Psychiatric history: Denies: anxiety, depression - Social History smoking status: Never smoker Alcohol use: Reports: Rarely Drug use: Reports: none. Denies: marijuana Physical Exam Limitations: physical limitation General appearance: alert Head: atraumatic Eye: Present: normal appearance ENT: normal exam Neck: Present: normal inspection Chest: Present: normal inspection Respiratory: Present: rales/crackles Cardiovascular: Present: regular rate, normal rhythm, normal heart sounds Abdominal: Present: soft. Absent: distention, tenderness Neurological: Present: alert Psychiatric: Present: normal affect Skin: Present: warm, dry, intact Course Vital Signs Temperature 102.4 F H 04/04/18 11:46 Temperature 101.1 F H 04/04/18 15:31 Pulse Rate 105 H 04/04/18 15:31 Respiratory Rate 16 04/04/18 15:31 Blood Pressure 91/58 04/04/18 15:31 Pulse Oximetry (%) 96 04/04/18 15:31 Nausea/Vomiting/Diarrhea - MDM Narrative Medical decision making narrative: Patient's chest x-ray is unremarkable. He did so have some elevation of his alk phos which is new from 2 days ago. Gallbladder ultrasound showed a few stones some slight gallbladder wall thickening and common bile duct of 11 mm but his bilirubin was normal. I discussed this with the beading machine operator Dr. Cartwright who thought we should pursue infectious workup first. Patient really does not have any pain or tenderness over his gallbladder. Dr. Dimas will admit the patient to the hospital. - Lab Data Lab results reviewed: Yes I reviewed the patient's lab results. Result diagrams: 04/04/18 12:08 04/04/18 12:08 Lab Results 04/04/18 04/04/18 04/04/18 Range/Units 12:07 12:08 12:08 WBC 10.5 (4.5-11.0) K/mcL RBC 4.46 L (4.50-5.90) M/mcL Hgb 13.6 (13.5-16.5) g/dL Hct 41.2 (41.0-55.0) % MCV 92.4 (80.0-100.0) fL MCH 30.5 (26.0-34.0) pg MCHC 33.1 (31.0-36.0) g/dL RDW 17.0 H (11.5-14.5) % Plt Count 156 (140-440) K/mcL MPV 9.1 (7.4-10.4) fL Gran % 91.2 H (38.0-78.0) % Lymph % (Auto) 5.0 L (15.5-49.0) % [place] % (Auto) 2.4 (1.0-12.0) % Eos % (Auto) 1.3 (0.0-7.0) % Baso % (Auto) 0.1 (0.0-2.0) % Gran # 9.6 H (1.8-8.0) K/mcL Lymph # (Auto) 0.5 L (1.5-4.8) K/mcL [place] # (Auto) 0.2 (0.1-0.9) K/mcL Eos # (Auto) 0.1 (0.0-0.7) K/mcL Baso # (Auto) 0 (0.0-0.3) K/mcL VBG Lactic Acid 0.7 (0.5-2.0) mmol/L Sodium 132 L (133-145) mmol/L Potassium 5.7 H (3.3-5.1) mmol/L Chloride 100 (96-108) mmol/L Carbon Dioxide 16 L (22-30) mmol/L Anion Gap 16.0 (8-16) BUN 38 H (8-23) mg/dl Creatinine 1.9 H (0.7-1.2) mg/dl GFR Calculation 34 Glucose 60 L (70-105) mg/dL Calcium 8.9 (8.6-10.4) mg/dl Total Bilirubin 0.5 (0.0-1.0) mg/dL AST 75 H (0-37) U/l ALT 102 H (0-40) U/l Alkaline Phosphatase 483 H (39-117) U/L Troponin T (0-0.03) ng/ml Total Protein 7.3 (5.9-8.4) gm/dL Albumin 4.0 (3.2-5.2) gm/dL Globulin 3.3 (2.2-3.7) gm/dL Albumin/Globulin Ratio 1.2 (1.0-2.3) 04/04/18 Range/Units 12:08 WBC (4.5-11.0) K/mcL RBC (4.50-5.90) M/mcL Hgb (13.5-16.5) g/dL Hct (41.0-55.0) % MCV (80.0-100.0) fL MCH (26.0-34.0) pg MCHC (31.0-36.0) g/dL RDW (11.5-14.5) % Plt Count (140-440) K/mcL MPV (7.4-10.4) fL Gran % (38.0-78.0) % Lymph % (Auto) (15.5-49.0) % [place] % (Auto) (1.0-12.0) % Eos % (Auto) (0.0-7.0) % Baso % (Auto) (0.0-2.0) % Gran # (1.8-8.0) K/mcL Lymph # (Auto) (1.5-4.8) K/mcL [place] # (Auto) (0.1-0.9) K/mcL Eos # (Auto) (0.0-0.7) K/mcL Baso # (Auto) (0.0-0.3) K/mcL VBG Lactic Acid (0.5-2.0) mmol/L Sodium (133-145) mmol/L Potassium (3.3-5.1) mmol/L Chloride (96-108) mmol/L Carbon Dioxide (22-30) mmol/L Anion Gap (8-16) BUN (8-23) mg/dl Creatinine (0.7-1.2) mg/dl GFR Calculation Glucose (70-105) mg/dL Calcium (8.6-10.4) mg/dl Total Bilirubin (0.0-1.0) mg/dL AST (0-37) U/l ALT (0-40) U/l Alkaline Phosphatase (39-117) U/L Troponin T 0.05 H* (0-0.03) ng/ml Total Protein (5.9-8.4) gm/dL Albumin (3.2-5.2) gm/dL Globulin (2.2-3.7) gm/dL Albumin/Globulin Ratio (1.0-2.3) - Radiology Data Radiology results reviewed: Yes I reviewed the patient's radiology results. Disposition Pt seen by [facility]ER [facility]/PA only: No Clinical Impression: Gastroenteritis Disposition: Xfer As Inpt ([facility]) Condition: Fair Referrals: Refugio Isidro MD [Primary Care Provider] - Time of Disposition: 15:47
[2018-04-04] MEDS ORDERED: ACETAMINOPHEN 650 MG/65 ML BOTTLE IV ONE (12:42)
[2018-04-04 12:52] LABS: Basophils # (Auto) 0 K/mcL (0.0-0.3); Basophils % (Auto) 0.1 % (0.0-2.0); Eosinophils # (Auto) 0.1 K/mcL (0.0-0.7); Eosinophils % (Auto) 1.3 % (0.0-7.0); Granulocytes % (Auto) 91.2 % (38.0-78.0); Lymphocytes # (Auto) 0.5 K/mcL (1.5-4.8); Mean Cell Volume 92.4 fL (80.0-100.0); Mean Corpuscular HGB Conc 33.1 g/dL (31.0-36.0); Monocytes # (Auto) 0.2 K/mcL (0.1-0.9); Monocytes % (Auto) 2.4 % (1.0-12.0); Platelet Count 156 K/mcL (140-440); RBC 4.46 M/mcL (4.50-5.90)
--- NOTE | 2018-04-04 13:02 | XRay Report ---
CLINICAL INFORMATION: altered mental status COMPARISON: 03/02/2018 FINDINGS: Mild cardiomegaly is unchanged. Slight mediastinal widening is also stable. The pulmonary vessels are unremarkable. Minimal bibasilar atelectasis unchanged, but no infiltrates or effusions. Severe right glenohumeral degenerations - as before. IMPRESSION: 1. No acute disease. 2. Heavy calcific plaque in the carotid bifurcations. Consider carotid duplex study Interpreted and Authenticated by: Harrison Barbosa 04/04/18
[2018-04-04 13:16] LABS: ALT/SGPT 102 U/l (0-40); Albumin/Globulin Ratio 1.2 (1.0-2.3); Alkaline Phosphatase 483 U/L (39-117); Blood Urea Nitrogen 38 mg/dl (8-23)
[2018-04-04] MEDS ORDERED: 0.9 % SODIUM CHLORIDE 1,000 ML IV ONE (13:40)
[2018-04-04] MEDS ORDERED: PIPERACILLIN SODIUM/TAZOBACTAM 3.375 GM in DEXTROSE 5% IN WATER 50 ML IV ONE (15:32)
[2018-04-04] MEDS ORDERED: LEVOFLOXACIN 750 MG/150 ML BAG IV ONE (15:32)
--- NOTE | 2018-04-04 16:24 | Internal Med History&Physical ---
Medical - H&P: HPI Patient information: Note initiated : 04/04/18 at 4:20 pm Service Date, if different from initiated Date: [] Patient: Taz Parra 73 y/o M admitted on for Vomiting. Chief Complaint: [] History of present illness: Mr. Parra is a 73 year old M with h/o memory issues, HIV< presents to the ER today with complaints of nausea/vomiting / diarrhea x 1 day. He also admits to having abdominal pain 2 days ago, but not now. He did not complain much about nausea/vomiting to me, but to the triage/er staff, his main complaint to me was just weakness. he notes he had a cardiac stent placed at [facility] before [facility]. Over the last couple of days he has been feeling weak. And that is why he came to the hospital for further evaluation. He was also seen in the emergency room on the of this month where he underwent a CT abdomen and pelvis. Workup was negative then and the patient was discharged back home. This time around on presentation to the ER the patient was febrile with a maximum temperature of 103, tachycardic, patient had low blood pressure with systolic blood pressure in the 70s, patient was saturating more than 90% on room air. Labs showed a WBC count of 10.5, 91% neutrophils hemoglobin 13 platelets 156, lactic acid 0.7 sodium 132 potassium 5.7 bicarbonate 16 creatinine 19 glucose was 60 troponin is 0.05, was 1.55 a couple of days ago AST 75, ALT 102, alkaline phosphatase 483 this is significantly elevated compared to labs 2 days ago Chest x-ray done is clear, EKG shows sinus tachycardia. Gallbladder ultrasound was done official report is yet not dictated however the ED provider noted that the patient had dilated CBD, and thickened gall bladder. Patient had CT Abdomen pelvis done 2 days ago, which showed MPRESSION: 1. Marked improvement in retroperitoneal hematoma and the right pelvis with only minimal hemorrhage along the anterior psoas and inferior Gerotas' fascia. 2. Epiploic appendigitis in the splenic flexure region of the colon. This is a self-limited nonsurgical condition resulting from torsion of the fatty epiploic appendage resulting in ischemia and, subsequently inflammation. 3. Small nonobstructing stones, less than 5 mm, inferior calyces of both kidneys - stable. Scattered renal scarring seen - as before. 4. 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 There is also marked erosive changes in the right [place] acetabulum and the proximal femur. Radiographically, this is unchanged from the study one month prior. Possibility of infection or granulomatous destruction should be entertained. Consider fluoroscopic guided aspiration of the left hip joint Patient is being admitted to the hospital for further management. - Constitutional Constitutional: Present: fatigue, fever(s) - EENT Eyes: Absent: blind spots, other visual disturbances Nose, mouth and throat: Absent: sinus pain, vertigo - Cardiovascular Cardiovascular: Present: dyspnea on exertion. Absent: chest pain, edema - Respiratory Respiratory: Absent: cough, hemoptysis, chest congestion - Gastrointestinal Gastrointestinal: Present: abdominal pain (hypygastric), nausea, vomiting - Genitourinary Genitourinary: Absent: hematuria, urinary incontinence, urinary urgency - Musculoskeletal Musculoskeletal: Present: other (chr pain) - Integumentary Integumentary: Absent: jaundice - Neurological Neurological: Present: memory loss. Absent: focal weakness, vertigo - Psychiatric Psychiatric: Present: memory loss. Absent: hallucinations, visual hallucinations - Endocrine Endocrine: Absent: polydipsia, polyphagia, polyuria - Hematologic/Lymphatic Hematologic/Lymphatic: Absent: easy bleeding, easy bruising - Allergic/Immunologic Allergic/Immunologic: Absent: uticaria, wheezing Medical - H&P: PMH Medical history: Medical History (Last Reviewed 01/18/18 @ 09:49 by Latoya Pederson RN) Degenerative joint disease of knee (Chronic) Osteopenia (Chronic) Low back pain (Chronic) Actinic keratosis (Chronic) Anemia, unspecified (Chronic) Idiopathic hypertension (Chronic) Macrocytic anemia (Chronic) Overactive bladder (Chronic) Chronic pain syndrome (Chronic) 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) Osteoarthritis of ankle (Chronic) Degenerative joint disease (DJD) of lumbar spine (Chronic) Hip pain (Chronic) Renal insufficiency (Chronic) Hyperlipidemia (Chronic) Sprain and strain of unspecified site of shoulder and upper arm (Chronic) Pressure ulcer, stage III (Chronic) Unspecified osteomyelitis, site unspecified (Chronic) Dysphagia (Chronic) Abdominal pain (Chronic) Mental status change (Chronic) Dementia (Chronic) Hypogonadism (Chronic) Osteoarthritis of both hips (Chronic) Benign prostatic hyperplasia with lower urinary tract symptoms (Chronic) Acquired immune deficiency syndrome (Chronic) Nocturia (Chronic) Pressure ulcer of coccygeal region (Chronic) Daytime somnolence (Chronic) Pain in left lower leg (Chronic) Abdominal bloating (Chronic) Unspecified open wound, left foot, initial encounter (Chronic) Cellulitis of left leg (Chronic) Unspecified open wound, unspecified foot, subsequent encounter (Chronic) Unspecified open wound, unspecified knee, initial encounter (Chronic) Anemia due to acute blood loss (Chronic) Degenerative joint disease of left shoulder (Chronic) Degenerative joint disease of left hip (Chronic) Effusion of left knee (Chronic) Cellulitis of left knee (Chronic) Other acute osteomyelitis, left tibia and fibula (Chronic) Degenerative joint disease of left knee (Chronic) Osteoarthritis of shoulder (Chronic) Chronic hip pain (Acute) Testosterone deficiency (Acute) Osteoporosis (Acute) Wears partial dentures (Acute) HIV (human immunodeficiency virus infection) (Acute) DJD (degenerative joint disease) (Acute) GERD (gastroesophageal reflux disease) (Acute) Joint pain (Acute) Incontinence (Acute) Fatigue (Acute) Surgical history: Past Surgical History (Last Reviewed 01/18/18 @ 09:49 by Latoya Pederson RN) History of surgery (Acute) Status post hip surgery (Acute) Hx of inguinal hernia surgery (Acute) Cleft palate (Acute) History of hand surgery (Acute) History of total right knee replacement (Acute) Hx of foot surgery (Acute) Status post total hip replacement, right (Acute) History of total left hip replacement (Chronic) Pertinent family history: Family History (Last Updated 01/22/18 @ 10:22 by Sally Kay) Mother Malignant neoplasm High blood pressure Father Myocardial infarction High blood pressure Medical - H&P: Meds Home Medications Medication Instructions Recorded Confirmed Type aspirin 81 mg tablet,delayed 81 mg PO QDAY 08/20/16 04/04/18 History release HYDROcodone/APAP 10/325MG [[place] 10 mg PO Q6HP PRN 12/07/17 04/04/18 History 10-325Mg] hydrocortisone 2.5 % topical cream 1 applic TOPICAL QHS PRN 12/15/17 04/04/18 History ketorolac 0.5 % eye drops 1 drp OPHTHALMIC Q8H PRN 12/15/17 04/04/18 History testosterone cypionate 200 mg/mL 400 mg IM Q28D ml 12/15/17 04/04/18 History intramuscular oil tamsulosin 0.4 mg capsule 0.4 mg PO QDAY #1 cap 12/30/17 04/04/18 Rx trospium ER 60 mg capsule,extended 60 mg PO QAM #30 cap 01/11/18 04/04/18 Rx release 24 hr fentanyl 50 mcg/hr transdermal 50 mcg TRANSDERMA Q72H 03/23/18 04/04/18 History patch Carvedilol [Coreg] 12.5 mg PO BID 04/04/18 04/04/18 History Allergies Allergy/AdvReac Type Severity Reaction Status Date / Time codeine AdvReac Mild Itching Verified 03/23/18 14:31 fentanyl AdvReac Mild disorientat Verified 03/23/18 14:31 ion Medical - H&P: Exam - Constitutional Vitals: Temp Pulse Resp BP Pulse Ox 100.7 F H 102 H 17 98/56 97 04/04/18 16:01 04/04/18 16:01 04/04/18 15:46 04/04/18 16:01 04/04/18 16:01 Exam: GENERAL: The patient is a well-developed, well-nourished in no apparent distress. Is alert and oriented x2. VITAL SIGNS: Reviewed and as noted elsewhere. HEENT: Head is normocephalic and atraumatic. Extraocular muscles are intact. Pupils are equal, round, and reactive to light. Nares appeared normal. Mouth appears any without lesions. Mucous membranes are dry. NECK: Normal to inspection, Supple, No lymphadenopathy or thyromegaly. LUNGS: Air entry equal on both sides, no wheezing, crackles or rhonchi noted. No accessory muscles of respiration HEART: Regular tachycardic rate and rhythm normal, S1 and S2 heard, no Gallop, S3 or Rub Noted, No Gross murmur heard. ABDOMEN: Soft, some tenderness in the right side of abdomen, but not consistent, and nondistended. Positive bowel sounds. No hepatosplenomegaly was noted. EXTREMITIES: No cyanosis, clubbing, rash, lesions or edema. NEUROLOGIC: Cranial nerves II through XII are grossly intact. Motor and Sensory System Grossly Intact PSYCHIATRIC: Normal affect, Normal Mood. Appropriate Behavior. SKIN: No ulceration or wounds noted, No jaundice, No rash noted. Medical - H&P: Reslt - Labs CBC & Chem 7: 04/04/18 12:08 04/04/18 12:08 Labs: Short CBC 04/04/18 Range/Units 12:08 WBC 10.5 (4.5-11.0) K/mcL Hgb 13.6 (13.5-16.5) g/dL Hct 41.2 (41.0-55.0) % Plt Count 156 (140-440) K/mcL BMP 04/04/18 12:08 Sodium 132 L Potassium 5.7 H Chloride 100 Carbon Dioxide 16 L BUN 38 H Creatinine 1.9 H Glucose 60 L Calcium 8.9 Cardiac Enzymes 04/04/18 Range/Units 12:08 Troponin T 0.05 H* (0-0.03) ng/ml Liver Function 04/04/18 Range/Units 12:08 Total Bilirubin 0.5 (0.0-1.0) mg/dL AST 75 H (0-37) U/l ALT 102 H (0-40) U/l Alkaline Phosphatase 483 H (39-117) U/L Albumin 4.0 (3.2-5.2) gm/dL Medical - H&P: A/P - Narrative A/P Narrative: A/P Sepsis with Shock- Pt has fever, wbc 10.9 with 91% neutrophils, immunocompromised pt, with low bp, Source of infection could be cholangitis given dialated cbd, elevated lipase, as well as some stones seen on GB, Adalid is normal. GI has been consulted. The CT abdomen done 2 days ago also mentioned left hip joint possible infection. Will try to obtain left hip synovial fluid sample. IV bolus x 2 given in ER, will give one more, keep map > 65, start no zosyn for now. HIV- I do not see any HAART meds, will consult Infectious disease. CAD- Elevated troponin, but no chest pain, troponin trending down, recent stent placement, continue antiplatlet meds for now, Memory loss/Dementia: High risk for delirum, monitor Chronic Kidney disease- Creat is at baseline 1.69 Hyperkalemia- no ekg changes, will be monitored on tele, give kayexalate. Also will be started on bicarb drip Non anion gap acidosis- due to CKD, to be started on bicarb drip. DJD/ Chr pain- resume home meds and monitor. DVT hep sq Diet Cardiac, OT/PT/ST consult Full code for now. Medical - H&P: Qual - Stroke Symptom Onset Unknown: No Social History - Social History housing: house marital status: occupational status: retired - Exercise physical activity: none - Tobacco smoking status: Never smoker - Alcohol alcohol intake frequency: a few times a month - Substance use substance use type: does not use
[2018-04-04] MEDS ORDERED: HYDROcodone/APAP 10/325MG TABLET PO PRN (16:56)
[2018-04-04] MEDS ORDERED: NALOXONE HCL 0.4 MG/ML VIAL IV PRN (16:56)
[2018-04-04] MEDS ORDERED: ACETAMINOPHEN 325 MG TABLET PO PRN (16:56)
[2018-04-04] MEDS ORDERED: SODIUM POLYSTYRENE SULFONATE 15 GM/60 ML SUSPENSION PO ONE (16:56)
[2018-04-04] MEDS ORDERED: LORazepam 2 MG/ML VIAL IV ONE (17:46)
[2018-04-04] MEDS ORDERED: LORazepam 2 MG/ML VIAL ONE (18:12)
[2018-04-04] MEDS ORDERED: SODIUM BICARBONATE 50 MEQ/50 ML VIAL ONE (18:59)
[2018-04-04] MEDS ORDERED: LIDOCAINE 1% 20 ML VIAL SQ ONE (19:30)
--- NOTE | 2018-04-04 19:59 | XRay Report ---
CLINICAL INFORMATION: Marked periarticular erosion of the [place] acetabulum and proximal femur in patient with total hip prostheses. Evaluate for septic arthritis TECHNIQUE: With the patient in supine position on the fluoroscopy table, the skin overlying the left hip was fluoroscopically marked, prepped and locally anesthetized with 1% lidocaine using a 25-gauge spinal needle to the femoral head neck junction. A 17-gauge Temno guide needle was advanced under fluoroscopic guidance into the joint. The stylet was removed: an attempt to aspirate fluid was unsuccessful. Core biopsies were then obtained using an 18-gauge Temno needle of the heavy granulomatous tissue within the hip. Samples were sent in aerobic/anaerobic blood culture bottles and histology. Patient tolerated procedure well without apparent complication IMPRESSION: Successful fluoroscopically guided core biopsy of solid granulation tissue in the left hip. Samples were sent for aerobic and anaerobic cultures and also pathology. No apparent complication Interpreted and Authenticated by: Harrison Barbosa 04/04/18
--- NOTE | 2018-04-04 20:14 | Cat Scan Report ---
CLINICAL INFORMATION: Fever COMPARISON: None. TECHNIQUE: Enteric contrast was utilized. 80 cc of Isovue-300 were injected intravenously, and 50 seconds later 2.5 mm helical slices were obtained from the lung apices through the subtrochanteric regions of the femurs. Following reconstruction, 2.5 mm sagittal, coronal and axial reformatted images were processed and reviewed at multiple windows and levels. 7 mm MIP reconstructions were obtained through the lungs to optimize nodule detection.The exam was performed using radiation dose optimization techniques including, but not limited to, automated exposure control, adjustment of the mA and/or kV according to patient size and use of iterative reconstruction technique. FINDINGS: Chest images show elevated lung volumes and slight wall thickening/dilatation of bronchi compatible with chronic bronchitis. There is mild stranding scarring or atelectasis in both lower lobes. There are no diffuse or regional infiltrates. No nodules. The pleural spaces are normal. The mediastinal windows show the noncontrast thoracic aorta and pulmonary arteries are normal in contour and caliber. Heart is mildly enlarged. Heavy calcific plaque in all coronary arteries. Esophagus is normal. There is no adenopathy in the mediastinal, hilar or axillary regions. The noncontrast thyroid is normal. Images through the abdomen now show the gallbladder wall is now mildly thickened with mild injection of the pericholecystic fat. No definite stones are identified by CT (please follow-up ultrasound). Intrahepatic and common bile duct normal caliber: CBD is dilated at 10 mm. No evidence choledocholithiasis or mass in the ampullary region. Both kidneys show scattered scarring with a few small nonobstructing stones as seen on CT chest two days ago. No obstructing stones. The noncontrasted spleen, pancreas, adrenal glands and aorta are unremarkable. Small focus of epiploic appendicitis arising from the splenic flexure of the left colon has progressed now spanning 7 mm. the remainder of the colon demonstrates only sigmoid diverticulosis without evidence of diverticulitis. Small bowel and stomach are grossly normal Images through the pelvis show Ortiz catheter properly positioned within the urinary bladder. The urinary bladder is grossly normal. Prostate borderline enlarged. Chronic posterior dislocation of the left hip prosthesis with marked erosion of the [place] acetabulum and proximal femoral diaphysis with large intracapsular soft tissue density, likely granulation tissue, again noted. There is also moderate erosive change in the right [place] acetabulum proximal femur. Minimal residual right retroperitoneal hematoma in the right true and false pelvis is unchanged from most recent study two days ago IMPRESSION: 1. Cholecystitis - new 2. Small focus of epiploic appendicitis in the splenic flexure of the colon is resolving 3. Scattered renal scarring and a few small nonobstructing stones in calyces of both knees are stable. No obstructing stone or hydronephrosis. 4. Minimal residual retroperitoneal hematoma in the right true and false pelvis is unchanged from the CT just two days ago. 5. Scattered atelectasis or scarring in both lower lobes. No evidence of pneumonia. 6. Very heavy calcific plaque in the coronary arteries. Interpreted and Authenticated by: Harrison Barbosa 04/04/18
[2018-04-04] MEDS: SODIUM BICARBONATE VIAL 150 MEQ in DEXTROSE 5% IN WATER 850 ML IV SCH (20:15)
--- NOTE | 2018-04-04 20:16 | Ultrasound Report ---
CLINICAL INFORMATION: GB COMPARISON: None. FINDINGS: Liver is normal in size and echotexture without focal lesion. There is moderate gallbladder wall thickening up to 6 mm multiple stones in the gallbladder and focal tenderness. Common bile duct is dilated: 11 mm. The pancreas is unremarkable. No free fluid IMPRESSION: Cholecystitis. Mild dilatation of common bile duct noted Interpreted and Authenticated by: Harrison Barbosa 04/04/18
[2018-04-04] MEDS: TROSPIUM CHLORIDE 60 MG PO SCH (21:00)
[2018-04-04] MEDS: fentaNYL 50 MCG PATCH TD SCH (21:47)
[2018-04-04] MEDS: 0.9 % SODIUM CHLORIDE 10 ML SYRINGE IV SCH (21:58)
[2018-04-04] MEDS: HEPARIN 5,000 UNIT/ML VIAL SQ SCH (21:58)
--- NOTE | 2018-04-04 22:17 | Consultation ---
DATE OF CONSULTATION: 04/04/2018 CHIEF COMPLAINT: HIV patient with fever and elevated liver chemistries and possible pancreatitis. HISTORY OF PRESENT ILLNESS: Mr. Parra is a 73-year-old white male who is HIV positive. I note that in 10/2017, his CD4 count was 633 and HIV RNA load was low, but detectable at 24. The patient is not a good historian. He had been to the emergency room recently with complaint of abdominal pain 2 days ago. A CAT scan of the abdomen at that time did not show any acute pathology. His liver chemistries were actually normal at that time with AST and ALT less than 20 and alkaline phosphatase 90. He returned to the ER today not complaining of abdominal pain, but rather weakness and 1-day history of nausea, vomiting, and a single episode of diarrhea which was nonbloody. At the emergency room today, his lipase, however, is elevated at 616 with normal up to 60. It was normal a couple of days ago. Also, today, his alkaline phosphatase is elevated at 483, whereas it was normal a couple of days ago. AST 75 and ALT 102. On presentation to the ER, he was hypotensive with systolic as low as the upper 70s and generally in the 90/50 range. He improved with intravenous fluids and resuscitation. He was afebrile at 103 degrees. White count is normal at 10,500, but with a left shift. An ultrasound done today shows small gallstones in the gallbladder with maybe mild cholecystitis. Common bile duct diameter 11 mm. No evident pancreatic pathology seen. CAT scan was done again today demonstrating some mild thickening of the gallbladder. The CAT scan did not identify any stones in the gallbladder or in the common bile duct. The common bile duct diameter was measured at 10 mm. No pancreatic mass or evident pancreatic pathology. There is some splenic flexure appendagitis. There is also chronic left hip prosthesis dislocation and erosion of the acetabulum, and the patient has undergone earlier tonight a needle aspirate of this bony tissue. PAST MEDICAL HISTORY: Include HIV positive, although I do not see him listed on any HIV medications. He has arthritis, had recent heart cath in 02/2018, has chronic dementia, chronic contracture of the left lower extremity and chronic cellulitis of the left leg as well, osteoporosis and chronic pain syndrome. PAST SURGICAL HISTORY: He has undergone a total right knee replacement and total left hip replacement. Inguinal hernia repair. MEDICATIONS: Listed from home are 81 mg aspirin daily, hydrocodone 10/325 mg q. 6 hours p.r.n. pain, ketorolac eyedrops, testosterone IM injections, tamsulosin 0.4 mg daily, Trospium ER 60 mg extended release daily, Fentanyl 50 mcg per hour patch every 72 hours, and Coreg 12.5 mg b.i.d. ALLERGIES: EVEN THOUGH HE IS ON FENTANYL PATCH, FENTANYL IS ALSO LISTED AN ALLERGY OR AT LEAST AN ADVERSE REACTION WITH DISORIENTATION. PHYSICAL EXAMINATION: VITAL SIGNS: Blood pressure currently 150/70, but was 90/50 earlier today with the temperature max 103 degrees, pulse 100, respirations 17. GENERAL: The patient is lethargic after he has received Ativan for his left hip joint aspirate. No acute distress. SKIN: Without stigmata of chronic liver disease. HEENT: Sclerae are anicteric. LUNGS: Airway patent. No respiratory distress. Clear anteriorly to auscultation. CARDIAC: Regular rhythm. Borderline tachycardia. No gallop. ABDOMEN: Soft and mildly obese. I do not elicit any tenderness, although the patient is still lethargic from his Ativan. No evident ascites. No hepatosplenomegaly. No abdominal mass palpable. EXTREMITIES: The left leg is in a soft brace, and there are chronic cellulitic changes. No acute or evident drainage from the skin or soft tissues. LABORATORY STUDIES: White count 10,500; hemoglobin 13.6; platelets 156,000. Lactic acid level 0.7. Sodium 132; potassium 5.7; chloride 100; bicarb 16; BUN 38; creatinine 1.9, which is about his baseline in recent months. CD4 counts as noted above. ASSESSMENT AND RECOMMENDATIONS: The question arises as to whether the patient has a biliary pathology to explain his sudden elevation of the alkaline phosphatase and also the pancreatic enzyme elevation. More specifically, the question is whether the patient has common bile duct stone that led to gallstone pancreatitis. The CAT scan does not show evident common bile duct stone, although it does show stones in the gallbladder. The alkaline phosphatase has gone up dramatically, although the total bilirubin is normal at 0.5 today. Today, his total bilirubin is 0.5, AST 75, ALT 102, alkaline phosphatase 483. My recommendation is to check a GGT and to fractionate the alkaline phosphatase isoenzymes. Also, recommend MRCP to try to determine if there is a stone in the common bile duct. If so, then ERCP may be undertaken if a stone does not pass spontaneously. On the other hand, I would certainly prefer not to use an ERCP as a diagnostic study. I will follow with you in hospital. JCM:in Job ID: [id number] Doc ID: [id number] Harrison Elmore
[2018-04-04] MEDS: PIPERACILLIN SODIUM/TAZOBACTAM 3.375 GM in DEXTROSE 5% IN WATER 50 ML IV SCH (22:29)
[2018-04-04 22:33] LABS: Blood Urea Nitrogen 33 mg/dl (8-23)
[2018-04-05] MEDS ORDERED: LACTATED RINGERS 1,000 ML IV ONE (01:23)
[2018-04-05] MEDS ORDERED: IBUPROFEN 400 MG TABLET PO ONE (01:24)
[2018-04-05] MEDS ORDERED: ACETAMINOPHEN 1,000 MG/100 ML BOTTLE IV ONE (01:35)
[2018-04-05] MEDS: ACETAMINOPHEN 650 MG/65 ML BOTTLE IV PRN ×2 (01:47→19:44)
[2018-04-05] MEDS: PIPERACILLIN SODIUM/TAZOBACTAM 3.375 GM in DEXTROSE 5% IN WATER 50 ML IV SCH ×3 (05:31→20:55)
[2018-04-05] MEDS: 0.9 % SODIUM CHLORIDE 10 ML SYRINGE IV SCH ×3 (05:31→20:55)
[2018-04-05 06:10] LABS: Basophils # (Auto) 0 K/mcL (0.0-0.3); Basophils % (Auto) 0.2 % (0.0-2.0); Eosinophils # (Auto) 0.1 K/mcL (0.0-0.7); Eosinophils % (Auto) 1.6 % (0.0-7.0); Granulocytes % (Auto) 81.4 % (38.0-78.0); Lymphocytes # (Auto) 0.8 K/mcL (1.5-4.8); Lymphocytes % (Auto) 9.8 % (15.5-49.0); Mean Cell Volume 92.9 fL (80.0-100.0); Mean Corpuscular HGB Conc 32.7 g/dL (31.0-36.0); Monocytes # (Auto) 0.6 K/mcL (0.1-0.9); Platelet Count 126 K/mcL (140-440); RBC 3.35 M/mcL (4.50-5.90)
[2018-04-05 06:33] LABS: ALT/SGPT 62 U/l (0-40); Albumin 2.6 gm/dL (3.2-5.2); Alkaline Phosphatase 306 U/L (39-117); Bilirubin,Direct < 0.2 mg/dL (0.0-0.3); Blood Urea Nitrogen 28 mg/dl (8-23); Gamma Glutamyl Transpeptidase 281 U/L (8-61); Uric Acid 5.4 mg/dL (2.5-8.0)
[2018-04-05] MEDS ORDERED: VANCOMYCIN ORAL SOL 1,000 MG/10 ML BOTTLE PO SCH (09:00)
--- NOTE | 2018-04-05 09:37 | Magnetic Resonance Report ---
CLINICAL INFORMATION: Nausea, vomiting, diarrhea and cholecystitis COMPARISON: Abdomen CT on 04/04/18 and abdominal ultrasound done on 04/04/18 TECHNIQUE: MRCP was performed using 3D FRFSE respiratory triggered and single-shot FSE thick slab technique. Axial T2 SSFSE and coronal SSFSE images were obtained through the upper abdomen as well. FINDINGS: The gallbladder is normal in size and contour. The thickening of the gallbladder wall seen on the prior ultrasound and CT have resolved. No stones or mass are seen within the lumen. The cystic duct is longer than normal and mildly dilated. Measures up to 8 mm. It has a low insertion into the common bile duct. Above the insertion the common hepatic duct measures up to 8 mm. Just below the insertion of the cystic duct the common bile duct is 6 mm. There is mild fusiform dilatation of the common bile duct above the ampulla where it measures 11 mm. No stone is seen within the duct and there is no evidence of a mass in or adjacent to the common bile duct. The liver and spleen are normal in size and homogeneous. No ascites is present. The pancreatic duct measures up to 3.3 mm. There is an irregularly shaped diverticulum arising from the pancreatic duct in the mid body. Measures 7 x 15 mm. There is no associated soft tissue mass or inflammation. The diverticulum was not seen on the prior examinations. There is no evidence of acute pancreatitis or neoplasm within the pancreas. There are couple small cortical cysts in both kidneys. There is atrophy of both kidneys and stranding of the perinephric fat. The tiny nonobstructing kidney stone seen on the prior CT are not identified by MRI. IMPRESSION: Resolution of previously seen cholecystitis Mildly dilated cystic duct and extrahepatic bile ducts. This may be due to recent passage of a stone or stricture at the ampulla. 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
[2018-04-05] MEDS: TROSPIUM CHLORIDE 60 MG PO SCH (10:17)
[2018-04-05] MEDS: fentaNYL 50 MCG PATCH TD SCH (10:17)
[2018-04-05] MEDS: TAMSULOSIN 0.4 MG CAPSULE PO SCH (10:17)
[2018-04-05] MEDS: HEPARIN 5,000 UNIT/ML VIAL SQ SCH ×2 (10:17→20:55)
[2018-04-05] MEDS: ASPIRIN 81 MG TAB.CHEW PO SCH (10:17)
--- NOTE | 2018-04-05 10:55 | Infectious Disease Consult ---
History of Present Illness Patient information: Note initiated : 04/05/18 at 9:57 am Service Date, if different from initiated Date: [] Patient: Taz Parra 73 y/o M admitted on 04/04/18 for Vomiting. Chief Complaint: [] Consult date: 04/05/18 Requesting Physician: Jeanette Dimas Reason for Consult: Sepsis Chief complaint: My belly is sore History of present illness: HPI obtained from records as pt does not remember how he ended up here. His partner Quincy was not available on the phone. 73 year old man well known to me from previous visits for chronic stable HIV infection, treatment of 2nd toe osteomyelitis presented to ED on 04/04 with c/o vomiting and diarrhea x 1 day. Pt also c/o belly pain for last month when it has been going off and on, and for last 4 days it has been really severe. 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 There is also marked erosive changes in the right [place] acetabulum and the proximal femur". Per Ortho, he didnot have any localized hip symptoms and thus did not need any intervention. Pt also endorsed loss of appetite at that time but he had been drinking lot of water. In addition, he has been constipated (due to fentanyl patch) and had been using laxatives which resulted in a loose watery BM on 04/02 am [Senna tab bid 03/24/18, confirmed by calling [employer]]. As above, pt was admitted on 04/04 for c.o vomiting and loose stools x 1, along with low BP of 91/58, temp of 102.4F, satting 96% on RA. Labs showed a WBC count of 10.5, 91% neutrophils, hemoglobin 13, platelets 156, lactic acid 0.7, sodium 132, potassium 5.7, bicarbonate 16, creatinine 1.9, glucose was 60 troponin is 0.05, AST 75, ALT 102, alkaline phosphatase 483 [higher than 04/02 when it was 92]. GB US was remarkable for: "mild dilatation of CBD and moderate GB wall thickening of up to [address] abd/pelvis on 04/04 showed "CBD is dilated at 10 mm, mild thickening of GB wall". Patient received Kayexalate for hyperkalemia. Patient received about 2 L of IV fluids in the ED following which his blood pressure improved to 106/59. He never required any pressors. 2 sets of blood Cx were sent along with C. difficile testing of stools along with stool culture and ova and parasites. Blood cultures came back positive for gram-negative rods in both sets, C. difficile stool testing was equivocal, and showed negative toxin but positive GDH. C. difficile PCR came out to be positive for the toxin. Patient has been on IV Zosyn since admission, and was started on oral vancomycin after the C. difficile stool test. Overnight patient's fever had improved with a T-max of 99.2. At the time of visit, he reported feeling better. He did endorse some belly pain, left worse than right. He was hungry and wanted to eat. He denied any other symptoms incl uding chills, nausea, vomiting, cough. Rest review of system was negative. When asked about his HIV meds, he said that he is taking them every day without missing any doses. Review of Systems All systems PM: reviewed and no additional remarkable complaints except as stated Past History Past medical history: Chronic HIV infection Chronic pain syndrome Dementia BPH Past family history: Not pertinent to current presentation Past social history: Lives with his partner [Quincy] in [place] Does not smoke, use alcohol or use any illicit drugs Medications and Allergies Home Medications Medication Instructions Recorded Confirmed Type aspirin 81 mg tablet,delayed 81 mg PO QDAY 08/20/16 04/04/18 History release HYDROcodone/APAP 10/325MG [[place] 10 mg PO Q6HP PRN 12/07/17 04/04/18 History 10-325Mg] hydrocortisone 2.5 % topical cream 1 applic TOPICAL QHS PRN 12/15/17 04/04/18 History ketorolac 0.5 % eye drops 1 drp OPHTHALMIC Q8H PRN 12/15/17 04/04/18 History testosterone cypionate 200 mg/mL 400 mg IM Q28D ml 12/15/17 04/04/18 History intramuscular oil tamsulosin 0.4 mg capsule 0.4 mg PO QDAY #1 cap 12/30/17 04/04/18 Rx trospium ER 60 mg capsule,extended 60 mg PO QAM #30 cap 01/11/18 04/04/18 Rx release 24 hr fentanyl 50 mcg/hr transdermal 50 mcg TRANSDERMA Q72H 03/23/18 04/04/18 History patch Dolutegravir Sodium [Tivicay] 50 mg PO 1500 04/04/18 04/04/18 History Emtricitabine/Tenofov Alafenam 1 each PO 1500 04/04/18 04/04/18 History [Descovy 200-25 mg Tablet] RX: Carvedilol [Coreg] 12.5 mg PO BID 04/04/18 04/04/18 History Allergies Allergy/AdvReac Type Severity Reaction Status Date / Time codeine AdvReac Mild Itching Verified 03/23/18 14:31 Physical Examination Vital signs: Temp Pulse Resp BP Pulse Ox 37.1 C 88 16 117/56 98 04/05/18 07:03 04/05/18 07:03 04/05/18 09:43 04/05/18 09:01 04/05/18 09:43 General appearance: no acute distress Eyes pulmonary: nonicteric Effort: normal Auscultation: bilateral: clear (Decreased breath sounds at bases) Cardiovascular: regular rate and rhythm Gastrointestinal: normoactive bowel sounds, rebound tenderness, other (Abdomen is distended with eversion of umbilicus and dilated superficial veins) Integumentary: normal Extremities: no edema, other (Feet look to similar to what they have been in the past, no signs of any infection) mood appropriate Results - Laboratory Findings CBC and BMP: 04/06/18 04:00 04/06/18 07:14 Abnormal lab findings: Abnormal Labs 04/04/18 04/04/18 04/04/18 12:08 12:08 12:08 RBC 4.46 L Hgb Hct RDW 17.0 H Plt Count Gran % 91.2 H Lymph % (Auto) 5.0 L Gran # 9.6 H Lymph # (Auto) 0.5 L Sodium 132 L Potassium 5.7 H Chloride Carbon Dioxide 16 L BUN 38 H Creatinine 1.9 H Glucose 60 L Calcium Phosphorus GGT AST 75 H ALT 102 H Alkaline Phosphatase 483 H Troponin T 0.05 H* Total Protein Albumin Lipase 04/04/18 04/04/18 04/04/18 12:08 12:08 21:06 RBC Hgb Hct RDW Plt Count Gran % Lymph % (Auto) Gran # Lymph # (Auto) Sodium Potassium 5.5 H Chloride Carbon Dioxide 16 L BUN 33 H Creatinine 1.7 H Glucose Calcium 8.1 L Phosphorus GGT 452 H AST ALT Alkaline Phosphatase Troponin T Total Protein Albumin Lipase 616 H 04/05/18 04/05/18 04/05/18 03:30 03:30 03:30 RBC 3.35 L Hgb 10.2 L Hct 31.2 L RDW 17.0 H Plt Count 126 L Gran % 81.4 H Lymph % (Auto) 9.8 L Gran # Lymph # (Auto) 0.8 L Sodium Potassium Chloride 109 H Carbon Dioxide 19 L BUN 28 H Creatinine 1.6 H Glucose Calcium 8.0 L Phosphorus 2.4 L GGT 281 H AST 46 H ALT 62 H Alkaline Phosphatase 306 H Troponin T Total Protein 5.3 L Albumin 2.6 L Lipase 208 H Microbiology: Microbiology 04/04/18 20:08 Synovial Fluid Gram Stain - Final 04/04/18 20:08 Synovial Fluid Body Fluid Culture - Final 04/05/18 05:11 Stool C. difficile GDH Antigen & Toxins - Final 04/05/18 05:11 Stool Fecal Leukocyte Stain - Final 04/04/18 12:05 Blood Blood Culture - Preliminary Gram negative bacillus 04/04/18 12:06 Blood Blood Culture - Preliminary Gram negative bacillus 04/04/18 17:28 Nasopharynx Respiratory Virus Panel (PCR) - Final 04/04/18 17:28 Nasopharynx Respiratory Panel (PCR) - Final 04/04/18 17:28 Nose MRSA (PCR) - Final Assessment and Plan - Narrative A/P Narrative: Assessment: #1 Klebsiella pneumoniae bacteremia: Likely source is biliary tract. CT abdomen and ultrasound done on 04/04 suggest new development of cholecystitis along with CBD dilatation. MRCP from today suggests normalization of CBD dilatation and gallbladder wall thickening, with no finding of any stones. Overall suggestive of that patient had a CBD stone which was passed through ampulla of vater. In the process it led to mucosal translocation of bacteria leading to bacteremia Patient on appropriate antibiotics #2 diarrhea: Patient taking laxatives as outpatient and also had Kayexalate on admission Absence of being on antibiotics recently, normal white cell count, negative toxin immunoassay on GDH/toxin based C. difficile testing, being on laxatives suggest that patient is possibly colonized with toxigenic C. difficile and does not have a actual C. difficile infection Given patient's risk factors of HIV and being on antibiotics for gram-negative bacteremia, he remains at risk for developing acute C. difficile infection. #3 chronic HIV infection: On Dolutegravir once daily and Descovy once daily. Current creatinine ryder yun of 35 does not require any dose adjustment #4 chronic erosive changes in the left hip prosthesis might need outpatient follow-up with orthopedics - s/p IR guided biopsy on 04/04 # Gall stone pancreatitis: lipase trending down Recommendations: Continue IV Zosyn 3.375 g every 8 hours. Will de-escalate based on antibiotic susceptibility results tomorrow Continue oral dolutegravir 50 mg and oral descovy once daily We will stop oral vancomycin In case patient spikes a fever, will recommend repeating 2 sets of blood cultures Await left hip biopsy path as cultures cannot be processed because specimen was sent in formalin. Will follow Rolly Elmore MD Infectious disease
[2018-04-05 11:34] LABS: Appearance,Urine CLEAR; Bacteria,Urine 0 /hpf (0); Bilirubin,Urine NEG (NEG); Color,Urine YELLOW; Glucose,Urine (UA) NEGATIVE (NEG); Leukocyte Esterase,Urine NEG /uL (NEG); Protein,Urine NEG (NEG); Specific Gravity,Urine 1.014 (1.000-1.035); Urine Blood 0.03 mg/dL (<0.03); Urine RBC 4 /hpf (0-1); Urine Squamous Epithelial Cell < 1 /hpf (0-4); Urine WBC 3 /hpf (0-4); Urobilinogen,Urine NEG (NEG)
--- NOTE | 2018-04-05 12:59 | Internal Med Progress Note ---
Medical - PN: Subj Patient information: Note initiated : 04/05/18 at 12:53 pm Service Date, if different from initiated Date: [] Patient: Taz Parra 73 y/o M admitted on 04/04/18 for Vomiting. Chief Complaint: [] Interval history: Mr. Parra is a 73 year old M with h/o memory issues, HIV< presents to the ER today with complaints of nausea/vomiting / diarrhea x 1 day. He also admits to having abdominal pain 2 days ago, but not now. He did not complain much about nausea/vomiting to me, but to the triage/er staff, his main complaint to me was just weakness. he notes he had a cardiac stent placed at [facility] [place]. Over the last couple of days he has been feeling weak. And that is why he came to the hospital for further evaluation. He was also seen in the emergency room on the of this month where he underwent a CT abdomen and pelvis. Workup was negative then and the patient was discharged back home. This time around on presentation to the ER the patient was febrile with a maximum temperature of 103, tachycardic, patient had low blood pressure with systolic blood pressure in the 70s, patient was saturating more than 90% on room air. Labs showed a WBC count of 10.5, 91% neutrophils hemoglobin 13 platelets 156, lactic acid 0.7 sodium 132 potassium 5.7 bicarbonate 16 creatinine 19 glucose was 60 troponin is 0.05, was 1.55 a couple of days ago AST 75, ALT 102, alkaline phosphatase 483 this is significantly elevated compared to labs 2 days ago Chest x-ray done is clear, EKG shows sinus tachycardia. Gallbladder ultrasound was done official report is yet not dictated however the ED provider noted that the patient had dilated CBD, and thickened gall bladder. 04/05 Patient seen and examined, overnight was hypotensive and febrile responded well to Tylenol, Motrin and IV fluids. Blood cultures positive for out of 4 bottles Klebsiella. Likely source at this time appears to be GI, hepatobiliary. Liver function tests are trending down, MRCP shows improvement in CBD and cystic duct dilatation compared to scans and ultrasound done yesterday, cholecystitis has resolved. Clinically patient has stabilized. Plan is to hold off on ERCP for now. Patient will need a cholecystectomy given that he had gallstone pancreatitis. Infectious disease does not believe that the patient has C. difficile, vancomycin oral has been discontinued for now. Pertinent ROS: Denies headache, dizziness Denies chest pain, palpitations Denies cough or shortness of breath Denies abdominal pain, nausea or vomiting. Does have some sore abdomen - Constitutional Vitals: Vital Signs Temp Pulse Resp BP Pulse Ox 98.8 F 97 H 18 143/78 99 04/05/18 12:00 04/05/18 11:01 04/05/18 12:00 04/05/18 12:00 04/05/18 12:00 Period Temp Pulse Resp BP Sys/Celis Pulse Ox Last 24 Hr 98.7 F-102.9 F 82-122 13-25 73-143/45-85 93-100 Intake and Output 04/04/18 04/05/18 04/05/18 21:59 05:59 13:59 Intake Total 1052 2263 530 Output Total 1750 1150 930 Balance -698 1113 -400 Weight 136 lb Intake & Output: Intake & Output 04/04/18 04/05/18 04/05/18 21:59 05:59 13:59 Intake Total 1052 2263 530 Output Total 1750 1150 930 Balance -698 1113 -400 Weight 136 lb Intake: IV 1052 2263 50 Sodium Chloride 0.9% 1,000 ml @ 1000 Wide Open IV BOLUS ONE Rx#: [id number] Lactated Ringers 1,000 ml @ 1000 Wide Open IV BOLUS ONE Rx#: [id number] Zosyn 3.375 gm In Dextrose 5% 50 50 50 in Water 50 ml @ 100 mls/hr IV Q8H COUNT INCLUDES THE [facility] Rx#:[id number] Oral 480 Output: Urine Catheter Amount 1750 700 930 Stool 450 Other: Meal Lunch Percent of Meal Consumed 100% Feeding Ability Assist with Tray Set Up Urine Appearance Clear Clear Uretheral (Ortiz) Clear Urine Color Pale Straw Pale Uretheral (Ortiz) Pale Stool Size Large Stool Color Black Stool Consistency Liquid # Bowel Movements 1 # of times incontinent of 1 Bowels Exam: Constitutional; Afebrile, cooperative, alert, not in distress. Respiratory system: Air Entry equal on both sides, No crackles or wheezing, no rhonchi. CVS- Rate rhythm regular, S1,S2 heard, no gallop, no rub. Abdomen- Soft nontender abdomen, no organomegaly, no tenderness, no guarding or rigidity, [employer]- AOOx2, moving all extremities, no gross focal deficit noted. Medical - PN: Obj Da - Labs CBC & Chem 7: 04/05/18 03:30 04/05/18 03:30 Labs: Abnormal Lab Results 04/05/18 04/05/18 04/05/18 10:37 03:30 03:30 RBC Hgb Hct RDW Plt Count Gran % Lymph % (Auto) Gran # Lymph # (Auto) Sodium Potassium Chloride 109 H Carbon Dioxide 19 L BUN 28 H Creatinine 1.6 H Glucose Calcium 8.0 L Phosphorus 2.4 L GGT 281 H AST 46 H ALT 62 H Alkaline Phosphatase 306 H Troponin T Total Protein 5.3 L Albumin 2.6 L Lipase 208 H Urine Occult Blood 0.03 A Urine RBC 4 H 04/05/18 04/04/18 04/04/18 03:30 21:06 12:08 RBC 3.35 L Hgb 10.2 L Hct 31.2 L RDW 17.0 H Plt Count 126 L Gran % 81.4 H Lymph % (Auto) 9.8 L Gran # Lymph # (Auto) 0.8 L Sodium Potassium 5.5 H Chloride Carbon Dioxide 16 L BUN 33 H Creatinine 1.7 H Glucose Calcium 8.1 L Phosphorus GGT 452 H AST ALT Alkaline Phosphatase Troponin T Total Protein Albumin Lipase Urine Occult Blood Urine RBC 04/04/18 04/04/18 04/04/18 12:08 12:08 12:08 RBC 4.46 L Hgb Hct RDW 17.0 H Plt Count Gran % 91.2 H Lymph % (Auto) 5.0 L Gran # 9.6 H Lymph # (Auto) 0.5 L Sodium Potassium Chloride Carbon Dioxide BUN Creatinine Glucose Calcium Phosphorus GGT AST ALT Alkaline Phosphatase Troponin T 0.05 H* Total Protein Albumin Lipase 616 H Urine Occult Blood Urine RBC 04/04/18 12:08 RBC Hgb Hct RDW Plt Count Gran % Lymph % (Auto) Gran # Lymph # (Auto) Sodium 132 L Potassium 5.7 H Chloride Carbon Dioxide 16 L BUN 38 H Creatinine 1.9 H Glucose 60 L Calcium Phosphorus GGT AST 75 H ALT 102 H Alkaline Phosphatase 483 H Troponin T Total Protein Albumin Lipase Urine Occult Blood Urine RBC Meds: Medications Acetaminophen (Tylenol) 650 mg PO Q4-6HP PRN PRN Reason: PAIN/FEVER > 101 Last Admin: 04/04/18 23:56 Dose: 650 mg Documented by: Hydrocodone Bitart/Acetaminophen ([place] 10/325mg) 1 tab PO Q6HP PRN PRN Reason: Pain Aspirin (Aspirin) 81 mg PO DAILY COUNT INCLUDES THE [facility] Last Admin: 04/05/18 10:17 Dose: Not Given Documented by: Fentanyl (Duragesic) 50 mcg TD Q72H COUNT INCLUDES THE [facility] Last Admin: 04/05/18 10:17 Dose: 50 mcg Documented by: Heparin Sodium (Porcine) (Heparin) 5,000 unit SQ Q12 COUNT INCLUDES THE [facility] Last Admin: 04/05/18 10:17 Dose: 5,000 unit Documented by: Piperacillin Sod/Tazobactam (Sod 3.375 gm/ Dextrose) 50 mls @ 100 mls/hr IV Q8H COUNT INCLUDES THE [facility] Last Infusion: 04/05/18 07:04 Dose: Infused Documented by: Sodium Bicarbonate 150 meq/ (Dextrose) 1,000 mls @ 50 mls/hr IV Q20H COUNT INCLUDES THE [facility] Last Admin: 04/04/18 20:15 Dose: 50 mls/hr Documented by: Acetaminophen (Ofirmev) 650 mg in 65 mls @ 130 mls/hr IV Q6HP PRN PRN Reason: PAIN/FEVER > 101 Last Infusion: 04/05/18 03:33 Dose: Infused Documented by: Naloxone HCl (Narcan) 0.1 mg IV Q2MIN PRN PRN Reason: Opiate Reversal Ondansetron HCl (Zofran) 4 mg IV Q4-6HP PRN PRN Reason: Nausea And Vomiting Trospium Chloride [ Trospium Chloride Er ] 60 Mg Tab 1 dose PO QAM COUNT INCLUDES THE [facility] Last Admin: 04/05/18 10:17 Dose: Not Given Documented by: Emtricitabine/Tenofov Alafenam [ Descovy 200-25 Mg] 1 dose PO DAILY@1500 COUNT INCLUDES THE [facility] Dolutegravir Sodium ([Tivicay] 50 Mg) 50 dose PO DAILY@1500 COUNT INCLUDES THE [facility] Sodium Chloride (Saline Flush) 10 ml IV Q8 COUNT INCLUDES THE [facility] Last Admin: 04/05/18 05:31 Dose: 10 ml Documented by: Tamsulosin HCl (Flomax) 0.4 mg PO QDAY COUNT INCLUDES THE [facility] Last Admin: 04/05/18 10:17 Dose: Not Given Documented by: Medical - PN: A/P - Time Spent With Patient Total time spent is greater than 50% in coordination of care (as documented) at patient's floor/unit and/or counseling patient: - Narrative A/P Narrative: A/P Sepsis with Shock- hepatobilliary source, on IV zosyn, appreicate gi input, hold off on MRCP for now. Gall stone pancreatitis- MRCP does not show any stone at this time, likely passed. will review with surgery on need for cholecystectomy inpt vs outpatient. Gram negative bacteremia- ON antibiotics, repeat culture in AM HIV- Home HAART Meds resumed CAD- Elevated troponin, but no chest pain, troponin trending down, recent stent placement, continue antiplatlet meds for now, Memory loss/Dementia: High risk for delirum, monitor Chronic Kidney disease- Creat is at baseline, stable. Hyperkalemia- no ekg changes,resolved. Non anion gap acidosis- due to CKD, to be started on bicarb drip. Bicarb improving. DJD/ Chr pain- resume home meds and monitor. DVT hep sq Diet renal, OT/PT/ST consult Full code for now. Medical - PN: Qual - Stroke Symptom Onset Unknown: No - VTE Deep Vein Thrombosis/Pulmonary Embolism Present on Admission: No
[2018-04-05] MEDS ORDERED: Dolutegravir Sodium [Tivicay] 50 MG PO SCH ×2 (15:00)
[2018-04-05] MEDS ORDERED: TENOFOV ALAFENAM PO SCH (15:00)
[2018-04-05] MEDS ORDERED: DOLUTEGRAVIR SODIUM 50 MG PO SCH (15:00)
[2018-04-05] MEDS ORDERED: EMTRICITABINE PO SCH (15:00)
[2018-04-05] MEDS: SODIUM BICARBONATE VIAL 150 MEQ in DEXTROSE 5% IN WATER 850 ML IV SCH ×2 (15:06→21:06)
[2018-04-05 15:56] LABS: ALT/SGPT 81 U/l (0-40); Albumin 3.1 gm/dL (3.2-5.2); Albumin/Globulin Ratio 1.1 (1.0-2.3); Alkaline Phosphatase 332 U/L (39-117); Blood Urea Nitrogen 19 mg/dl (8-23)
[2018-04-05] MEDS: ONDANSETRON 4 MG/2 ML VIAL IV PRN ×2 (16:49→20:55)
[2018-04-05] MEDS: DEXTROSE 5%-LR 1,000 ML IV SCH (20:54)
[2018-04-05] MEDS ORDERED: HYDROmorphone 2 MG/ML VIAL IV PRN (21:14)
[2018-04-05] MEDS ORDERED: HYDROmorphone 2 MG/ML VIAL ONE (21:17)
[2018-04-06] MEDS ORDERED: HYDROmorphone 2 MG/ML VIAL ONE (05:26)
[2018-04-06] MEDS: PIPERACILLIN SODIUM/TAZOBACTAM 3.375 GM in DEXTROSE 5% IN WATER 50 ML IV SCH (05:30)
[2018-04-06] MEDS: 0.9 % SODIUM CHLORIDE 10 ML SYRINGE IV SCH ×3 (05:30→22:04)
[2018-04-06 06:52] LABS: Basophils # (Auto) 0 K/mcL (0.0-0.3); Basophils % (Auto) 0.3 % (0.0-2.0); Eosinophils # (Auto) 0.2 K/mcL (0.0-0.7); Eosinophils % (Auto) 3.8 % (0.0-7.0); Granulocytes % (Auto) 70.3 % (38.0-78.0); Lymphocytes # (Auto) 0.9 K/mcL (1.5-4.8); Lymphocytes % (Auto) 16.8 % (15.5-49.0); Mean Cell Volume 93.4 fL (80.0-100.0); Mean Corpuscular HGB Conc 32.9 g/dL (31.0-36.0); Monocytes # (Auto) 0.5 K/mcL (0.1-0.9); Monocytes % (Auto) 8.8 % (1.0-12.0); Platelet Count 156 K/mcL (140-440); RBC 3.54 M/mcL (4.50-5.90); Red Cell Distribution Width 17.7 % (11.5-14.5)
[2018-04-06] MEDS: HEPARIN 5,000 UNIT/ML VIAL SQ SCH ×2 (08:11→22:04)
[2018-04-06] MEDS: TROSPIUM CHLORIDE 60 MG PO SCH (08:12)
[2018-04-06] MEDS: TAMSULOSIN 0.4 MG CAPSULE PO SCH (08:12)
[2018-04-06] MEDS: ASPIRIN 81 MG TAB.CHEW PO SCH (08:12)
[2018-04-06 08:15] LABS: ALT/SGPT 67 U/l (0-40); Albumin 2.7 gm/dL (3.2-5.2); Alkaline Phosphatase 261 U/L (39-117); Bilirubin,Direct < 0.2 mg/dL (0.0-0.3); Blood Urea Nitrogen 11 mg/dl (8-23); Gamma Glutamyl Transpeptidase 233 U/L (8-61); Uric Acid 3.3 mg/dL (2.5-8.0)
[2018-04-06] MEDS: ONDANSETRON 4 MG/2 ML VIAL IV PRN (08:56)
[2018-04-06] MEDS ORDERED: MAGNESIUM SULFATE 2 GM/50 ML BAG IV ONE ×3 (08:59→10:00)
[2018-04-06] MEDS ORDERED: NEUTRA PHOS 1 PACKET PO SCH (09:00)
[2018-04-06] MEDS ORDERED: NALOXONE HCL 0.4 MG/ML VIAL IV PRN (09:50)
[2018-04-06] MEDS ORDERED: ONDANSETRON 4 MG/2 ML VIAL IV PRN (09:50)
[2018-04-06] MEDS ORDERED: ACETAMINOPHEN 325 MG TABLET PO PRN (09:50)
[2018-04-06] MEDS ORDERED: ACETAMINOPHEN 650 MG/65 ML BOTTLE IV PRN (09:50)
[2018-04-06] MEDS ORDERED: cefTRIAXone 2 GM in DEXTROSE 5% IN WATER 50 ML IV SCH ×2 (10:00)
[2018-04-06] MEDS ORDERED: LEVOFLOXACIN 750 MG/150 ML BAG IV SCH (11:00)
--- NOTE | 2018-04-06 11:55 | Surgical Pathology Report ---
HISTOLOGY SPECIMEN MICROSCOPIC DIAGNOSIS SOFT TISSUE, LEFT HIP, NEEDLE CORE BIOPSY: -- FIBROTIC SOFT TISSUE WITH UNREMARKABLE SKELETAL MUSCLE AND HEMORRHAGE. -- NO NEUTROPHILIC INFLAMMATION OR MALIGNANCY IDENTIFIED. (DMT:adj) GROSS DESCRIPTION Received in formalin labeled with the patient information designated as left hip, are three cores of fierro-corey to black-corey tissue ranging in size from 0.5 up to 1.0 cm and less than 0.1 cm in diameter. Totally submitted - two cassettes. (KGW:rachael) Electronically Signed by: Jose G Miller M.D.
[2018-04-06] MEDS: DEXTROSE 5%-LR 1,000 ML IV SCH ×2 (12:07→14:19)
--- NOTE | 2018-04-06 13:35 | Internal Med Progress Note ---
Medical - PN: Subj Patient information: Note initiated : 04/06/18 at 1:31 pm Service Date, if different from initiated Date: [] Patient: Taz Parra 73 y/o M admitted on 04/04/18 for Vomiting. Chief Complaint: [] Interval history: Mr. Parra is a 73 year old M with h/o memory issues, HIV< presents to the ER today with complaints of nausea/vomiting / diarrhea x 1 day. He also admits to having abdominal pain 2 days ago, but not now. He did not complain much about nausea/vomiting to me, but to the triage/er staff, his main complaint to me was just weakness. he notes he had a cardiac stent placed at [facility] before [place]. Over the last couple of days he has been feeling weak. And that is why he came to the hospital for further evaluation. He was also seen in the emergency room on the of this month where he underwent a CT abdomen and pelvis. Workup was negative then and the patient was discharged back home. This time around on presentation to the ER the patient was febrile with a maximum temperature of 103, tachycardic, patient had low blood pressure with systolic blood pressure in the 70s, patient was saturating more than 90% on room air. Labs showed a WBC count of 10.5, 91% neutrophils hemoglobin 13 platelets 156, lactic acid 0.7 sodium 132 potassium 5.7 bicarbonate 16 creatinine 19 glucose was 60 troponin is 0.05, was 1.55 a couple of days ago AST 75, ALT 102, alkaline phosphatase 483 this is significantly elevated compared to labs 2 days ago Chest x-ray done is clear, EKG shows sinus tachycardia. Gallbladder ultrasound was done official report is yet not dictated however the ED provider noted that the patient had dilated CBD, and thickened gall bladder. 04/05 Patient seen and examined, overnight was hypotensive and febrile responded well to Tylenol, Motrin and IV fluids. Blood cultures positive for out of 4 bottles Klebsiella. Likely source at this time appears to be GI, hepatobiliary. Liver function tests are trending down, MRCP shows improvement in CBD and cystic duct dilatation compared to scans and ultrasound done yesterday, cholecystitis has resolved. Clinically patient has stabilized. Plan is to hold off on ERCP for now. Patient will need a cholecystectomy given that he had gallstone pancreatitis. Infectious disease does not believe that the patient has C. difficile, vancomycin oral has been discontinued for now. 04/06 Patient seen examined, no acute ovenright issues, hemodynamically stable, fever noted. still has diarrhea Resume Cdiff treatment with oral vancomycin, (as per ID) d/c zosyn and start on levofloxacin, klebsiella sensitivity reviewed, Xfer to med surg status Gen Surgery consulted. LFT stable, trending down slowly. Pertinent ROS: Denies headache, dizziness Denies chest pain, palpitations Denies cough or shortness of breath diarrhea present, intermittent abdominal pain present. - Constitutional Vitals: Vital Signs Temp Pulse Resp BP Pulse Ox 100.6 F H 81 16 138/88 100 04/06/18 08:01 04/06/18 01:01 04/06/18 08:01 04/06/18 08:01 04/06/18 08:01 Period Temp Pulse Resp BP Sys/Celis Pulse Ox Last 24 Hr 98.1 F-101.4 F 81-103 11-24 92-146/55-100 96-100 Intake and Output 04/05/18 04/06/18 04/06/18 21:59 05:59 13:59 Intake Total 1648 358 Output Total 1375 635 705 Balance 273 -635 -347 Weight 139 lb 9.6 oz Intake & Output: Intake & Output 04/05/18 04/06/18 04/06/18 21:59 05:59 13:59 Intake Total 1648 358 Output Total 1375 635 705 Balance 273 -635 -347 Weight 139 lb 9.6 oz Intake: IV 1108 118 Zosyn 3.375 gm In Dextrose 5% 100 50 in Water 50 ml @ 100 mls/hr IV Q8H JULIA Rx#:[id number] Sodium Bicarbonate Vial 150 Meq 943 In Dextrose 5% in Water 850 ml @ 50 mls/hr IV Q20H JULIA Rx#: [id number] Rocephin 2 gm In Dextrose 5% in 18 Water 50 ml @ 100 mls/hr IV DAILY JULIA Rx#:[id number] Oral 540 240 Output: Urine Catheter Amount 1375 635 705 Other: Urine Appearance Clear Clear Clear Urine Color Straw Straw Pale Uretheral (Ortiz) Pale Urine Odor Normal Stool Size Smear Stool Color Black Stool Consistency Soft Loose # Bowel Movements 1 # of times incontinent of 1 Bowels Exam: Constitutional; Afebrile, cooperative, alert, not in distress. Respiratory system: Air Entry equal on both sides, No crackles or wheezing, no rhonchi. CVS- Rate rhythm regular, S1,S2 heard, no gallop, no rub. Abdomen- Soft nontender abdomen, no organomegaly, no tenderness, no guarding or rigidity, [employer]- AOOx2, moving all extremities, no gross focal deficit noted. Medical - PN: Obj Da - Labs CBC & Chem 7: 04/06/18 04:00 04/06/18 07:14 Labs: Abnormal Lab Results 04/06/18 04/06/18 04/05/18 07:14 04:00 15:03 RBC 3.54 L Hgb 10.9 L Hct 33.0 L RDW 17.7 H Plt Count Gran % Lymph % (Auto) Gran # Lymph # (Auto) 0.9 L Sodium Potassium Chloride Carbon Dioxide 21 L BUN Creatinine 1.3 H 1.4 H Glucose 144 H 125 H Calcium 7.8 L 8.3 L Phosphorus 1.8 L Magnesium 1.5 L GGT 233 H AST 38 H 59 H ALT 67 H 81 H Alkaline Phosphatase 261 H 332 H Troponin T Total Protein 5.5 L Albumin 2.7 L 3.1 L Lipase Urine Occult Blood Urine RBC 04/05/18 04/05/18 04/05/18 10:37 03:30 03:30 RBC Hgb Hct RDW Plt Count Gran % Lymph % (Auto) Gran # Lymph # (Auto) Sodium Potassium Chloride 109 H Carbon Dioxide 19 L BUN 28 H Creatinine 1.6 H Glucose Calcium 8.0 L Phosphorus 2.4 L Magnesium GGT 281 H AST 46 H ALT 62 H Alkaline Phosphatase 306 H Troponin T Total Protein 5.3 L Albumin 2.6 L Lipase 208 H Urine Occult Blood 0.03 A Urine RBC 4 H 04/05/18 04/04/18 04/04/18 03:30 21:06 12:08 RBC 3.35 L Hgb 10.2 L Hct 31.2 L RDW 17.0 H Plt Count 126 L Gran % 81.4 H Lymph % (Auto) 9.8 L Gran # Lymph # (Auto) 0.8 L Sodium Potassium 5.5 H Chloride Carbon Dioxide 16 L BUN 33 H Creatinine 1.7 H Glucose Calcium 8.1 L Phosphorus Magnesium GGT 452 H AST ALT Alkaline Phosphatase Troponin T Total Protein Albumin Lipase Urine Occult Blood Urine RBC 04/04/18 04/04/18 04/04/18 12:08 12:08 12:08 RBC 4.46 L Hgb Hct RDW 17.0 H Plt Count Gran % 91.2 H Lymph % (Auto) 5.0 L Gran # 9.6 H Lymph # (Auto) 0.5 L Sodium Potassium Chloride Carbon Dioxide BUN Creatinine Glucose Calcium Phosphorus Magnesium GGT AST ALT Alkaline Phosphatase Troponin T 0.05 H* Total Protein Albumin Lipase 616 H Urine Occult Blood Urine RBC 04/04/18 12:08 RBC Hgb Hct RDW Plt Count Gran % Lymph % (Auto) Gran # Lymph # (Auto) Sodium 132 L Potassium 5.7 H Chloride Carbon Dioxide 16 L BUN 38 H Creatinine 1.9 H Glucose 60 L Calcium Phosphorus Magnesium GGT AST 75 H ALT 102 H Alkaline Phosphatase 483 H Troponin T Total Protein Albumin Lipase Urine Occult Blood Urine RBC Meds: Medications Acetaminophen (Tylenol) 650 mg PO Q4-6HP PRN PRN Reason: PAIN/FEVER > 101 Hydrocodone Bitart/Acetaminophen ([place] 10/325mg) 1 tab PO Q6HP PRN PRN Reason: Pain Aspirin (Aspirin) 81 mg PO DAILY [facility] Fentanyl (Duragesic) 50 mcg TD Q72H [facility] Heparin Sodium (Porcine) (Heparin) 5,000 unit SQ Q12 [facility] Hydromorphone HCl (Dilaudid) 0.5 - 1 mg IV Q2HP PRN PRN Reason: PAIN LEVEL > 6 Dextrose/Lactated Ringer's (Dextrose 5%-Lactated Ringers) 1,000 mls @ 75 mls/hr IV .[id number] [facility] Last Admin: 04/06/18 12:07 Dose: 75 mls/hr Documented by: Acetaminophen (Ofirmev) 650 mg in 65 mls @ 130 mls/hr IV Q6HP PRN PRN Reason: PAIN/FEVER > 101 Levofloxacin (Levaquin) 750 mg in 150 mls @ 100 mls/hr IV Q48H [facility] Last Admin: 04/06/18 11:12 Dose: 100 mls/hr Documented by: Naloxone HCl (Narcan) 0.1 mg IV Q2MIN PRN PRN Reason: Opiate Reversal Ondansetron HCl (Zofran) 4 mg IV Q4-6HP PRN PRN Reason: Nausea And Vomiting Trospium Chloride [ Trospium Chloride Er ] 60 Mg Tab 1 dose PO QAM [facility] Descovy 200-25 Mg 1 dose PO DAILY@1500 [facility] Dolutegravir Sodium ([Tivicay] 50 Mg) 1 dose PO DAILY@1500 [facility] Potassium/Phosphorus/Sodium (Neutra Phos) 1 packet PO BID [facility] Sodium Chloride (Saline Flush) 10 ml IV Q8 [facility] Tamsulosin HCl (Flomax) 0.4 mg PO QDAY [facility] Vancomycin HCl (Vancomycin Oral Azul) 250 mg PO QID [facility] Medical - PN: A/P - Time Spent With Patient Total time spent is greater than 50% in coordination of care (as documented) at patient's floor/unit and/or counseling patient: - Narrative A/P Narrative: A/P Sepsis with Shock- hepatobilliary source, on IV zosyn, appreicate gi input, hold off on MRCP for now. Cdiff diarrhea- On PO vancomycin day 1 today, plan to treat for 14 days after last dose of levofloxacin, likely for another 26 days. 05/01/2018 Gall stone pancreatitis- MRCP does not show any stone at this time, likely passed. LFt stable, trending down, Gen surgery consulted for Gall stone pancreatitis. Gram negative bacteremia- ON antibiotics, repeat culture in AM sent given pt stil had fever, on levofloxacin now. HIV- Home HAART Meds resumed CAD- Elevated troponin, but no chest pain, troponin trending down, recent stent placement, continue antiplatlet meds for now, Memory loss/Dementia: High risk for delirum, monitor Chronic Kidney disease- Creat is at baseline, stable. Hyperkalemia- no ekg changes,resolved. Non anion gap acidosis- due to CKD, off bicarb drip now. resolved DJD/ Chr pain- resume home meds and monitor. DVT hep sq Diet renal, OT/PT/ST consult Full code for now. Medical - PN: Qual - Stroke Symptom Onset Unknown: No - VTE Deep Vein Thrombosis/Pulmonary Embolism Present on Admission: No
[2018-04-06] MEDS ORDERED: PIPERACILLIN SODIUM/TAZOBACTAM 3.375 GM in DEXTROSE 5% IN WATER 50 ML IV SCH (14:00)
[2018-04-06] MEDS: Dolutegravir Sodium [Tivicay] 50 MG PO SCH (14:36)
[2018-04-06] MEDS: DESCOVY PO SCH (14:36)
[2018-04-06] MEDS: HYDROcodone/APAP 10/325MG TABLET PO PRN ×2 (14:43→21:59)
--- NOTE | 2018-04-06 15:18 | General Surgery Consult Note ---
History of Present Illness Patient information: Note initiated : 04/06/18 at 3:13 pm Service Date, if different from initiated Date: [] Patient: Taz Parra 73 y/o M admitted on 04/04/18 for Vomiting. Chief Complaint: [] Reason for consult: gallstones Requesting physician: Jeanette Dimas History of present illness: 3-year-old male who is being evaluated for gallstone disease with gram-negative bacteremia due to Klebsiella pneumonia and transient elevation in LFTs. The patient presented on April 03 with abdominal pain nausea and vomiting 2 days duration. He gave a history of a temperature 100.3 and had blood pressure of 70. White blood count was 10.5. He was treated for gram-negative sepsis and blood cultures grew out Klebsiella pneumonia further workup revealed multiple gallstones with thickened gallbladder wall in addition to his elevated LFTs with specific elevation of alkaline phosphatase. Common bile duct was also dilated to 11 mm. MRCP did not confirm intraductal stone however His duct remains dilated. The patient had low elevation in lipase. It is felt that he has symptomatic gallbladder disease with septicemia and multiple gallstones. The patient was counseled for cholecystectomy during this hospitalization but he states that his infectious disease physician felt that he did not need to have removal of his gallbladder at this time. The patient has positive HIV and has been on chronic therapy for many years. He does not appear to be immunocompromised at this time according to his recent CD4 and CD8 counts. Review of Systems - Constitutional chills, fatigue, headache(s), malaise, night sweats, weakness, weight loss - EENT Nose, mouth and throat: abnormal hearing, dizziness, headache(s), neck pain - Cardiovascular chest pain at rest, dyspnea on exertion, irregular heart rhythm, lightheade dness, rapid heart rate - Respiratory no dyspnea on exertion, no wheezing, no snoring, no pain on inspirtation - Gastrointestinal abdominal pain, bloating, dyspepsia, nausea (bacteremia would just as not wanting), vomiting - Genitourinary difficulty urinating, urinary hesitancy, urinary incontinence, urinary urgency - Musculoskeletal abnormal gait, arthralgias, back pain, joint swelling, myalgias, neck pain, radiating pain into limb, stiffness - Integumentary no new lesions, no pruritus, no rash - Neurological abnormal hearing, confusion, dizziness, headache(s) - Psychiatric confusion, irritability - Endocrine fatigue - Hematologic/Lymphatic no easy bleeding, no easy bruising, no lymphadenopathy - Allergic/Immunologic no tongue swelling, no throat swelling, no uticaria, no wheezing, no lip swelling Past History Past medical history: Anemia of chronic disease Hypertension Chronic pain syndrome Narcolepsy by history Degenerative joint disease Mental status changes with dementia Acquired immunodeficiency syndrome Past surgical history: Hemorrhoidectomy Inguinal hernia repair Right total knee arthroplasty Right total hip arthroplasty with multiple revisions Left total hip arthroplasty Past family history: Hypertension Coronary artery disease Past social history: Never smoker Frequent alcohol use Denies drug use Medications and Allergies Home Medications Medication Instructions Recorded Confirmed Type aspirin 81 mg tablet,delayed 81 mg PO QDAY 08/20/16 04/04/18 History release HYDROcodone/APAP 10/325MG [[place] 10 mg PO Q6HP PRN 12/07/17 04/04/18 History 10-325Mg] hydrocortisone 2.5 % topical cream 1 applic TOPICAL QHS PRN 12/15/17 04/04/18 History ketorolac 0.5 % eye drops 1 drp OPHTHALMIC Q8H PRN 12/15/17 04/04/18 History testosterone cypionate 200 mg/mL 400 mg IM Q28D ml 12/15/17 04/04/18 History intramuscular oil tamsulosin 0.4 mg capsule 0.4 mg PO QDAY #1 cap 12/30/17 04/04/18 Rx trospium ER 60 mg capsule,extended 60 mg PO QAM #30 cap 01/11/18 04/04/18 Rx release 24 hr fentanyl 50 mcg/hr transdermal 50 mcg TRANSDERMA Q72H 03/23/18 04/04/18 History patch Carvedilol [Coreg] 12.5 mg PO BID 04/04/18 04/04/18 History Dolutegravir Sodium [Tivicay] 50 mg PO 1500 04/04/18 04/04/18 History Emtricitabine/Tenofov Alafenam 1 each PO 1500 04/04/18 04/04/18 History [Descovy 200-25 mg Tablet] Allergies Allergy/AdvReac Type Severity Reaction Status Date / Time codeine AdvReac Mild Itching Verified 03/23/18 14:31 Exam Temp Pulse Resp BP Pulse Ox 99.6 F H 86 18 153/78 100 04/06/18 12:00 04/06/18 12:00 04/06/18 12:00 04/06/18 12:00 04/06/18 12:00 - General physical appearance well developed, well nourished, no distress, no pain, chronically ill - Eyes PERRL, normal ocular movement - ENT normal pinna, normal nares, normal mucosa, no hearing loss, no congestion - Head Head exam IM: Present: atraumatic, normocephalic - Neck no masses, no bruits, trachea midline, no lymphadenopathy, no venous distension - Cardiovascular Cardiovascular exam IM: Present: normal rate and rhythm - Respiratory normal expansion, normal respiratory effort, clear to percussion, clear to auscultation - Abdomen Abdomen: Present: soft, non tender, bowel sounds Hernia: Present: none - Genitourinary Present: normal penis with no external lesions, other (Ortiz catheter in place) - Integumentary Present: no rash, no growths, no abnormal pigmentation - Neurologic Present: other (muscle atrophy and decreased motor function lower extremities) - Musculoskeletal Present: other (bilateral atrophy of the lower extremities with bilateral clubfeet and muscle atrophy of the spines and legs) - Psychiatric Present: oriented to time, oriented to person, oriented to place, speech is normal, memory intact Results - Labs 04/06/18 04:00 04/06/18 07:14 Abnormal lab results 04/05/18 04/06/18 04/06/18 Range/Units 15:03 04:00 07:14 RBC 3.54 L (4.50-5.90) M/mcL Hgb 10.9 L (13.5-16.5) g/dL Hct 33.0 L (41.0-55.0) % RDW 17.7 H (11.5-14.5) % Lymph # (Auto) 0.9 L (1.5-4.8) K/mcL Carbon Dioxide 21 L (22-30) mmol/L Creatinine 1.4 H 1.3 H (0.7-1.2) mg/dl Glucose 125 H 144 H (70-105) mg/dL Calcium 8.3 L 7.8 L (8.6-10.4) mg/dl Phosphorus 1.8 L (2.7-4.5) mg/dL Magnesium 1.5 L (1.6-2.5) mg/dL GGT 233 H (8-61) U/L AST 59 H 38 H (0-37) U/l ALT 81 H 67 H (0-40) U/l Alkaline Phosphatase 332 H 261 H (39-117) U/L Total Protein 5.5 L (5.9-8.4) gm/dL Albumin 3.1 L 2.7 L (3.2-5.2) gm/dL Diabetes panel 04/05/18 04/06/18 04/06/18 Range/Units 15:03 04:00 07:14 Sodium 141 TNP 139 (133-145) mmol/L Potassium 4.3 TNP 3.7 (3.3-5.1) mmol/L Chloride 107 TNP 105 (96-108) mmol/L Carbon Dioxide 21 L TNP 24 (22-30) mmol/L BUN 19 TNP 11 (8-23) mg/dl Creatinine 1.4 H TNP 1.3 H (0.7-1.2) mg/dl Glucose 125 H TNP 144 H (70-105) mg/dL Calcium 8.3 L TNP 7.8 L (8.6-10.4) mg/dl AST 59 H TNP 38 H (0-37) U/l ALT 81 H TNP 67 H (0-40) U/l Alkaline Phosphatase 332 H TNP 261 H (39-117) U/L Total Protein 6.0 TNP 5.5 L (5.9-8.4) gm/dL Albumin 3.1 L TNP 2.7 L (3.2-5.2) gm/dL Triglycerides TNP 150 Calcium panel 04/05/18 04/06/18 04/06/18 Range/Units 15:03 04:00 07:14 Calcium 8.3 L TNP 7.8 L (8.6-10.4) mg/dl Phosphorus TNP 1.8 L Albumin 3.1 L TNP 2.7 L (3.2-5.2) gm/dL Pituitary panel 04/05/18 04/06/18 04/06/18 Range/Units 15:03 04:00 07:14 Sodium 141 TNP 139 (133-145) mmol/L Potassium 4.3 TNP 3.7 (3.3-5.1) mmol/L Chloride 107 TNP 105 (96-108) mmol/L Carbon Dioxide 21 L TNP 24 (22-30) mmol/L BUN 19 TNP 11 (8-23) mg/dl Creatinine 1.4 H TNP 1.3 H (0.7-1.2) mg/dl Glucose 125 H TNP 144 H (70-105) mg/dL Calcium 8.3 L TNP 7.8 L (8.6-10.4) mg/dl Adrenal panel 04/05/18 04/06/18 04/06/18 Range/Units 15:03 04:00 07:14 Sodium 141 TNP 139 (133-145) mmol/L Potassium 4.3 TNP 3.7 (3.3-5.1) mmol/L Chloride 107 TNP 105 (96-108) mmol/L Carbon Dioxide 21 L TNP 24 (22-30) mmol/L BUN 19 TNP 11 (8-23) mg/dl Creatinine 1.4 H TNP 1.3 H (0.7-1.2) mg/dl Glucose 125 H TNP 144 H (70-105) mg/dL Calcium 8.3 L TNP 7.8 L (8.6-10.4) mg/dl Total Bilirubin 0.4 TNP 0.4 (0.0-1.0) mg/dL AST 59 H TNP 38 H (0-37) U/l ALT 81 H TNP 67 H (0-40) U/l Alkaline Phosphatase 332 H TNP 261 H (39-117) U/L Total Protein 6.0 TNP 5.5 L (5.9-8.4) gm/dL Albumin 3.1 L TNP 2.7 L (3.2-5.2) gm/dL All other labs normal. Assessment and Plan (1) Cholelithiasis with acute cholecystitis with biliary obstruction Schedule cholecystectomy with cholangiogram on Thursday a.m. Status: Acute (2) Bacteremia due to Klebsiella pneumoniae Continue present antibiotic treatment Status: Acute (3) Coronary artery disease due to calcified coronary lesion Status: Acute (4) HIV (human immunodeficiency virus infection) Status: Acute Comment: Diagnosed: 1984, after receiving infected blood. 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 Was treated with anti-viral agents in 1993. He is chronically on immunosuppressant medication, followed by Dr. Meyer in [place]. (5) Renal insufficiency Status: Chronic
[2018-04-06] MEDS: VANCOMYCIN ORAL SOL 1,000 MG/10 ML BOTTLE PO SCH ×2 (16:50→22:07)
--- NOTE | 2018-04-06 18:34 | Infectious Disease Prog Note ---
Subjective Patient information: Note initiated : 04/06/18 at 6:27 pm Service Date, if different from initiated Date: [] Patient: Taz Parra 73 y/o M admitted on 04/04/18 for Vomiting. Chief Complaint: [] Interval history: Pt c/o diarrhea since yesterday, almost 6-7 alla until this afternoon. Had fevers off and on. Denied any nausea, vomiting. Otherwise feels better olamide fir his belly pain. Taking his HIV meds daily. Objective Objective Narrative: alert, awake, oriented x 3 chest cta s1 s2 normal bs ++, non tender, distended, everted umbilicus no edema - Vital Signs Vital signs: Vital Signs Temp Pulse Pulse Resp BP BP Pulse Ox 04/06/18 16:00 36.7 C 86 18 148/75 100 04/06/18 12:00 37.6 C H 86 18 153/78 100 04/06/18 11:55 88 100 04/06/18 11:54 88 153/78 100 04/06/18 09:01 12 150/78 04/06/18 08:01 38.1 C H 16 138/88 100 04/06/18 08:00 100 04/06/18 07:23 11 L 04/06/18 07:01 16 117/68 04/06/18 06:21 15 117/64 04/06/18 06:01 12 111/66 97 04/06/18 05:01 16 113/92 98 04/06/18 04:01 37.1 C 20 96/57 97 04/06/18 03:01 36.9 C 15 105/56 04/06/18 02:01 17 103/55 96 04/06/18 02:00 14 96 04/06/18 01:01 81 15 110/68 100 04/06/18 00:01 37.2 C 81 16 108/67 100 04/05/18 23:01 85 16 92/62 100 04/05/18 22:25 36.7 C 87 12 106/71 100 04/05/18 21:01 12 127/100 04/05/18 20:49 38.6 C H 16 120/61 96 04/05/18 20:01 17 120/61 96 04/05/18 19:52 17 96 04/05/18 19:44 38.6 C H 04/05/18 19:01 18 98/64 Intake and Output 04/06/18 04/06/18 04/06/18 05:59 13:59 21:59 Intake Total 1508 360 Output Total 635 705 Balance -635 803 360 Intake: IV 1268 Zosyn 3.375 gm In Dextrose 5% 50 in Water 50 ml @ 100 mls/hr IV Q8H [facility]UL[facility] Rx#:[id number] Rocephin 2 gm In Dextrose 5% in 18 Water 50 ml @ 100 mls/hr IV DAILY [facility]UL[facility] Rx#:[id number] Oral 240 360 Output: Urine Catheter Amount 635 705 Other: Meal Dinner Percent of Meal Consumed 50% Urine Appearance Clear Clear Urine Color Straw Pale Weight 63.321 kg Patient Weight 04/07/18 05:59 Weight 63.321 kg Intake & Output: Intake & Output 04/06/18 04/06/18 04/06/18 05:59 13:59 21:59 Intake Total 1508 360 Output Total 635 705 Balance -635 803 360 Weight 63.321 kg Intake: IV 1268 Zosyn 3.375 gm In Dextrose 5% 50 in Water 50 ml @ 100 mls/hr IV Q8H [facility]UL[facility] Rx#:[id number] Rocephin 2 gm In Dextrose 5% in 18 Water 50 ml @ 100 mls/hr IV DAILY JUILA Rx#:[id number] Oral 240 360 Output: Urine Catheter Amount 635 705 Other: Meal Dinner Percent of Meal Consumed 50% Urine Appearance Clear Clear Urine Color Straw Pale - Lab 04/06/18 04:00 04/06/18 07:14 Most recent lab results Calcium 7.8 mg/dl (8.6-10.4) L 04/06/18 07:14 Phosphorus 1.8 mg/dL (2.7-4.5) L 04/06/18 07:14 Magnesium 1.5 mg/dL (1.6-2.5) L 04/06/18 07:14 Microbiology 04/05/18 05:11 Stool Parasite Direct Smear - Final 04/05/18 05:11 Stool Parasite Concentrated Smear - Final 04/05/18 05:11 Stool Parasite Permanent Smear - Final 04/05/18 05:11 Stool Stool Culture - Preliminary 04/05/18 05:11 Stool Hemorrhagic E.coli Culture - Final 04/04/18 12:05 Blood Blood Culture - Final Klebsiella pneumoniae 04/05/18 05:11 Stool Cryptosporidium Exam - Final 04/05/18 05:11 Stool Giardia Antigen (ADEOLA) - Final 04/04/18 20:08 Synovial Fluid Gram Stain - Final 04/04/18 20:08 Synovial Fluid Body Fluid Culture - Final 04/05/18 05:11 Stool C. difficile GDH Antigen & Toxins - Final 04/05/18 05:11 Stool Fecal Leukocyte Stain - Final 04/04/18 12:06 Blood Blood Culture - Preliminary Gram negative bacillus 04/04/18 17:28 Nasopharynx Respiratory Virus Panel (PCR) - Final 04/04/18 17:28 Nasopharynx Respiratory Panel (PCR) - Final 04/04/18 17:28 Nose MRSA (PCR) - Final Medications Active Medications: Acetaminophen (Tylenol) 650 mg PO Q4-6HP PRN PRN Reason: PAIN/FEVER > 101 Hydrocodone Bitart/Acetaminophen ([place] 10/325mg) 1 tab PO Q6HP PRN PRN Reason: Pain Last Admin: 04/06/18 14:43 Dose: 1 tab Documented by: [email or web address] Aspirin (Aspirin) 81 mg PO DAILY [facility] Fentanyl (Duragesic) 50 mcg TD Q72H [facility] Heparin Sodium (Porcine) (Heparin) 5,000 unit SQ Q12 [facility] Hydromorphone HCl (Dilaudid) 0.5 - 1 mg IV Q2HP PRN PRN Reason: PAIN LEVEL > 6 Dextrose/Lactated Ringer's (Dextrose 5%-Lactated Ringers) 1,000 mls @ 75 mls/hr IV .[id number] [facility] Last Admin: 04/06/18 12:07 Dose: 75 mls/hr Documented by: [email or web address] Acetaminophen (Ofirmev) 650 mg in 65 mls @ 130 mls/hr IV Q6HP PRN PRN Reason: PAIN/FEVER > 101 Levofloxacin (Levaquin) 750 mg in 150 mls @ 100 mls/hr IV Q48H [facility] Last Infusion: 04/06/18 13:37 Dose: 0 mls/hr Documented by: [email or web address] Admin: 04/06/18 11:12 Dose: 100 mls/hr Documented by: [email or web address] Naloxone HCl (Narcan) 0.1 mg IV Q2MIN PRN PRN Reason: Opiate Reversal Ondansetron HCl (Zofran) 4 mg IV Q4-6HP PRN PRN Reason: Nausea And Vomiting Trospium Chloride [ Trospium Chloride Er ] 60 Mg Tab 1 dose PO QAM [facility] Descovy 200-25 Mg 1 dose PO DAILY@1500 [facility] Last Admin: 04/06/18 14:36 Dose: 1 dose Documented by: LONNIE Dolutegravir Sodium ([Tivicay] 50 Mg) 1 dose PO DAILY@1500 [facility] Last Admin: 04/06/18 14:36 Dose: 1 dose Documented by: LONNIE Potassium/Phosphorus/Sodium (Neutra Phos) 1 packet PO BID [facility] Sodium Chloride (Saline Flush) 10 ml IV Q8 [facility] Last Admin: 04/06/18 14:18 Dose: Not Given Documented by: OLNNIE Non-Admin Reason: Continuous IV Tamsulosin HCl (Flomax) 0.4 mg PO QDAY [facility] Vancomycin HCl (Vancomycin Oral Azul) 250 mg PO QID [facility] Last Admin: 04/06/18 16:50 Dose: 250 mg Documented by: LONNIE Assessment and Plan - Narrative A/P Narrative: Assessment: #1 Klebsiella pneumoniae bacteremia with sepsis without shock [pt never required pressors]: Likely source is biliary tract. No concerns for acute cholangitisCT abdomen and ultrasound done on 04/04 suggest new development of cholecystitis along with CBD dilatation. MRCP from today suggests normalization of CBD dilatation and gallbladder wall thickening, with no finding of any stones. Overall suggestive of that patient had a CBD stone which was passed through ampulla of vater. In the process it led to mucosal translocation of bacteria leading to bacteremia Patient on appropriate antibiotics - From an infectious disease stand point, no indication for cholecystectomy. Cholecystectomy might be indicated for other indications (in this case gall stone pancreatitis) per Medicine and GS team. #2 CDI: day 1 of PO Vanc. #3 chronic HIV infection: On Dolutegravir once daily and Descovy once daily. 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 will change freq of dosing to 750 mg q24 once CrCl is > 50. - Given ongoing fevers, and worsening of diarrhea (>6 stools since yesterday), start PO Vancomycin 250 mg q6 hrs. will plan to continue it for 10 days after Levofloxacin is stopped. Stop date for PO Vanc is 04/29/18 Continue oral dolutegravir 50 mg and oral descovy once daily for HIV Await left hip biopsy path as cultures cannot be processed because specimen was sent in formalin. Will follow Rolly Elmore MD Infectious diseases
[2018-04-06] MEDS: NEUTRA PHOS 1 PACKET PO SCH (22:01)
[2018-04-07] MEDS: DEXTROSE 5%-LR 1,000 ML IV SCH ×3 (02:30→17:21)
[2018-04-07] MEDS: HYDROcodone/APAP 10/325MG TABLET PO PRN ×3 (04:05→19:30)
[2018-04-07 05:55] LABS: Basophils # (Auto) 0 K/mcL (0.0-0.3); Basophils % (Auto) 0.4 % (0.0-2.0); Eosinophils # (Auto) 0.3 K/mcL (0.0-0.7); Eosinophils % (Auto) 5.5 % (0.0-7.0); Granulocytes % (Auto) 61.5 % (38.0-78.0); Lymphocytes # (Auto) 1.1 K/mcL (1.5-4.8); Lymphocytes % (Auto) 21.1 % (15.5-49.0); Mean Cell Volume 93.3 fL (80.0-100.0); Mean Corpuscular HGB Conc 32.6 g/dL (31.0-36.0); Monocytes # (Auto) 0.6 K/mcL (0.1-0.9); Monocytes % (Auto) 11.5 % (1.0-12.0); Platelet Count 150 K/mcL (140-440); RBC 3.68 M/mcL (4.50-5.90); Red Cell Distribution Width 16.9 % (11.5-14.5)
[2018-04-07 06:41] LABS: ALT/SGPT 52 U/l (0-40); Albumin 2.9 gm/dL (3.2-5.2); Alkaline Phosphatase 249 U/L (39-117); Bilirubin,Direct < 0.2 mg/dL (0.0-0.3); Blood Urea Nitrogen 5 mg/dl (8-23); Gamma Glutamyl Transpeptidase 221 U/L (8-61); Uric Acid 3.1 mg/dL (2.5-8.0)
[2018-04-07] MEDS: 0.9 % SODIUM CHLORIDE 10 ML SYRINGE IV SCH ×3 (07:06→22:06)
[2018-04-07] MEDS ORDERED: MAGNESIUM SULFATE 2 GM/50 ML BAG IV ONE (07:26)
[2018-04-07] MEDS ORDERED: POTASSIUM CHLORIDE 20 MEQ PACKET PO ONE (07:26)
[2018-04-07] MEDS: HYDROmorphone 2 MG/ML VIAL IV PRN ×5 (08:13→21:10)
[2018-04-07] MEDS: HEPARIN 5,000 UNIT/ML VIAL SQ SCH ×2 (09:27→21:10)
[2018-04-07] MEDS: NEUTRA PHOS 1 PACKET PO SCH ×2 (10:09→21:12)
[2018-04-07] MEDS: ASPIRIN 81 MG TAB.CHEW PO SCH (10:10)
[2018-04-07] MEDS: VANCOMYCIN ORAL SOL 1,000 MG/10 ML BOTTLE PO SCH ×4 (10:10→21:11)
[2018-04-07] MEDS: TAMSULOSIN 0.4 MG CAPSULE PO SCH (10:10)
[2018-04-07] MEDS: TROSPIUM CHLORIDE 60 MG PO SCH (10:15)
[2018-04-07] MEDS: LEVOFLOXACIN 750 MG TABLET PO SCH (10:18)
--- NOTE | 2018-04-07 13:01 | Internal Med Progress Note ---
Medical - PN: Subj Patient information: Note initiated : 04/07/18 at 12:58 pm Service Date, if different from initiated Date: [] Patient: Taz Parra 73 y/o M admitted on 04/04/18 for Vomiting. Chief Complaint: [] Interval history: Mr. Parra is a 73 year old M with h/o memory issues, HIV< presents to the ER today with complaints of nausea/vomiting / diarrhea x 1 day. He also admits to having abdominal pain 2 days ago, but not now. He did not complain much about nausea/vomiting to me, but to the triage/er staff, his main complaint to me was just weakness. he notes he had a cardiac stent placed at [facility] before [facility]. Over the last couple of days he has been feeling weak. And that is why he came to the hospital for further evaluation. He was also seen in the emergency room on the of this month where he underwent a CT abdomen and pelvis. Workup was negative then and the patient was discharged back home. This time around on presentation to the ER the patient was febrile with a maximum temperature of 103, tachycardic, patient had low blood pressure with systolic blood pressure in the 70s, patient was saturating more than 90% on room air. Labs showed a WBC count of 10.5, 91% neutrophils hemoglobin 13 platelets 156, lactic acid 0.7 sodium 132 potassium 5.7 bicarbonate 16 creatinine 19 glucose was 60 troponin is 0.05, was 1.55 a couple of days ago AST 75, ALT 102, alkaline phosphatase 483 this is significantly elevated compared to labs 2 days ago Chest x-ray done is clear, EKG shows sinus tachycardia. Gallbladder ultrasound was done official report is yet not dictated however the ED provider noted that the patient had dilated CBD, and thickened gall bladder. 04/05 Patient seen and examined, overnight was hypotensive and febrile responded well to Tylenol, Motrin and IV fluids. Blood cultures positive for out of 4 bottles Klebsiella. Likely source at this time appears to be GI, hepatobiliary. Liver function tests are trending down, MRCP shows improvement in CBD and cystic duct dilatation compared to scans and ultrasound done yesterday, cholecystitis has resolved. Clinically patient has stabilized. Plan is to hold off on ERCP for now. Patient will need a cholecystectomy given that he had gallstone pancreatitis. Infectious disease does not believe that the patient has C. difficile, vancomycin oral has been discontinued for now. 04/06 Patient seen examined, no acute ovenright issues, hemodynamically stable, fever noted. still has diarrhea Resume Cdiff treatment with oral vancomycin, (as per ID) d/c zosyn and start on levofloxacin, klebsiella sensitivity reviewed, Xfer to med surg status Gen Surgery consulted. LFT stable, trending down slowly. 04/07 Patient seen and examined, overnight was anxious, jittery which he attributed to his fentanyl patch removed it. Is able to tolerate p.o. diet well, did have some nausea after eating food. Labs are stable liver function test is trending down. Continue levofloxacin as per infectious disease recommendations. Continue vancomycin for C. difficile Patient is scheduled to have cholecystectomy done on Thursday. Appreciate surgery input Pertinent ROS: Denies headache, dizziness Denies chest pain, palpitations Denies cough or shortness of breath Denies abdominal pain, present nausea , no vomiting. - Constitutional Vitals: Vital Signs Temp Pulse Resp BP Pulse Ox 99.1 F H 66 16 128/82 97 04/07/18 07:49 04/07/18 07:49 04/07/18 07:49 04/07/18 07:49 04/07/18 03:00 Period Temp Pulse Resp BP Sys/Celis Pulse Ox Last 24 Hr 98.1 F-99.1 F 66-98 14-18 128-148/70-82 97-100 Intake and Output 04/06/18 04/07/18 04/07/18 21:59 05:59 13:59 Intake Total 360 1100 Output Total 1300 1600 350 Balance -940 -500 -350 Weight 135 lb 8 oz Intake & Output: Intake & Output 04/06/18 04/07/18 04/07/18 21:59 05:59 13:59 Intake Total 360 1100 Output Total 1300 1600 350 Balance -940 -500 -350 Weight 135 lb 8 oz Intake: IV 1000 Dextrose 5%-Lactated Ringers 1, 1000 000 ml @ 75 mls/hr IV .[id number] [facility] Rx#:[id number] Oral 360 100 Output: Urine Catheter Amount 1300 1550 350 Stool 50 Other: Meal Dinner Percent of Meal Consumed 50% Urine Appearance Clear Clear Uretheral ([place]) Clear Urine Color Light Juli Straw Pale Light Juli Uretheral ([place]) Dark Yellow Urine Odor Normal Stool Size Smear Small Smear Stool Color Brown Black Black Black Stool Consistency Liquid Liquid Watery Watery Loose Loose # Bowel Movements 2 # of times incontinent of 1 2 Bowels Exam: Constitutional; Afebrile, cooperative, alert, not in distress. Respiratory system: Air Entry equal on both sides, No crackles or wheezing, no rhonchi. CVS- Rate rhythm regular, S1,S2 heard, no gallop, no rub. Abdomen- Soft nontender abdomen, no organomegaly, no tenderness, no guarding or rigidity, TOW FEEDER- AOOx3, moving all extremities, no gross focal deficit noted. Medical - PN: Obj Da - Labs CBC & Chem 7: 04/07/18 04:05 04/07/18 04:05 Labs: Abnormal Lab Results 04/07/18 04/07/18 04/06/18 04:05 04:05 07:14 RBC 3.68 L Hgb 11.2 L Hct 34.3 L RDW 16.9 H Plt Count Gran % Lymph % (Auto) Lymph # (Auto) 1.1 L Sodium Potassium Chloride Carbon Dioxide BUN 5 L Creatinine 1.3 H Glucose 116 H 144 H Calcium 8.3 L 7.8 L Phosphorus 2.0 L 1.8 L Magnesium 1.5 L GGT 221 H 233 H AST 38 H ALT 52 H 67 H Alkaline Phosphatase 249 H 261 H Troponin T Total Protein 5.5 L Albumin 2.9 L 2.7 L Triglycerides 201 H Lipase Urine Occult Blood Urine RBC 04/06/18 04/05/18 04/05/18 04:00 15:03 10:37 RBC 3.54 L Hgb 10.9 L Hct 33.0 L RDW 17.7 H Plt Count Gran % Lymph % (Auto) Lymph # (Auto) 0.9 L Sodium Potassium Chloride Carbon Dioxide 21 L BUN Creatinine 1.4 H Glucose 125 H Calcium 8.3 L Phosphorus Magnesium GGT AST 59 H ALT 81 H Alkaline Phosphatase 332 H Troponin T Total Protein Albumin 3.1 L Triglycerides Lipase Urine Occult Blood 0.03 A Urine RBC 4 H 04/05/18 04/05/18 04/05/18 03:30 03:30 03:30 RBC 3.35 L Hgb 10.2 L Hct 31.2 L RDW 17.0 H Plt Count 126 L Gran % 81.4 H Lymph % (Auto) 9.8 L Lymph # (Auto) 0.8 L Sodium Potassium Chloride 109 H Carbon Dioxide 19 L BUN 28 H Creatinine 1.6 H Glucose Calcium 8.0 L Phosphorus 2.4 L Magnesium GGT 281 H AST 46 H ALT 62 H Alkaline Phosphatase 306 H Troponin T Total Protein 5.3 L Albumin 2.6 L Triglycerides Lipase 208 H Urine Occult Blood Urine RBC 04/04/18 04/04/18 04/04/18 21:06 12:08 12:08 RBC Hgb Hct RDW Plt Count Gran % Lymph % (Auto) Lymph # (Auto) Sodium Potassium 5.5 H Chloride Carbon Dioxide 16 L BUN 33 H Creatinine 1.7 H Glucose Calcium 8.1 L Phosphorus Magnesium GGT 452 H AST ALT Alkaline Phosphatase Troponin T Total Protein Albumin Triglycerides Lipase 616 H Urine Occult Blood Urine RBC 04/04/18 04/04/18 12:08 12:08 RBC Hgb Hct RDW Plt Count Gran % Lymph % (Auto) Lymph # (Auto) Sodium 132 L Potassium 5.7 H Chloride Carbon Dioxide 16 L BUN 38 H Creatinine 1.9 H Glucose 60 L Calcium Phosphorus Magnesium GGT AST 75 H ALT 102 H Alkaline Phosphatase 483 H Troponin T 0.05 H* Total Protein Albumin Triglycerides Lipase Urine Occult Blood Urine RBC Meds: Medications Acetaminophen (Tylenol) 650 mg PO Q4-6HP PRN PRN Reason: PAIN/FEVER > 101 Hydrocodone Bitart/Acetaminophen ([place] 10/325mg) 1 tab PO Q6HP PRN PRN Reason: Pain Last Admin: 04/07/18 04:05 Dose: 1 tab Documented by: Aspirin (Aspirin) 81 mg PO DAILY [facility] Last Admin: 04/07/18 10:10 Dose: 81 mg Documented by: Heparin Sodium (Porcine) (Heparin) 5,000 unit SQ Q12 [facility] Last Admin: 04/07/18 09:27 Dose: 5,000 unit Documented by: Hydromorphone HCl (Dilaudid) 0.5 - 1 mg IV Q2HP PRN PRN Reason: PAIN LEVEL > 6 Last Admin: 04/07/18 12:36 Dose: 0.5 mg Documented by: Dextrose/Lactated Ringer's (Dextrose 5%-Lactated Ringers) 1,000 mls @ 75 mls/hr IV .[id number] [facility] Last Admin: 04/07/18 02:30 Dose: 75 mls/hr Documented by: Acetaminophen (Ofirmev) 650 mg in 65 mls @ 130 mls/hr IV Q6HP PRN PRN Reason: PAIN/FEVER > 101 Levofloxacin (Levaquin) 750 mg PO DAILY [facility] Last Admin: 04/07/18 10:18 Dose: 750 mg Documented by: Naloxone HCl (Narcan) 0.1 mg IV Q2MIN PRN PRN Reason: Opiate Reversal Ondansetron HCl (Zofran) 4 mg IV Q4-6HP PRN PRN Reason: Nausea And Vomiting Last Admin: 04/07/18 09:23 Dose: 4 mg Documented by: Trospium Chloride [ Trospium Chloride Er ] 60 Mg Tab 1 dose PO QAM [facility] Last Admin: 04/07/18 10:15 Dose: Not Given Documented by: Descovy 200-25 Mg 1 dose PO DAILY@1500 [facility] Last Admin: 04/06/18 14:36 Dose: 1 dose Documented by: Dolutegravir Sodium ([Tivicay] 50 Mg) 1 dose PO DAILY@1500 [facility] Last Admin: 04/06/18 14:36 Dose: 1 dose Documented by: Potassium/Phosphorus/Sodium (Neutra Phos) 1 packet PO BID [facility] Last Admin: 04/07/18 10:09 Dose: 1 packet Documented by: Sodium Chloride (Saline Flush) 10 ml IV Q8 [facility] Last Admin: 04/07/18 12:37 Dose: 10 ml Documented by: Tamsulosin HCl (Flomax) 0.4 mg PO QDAY [facility] Last Admin: 04/07/18 10:10 Dose: 0.4 mg Documented by: Vancomycin HCl (Vancomycin Oral Azul) 250 mg PO QID [facility] Last Admin: 04/07/18 12:36 Dose: 250 mg Documented by: Medical - PN: A/P - Time Spent With Patient Total time spent is greater than 50% in coordination of care (as documented) at patient's floor/unit and/or counseling patient: - Narrative A/P Narrative: A/P Sepsis with Shock- hepatobilliary source, on levofloxacin, this is now rseolved. Cdiff diarrhea- On PO vancomycin day 2 today, plan to treat for 14 days after last dose of levofloxacin, likely for another 26 days. 05/01/2018 Gall stone pancreatitis- MRCP does not show any stone at this time, likely passed. LFt stable and trending down, Gen surgery consulted for Gall stone pancreatitis. Plan for cholecystectomy. Gram negative bacteremia- ON antibiotics, repeat culture in AM sent given pt still had fever, on levofloxacin now. HIV- Home HAART Meds resumed CAD- Elevated troponin, but no chest pain, troponin trending down, recent stent placement, continue antiplatelet meds for now, Memory loss/Dementia: High risk for delirium, monitor Chronic Kidney disease- Creat is at baseline, stable. back to baseline. Hyperkalemia- no ekg changes,resolved. Non anion gap acidosis- due to CKD, off bicarb drip now. resolved DJD/ Chr pain- resume home meds and monitor. discontinue fentanyl for now. DVT hep sq Diet renal, OT/PT/ST consult Full code for now. Medical - PN: Qual - Stroke Symptom Onset Unknown: No - VTE Deep Vein Thrombosis/Pulmonary Embolism Present on Admission: No
--- NOTE | 2018-04-07 14:11 | General Surgery Progress Note ---
Subjective Patient reports: feels better, still having pain, pain is less, tolerating liquids well, flatus, bowel movement, diarrhea, nausea, afebrile Narrative: Note initiated : 04/07/18 at 2:11 pm Service Date, if different from initiated Date: [] Patient: Taz Parra 73 y/o M admitted on 04/04/18 for Vomiting. Chief Complaint: [patient is stable. He has some upper abdominal discomfort earlier today but that has resolved. He also had some diarrhea and incontinence which she attributes to something that he was given. We discussed cholecystectomy and he understands that it will be done on Thursday morning.white blood count 5.2; hemoglobin 11.2; bilirubin 0.2, SGOT 21 ,SGPT 22, alkaline phosphatase 249.] Objective Temp Pulse Resp BP Pulse Ox 98.9 F 114 H 14 124/82 99 04/07/18 13:34 04/07/18 13:34 04/07/18 13:34 04/07/18 13:34 04/07/18 13:34 - Additional Data Intake & Output - Last 24 hours: Intake & Output 04/05/18 04/06/18 04/07/18 04/08/18 05:59 05:59 05:59 05:59 Intake Total 4380 2178 2968 480 Output Total 2900 2940 3605 350 Balance 1480 -122 -177 130 Weight 136 lb 139 lb 9.6 oz 135 lb 8 oz - General physical appearance well developed, well nourished, no distress - Eyes PERRL, normal ocular movement - ENT normal pinna, normal nares, normal mucosa, no hearing loss, no congestion - Neck no masses, no bruits, trachea midline, no lymphadenopathy, no venous distension - Respiratory normal expansion, normal respiratory effort, clear to auscultation - Cardiovascular Cardiovascular exam: Present: normal rate and rhythm, RRR, +S1, +S2. 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) - Psychiatric oriented to time, oriented to person, oriented to place, speech is normal, memory intact - Labs 04/07/18 04:05 04/07/18 04:05 Diabetes panel 04/07/18 Range/Units 04:05 Sodium 140 (133-145) mmol/L Potassium 3.6 (3.3-5.1) mmol/L Chloride 104 (96-108) mmol/L Carbon Dioxide 23 (22-30) mmol/L BUN 5 L (8-23) mg/dl Creatinine 1.1 (0.7-1.2) mg/dl Glucose 116 H (70-105) mg/dL Calcium 8.3 L (8.6-10.4) mg/dl AST 21 (0-37) U/l ALT 52 H (0-40) U/l Alkaline Phosphatase 249 H (39-117) U/L Total Protein 5.9 (5.9-8.4) gm/dL Albumin 2.9 L (3.2-5.2) gm/dL Triglycerides 201 H (<150) mg/dl Calcium panel 04/07/18 Range/Units 04:05 Calcium 8.3 L (8.6-10.4) mg/dl Phosphorus 2.0 L (2.7-4.5) mg/dL Albumin 2.9 L (3.2-5.2) gm/dL Pituitary panel 04/07/18 Range/Units 04:05 Sodium 140 (133-145) mmol/L Potassium 3.6 (3.3-5.1) mmol/L Chloride 104 (96-108) mmol/L Carbon Dioxide 23 (22-30) mmol/L BUN 5 L (8-23) mg/dl Creatinine 1.1 (0.7-1.2) mg/dl Glucose 116 H (70-105) mg/dL Calcium 8.3 L (8.6-10.4) mg/dl Adrenal panel 04/07/18 Range/Units 04:05 Sodium 140 (133-145) mmol/L Potassium 3.6 (3.3-5.1) mmol/L Chloride 104 (96-108) mmol/L Carbon Dioxide 23 (22-30) mmol/L BUN 5 L (8-23) mg/dl Creatinine 1.1 (0.7-1.2) mg/dl Glucose 116 H (70-105) mg/dL Calcium 8.3 L (8.6-10.4) mg/dl Total Bilirubin 0.3 (0.0-1.0) mg/dL AST 21 (0-37) U/l ALT 52 H (0-40) U/l Alkaline Phosphatase 249 H (39-117) U/L Total Protein 5.9 (5.9-8.4) gm/dL Albumin 2.9 L (3.2-5.2) gm/dL Assessment and Plan (1) Cholelithiasis with acute cholecystitis with biliary obstruction Status: Acute Assessment and plan: Patient is counseled for laparoscopic cholecystectomy with cholangiogram on ThursdayApril 03 Current Visit: Yes (2) Bacteremia due to Klebsiella pneumoniae Status: Resolved Current Visit: Yes (3) Coronary artery disease due to calcified coronary lesion Status: Chronic Current Visit: Yes (4) HIV (human immunodeficiency virus infection) Problem details: Diagnosed: 1984, after receiving infected blood. 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 Was treated with anti-viral agents in 1993. He is chronically on immunosuppressant medication, followed by Dr. Meyer in [place]. Status: Chronic Current Visit: No (5) Renal insufficiency Status: Resolved Current Visit: No - Time Spent With Patient Total time spent is greater than 50% in coordination of care (as documented) at patient's floor/unit and/or counseling patient:
[2018-04-07] MEDS: DESCOVY PO SCH (15:06)
[2018-04-07] MEDS: Dolutegravir Sodium [Tivicay] 50 MG PO SCH (15:07)
--- NOTE | 2018-04-07 15:41 | Infectious Disease Prog Note ---
Subjective Patient information: Note initiated : 04/07/18 at 3:36 pm Service Date, if different from initiated Date: [] Patient: Taz Parra 73 y/o M admitted on 04/04/18 for Vomiting. Chief Complaint: [] Interval history: Patient is feeling much better today. He denied any fever, chills, belly pain, nausea, vomiting. He still has diarrhea although the stools are getting more formed and less frequent. Objective Objective Narrative: Alert, oriented x3 Chest clear to auscultation Heart sounds normal Bowel sounds present, distended, soft, nontender, no rebound or guarding No edema - Vital Signs Vital signs: Vital Signs Temp Pulse Pulse Resp BP Pulse Ox 04/07/18 15:13 37.4 C H 115 H 18 128/88 99 04/07/18 13:34 37.2 C 114 H 14 124/82 99 04/07/18 07:49 37.3 C H 66 16 128/82 04/07/18 03:00 37.2 C 93 H 14 130/80 97 04/07/18 00:00 36.8 C 93 H 14 140/76 98 04/06/18 18:56 37.1 C 98 H 14 130/70 97 04/06/18 16:00 36.7 C 86 18 148/75 100 Intake and Output 04/07/18 04/07/18 04/07/18 05:59 13:59 21:59 Intake Total 1100 480 Output Total 1600 350 Balance -500 130 Intake: IV 1000 Dextrose 5%-Lactated Ringers 1, 1000 000 ml @ 75 mls/hr IV .[id number] [facility] Rx#:[id number] Oral 100 480 Output: Urine Catheter Amount 1550 350 Stool 50 Other: Meal Lunch Percent of Meal Consumed 50% Feeding Ability Assist with Tray Set Up Urine Appearance Clear Uretheral (O[place]iz) Clear Urine Color Straw Pale Light Juli Uretheral ([place]) Dark Yellow Urine Odor Normal Stool Size Small Smear Stool Color Black Black Stool Consistency Liquid Liquid Watery Watery Loose Loose # Bowel Movements 2 # of times incontinent of 1 2 Bowels Intake & Output: Intake & Output 04/07/18 04/07/18 04/07/18 05:59 13:59 21:59 Intake Total 1100 480 Output Total 1600 350 Balance -500 130 Intake: IV 1000 Dextrose 5%-Lactated Ringers 1, 1000 000 ml @ 75 mls/hr IV .[id number] [facility] Rx#:[id number] Oral 100 480 Output: Urine Catheter Amount 1550 350 Stool 50 Other: Meal Lunch Percent of Meal Consumed 50% Feeding Ability Assist with Tray Set Up Urine Appearance Clear Uretheral (Ortiz) Clear Urine Color Straw Pale Light Juli Uretheral ([place]iz) Dark Yellow Urine Odor Normal Stool Size Small Smear Stool Color Black Black Stool Consistency Liquid Liquid Watery Watery Loose Loose # Bowel Movements 2 # of times incontinent of 1 2 Bowels - Lab 04/07/18 04:05 04/07/18 04:05 Most recent lab results Calcium 8.3 mg/dl (8.6-10.4) L 04/07/18 04:05 Phosphorus 2.0 mg/dL (2.7-4.5) L 04/07/18 04:05 Magnesium 1.6 mg/dL (1.6-2.5) 04/07/18 04:05 Microbiology 04/06/18 04:05 Blood Blood Culture - Preliminary 04/06/18 04:00 Blood Blood Culture - Preliminary 04/05/18 05:11 Stool Parasite Direct Smear - Final 04/05/18 05:11 Stool Parasite Concentrated Smear - Final 04/05/18 05:11 Stool Parasite Permanent Smear - Final 04/05/18 05:11 Stool Stool Culture - Preliminary 04/05/18 05:11 Stool Hemorrhagic E.coli Culture - Final 04/04/18 12:05 Blood Blood Culture - Final Klebsiella pneumoniae 04/05/18 05:11 Stool Cryptosporidium Exam - Final 04/05/18 05:11 Stool Giardia Antigen (ADEOLA) - Final 04/04/18 20:08 Synovial Fluid Gram Stain - Final 04/04/18 20:08 Synovial Fluid Body Fluid Culture - Final 04/05/18 05:11 Stool C. difficile GDH Antigen & Toxins - Final 04/05/18 05:11 Stool Fecal Leukocyte Stain - Final 04/04/18 12:06 Blood Blood Culture - Preliminary Gram negative bacillus 04/04/18 17:28 Nasopharynx Respiratory Virus Panel (PCR) - Final 04/04/18 17:28 Nasopharynx Respiratory Panel (PCR) - Final 04/04/18 17:28 Nose MRSA (PCR) - Final Medications Active Medications: Acetaminophen (Tylenol) 650 mg PO Q4-6HP PRN PRN Reason: PAIN/FEVER > 101 Hydrocodone Bitart/Acetaminophen ([place] 10/325mg) 1 tab PO Q6HP PRN PRN Reason: Pain Last Admin: 04/07/18 13:21 Dose: 1 tab Documented by: Admin: 04/07/18 04:05 Dose: 1 tab Documented by: Admin: 04/06/18 21:59 Dose: 1 tab Documented by: Admin: 04/06/18 14:43 Dose: 1 tab Documented by: MELISSAOURRENNY Aspirin (Aspirin) 81 mg PO DAILY [facility] Last Admin: 04/07/18 10:10 Dose: 81 mg Documented by: ANA Heparin Sodium (Porcine) (Heparin) 5,000 unit SQ Q12 [facility] Last Admin: 04/07/18 09:27 Dose: 5,000 unit Documented by: Admin: 04/06/18 22:04 Dose: 5,000 unit Documented by: LIZY Hydromorphone HCl (Dilaudid) 0.5 - 1 mg IV Q2HP PRN PRN Reason: PAIN LEVEL > 6 Last Admin: 04/07/18 15:05 Dose: 0.5 mg Documented by: Admin: 04/07/18 12:36 Dose: 0.5 mg Documented by: Admin: 04/07/18 08:13 Dose: 0.5 mg Documented by: ANA Dextrose/Lactated Ringer's (Dextrose 5%-Lactated Ringers) 1,000 mls @ 75 mls/hr IV .[id number] [facility] Last Admin: 04/07/18 14:41 Dose: Not Given Documented by: ANA Non-Admin Reason: Bag Still Infusing Admin: 04/07/18 02:30 Dose: 75 mls/hr Documented by: Infusion: 04/07/18 02:30 Dose: 0 mls/hr Documented by: Admin: 04/06/18 12:07 Dose: 75 mls/hr Documented by: [email or web address] Acetaminophen (Ofirmev) 650 mg in 65 mls @ 130 mls/hr IV Q6HP PRN PRN Reason: PAIN/FEVER > 101 Levofloxacin (Levaquin) 750 mg PO DAILY [facility] Last Admin: 04/07/18 10:18 Dose: 750 mg Documented by: ANA Naloxone HCl (Narcan) 0.1 mg IV Q2MIN PRN PRN Reason: Opiate Reversal Ondansetron HCl (Zofran) 4 mg IV Q4-6HP PRN PRN Reason: Nausea And Vomiting Last Admin: 04/07/18 09:23 Dose: 4 mg Documented by: ANA Trospium Chloride [ Trospium Chloride Er ] 60 Mg Tab 1 dose PO QAM [facility] Last Admin: 04/07/18 10:15 Dose: Not Given Documented by: ANA Non-Admin Reason: Unavailable Descovy 200-25 Mg 1 dose PO DAILY@1500 [facility] Last Admin: 04/07/18 15:06 Dose: 1 dose Documented by: ANA Comments: will not scan Admin: 04/06/18 14:36 Dose: 1 dose Documented by: LONNIE Dolutegravir Sodium ([Tivicay] 50 Mg) 1 dose PO DAILY@1500 [facility] Last Admin: 04/07/18 15:07 Dose: 1 dose Documented by: Admin: 04/06/18 14:36 Dose: 1 dose Documented by: LONNIE Potassium/Phosphorus/Sodium (Neutra Phos) 1 packet PO BID [facility] Last Admin: 04/07/18 10:09 Dose: 1 packet Documented by: Admin: 04/06/18 22:01 Dose: 1 packet Documented by: LIZY Sodium Chloride (Saline Flush) 10 ml IV Q8 [facility] Last Admin: 04/07/18 12:37 Dose: 10 ml Documented by: Admin: 04/07/18 07:06 Dose: Not Given Documented by: ANA Non-Admin Reason: Continuous IV Admin: 04/06/18 22:04 Dose: Not Given Documented by: LIZY Non-Admin Reason: Continuous IV Admin: 04/06/18 14:18 Dose: Not Given Documented by: LONNIE Non-Admin Reason: Continuous IV Tamsulosin HCl (Flomax) 0.4 mg PO QDAY [facility] Last Admin: 04/07/18 10:10 Dose: 0.4 mg Documented by: ANA Vancomycin HCl (Vancomycin Oral Azul) 250 mg PO QID [facility] Last Admin: 04/07/18 12:36 Dose: 250 mg Documented by: Admin: 04/07/18 10:10 Dose: 250 mg Documented by: Admin: 04/06/18 22:07 Dose: 250 mg Documented by: [email or web address] Admin: 04/06/18 16:50 Dose: 250 mg Documented by: LONNIE Assessment and Plan - Narrative A/P Narrative: Assessment: #1 Klebsiella pneumoniae bacteremia with sepsis without shock [pt never required pressors]: Likely source is biliary tract. No concerns for acute cholangitisCT abdomen and ultrasound done on 04/04 suggest new development of cholecystitis along with CBD dilatation. MRCP from today suggests normalization of CBD dilatation and gallbladder wall thickening, with no finding of any stones. Overall suggestive of that patient had a CBD stone which was passed through ampulla of vater. In the process it led to mucosal translocation of bacteria leading to bacteremia Patient on appropriate antibiotics. We will plan for a 2-week course - From an infectious disease stand point, no indication for cholecystectomy. Cholecystectomy might be indicated for other indications (in this case gall stone pancreatitis) per Medicine and GS team. #2 CDI: mild and uncomplicated day 2 of PO Vanc. #3 chronic HIV infection: On Dolutegravir once daily and Descovy once daily. 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 will plan to continue it for 10 days after Levofloxacin is stopped. Stop date for PO Vanc is 04/29/18 Continue oral dolutegravir 50 mg and oral descovy once daily for HIV Await left hip biopsy path as cultures cannot be processed because specimen was sent in formalin. Will follow Rolly Elmore MD Infectious diseases
--- NOTE | 2018-04-07 16:37 | Internal Med Progress Note ---
Medical - PN: Subj Patient information: Note initiated : 04/07/18 at 4:34 pm Service Date, if different from initiated Date: [] Patient: Taz Parra 73 y/o M admitted on 04/04/18 for Vomiting. Chief Complaint: [] gallstone pancreatitis with Klebsiella cholangitis. Interval history: Pt's condition has improved substantially since I saw him at admission. Klebsiella grew out in blood probably from biliary source. MRCP did not identify CBD stone so no ERCP was performed. LFT's have trended favorably. Pt reports only some mild abd discomfort of epigastrium at this time. - Constitutional Vitals: Vital Signs Temp Pulse Resp BP Pulse Ox 99.4 F H 115 H 18 128/88 99 04/07/18 15:13 04/07/18 15:13 04/07/18 15:13 04/07/18 15:13 04/07/18 15:13 Period Temp Pulse Resp BP Sys/Celis Pulse Ox Last 24 Hr 98.3 F-99.4 F 66-115 14-18 124-140/70-88 97-99 Intake and Output 04/07/18 04/07/18 04/07/18 05:59 13:59 21:59 Intake Total 1100 480 Output Total 1600 350 Balance -500 130 Intake & Output: Intake & Output 04/07/18 04/07/18 04/07/18 05:59 13:59 21:59 Intake Total 1100 480 Output Total 1600 350 Balance -500 130 Intake: IV 1000 Dextrose 5%-Lactated Ringers 1, 1000 000 ml @ 75 mls/hr IV .[id number] [facility] Rx#:[id number] Oral 100 480 Output: Urine Catheter Amount 1550 350 Stool 50 Other: Meal Lunch Percent of Meal Consumed 50% Feeding Ability Assist with Tray Set Up Urine Appearance Clear Uretheral ([place]iz) Clear Urine Color Straw Pale Light Juli Uretheral ([place]) Dark Yellow Urine Odor Normal Stool Size Small Smear Stool Color Black Black Stool Consistency Liquid Liquid Watery Watery Loose Loose # Bowel Movements 2 # of times incontinent of 1 2 Bowels General appearance: cooperative - Eye Eye exam: Absent: scleral icterus - GI/Abdominal GI/Abdominal exam: Present: soft, tenderness (mild tenderness at epigastrium and LUQ but no rebound; no guarding). Absent: distended, firm, guarding Medical - PN: Obj Da - Labs CBC & Chem 7: 04/07/18 04:05 04/07/18 04:05 Labs: Abnormal Lab Results 04/07/18 04/07/18 04/06/18 04:05 04:05 07:14 RBC 3.68 L Hgb 11.2 L Hct 34.3 L RDW 16.9 H Plt Count Gran % Lymph % (Auto) Lymph # (Auto) 1.1 L Potassium Chloride Carbon Dioxide BUN 5 L Creatinine 1.3 H Glucose 116 H 144 H Calcium 8.3 L 7.8 L Phosphorus 2.0 L 1.8 L Magnesium 1.5 L GGT 221 H 233 H AST 38 H ALT 52 H 67 H Alkaline Phosphatase 249 H 261 H Total Protein 5.5 L Albumin 2.9 L 2.7 L Triglycerides 201 H Lipase Urine Occult Blood Urine RBC 04/06/18 04/05/18 04/05/18 04:00 15:03 10:37 RBC 3.54 L Hgb 10.9 L Hct 33.0 L RDW 17.7 H Plt Count Gran % Lymph % (Auto) Lymph # (Auto) 0.9 L Potassium Chloride Carbon Dioxide 21 L BUN Creatinine 1.4 H Glucose 125 H Calcium 8.3 L Phosphorus Magnesium GGT AST 59 H ALT 81 H Alkaline Phosphatase 332 H Total Protein Albumin 3.1 L Triglycerides Lipase Urine Occult Blood 0.03 A Urine RBC 4 H 04/05/18 04/05/18 04/05/18 03:30 03:30 03:30 RBC 3.35 L Hgb 10.2 L Hct 31.2 L RDW 17.0 H Plt Count 126 L Gran % 81.4 H Lymph % (Auto) 9.8 L Lymph # (Auto) 0.8 L Potassium Chloride 109 H Carbon Dioxide 19 L BUN 28 H Creatinine 1.6 H Glucose Calcium 8.0 L Phosphorus 2.4 L Magnesium GGT 281 H AST 46 H ALT 62 H Alkaline Phosphatase 306 H Total Protein 5.3 L Albumin 2.6 L Triglycerides Lipase 208 H Urine Occult Blood Urine RBC 04/04/18 04/04/18 21:06 12:08 RBC Hgb Hct RDW Plt Count Gran % Lymph % (Auto) Lymph # (Auto) Potassium 5.5 H Chloride Carbon Dioxide 16 L BUN 33 H Creatinine 1.7 H Glucose Calcium 8.1 L Phosphorus Magnesium GGT 452 H AST ALT Alkaline Phosphatase Total Protein Albumin Triglycerides Lipase Urine Occult Blood Urine RBC Meds: Medications Acetaminophen (Tylenol) 650 mg PO Q4-6HP PRN PRN Reason: PAIN/FEVER > 101 Hydrocodone Bitart/Acetaminophen ([place] 10/325mg) 1 tab PO Q6HP PRN PRN Reason: Pain Last Admin: 04/07/18 13:21 Dose: 1 tab Documented by: Aspirin (Aspirin) 81 mg PO DAILY [facility] Last Admin: 04/07/18 10:10 Dose: 81 mg Documented by: Heparin Sodium (Porcine) (Heparin) 5,000 unit SQ Q12 [facility] Last Admin: 04/07/18 09:27 Dose: 5,000 unit Documented by: Hydromorphone HCl (Dilaudid) 0.5 - 1 mg IV Q2HP PRN PRN Reason: PAIN LEVEL > 6 Last Admin: 04/07/18 15:05 Dose: 0.5 mg Documented by: Dextrose/Lactated Ringer's (Dextrose 5%-Lactated Ringers) 1,000 mls @ 75 mls/hr IV .[id number] [facility] Last Admin: 04/07/18 14:41 Dose: Not Given Documented by: Acetaminophen (Ofirmev) 650 mg in 65 mls @ 130 mls/hr IV Q6HP PRN PRN Reason: PAIN/FEVER > 101 Levofloxacin (Levaquin) 750 mg PO DAILY [facility] Last Admin: 04/07/18 10:18 Dose: 750 mg Documented by: Naloxone HCl (Narcan) 0.1 mg IV Q2MIN PRN PRN Reason: Opiate Reversal Ondansetron HCl (Zofran) 4 mg IV Q4-6HP PRN PRN Reason: Nausea And Vomiting Last Admin: 04/07/18 09:23 Dose: 4 mg Documented by: Trospium Chloride [ Trospium Chloride Er ] 60 Mg Tab 1 dose PO QAM [facility] Last Admin: 04/07/18 10:15 Dose: Not Given Documented by: Descovy 200-25 Mg 1 dose PO DAILY@1500 [facility] Last Admin: 04/07/18 15:06 Dose: 1 dose Documented by: Dolutegravir Sodium ([Tivicay] 50 Mg) 1 dose PO DAILY@1500 [facility] Last Admin: 04/07/18 15:07 Dose: 1 dose Documented by: Potassium/Phosphorus/Sodium (Neutra Phos) 1 packet PO BID [facility] Last Admin: 04/07/18 10:09 Dose: 1 packet Documented by: Sodium Chloride (Saline Flush) 10 ml IV Q8 [facility] Last Admin: 04/07/18 12:37 Dose: 10 ml Documented by: Tamsulosin HCl (Flomax) 0.4 mg PO QDAY [facility] Last Admin: 04/07/18 10:10 Dose: 0.4 mg Documented by: Vancomycin HCl (Vancomycin Oral Azul) 250 mg PO QID [facility] Last Admin: 04/07/18 12:36 Dose: 250 mg Documented by: Medical - PN: A/P - Time Spent With Patient Total time spent is greater than 50% in coordination of care (as documented) at patient's floor/unit and/or counseling patient: 15 - 24 minutes - Narrative A/P Narrative: Klebsiella is being treated. LFT's and pancreatic enzyme level improving suggesting that biliary stone has passed (c/w MRCP). Agree with plan for lap CCx by Dr. Chaka Goldman this week on 04/09/18. If intra-op C'gram shows a CBD stone then ERCP would be done later that day. I have discussed gallstone pancreatitis, Klebsiella infection, and possible ERCP for sphincterotomy and stone extraction with the patient today. Hopefully, intraop C'gram will be negative . Will follow. Medical - PN: Qual - Stroke Symptom Onset Unknown: No - VTE Deep Vein Thrombosis/Pulmonary Embolism Present on Admission: No
[2018-04-08] MEDS: HYDROcodone/APAP 10/325MG TABLET PO PRN ×2 (02:27→21:08)
[2018-04-08] MEDS: DEXTROSE 5%-LR 1,000 ML IV SCH ×2 (02:52→20:31)
[2018-04-08] MEDS: 0.9 % SODIUM CHLORIDE 10 ML SYRINGE IV SCH ×3 (05:05→21:09)
[2018-04-08 05:21] LABS: Basophils # (Auto) 0 K/mcL (0.0-0.3); Basophils % (Auto) 0.4 % (0.0-2.0); Eosinophils # (Auto) 0.3 K/mcL (0.0-0.7); Eosinophils % (Auto) 7.3 % (0.0-7.0); Granulocytes % (Auto) 47.5 % (38.0-78.0); Lymphocytes # (Auto) 1.3 K/mcL (1.5-4.8); Lymphocytes % (Auto) 31.6 % (15.5-49.0); Mean Cell Volume 92.7 fL (80.0-100.0); Mean Corpuscular HGB Conc 33.1 g/dL (31.0-36.0); Monocytes # (Auto) 0.5 K/mcL (0.1-0.9); Monocytes % (Auto) 13.2 % (1.0-12.0); Platelet Count 167 K/mcL (140-440); RBC 3.82 M/mcL (4.50-5.90); Red Cell Distribution Width 17.5 % (11.5-14.5)
[2018-04-08 06:11] LABS: ALT/SGPT 35 U/l (0-40); Alkaline Phosphatase 213 U/L (39-117); Bilirubin,Direct < 0.2 mg/dL (0.0-0.3); Blood Urea Nitrogen 6 mg/dl (8-23); Gamma Glutamyl Transpeptidase 197 U/L (8-61); Uric Acid 3.1 mg/dL (2.5-8.0)
[2018-04-08] MEDS: LEVOFLOXACIN 750 MG TABLET PO SCH (09:06)
[2018-04-08] MEDS: HEPARIN 5,000 UNIT/ML VIAL SQ SCH ×2 (09:06→21:08)
[2018-04-08] MEDS: ASPIRIN 81 MG TAB.CHEW PO SCH (09:07)
[2018-04-08] MEDS: TAMSULOSIN 0.4 MG CAPSULE PO SCH (09:07)
[2018-04-08] MEDS: NEUTRA PHOS 1 PACKET PO SCH ×2 (09:08→21:08)
[2018-04-08] MEDS: VANCOMYCIN ORAL SOL 1,000 MG/10 ML BOTTLE PO SCH ×4 (09:08→21:07)
[2018-04-08] MEDS: TROSPIUM CHLORIDE 60 MG PO SCH (09:08)
[2018-04-08] MEDS ORDERED: fentaNYL 50 MCG PATCH TD SCH (10:00)
--- NOTE | 2018-04-08 11:21 | Internal Med Progress Note ---
Medical - PN: Subj Patient information: Note initiated : 04/08/18 at 11:18 am Service Date, if different from initiated Date: [] Patient: Taz Parra 73 y/o M admitted on 04/04/18 for Vomiting. Chief Complaint: [] Interval history: Mr. Parra is a 73 year old M with h/o memory issues, HIV< presents to the ER today with complaints of nausea/vomiting / diarrhea x 1 day. He also admits to having abdominal pain 2 days ago, but not now. He did not complain much about nausea/vomiting to me, but to the triage/er staff, his main complaint to me was just weakness. he notes he had a cardiac stent placed at [facility] before [place]. Over the last couple of days he has been feeling weak. And that is why he came to the hospital for further evaluation. He was also seen in the emergency room on the of this month where he underwent a CT abdomen and pelvis. Workup was negative then and the patient was discharged back home. This time around on presentation to the ER the patient was febrile with a maximum temperature of 103, tachycardic, patient had low blood pressure with systolic blood pressure in the 70s, patient was saturating more than 90% on room air. Labs showed a WBC count of 10.5, 91% neutrophils hemoglobin 13 platelets 156, lactic acid 0.7 sodium 132 potassium 5.7 bicarbonate 16 creatinine 19 glucose was 60 troponin is 0.05, was 1.55 a couple of days ago AST 75, ALT 102, alkaline phosphatase 483 this is significantly elevated compared to labs 2 days ago Chest x-ray done is clear, EKG shows sinus tachycardia. Gallbladder ultrasound was done official report is yet not dictated however the ED provider noted that the patient had dilated CBD, and thickened gall bladder. 04/05 Patient seen and examined, overnight was hypotensive and febrile responded well to Tylenol, Motrin and IV fluids. Blood cultures positive for out of 4 bottles Klebsiella. Likely source at this time appears to be GI, hepatobiliary. Liver function tests are trending down, MRCP shows improvement in CBD and cystic duct dilatation compared to scans and ultrasound done yesterday, cholecystitis has resolved. Clinically patient has stabilized. Plan is to hold off on ERCP for now. Patient will need a cholecystectomy given that he had gallstone pancreatitis. Infectious disease does not believe that the patient has C. difficile, vancomycin oral has been discontinued for now. 04/06 Patient seen examined, no acute ovenright issues, hemodynamically stable, fever noted. still has diarrhea Resume Cdiff treatment with oral vancomycin, (as per ID) d/c zosyn and start on levofloxacin, klebsiella sensitivity reviewed, Xfer to med surg status Gen Surgery consulted. LFT stable, trending down slowly. 04/07 Patient seen and examined, overnight was anxious, jittery which he attributed to his fentanyl patch removed it. Is able to tolerate p.o. diet well, did have some nausea after eating food. Labs are stable liver function test is trending down. Continue levofloxacin as per infectious disease recommendations. Continue vancomycin for C. difficile Patient is scheduled to have cholecystectomy done on Thursday. Appreciate surgery input 04/08 Pt seen examined, no new complaints or concerns labs stable, LFT continues to trend down. no nausea today NPO midnight for cholecystectomy tomorrow Pertinent ROS: Denies headache, dizziness Denies chest pain, palpitations Denies cough or shortness of breath Denies abdominal pain, nausea or vomiting. - Constitutional Vitals: Vital Signs Temp Pulse Resp BP Pulse Ox 98.8 F 101 H 12 161/91 98 04/08/18 08:00 04/08/18 08:00 04/08/18 08:00 04/08/18 08:00 04/08/18 08:00 Period Temp Pulse Resp BP Sys/Celis Pulse Ox Last 24 Hr 98.5 F-99.4 F 90-115 12-18 118-161/68-91 96-99 Intake and Output 04/07/18 04/08/18 04/08/18 21:59 05:59 13:59 Intake Total 1800 180 Output Total 1850 900 Balance -50 -720 Weight 136 lb Intake & Output: Intake & Output 04/07/18 04/08/18 04/08/18 21:59 05:59 13:59 Intake Total 1800 180 Output Total 1850 900 Balance -50 -720 Weight 136 lb Intake: IV 1000 Dextrose 5%-Lactated Ringers 1, 1000 000 ml @ 75 mls/hr IV .[id number] [facility] Rx#:[id number] Oral 800 180 Output: Urine Catheter Amount 1800 900 Stool 50 Other: Urine Appearance Clear Uretheral ([place]) Clear Urine Color Straw Uretheral ([place]) Bright Yellow Urine Odor Normal Stool Color Black Green Stool Consistency Liquid Liquid Loose # Bowel Movements 1 Exam: Constitutional; Afebrile, cooperative, alert, not in distress. Respiratory system: Air Entry equal on both sides, No crackles or wheezing, no rhonchi. CVS- Rate rhythm regular, S1,S2 heard, no gallop, no rub. Abdomen- Soft nontender abdomen, no organomegaly, no tenderness, no guarding or rigidity, [employer]- AOOx3, moving all extremities, no gross focal deficit noted. Medical - PN: Obj Da - Labs CBC & Chem 7: 04/08/18 03:42 04/08/18 03:42 Labs: Abnormal Lab Results 04/08/18 04/08/18 04/07/18 03:42 03:42 04:05 WBC 4.0 L RBC 3.82 L Hgb 11.7 L Hct 35.4 L RDW 17.5 H [place] % (Auto) 13.2 H Eos % (Auto) 7.3 H Lymph # (Auto) 1.3 L Carbon Dioxide BUN 6 L 5 L Creatinine Glucose 113 H 116 H Calcium 8.3 L Phosphorus 2.0 L Magnesium GGT 197 H 221 H AST ALT 52 H Alkaline Phosphatase 213 H 249 H Total Protein Albumin 3.0 L 2.9 L Triglycerides 236 H 201 H Urine Occult Blood Urine RBC 04/07/18 04/06/18 04/06/18 04:05 07:14 04:00 WBC RBC 3.68 L 3.54 L Hgb 11.2 L 10.9 L Hct 34.3 L 33.0 L RDW 16.9 H 17.7 H [place] % (Auto) Eos % (Auto) Lymph # (Auto) 1.1 L 0.9 L Carbon Dioxide BUN Creatinine 1.3 H Glucose 144 H Calcium 7.8 L Phosphorus 1.8 L Magnesium 1.5 L GGT 233 H AST 38 H ALT 67 H Alkaline Phosphatase 261 H Total Protein 5.5 L Albumin 2.7 L Triglycerides Urine Occult Blood Urine RBC 04/05/18 04/05/18 15:03 10:37 WBC RBC Hgb Hct RDW [place] % (Auto) Eos % (Auto) Lymph # (Auto) Carbon Dioxide 21 L BUN Creatinine 1.4 H Glucose 125 H Calcium 8.3 L Phosphorus Magnesium GGT AST 59 H ALT 81 H Alkaline Phosphatase 332 H Total Protein Albumin 3.1 L Triglycerides Urine Occult Blood 0.03 A Urine RBC 4 H Meds: Medications Acetaminophen (Tylenol) 650 mg PO Q4-6HP PRN PRN Reason: PAIN/FEVER > 101 Hydrocodone Bitart/Acetaminophen ([place] 10/325mg) 1 tab PO Q6HP PRN PRN Reason: Pain Last Admin: 04/08/18 02:27 Dose: 1 tab Documented by: Aspirin (Aspirin) 81 mg PO DAILY [facility] Last Admin: 04/08/18 09:07 Dose: 81 mg Documented by: Heparin Sodium (Porcine) (Heparin) 5,000 unit SQ Q12 [facility] Last Admin: 04/08/18 09:06 Dose: 5,000 unit Documented by: Hydromorphone HCl (Dilaudid) 0.5 - 1 mg IV Q2HP PRN PRN Reason: PAIN LEVEL > 6 Last Admin: 04/07/18 21:10 Dose: 0.5 mg Documented by: Dextrose/Lactated Ringer's (Dextrose 5%-Lactated Ringers) 1,000 mls @ 75 mls/hr IV .[id number] [facility] Last Admin: 04/08/18 02:52 Dose: Not Given Documented by: Acetaminophen (Ofirmev) 650 mg in 65 mls @ 130 mls/hr IV Q6HP PRN PRN Reason: PAIN/FEVER > 101 Levofloxacin (Levaquin) 750 mg PO DAILY [facility] Last Admin: 04/08/18 09:06 Dose: 750 mg Documented by: Naloxone HCl (Narcan) 0.1 mg IV Q2MIN PRN PRN Reason: Opiate Reversal Ondansetron HCl (Zofran) 4 mg IV Q4-6HP PRN PRN Reason: Nausea And Vomiting Last Admin: 04/07/18 09:23 Dose: 4 mg Documented by: Trospium Chloride [ Trospium Chloride Er ] 60 Mg Tab 1 dose PO QAM [facility] Last Admin: 04/08/18 09:08 Dose: Not Given Documented by: Descovy 200-25 Mg 1 dose PO DAILY@1500 [facility] Last Admin: 04/07/18 15:06 Dose: 1 dose Documented by: Dolutegravir Sodium ([Tivicay] 50 Mg) 1 dose PO DAILY@1500 [facility] Last Admin: 04/07/18 15:07 Dose: 1 dose Documented by: Potassium/Phosphorus/Sodium (Neutra Phos) 1 packet PO BID [facility] Last Admin: 04/08/18 09:08 Dose: 1 packet Documented by: Sodium Chloride (Saline Flush) 10 ml IV Q8 [facility] Last Admin: 04/08/18 05:05 Dose: Not Given Documented by: Tamsulosin HCl (Flomax) 0.4 mg PO QDAY [facility] Last Admin: 04/08/18 09:07 Dose: 0.4 mg Documented by: Vancomycin HCl (Vancomycin Oral Azul) 250 mg PO QID [facility] Last Admin: 04/08/18 09:08 Dose: 250 mg Documented by: Medical - PN: A/P - Time Spent With Patient Total time spent is greater than 50% in coordination of care (as documented) at patient's floor/unit and/or counseling patient: - Narrative A/P Narrative: A/P Sepsis with Shock- hepatobiliary source, on levofloxacin, this is now resolved. Cdiff diarrhea- plan to treat for 10 days after last dose of levofloxacin (04/19/18), last dose for vancomycin is 04/29/2018(as per ID) Gall stone pancreatitis- MRCP does not show any stone at this time, likely passed. LFt stable and trending down, Gen surgery consulted for Gall stone pancreatitis. Plan for cholecystectomy. Gram negative bacteremia- ON antibiotics, repeat culture in AM sent given pt still had fever, on levofloxacin now. HIV- Home HAART Meds resumed CAD- Elevated troponin, but no chest pain, troponin trending down, recent stent placement, continue antiplatelet meds for now, Memory loss/Dementia: High risk for delirium, monitor Chronic Kidney disease- Creat is at baseline, stable. back to baseline. Hyperkalemia- no ekg changes,resolved. Non anion gap acidosis- due to CKD, off bicarb drip now. resolved DJD/ Chr pain- resume home meds and monitor. discontinue fentanyl for now. DVT hep sq Diet renal, OT/PT/ST consult Full code for now. Medical - PN: Qual - Stroke Symptom Onset Unknown: No - VTE Deep Vein Thrombosis/Pulmonary Embolism Present on Admission: No
--- NOTE | 2018-04-08 11:44 | Infectious Disease Prog Note ---
Subjective Patient information: Note initiated : 04/08/18 at 11:42 am Service Date, if different from initiated Date: [] Patient: Taz Parra 73 y/o M admitted on 04/04/18 for Vomiting. Chief Complaint: [] Interval history: Pt doing better day by day. Denied any fever, chills, nausea. Mentioned that he had a vomiting episode. His stools are getting firmer, and this am he only had 1 BM. Objective Objective Narrative: ao x3 chest cta s1 s2 normal bs ++ nttd no edema has a pressure sore over left foot heel, and small area of skin breakdown over sacrum - Vital Signs Vital signs: Vital Signs Temp Pulse Pulse Resp BP Pulse Ox 04/08/18 08:00 37.1 C 101 H 12 161/91 98 04/08/18 03:10 36.9 C 100 H 12 148/80 98 04/07/18 23:10 37.0 C 90 12 118/68 97 04/07/18 20:19 37.1 C 97 H 12 120/70 96 04/07/18 15:13 37.4 C H 115 H 18 128/88 99 04/07/18 13:34 37.2 C 114 H 14 124/82 99 Intake and Output 04/07/18 04/08/18 04/08/18 21:59 05:59 13:59 Intake Total 1800 180 Output Total 1850 900 Balance -50 -720 Intake: IV 1000 Dextrose 5%-Lactated Ringers 1, 1000 000 ml @ 75 mls/hr IV .[id number] [facility] Rx#:[id number] Oral 800 180 Output: Urine Catheter Amount 1800 900 Stool 50 Other: Urine Appearance Clear Uretheral ([place]) Clear Urine Color Straw Uretheral ([place]) Bright Yellow Urine Odor Normal Stool Color Black Green Stool Consistency Liquid Liquid Loose # Bowel Movements 1 Weight 61.689 kg Intake & Output: Intake & Output 04/07/18 04/08/18 04/08/18 21:59 05:59 13:59 Intake Total 1800 180 Output Total 1850 900 Balance -50 -720 Weight 61.689 kg Intake: IV 1000 Dextrose 5%-Lactated Ringers 1, 1000 000 ml @ 75 mls/hr IV .[id number] [facility] Rx#:[id number] Oral 800 180 Output: Urine Catheter Amount 1800 900 Stool 50 Other: Urine Appearance Clear Uretheral ([place]) Clear Urine Color Straw Uretheral ([place]) Bright Yellow Urine Odor Normal Stool Color Black Green Stool Consistency Liquid Liquid Loose # Bowel Movements 1 - Lab 04/08/18 03:42 04/08/18 03:42 Most recent lab results Calcium 8.6 mg/dl (8.6-10.4) 04/08/18 03:42 Phosphorus 2.8 mg/dL (2.7-4.5) 04/08/18 03:42 Magnesium 1.7 mg/dL (1.6-2.5) 04/08/18 03:42 Microbiology 04/06/18 04:05 Blood Blood Culture - Preliminary 04/06/18 04:00 Blood Blood Culture - Preliminary 04/05/18 05:11 Stool Parasite Direct Smear - Final 04/05/18 05:11 Stool Parasite Concentrated Smear - Final 04/05/18 05:11 Stool Parasite Permanent Smear - Final 04/05/18 05:11 Stool Stool Culture - Preliminary 04/05/18 05:11 Stool Hemorrhagic E.coli Culture - Final 04/04/18 12:05 Blood Blood Culture - Final Klebsiella pneumoniae 04/05/18 05:11 Stool Cryptosporidium Exam - Final 04/05/18 05:11 Stool Giardia Antigen (ADEOLA) - Final 04/04/18 20:08 Synovial Fluid Gram Stain - Final 04/04/18 20:08 Synovial Fluid Body Fluid Culture - Final 04/05/18 05:11 Stool C. difficile GDH Antigen & Toxins - Final 04/05/18 05:11 Stool Fecal Leukocyte Stain - Final 04/04/18 12:06 Blood Blood Culture - Preliminary Gram negative bacillus 04/04/18 17:28 Nasopharynx Respiratory Virus Panel (PCR) - Final 04/04/18 17:28 Nasopharynx Respiratory Panel (PCR) - Final 04/04/18 17:28 Nose MRSA (PCR) - Final Medications Active Medications: Acetaminophen (Tylenol) 650 mg PO Q4-6HP PRN PRN Reason: PAIN/FEVER > 101 Hydrocodone Bitart/Acetaminophen ([place] 10/325mg) 1 tab PO Q6HP PRN PRN Reason: Pain Last Admin: 04/08/18 02:27 Dose: 1 tab Documented by: Admin: 04/07/18 19:30 Dose: 1 tab Documented by: MARISSA Comments: computer not working in patients room unable to scan Admin: 04/07/18 13:21 Dose: 1 tab Documented by: Bart Admin: 04/07/18 04:05 Dose: 1 tab Documented by: Admin: 04/06/18 21:59 Dose: 1 tab Documented by: Admin: 04/06/18 14:43 Dose: 1 tab Documented by: LCOURTRIGH Aspirin (Aspirin) 81 mg PO DAILY [facility] Last Admin: 04/08/18 09:07 Dose: 81 mg Documented by: [facility] Admin: 04/07/18 10:10 Dose: 81 mg Documented by: ANA Heparin Sodium (Porcine) (Heparin) 5,000 unit SQ Q12 [facility] Last Admin: 04/08/18 09:06 Dose: 5,000 unit Documented by: [facility] Admin: 04/07/18 21:10 Dose: 5,000 unit Documented by: Admin: 04/07/18 09:27 Dose: 5,000 unit Documented by: [facility] Admin: 04/06/18 22:04 Dose: 5,000 unit Documented by: LIZY Hydromorphone HCl (Dilaudid) 0.5 - 1 mg IV Q2HP PRN PRN Reason: PAIN LEVEL > 6 Last Admin: 04/07/18 21:10 Dose: 0.5 mg Documented by: Admin: 04/07/18 17:21 Dose: 0.5 mg Documented by: Bart Admin: 04/07/18 15:05 Dose: 0.5 mg Documented by: [facility] Admin: 04/07/18 12:36 Dose: 0.5 mg Documented by: [facility] Admin: 04/07/18 08:13 Dose: 0.5 mg Documented by: ANA Dextrose/Lactated Ringer's (Dextrose 5%-Lactated Ringers) 1,000 mls @ 75 mls/hr IV .[id number] [facility] Last Admin: 04/08/18 02:52 Dose: Not Given Documented by: MARISSA Non-Admin Reason: Bag Still Infusing Admin: 04/07/18 17:21 Dose: 75 mls/hr Documented by: Infusion: 04/07/18 15:50 Dose: 75 mls/hr Documented by: [facility] Admin: 04/07/18 14:41 Dose: Not Given Documented by: ANA Non-Admin Reason: Bag Still Infusing Admin: 04/07/18 02:30 Dose: 75 mls/hr Documented by: Infusion: 04/07/18 02:30 Dose: 0 mls/hr Documented by: Admin: 04/06/18 12:07 Dose: 75 mls/hr Documented by: [email or web address] Acetaminophen (Ofirmev) 650 mg in 65 mls @ 130 mls/hr IV Q6HP PRN PRN Reason: PAIN/FEVER > 101 Levofloxacin (Levaquin) 750 mg PO DAILY [facility] Last Admin: 04/08/18 09:06 Dose: 750 mg Documented by: Admin: 04/07/18 10:18 Dose: 750 mg Documented by: ANA Naloxone HCl (Narcan) 0.1 mg IV Q2MIN PRN PRN Reason: Opiate Reversal Ondansetron HCl (Zofran) 4 mg IV Q4-6HP PRN PRN Reason: Nausea And Vomiting Last Admin: 04/07/18 09:23 Dose: 4 mg Documented by: ANA Trospium Chloride [ Trospium Chloride Er ] 60 Mg Tab 1 dose PO QAM [facility] Last Admin: 04/08/18 09:08 Dose: Not Given Documented by: ANA Non-Admin Reason: Unavailable Admin: 04/07/18 10:15 Dose: Not Given Documented by: ANA Non-Admin Reason: Unavailable Descovy 200-25 Mg 1 dose PO DAILY@1500 [facility] Last Admin: 04/07/18 15:06 Dose: 1 dose Documented by: ANA Comments: will not scan Admin: 04/06/18 14:36 Dose: 1 dose Documented by: LONNIE Dolutegravir Sodium ([Tivicay] 50 Mg) 1 dose PO DAILY@1500 [facility] Last Admin: 04/07/18 15:07 Dose: 1 dose Documented by: Admin: 04/06/18 14:36 Dose: 1 dose Documented by: LONNIE Potassium/Phosphorus/Sodium (Neutra Phos) 1 packet PO BID [facility] Last Admin: 04/08/18 09:08 Dose: 1 packet Documented by: Admin: 04/07/18 21:12 Dose: 1 packet Documented by: Admin: 04/07/18 10:09 Dose: 1 packet Documented by: Admin: 04/06/18 22:01 Dose: 1 packet Documented by: LIZY Sodium Chloride (Saline Flush) 10 ml IV Q8 [facility] Last Admin: 04/08/18 05:05 Dose: Not Given Documented by: MARISSA Non-Admin Reason: Continuous IV Admin: 04/07/18 22:06 Dose: Not Given Documented by: MERTRT Non-Admin Reason: Continuous IV Admin: 04/07/18 12:37 Dose: 10 ml Documented by: Admin: 04/07/18 07:06 Dose: Not Given Documented by: ANA Non-Admin Reason: Continuous IV Admin: 04/06/18 22:04 Dose: Not Given Documented by: LIZY Non-Admin Reason: Continuous IV Admin: 04/06/18 14:18 Dose: Not Given Documented by: LONNIE Non-Admin Reason: Continuous IV Tamsulosin HCl (Flomax) 0.4 mg PO QDAY [facility] Last Admin: 04/08/18 09:07 Dose: 0.4 mg Documented by: Admin: 04/07/18 10:10 Dose: 0.4 mg Documented by: ANA Vancomycin HCl (Vancomycin Oral Azul) 250 mg PO QID [facility] Last Admin: 04/08/18 09:08 Dose: 250 mg Documented by: Admin: 04/07/18 21:11 Dose: 250 mg Documented by: Admin: 04/07/18 17:15 Dose: 250 mg Documented by: Admin: 04/07/18 12:36 Dose: 250 mg Documented by: Admin: 04/07/18 10:10 Dose: 250 mg Documented by: Admin: 04/06/18 22:07 Dose: 250 mg Documented by: Admin: 04/06/18 16:50 Dose: 250 mg Documented by: LONNIE Assessment and Plan - Narrative A/P Narrative: Assessment: #1 Klebsiella pneumoniae bacteremia with sepsis without shock [pt never required pressors]: Likely source is biliary tract. No concerns for acute cholangitisCT abdomen and ultrasound done on 04/04 suggest new development of cholecystitis along with CBD dilatation. MRCP from today suggests normalization of CBD dilatation and gallbladder wall thickening, with no finding of any stones. Overall sugg estive of that patient had a CBD stone which was passed through ampulla of vater. In the process it led to mucosal translocation of bacteria leading to bacteremia Patient on appropriate antibiotics. We will plan for a 2-week course #2 CDI: mild and uncomplicated #3 chronic HIV infection: On Dolutegravir once daily and Descovy once daily. 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 Might undergo ERCP as well if stone retrievable on intraop cholangiogram Recommendations: Continue PO Levofloxacin 750 mg q24 hrs, with stop date of 04/19/18 -Continue PO Vancomycin 250 mg q6 hrs. will plan to continue it for 10 days after Levofloxacin is stopped. Stop date for PO Vanc is 04/29/18 Continue oral dolutegravir 50 mg and oral descovy once daily for HIV - ID clinic follow up appointment made for 04/20/18 at 9 am - consider stroud catheter removal (to prevent CAUTI), as urinary catheterization can be omitted safely in elective laparoscopic cholecystectomy [[email or web address]] Will sign off. Rolly Elmore MD Infectious diseases
[2018-04-08] MEDS: HYDROmorphone 2 MG/ML VIAL IV PRN ×2 (13:42→15:56)
--- NOTE | 2018-04-08 13:59 | Internal Med Progress Note ---
Medical - PN: Subj Patient information: Note initiated : 04/08/18 at 1:50 pm Service Date, if different from initiated Date: [] Patient: Taz Parra 73 y/o M admitted on 04/04/18 for Vomiting. Chief Complaint: [] Interval history: Mr. Parra is a 73 year old M with h/o memory issues, HIV< presents to the ER today with complaints of nausea/vomiting / diarrhea x 1 day. He also admits to having abdominal pain 2 days ago, but not now. He did not complain much about nausea/vomiting to me, but to the triage/er staff, his main complaint to me was just weakness. he notes he had a cardiac stent placed at [facility] before [place]. Over the last couple of days he has been feeling weak. And that is why he came to the hospital for further evaluation. He was also seen in the emergency room on the of this month where he underwent a CT abdomen and pelvis. Workup was negative then and the patient was discharged back home. This time around on presentation to the ER the patient was febrile with a maximum temperature of 103, tachycardic, patient had low blood pressure with systolic blood pressure in the 70s, patient was saturating more than 90% on room air. Labs showed a WBC count of 10.5, 91% neutrophils hemoglobin 13 platelets 156, lactic acid 0.7 sodium 132 potassium 5.7 bicarbonate 16 creatinine 19 glucose was 60 troponin is 0.05, was 1.55 a couple of days ago AST 75, ALT 102, alkaline phosphatase 483 this is significantly elevated compared to labs 2 days ago Chest x-ray done is clear, EKG shows sinus tachycardia. Gallbladder ultrasound was done official report is yet not dictated however the ED provider noted that the patient had dilated CBD, and thickened gall bladder. 04/05 Patient seen and examined, overnight was hypotensive and febrile responded well to Tylenol, Motrin and IV fluids. Blood cultures positive for out of 4 bottles Klebsiella. Likely source at this time appears to be GI, hepatobiliary. Liver function tests are trending down, MRCP shows improvement in CBD and cystic duct dilatation compared to scans and ultrasound done yesterday, cholecystitis has resolved. Clinically patient has stabilized. Plan is to hold off on ERCP for now. Patient will need a cholecystectomy given that he had gallstone pancreatitis. Infectious disease does not believe that the patient has C. difficile, vancomycin oral has been discontinued for now. 04/06 Patient seen examined, no acute ovenright issues, hemodynamically stable, fever noted. still has diarrhea Resume Cdiff treatment with oral vancomycin, (as per ID) d/c zosyn and start on levofloxacin, klebsiella sensitivity reviewed, Xfer to med surg status Gen Surgery consulted. LFT stable, trending down slowly. 04/07 Patient seen and examined, overnight was anxious, jittery which he attributed to his fentanyl patch removed it. Is able to tolerate p.o. diet well, did have some nausea after eating food. Labs are stable liver function test is trending down. Continue levofloxacin as per infectious disease recommendations. Continue vancomycin for C. difficile Patient is scheduled to have cholecystectomy done on Thursday. Appreciate surgery input 04/08 Pt seen examined, no new complaints or concerns labs stable, LFT continues to trend down. no nausea today NPO midnight for cholecystectomy tomorrow 04/09 - Constitutional Vitals: Vital Signs Temp Pulse Resp BP Pulse Ox 98.7 F 99 H 12 155/87 98 04/08/18 12:00 04/08/18 12:00 04/08/18 12:00 04/08/18 12:00 04/08/18 12:00 Period Temp Pulse Resp BP Sys/Celis Pulse Ox Last 24 Hr 98.5 F-99.4 F 90-115 12-18 118-161/68-91 96-99 Intake and Output 04/07/18 04/08/18 04/08/18 21:59 05:59 13:59 Intake Total 1800 180 180 Output Total 1850 900 Balance -50 -720 180 Weight 61.689 kg Intake & Output: Intake & Output 04/07/18 04/08/18 04/08/18 21:59 05:59 13:59 Intake Total 1800 180 180 Output Total 1850 900 Balance -50 -720 180 Weight 61.689 kg Intake: IV 1000 Dextrose 5%-Lactated Ringers 1, 1000 000 ml @ 75 mls/hr IV .[id number] [facility] Rx#:[id number] Oral 800 180 180 Output: Urine Catheter Amount 1800 900 Stool 50 Other: Urine Appearance Clear Uretheral (Ortiz) Clear Urine Color Straw Uretheral (Ortiz) Bright Yellow Urine Odor Normal Stool Size Small Stool Color Black Green Brown Stool Consistency Liquid Liquid Soft Loose # Bowel Movements 1 1 # of times incontinent of 3 Bowels Exam: General: Alert, Awake, No acute Distress Eyes/N/T: EOMI, Head/Neck: neck supple, CV: RRR, No murmurs, Pulm: Clear b/l, no wheezing/rhonchi/rales Abd: soft, nontender, +BS x4 Ext: no clubbing/cyanosis/edema Neuro: Alert, no focal deficits, moves all extremities, Skin: warm/dry Medical - PN: Obj Da - Labs CBC & Chem 7: 04/08/18 03:42 04/08/18 03:42 Labs: Abnormal Lab Results 04/08/18 04/08/18 04/07/18 03:42 03:42 04:05 WBC 4.0 L RBC 3.82 L Hgb 11.7 L Hct 35.4 L RDW 17.5 H [place] % (Auto) 13.2 H Eos % (Auto) 7.3 H Lymph # (Auto) 1.3 L Carbon Dioxide BUN 6 L 5 L Creatinine Glucose 113 H 116 H Calcium 8.3 L Phosphorus 2.0 L Magnesium GGT 197 H 221 H AST ALT 52 H Alkaline Phosphatase 213 H 249 H Total Protein Albumin 3.0 L 2.9 L Triglycerides 236 H 201 H 04/07/18 04/06/18 04/06/18 04:05 07:14 04:00 WBC RBC 3.68 L 3.54 L Hgb 11.2 L 10.9 L Hct 34.3 L 33.0 L RDW 16.9 H 17.7 H [place] % (Auto) Eos % (Auto) Lymph # (Auto) 1.1 L 0.9 L Carbon Dioxide BUN Creatinine 1.3 H Glucose 144 H Calcium 7.8 L Phosphorus 1.8 L Magnesium 1.5 L GGT 233 H AST 38 H ALT 67 H Alkaline Phosphatase 261 H Total Protein 5.5 L Albumin 2.7 L Triglycerides 04/05/18 15:03 WBC RBC Hgb Hct RDW [place] % (Auto) Eos % (Auto) Lymph # (Auto) Carbon Dioxide 21 L BUN Creatinine 1.4 H Glucose 125 H Calcium 8.3 L Phosphorus Magnesium GGT AST 59 H ALT 81 H Alkaline Phosphatase 332 H Total Protein Albumin 3.1 L Triglycerides Meds: Medications Acetaminophen (Tylenol) 650 mg PO Q4-6HP PRN PRN Reason: PAIN/FEVER > 101 Hydrocodone Bitart/Acetaminophen ([place] 10/325mg) 1 tab PO Q6HP PRN PRN Reason: Pain Last Admin: 04/08/18 02:27 Dose: 1 tab Documented by: Aspirin (Aspirin) 81 mg PO DAILY [facility] Last Admin: 04/08/18 09:07 Dose: 81 mg Documented by: Heparin Sodium (Porcine) (Heparin) 5,000 unit SQ Q12 [facility] Last Admin: 04/08/18 09:06 Dose: 5,000 unit Documented by: Hydromorphone HCl (Dilaudid) 0.5 - 1 mg IV Q2HP PRN PRN Reason: PAIN LEVEL > 6 Last Admin: 04/08/18 13:42 Dose: 0.5 mg Documented by: Dextrose/Lactated Ringer's (Dextrose 5%-Lactated Ringers) 1,000 mls @ 75 mls/hr IV .[id number] [facility] Last Admin: 04/08/18 02:52 Dose: Not Given Documented by: Acetaminophen (Ofirmev) 650 mg in 65 mls @ 130 mls/hr IV Q6HP PRN PRN Reason: PAIN/FEVER > 101 Levofloxacin (Levaquin) 750 mg PO DAILY [facility] Last Admin: 04/08/18 09:06 Dose: 750 mg Documented by: Naloxone HCl (Narcan) 0.1 mg IV Q2MIN PRN PRN Reason: Opiate Reversal Ondansetron HCl (Zofran) 4 mg IV Q4-6HP PRN PRN Reason: Nausea And Vomiting Last Admin: 04/07/18 09:23 Dose: 4 mg Documented by: Trospium Chloride [ Trospium Chloride Er ] 60 Mg Tab 1 dose PO QAM [facility] Last Admin: 04/08/18 09:08 Dose: Not Given Documented by: Descovy 200-25 Mg 1 dose PO DAILY@1500 [facility] Last Admin: 04/07/18 15:06 Dose: 1 dose Documented by: Dolutegravir Sodium ([Tivicay] 50 Mg) 1 dose PO DAILY@1500 [facility] Last Admin: 04/07/18 15:07 Dose: 1 dose Documented by: Potassium/Phosphorus/Sodium (Neutra Phos) 1 packet PO BID [facility] Last Admin: 04/08/18 09:08 Dose: 1 packet Documented by: Sodium Chloride (Saline Flush) 10 ml IV Q8 [facility] Last Admin: 04/08/18 13:14 Dose: 10 ml Documented by: Tamsulosin HCl (Flomax) 0.4 mg PO QDAY [facility] Last Admin: 04/08/18 09:07 Dose: 0.4 mg Documented by: Vancomycin HCl (Vancomycin Oral Azul) 250 mg PO QID [facility] Last Admin: 04/08/18 13:14 Dose: 250 mg Documented by: Medical - PN: A/P - Time Spent With Patient Total time spent is greater than 50% in coordination of care (as documented) at patient's floor/unit and/or counseling patient: - Narrative A/P Narrative: A: *Sepsis, severe: Hepatobiliary source -improved *C. difficile colitis: *Gallstone pancreatitis: MRCP does not show any stone at this time, likely passed. 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 vancomycin for 10 days after Levaquin stops on 04/19. f/u outpt with ID/Surg - -Gen surgery consulted for Gall stone pancreatitis. Plan for cholecystectomy. -Pending repeat blood culture -Continue heart meds -cont ASA, restart Plavix post-op when ok with surgery, restart statin -restart home BB/ARB as BP allows -pt/ot/st/home ppi -home meds need to be clarified -ppx: heparin full code Medical - PN: Qual - Stroke Symptom Onset Unknown: No - VTE Deep Vein Thrombosis/Pulmonary Embolism Present on Admission: No
[2018-04-08] MEDS: Dolutegravir Sodium [Tivicay] 50 MG PO SCH (15:56)
[2018-04-08] MEDS: DESCOVY PO SCH (15:56)
--- NOTE | 2018-04-08 16:42 | General Surgery Progress Note ---
Subjective Patient reports: feels better, pain is less, tolerating liquids well, flatus, bowel movement, diarrhea, afebrile Narrative: Note initiated : 04/08/18 at 4:40 pm Service Date, if different from initiated Date: [] Patient: Taz Parra 73 y/o M admitted on 04/04/18 for Vomiting. Chief Complaint: [patient had nausea and abdominal pain after his morning meal. He did not have vomiting. Oral intake has been poor most of the day. discussed with patient in detail the operative procedure. It is scheduled for the a.m.] Objective Temp Pulse Resp BP Pulse Ox 98.0 F 104 H 12 133/76 97 04/08/18 16:00 04/08/18 16:00 04/08/18 16:00 04/08/18 16:00 04/08/18 16:00 - Additional Data Intake & Output - Last 24 hours: Intake & Output 04/06/18 04/07/18 04/08/18 04/09/18 05:59 05:59 05:59 05:59 Intake Total 2178 2968 2510 180 Output Total 2940 3605 3100 1400 Balance -762 -637 -590 -1220 Weight 139 lb 9.6 oz 135 lb 8 oz 136 lb - General physical appearance well developed, well nourished, no distress - Eyes PERRL, normal ocular movement - ENT normal pinna, normal nares, normal mucosa, no hearing loss, no congestion - Neck no masses, no bruits, trachea midline, no lymphadenopathy, no venous distension - Respiratory normal expansion, normal respiratory effort, clear to auscultation - Cardiovascular Cardiovascular exam: Present: normal rate and rhythm, RRR, +S1, +S2. Absent: JVD, tachycardia - Abdomen tender (mild right upper quadrant tenderness persists; he has active bowel sounds; there is moderate distention), distended - Integumentary no rash, no growths, no abnormal pigmentation - Neurologic normal coordination, normal sensation - Musculoskeletal normal gait, normal posture - Psychiatric oriented to time, oriented to person, oriented to place, speech is normal, memory intact - Labs 04/08/18 03:42 04/08/18 03:42 Diabetes panel 04/08/18 Range/Units 03:42 Sodium 140 (133-145) mmol/L Potassium 4.0 (3.3-5.1) mmol/L Chloride 106 (96-108) mmol/L Carbon Dioxide 22 (22-30) mmol/L BUN 6 L (8-23) mg/dl Creatinine 1.0 (0.7-1.2) mg/dl Glucose 113 H (70-105) mg/dL Calcium 8.6 (8.6-10.4) mg/dl AST 15 (0-37) U/l ALT 35 (0-40) U/l Alkaline Phosphatase 213 H (39-117) U/L Total Protein 6.1 (5.9-8.4) gm/dL Albumin 3.0 L (3.2-5.2) gm/dL Triglycerides 236 H (<150) mg/dl Calcium panel 04/08/18 Range/Units 03:42 Calcium 8.6 (8.6-10.4) mg/dl Phosphorus 2.8 (2.7-4.5) mg/dL Albumin 3.0 L (3.2-5.2) gm/dL Pituitary panel 04/08/18 Range/Units 03:42 Sodium 140 (133-145) mmol/L Potassium 4.0 (3.3-5.1) mmol/L Chloride 106 (96-108) mmol/L Carbon Dioxide 22 (22-30) mmol/L BUN 6 L (8-23) mg/dl Creatinine 1.0 (0.7-1.2) mg/dl Glucose 113 H (70-105) mg/dL Calcium 8.6 (8.6-10.4) mg/dl Adrenal panel 04/08/18 Range/Units 03:42 Sodium 140 (133-145) mmol/L Potassium 4.0 (3.3-5.1) mmol/L Chloride 106 (96-108) mmol/L Carbon Dioxide 22 (22-30) mmol/L BUN 6 L (8-23) mg/dl Creatinine 1.0 (0.7-1.2) mg/dl Glucose 113 H (70-105) mg/dL Calcium 8.6 (8.6-10.4) mg/dl Total Bilirubin 0.3 (0.0-1.0) mg/dL AST 15 (0-37) U/l ALT 35 (0-40) U/l Alkaline Phosphatase 213 H (39-117) U/L Total Protein 6.1 (5.9-8.4) gm/dL Albumin 3.0 L (3.2-5.2) gm/dL Assessment and Plan (1) Cholelithiasis with acute cholecystitis with biliary obstruction Status: Acute Assessment and plan: Patient is counseled for laparoscopic cholecystectomy with cholangiogram on ThursdayApril 03 Current Visit: Yes (2) Bacteremia due to Klebsiella pneumoniae Status: Resolved Current Visit: Yes (3) Coronary artery disease due to calcified coronary lesion Status: Chronic Current Visit: Yes (4) HIV (human immunodeficiency virus infection) Problem details: Diagnosed: 1984, after receiving infected blood. 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 Was treated with anti-viral agents in 1993. He is chronically on immunosuppressant medication, followed by Dr. Meyer in [place]. Status: Chronic Current Visit: No (5) Renal insufficiency Status: Resolved Current Visit: No - Time Spent With Patient Total time spent is greater than 50% in coordination of care (as documented) at patient's floor/unit and/or counseling patient:
[2018-04-08] MEDS ORDERED: TAMSULOSIN 0.4 MG CAPSULE PO SCH (21:00)
[2018-04-08] MEDS ORDERED: SIMVASTATIN 20 MG TABLET PO SCH (21:00)
[2018-04-09] MEDS: 0.9 % SODIUM CHLORIDE 10 ML SYRINGE IV SCH (06:04)
[2018-04-09 06:22] LABS: Basophils # (Auto) 0 K/mcL (0.0-0.3); Basophils % (Auto) 0.4 % (0.0-2.0); Eosinophils # (Auto) 0.3 K/mcL (0.0-0.7); Eosinophils % (Auto) 5.4 % (0.0-7.0); Granulocytes % (Auto) 53.6 % (38.0-78.0); Lymphocytes # (Auto) 1.5 K/mcL (1.5-4.8); Lymphocytes % (Auto) 28.9 % (15.5-49.0); Mean Cell Volume 93.1 fL (80.0-100.0); Mean Corpuscular HGB Conc 32.7 g/dL (31.0-36.0); Monocytes # (Auto) 0.6 K/mcL (0.1-0.9); Monocytes % (Auto) 11.7 % (1.0-12.0); Platelet Count 178 K/mcL (140-440); RBC 3.79 M/mcL (4.50-5.90); Red Cell Distribution Width 17.5 % (11.5-14.5)
[2018-04-09 06:53] LABS: ALT/SGPT 25 U/l (0-40); Albumin 2.6 gm/dL (3.2-5.2); Albumin/Globulin Ratio 0.8 (1.0-2.3); Alkaline Phosphatase 175 U/L (39-117); Bilirubin,Direct < 0.2 mg/dL (0.0-0.3); Blood Urea Nitrogen 5 mg/dl (8-23); Gamma Glutamyl Transpeptidase 169 U/L (8-61); Uric Acid 3.3 mg/dL (2.5-8.0)
[2018-04-09] MEDS ORDERED: MAGNESIUM SULFATE 2 GM/50 ML BAG IV ONE ×2 (06:56→09:51)
--- NOTE | 2018-04-09 06:57 | Internal Med Progress Note ---
Medical - PN: Subj Patient information: Note initiated : 04/09/18 at 6:53 am Service Date, if different from initiated Date: [] Patient: Taz Parra 73 y/o M admitted on 04/04/18 for Vomiting. Chief Complaint: [] Interval history: Mr. Parra is a 73 year old M with h/o memory issues, HIV< presents to the ER today with complaints of nausea/vomiting / diarrhea x 1 day. He also admits to having abdominal pain 2 days ago, but not now. He did not complain much about nausea/vomiting to me, but to the triage/er staff, his main complaint to me was just weakness. he notes he had a cardiac stent placed at [facility] [place]. Over the last couple of days he has been feeling weak. And that is why he came to the hospital for further evaluation. He was also seen in the emergency room on the of this month where he underwent a CT abdomen and pelvis. Workup was negative then and the patient was discharged back home. This time around on presentation to the ER the patient was febrile with a maximum temperature of 103, tachycardic, patient had low blood pressure with systolic blood pressure in the 70s, patient was saturating more than 90% on room air. Labs showed a WBC count of 10.5, 91% neutrophils hemoglobin 13 platelets 156, lactic acid 0.7 sodium 132 potassium 5.7 bicarbonate 16 creatinine 19 glucose was 60 troponin is 0.05, was 1.55 a couple of days ago AST 75, ALT 102, alkaline phosphatase 483 this is significantly elevated compared to labs 2 days ago Chest x-ray done is clear, EKG shows sinus tachycardia. Gallbladder ultrasound was done official report is yet not dictated however the ED provider noted that the patient had dilated CBD, and thickened gall bladder. 04/05 Patient seen and examined, overnight was hypotensive and febrile responded well to Tylenol, Motrin and IV fluids. Blood cultures positive for out of 4 bottles Klebsiella. Likely source at this time appears to be GI, hepatobiliary. Liver function tests are trending down, MRCP shows improvement in CBD and cystic duct dilatation compared to scans and ultrasound done yesterday, cholecystitis has resolved. Clinically patient has stabilized. Plan is to hold off on ERCP for now. Patient will need a cholecystectomy given that he had gallstone pancreatitis. Infectious disease does not believe that the patient has C. difficile, vancomycin oral has been discontinued for now. 04/06 Patient seen examined, no acute ovenright issues, hemodynamically stable, fever noted. still has diarrhea Resume Cdiff treatment with oral vancomycin, (as per ID) d/c zosyn and start on levofloxacin, klebsiella sensitivity reviewed, Xfer to med surg status Gen Surgery consulted. LFT stable, trending down slowly. 04/07 Patient seen and examined, overnight was anxious, jittery which he attributed to his fentanyl patch removed it. Is able to tolerate p.o. diet well, did have some nausea after eating food. Labs are stable liver function test is trending down. Continue levofloxacin as per infectious disease recommendations. Continue vancomycin for C. difficile Patient is scheduled to have cholecystectomy done on Thursday. Appreciate surgery input 04/08 Pt seen examined, no new complaints or concerns labs stable, LFT continues to trend down. no nausea today NPO midnight for cholecystectomy tomorrow 04/09 Patient went down for cholecystectomy this morning, did did not tolerate anesthesia induction and became hypotensive, was then extubated and became hypertensive and tachycardic and immediately intubated. Later after transfer to ICU patient was awake and breathing well on spontaneous breathing settings with good parameters, thus extubated. Given then cardiac concern, surgery would consider extended course of antibiotics with eventual surgery after further cardiac evaluation. Patient appears comfortable in the ICU at this moment. Denies any chest pain shortness of breath coughing. Oxygenating well on Oxymask. EKG done without ST-T wave ischemic changes, normal sinus rhythm. Review of Systems: denies headache/fever/chills/nausea/vomiting/chest or abdominal pain/cough/dyspnea/diarrhea. Otherwise see above. - Constitutional Vitals: Vital Signs Temp Pulse Resp BP Pulse Ox 98.9 F 102 H 18 150/88 97 04/09/18 04:00 04/09/18 04:00 04/09/18 04:00 04/09/18 04:00 04/09/18 04:00 Period Temp Pulse Resp BP Sys/Celis Pulse Ox Last 24 Hr 98.0 F-99.1 F 99-104 12-18 130-161/76-91 97-98 Intake and Output 04/08/18 04/09/18 04/09/18 21:59 05:59 13:59 Intake Total 400 Output Total 1400 950 Balance -1400 -550 Weight 60.781 kg Intake & Output: Intake & Output 04/08/18 04/09/18 04/09/18 21:59 05:59 13:59 Intake Total 400 Output Total 1400 950 Balance -1400 -550 Weight 60.781 kg Intake: Oral 400 Output: Urine Catheter Amount 1400 950 Other: Meal Dinner Percent of Meal Consumed 100% Feeding Ability Assist with Tray Set Up Urine Appearance Clear Uretheral (Ortiz) Clear Urine Color Pale Uretheral (Ortiz) Bright Yellow Stool Size Small Small Stool Color Brown Brown Stool Consistency Liquid Loose # Bowel Movements 1 # of times incontinent of 1 Bowels Exam: General: Alert, Awake, No acute Distress Eyes/N/T: EOMI, Head/Neck: neck supple, CV: mildly tachy 100, No murmurs, Pulm: Clear b/l, no wheezing/rhonchi/rales Abd: soft, mild TTP RLQ, Protuberant, +BS x4 Ext: no clubbing/cyanosis/edema Neuro: Alert, no focal deficits, moves all extremities, Skin: warm/dry Medical - PN: Obj Da - Labs CBC & Chem 7: 04/09/18 04:02 04/09/18 04:02 Labs: Abnormal Lab Results 04/09/18 04/09/18 04/08/18 04:02 04:02 03:42 WBC RBC 3.79 L Hgb 11.5 L Hct 35.3 L RDW 17.5 H [place] % (Auto) Eos % (Auto) Lymph # (Auto) Carbon Dioxide 19 L BUN 5 L 6 L Creatinine Glucose 111 H 113 H Calcium 8.5 L Phosphorus 2.6 L Magnesium 1.4 L GGT 169 H 197 H AST ALT Alkaline Phosphatase 175 H 213 H Alk Phos Iso-Intestine Total Protein 5.8 L Albumin 2.6 L 3.0 L Albumin/Globulin Ratio 0.8 L Triglycerides 273 H 236 H 04/08/18 04/07/18 04/07/18 03:42 04:05 04:05 WBC 4.0 L RBC 3.82 L 3.68 L Hgb 11.7 L 11.2 L Hct 35.4 L 34.3 L RDW 17.5 H 16.9 H [place] % (Auto) 13.2 H Eos % (Auto) 7.3 H Lymph # (Auto) 1.3 L 1.1 L Carbon Dioxide BUN 5 L Creatinine Glucose 116 H Calcium 8.3 L Phosphorus 2.0 L Magnesium GGT 221 H AST ALT 52 H Alkaline Phosphatase 249 H Alk Phos Iso-Intestine Total Protein Albumin 2.9 L Albumin/Globulin Ratio Triglycerides 201 H 04/06/18 04/05/18 07:14 03:30 WBC RBC Hgb Hct RDW [place] % (Auto) Eos % (Auto) Lymph # (Auto) Carbon Dioxide BUN Creatinine 1.3 H Glucose 144 H Calcium 7.8 L Phosphorus 1.8 L Magnesium 1.5 L GGT 233 H AST 38 H ALT 67 H Alkaline Phosphatase 261 H 292 H Alk Phos Iso-Intestine 0 L Total Protein 5.5 L Albumin 2.7 L Albumin/Globulin Ratio Triglycerides Meds: Medications Acetaminophen (Tylenol) 650 mg PO Q4-6HP PRN PRN Reason: PAIN/FEVER > 101 Hydrocodone Bitart/Acetaminophen ([place] 10/325mg) 1 tab PO Q6HP PRN PRN Reason: Pain Last Admin: 04/08/18 21:08 Dose: 1 tab Documented by: Aspirin (Aspirin) 81 mg PO DAILY [facility] Last Admin: 04/08/18 09:07 Dose: 81 mg Documented by: Heparin Sodium (Porcine) (Heparin) 5,000 unit SQ Q12 [facility] Last Admin: 04/08/18 21:08 Dose: 5,000 unit Documented by: Hydromorphone HCl (Dilaudid) 0.5 - 1 mg IV Q2HP PRN PRN Reason: PAIN LEVEL > 6 Last Admin: 04/08/18 15:56 Dose: 0.5 mg Documented by: Dextrose/Lactated Ringer's (Dextrose 5%-Lactated Ringers) 1,000 mls @ 75 mls/hr IV .[id number] [facility] Last Admin: 04/08/18 20:31 Dose: 75 mls/hr Documented by: Acetaminophen (Ofirmev) 650 mg in 65 mls @ 130 mls/hr IV Q6HP PRN PRN Reason: PAIN/FEVER > 101 Levofloxacin (Levaquin) 750 mg PO DAILY [facility] Last Admin: 04/08/18 09:06 Dose: 750 mg Documented by: Naloxone HCl (Narcan) 0.1 mg IV Q2MIN PRN PRN Reason: Opiate Reversal Ondansetron HCl (Zofran) 4 mg IV Q4-6HP PRN PRN Reason: Nausea And Vomiting Last Admin: 04/07/18 09:23 Dose: 4 mg Documented by: Trospium Chloride [ Trospium Chloride Er ] 60 Mg Tab 1 dose PO QAM [facility] Last Admin: 04/08/18 09:08 Dose: Not Given Documented by: Grace 200-25 Mg 1 dose PO DAILY@1500 [facility] Last Admin: 04/08/18 15:56 Dose: 1 dose Documented by: Dolutegravir Sodium ([Tivicay] 50 Mg) 1 dose PO DAILY@1500 [facility] Last Admin: 04/08/18 15:56 Dose: 1 dose Documented by: Potassium/Phosphorus/Sodium (Neutra Phos) 1 packet PO BID [facility] Last Admin: 04/08/18 21:08 Dose: 1 packet Documented by: Simvastatin (Zocor) 20 mg PO [facility] Last Admin: 04/08/18 21:09 Dose: 20 mg Documented by: Sodium Chloride (Saline Flush) 10 ml IV Q8 [facility] Last Admin: 04/09/18 06:04 Dose: 10 ml Documented by: Tamsulosin HCl (Flomax) 0.4 mg PO QDAY [facility] Last Admin: 04/08/18 09:07 Dose: 0.4 mg Documented by: Tamsulosin HCl (Flomax) 0.4 mg PO [facility] Last Admin: 04/08/18 21:08 Dose: 0.4 mg Documented by: Vancomycin HCl (Vancomycin Oral Azul) 250 mg PO QID [facility] Last Admin: 04/08/18 21:07 Dose: 250 mg Documented by: Medical - PN: A/P - Time Spent With Patient Total time spent is greater than 50% in coordination of care (as documented) at patient's floor/unit and/or counseling patient: - Narrative A/P Narrative: A: *Sepsis, Severe: Hepatobiliary source -improved *Bacteremia (Klebsiella): -repeat BC neg *Gallstone pancreatitis w/cholecystitis: MRCP does not show any stone at this time, likely passed. LFt stable and trending down, -improving and f/u imaging showed improvement in cholecystitis *C. 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 vancomycin for 10 days after Levaquin stops on 04/19. f/u outpt with ID/Surg -Gen surgery following, no sally given failure to tolerate induction anesthesia and unknown current cardiac status with recent STEMI -ID and GI following -serial CE's -cont ASA, restart Plavix, statin -restart home BB/ARB as BP allows -attempt to clarify if he has been taking DAPT -home meds need to be clarified -pt/ot/st/home ppi -f/u closely outpt with Cardio and surgery -ppx: heparin full code Medical - PN: Qual - Stroke Symptom Onset Unknown: No - VTE Deep Vein Thrombosis/Pulmonary Embolism Present on Admission: No
[2018-04-09] MEDS ORDERED: cefOXitin 2 GM VIAL IV SCH (07:30)
[2018-04-09] MEDS ORDERED: GLYCOPYRROLATE 0.2 MG/ML VIAL IV ONE (07:45)
[2018-04-09] MEDS ORDERED: PROPOFOL 200 MG/20 ML VIAL IV ONE (07:45)
[2018-04-09] MEDS ORDERED: LIDOCAINE HCL/PF 100 MG/5 ML SYRINGE IV ONE (07:45)
[2018-04-09] MEDS ORDERED: VASOPRESSIN 20 UNIT/ML VIAL IV ONE (07:45)
[2018-04-09] MEDS ORDERED: ROCURONIUM 10 MG/ML ML IV ONE (07:45)
[2018-04-09] MEDS ORDERED: fentaNYL 250 MCG/5 ML VIAL IV ONE (07:45)
[2018-04-09] MEDS ORDERED: DEXAMETHASONE 10 MG/ML VIAL IV ONE (07:45)
[2018-04-09] MEDS ORDERED: MIDAZOLAM 5 MG/5 ML VIAL IV ONE (07:45)
[2018-04-09] MEDS ORDERED: PHENYLEPHRINE 10 MG/ML VIAL IV ONE (07:45)
[2018-04-09] MEDS ORDERED: NEOSTIGMINE 1 MG/ML VIAL IV ONE (07:45)
[2018-04-09] MEDS ORDERED: HETASTARCH 6% 500 ML BAG IV ONE (07:45)
[2018-04-09] MEDS ORDERED: CLOPIDOGREL 75 MG TABLET PO SCH (09:00)
[2018-04-09] MEDS ORDERED: MIDAZOLAM 2 MG/2 ML VIAL ONE (09:17)
[2018-04-09] MEDS ORDERED: PROPOFOL 100 ML IV ONE (09:17)
[2018-04-09] MEDS ORDERED: fentaNYL 100 MCG/2 ML VIAL IV PRN ×2 (09:41→09:51)
[2018-04-09] MEDS ORDERED: PROPOFOL 1,000 MG in PREMIX 1 BAG IV SCH (09:45)
[2018-04-09] MEDS ORDERED: ACETAMINOPHEN 650 MG/65 ML BOTTLE IV PRN (09:51)
[2018-04-09] MEDS ORDERED: ONDANSETRON 4 MG/2 ML VIAL IV PRN (09:51)
[2018-04-09] MEDS ORDERED: PROMETHAZINE 25 MG/ML VIAL IV PRN (09:51)
[2018-04-09] MEDS ORDERED: DEXTROSE 5%-LR 1,000 ML IV SCH (09:51)
[2018-04-09] MEDS ORDERED: BISOPROLOL 5 MG TABLET PO ONE (10:21)
[2018-04-09 11:20] LABS: Creatine Kinase MB 2.6 ng/ml (0-4.9)
--- NOTE | 2018-04-09 12:52 | Discharge Summary ---
Medical - DS: Prov Patient information: Note initiated : 04/09/18 at 12:46 pm Service Date, if different from initiated Date: [] Patient: Taz Parra 73 y/o M admitted on 04/04/18 for Vomiting. Chief Complaint: [] Date of admission: 04/04/18 16:40 Discharge date: 04/09/18 Primary care physician: Refugio Isidro Consults: 04/04/18 15:45 Consult to Physician [CONS] Stat Comment: Consulting Provider: Jeanette Dimas Reason For Exam: Physician to Consult 04/04/18 16:56 Consult to Infectious Disease [CONS] Stat Comment: HIV Consulting Provider: Rolly Elmore Reason For Exam: Physician to Consult Consult to Physician [CONS] Stat Comment: elevated lft, lipase, dialated cbd Consulting Provider: Harrison Carter Reason For Exam: Physician to Consult 04/05/18 10:36 Consult to Physician [CONS] Routine Comment: wounds Consulting Provider: Adrián Seth Reason For Exam: Physician to Consult 04/05/18 16:00 Consult to Physician [CONS] Routine Comment: gall bladder pancreatitis Consulting Provider: Nereida Goldman Reason For Exam: Physician to Consult Medical - DS: Meds - Discharge Medications Prescriptions: Clopidogrel Bisulfate [Plavix] 75 mg PO DAILY #30 tablet Levofloxacin [Levaquin] 750 mg PO DAILY #10 tablet Vancomycin [Vancocin] 250 mg PO QID #80 capsule Active and Home Medications: Home Medications aspirin 81 mg tablet,delayed release 81 mg PO QDAY 08/20/16 [History Confirmed 04/08/18 Last Taken 04/03/18 20:00] HYDROcodone/APAP 10/325MG [[place] 10-325Mg] 10 mg PO Q6HP PRN 12/07/17 [History Confirmed 04/08/18 Last Taken Unknown] hydrocortisone 2.5 % topical cream 1 applic TOPICAL QHS PRN 12/15/17 [History Confirmed 04/04/18 Last Taken Unknown] ketorolac 0.5 % eye drops 1 drp OPHTHALMIC Q8H PRN 12/15/17 [History Confirmed 04/08/18 Last Taken 04/03/18] testosterone cypionate 200 mg/mL intramuscular oil 400 mg IM Q28D ml 12/15/17 [History Confirmed 04/08/18 Last Taken 1 Month Ago ~03/08/18] tamsulosin 0.4 mg capsule 0.4 mg PO QDAY #1 cap 12/30/17 [Rx Confirmed 04/08/18 Last Taken 04/03/18 14:00] trospium ER 60 mg capsule,extended release 24 hr 60 mg PO QAM #30 cap 01/11/18 [Rx Confirmed 04/08/18 Last Taken 04/03/18 14:00] fentanyl 50 mcg/hr transdermal patch 50 mcg TRANSDERMA Q72H 03/23/18 [History Confirmed 04/04/18 Last Taken Unknown] Carvedilol [Coreg] 12.5 mg PO BID 04/04/18 [History Confirmed 04/08/18 Last Taken 04/03/18 20:00] Dolutegravir Sodium [Tivicay] 50 mg PO 1500 04/04/18 [History Confirmed 04/08/18 Last Taken 04/03/18 14:00] Emtricitabine/Tenofov Alafenam [Descovy 200-25 mg Tablet] 1 each PO 1500 04/04/18 [History Confirmed 04/08/18 Last Taken 04/03/18 14:00] Wheelchair #1 ea 04/07/18 [Rx Last Taken Unknown] Ferrous Sulfate [Iron] 325 mg PO HS 04/08/18 [History Confirmed 04/08/18 Last Taken 04/03/18 20:00] Lisinopril [Zestril] 40 mg PO HS 04/08/18 [History Confirmed 04/08/18 Last Taken 04/03/18 20:00] Memantine HCl/Donepezil HCl [Namzaric 28 mg-10 mg Capsule] 1 each PO HS 04/08/18 [History Confirmed 04/08/18 Last Taken 04/03/18 20:00] Pregabalin [Lyrica] 75 mg PO HS 04/08/18 [History Confirmed 04/08/18 Last Taken 04/03/18 20:00] Rosuvastatin Calcium 40 mg PO DAILY 04/08/18 [History Confirmed 04/08/18 Last Taken 04/03/18 08:00] Sennosides [Senna] 8.6 mg PO BID 04/08/18 [History Confirmed 04/08/18 Last Taken 04/03/18 20:00] amLODIPine BESYLATE [Amlodipine Besylate] 5 mg PO DAILY 04/08/18 [History Confirmed 04/08/18 Last Taken 04/03/18 08:00] Dextroamp-Amphetamin 20 mg Tab 1 tab PO BID 04/09/18 [History Confirmed 04/09/18 Last Taken Unknown] Losartan Potassium 50 mg PO QDAY 04/09/18 [History Confirmed 04/09/18 Last Taken Unknown] Megestrol Acetate,Micronized 40 mg PO BID 04/09/18 [History Confirmed 04/09/18 Last Taken Unknown] Namzaric 28 mg-10 mg Capsule 1 cap PO QDAY 04/09/18 [History Confirmed 04/09/18 Last Taken Unknown] Rosuvastatin Calcium 5 mg PO QDAY 04/09/18 [History Confirmed 04/09/18 Last Taken Unknown] traMADol HCL [Ultram] 50 mg PO Q4-6HP PRN 04/09/18 [History Confirmed 04/09/18 Last Taken Unknown] Medical - DS: Hosp Hospital course: Mr. Parra is a 73 year old M Mr. Parra is a 73 year old M with h/o memory issues, HIV< presents to the ER today with complaints of nausea/vomiting / diarrhea x 1 day. He also admits to having abdominal pain 2 days ago, but not now. He did not complain much about nausea/vomiting to me, but to the triage/er staff, his main complaint to me was just weakness. he notes he had a cardiac stent placed at [facility] [place]. Over the last couple of days he has been feeling weak. And that is why he came to the hospital for further evaluation. He was also seen in the emergency room on the of this month where he underwent a CT abdomen and pelvis. Workup was negative then and the patient was discharged back home. This time around on presentation to the ER the patient was febrile with a maximum temperature of 103, tachycardic, patient had low blood pressure with systolic blood pressure in the 70s, patient was saturating more than 90% on room air. Labs showed a WBC count of 10.5, 91% neutrophils hemoglobin 13 platelets 156, lactic acid 0.7 sodium 132 potassium 5.7 bicarbonate 16 creatinine 19 glucose was 60 troponin is 0.05, was 1.55 a couple of days ago AST 75, ALT 102, alkaline phosphatase 483 this is significantly elevated compared to labs 2 days ago Chest x-ray done is clear, EKG shows sinus tachycardia. Gallbladder ultrasound was done official report is yet not dictated however the ED provider noted that the patient had dilated CBD, and thickened gall bladder. 04/05 Patient seen and examined, overnight was hypotensive and febrile responded well to Tylenol, Motrin and IV fluids. Blood cultures positive for out of 4 bottles Klebsiella. Likely source at this time appears to be GI, hepatobiliary. Liver function tests are trending down, MRCP shows improvement in CBD and cystic duct dilatation compared to scans and ultrasound done yesterday, cholecystitis has resolved. Clinically patient has stabilized. Plan is to hold off on ERCP for now. Patient will need a cholecystectomy given that he had gallstone pancreatitis. Infectious disease does not believe that the patient has C. difficile, vancomycin oral has been discontinued for now. 04/06 Patient seen examined, no acute ovenright issues, hemodynamically stable, fever noted. still has diarrhea Resume Cdiff treatment with oral vancomycin, (as per ID) d/c zosyn and start on levofloxacin, klebsiella sensitivity reviewed, Xfer to med surg status Gen Surgery consulted. LFT stable, trending down slowly. 04/07 Patient seen and examined, overnight was anxious, jittery which he attributed to his fentanyl patch removed it. Is able to tolerate p.o. diet well, did have some nausea after eating food. Labs are stable liver function test is trending down. Continue levofloxacin as per infectious disease recommendations. Continue vancomycin for C. difficile Patient is scheduled to have cholecystectomy done on Thursday. Appreciate surgery input 04/08 Pt seen examined, no new complaints or concerns labs stable, LFT continues to trend down. no nausea today NPO midnight for cholecystectomy tomorrow 04/09 Patient went down for cholecystectomy this morning, did did not tolerate anesthesia induction and became hypotensive, was then extubated and became hypertensive and tachycardic and immediately intubated. Later after transfer to ICU patient was awake and breathing well on spontaneous breathing settings with good parameters, thus extubated. Given then cardiac concern, surgery would consider extended course of antibiotics with eventual surgery after further cardiac evaluation. Patient appears comfortable in the ICU at this moment. Denies any chest pain shortness of breath coughing. Oxygenating well on Oxymask. EKG done without ST-T wave ischemic changes, normal sinus rhythm. trop bump to 0.18. Was only on ASA b/c of retroperitoneal bleed. Discussed the case with Dr. Biswas and hospitalist Dr Figueroa at [facility] for transfer. Discharge diagnosis: Gallstone pancreatitis cholecystitis C. difficile, elevated troponin Secondary discharge diagnosis: HIV - Time Spent with Patient Total time spent providing and/or coordinating discharge services: Greater than 30 minutes Medical - DS: Exam - Constitutional Vitals: Vital Signs Temp Pulse Pulse Resp Resp BP BP 04/09/18 11:07 100 H 23 H 04/09/18 11:01 102 H 17 123/80 04/09/18 10:48 24 H 137/87 04/09/18 10:31 95 H 16 120/78 04/09/18 10:26 88 20 04/09/18 10:16 96 H 18 124/79 04/09/18 10:13 95 H 20 130/69 04/09/18 10:01 94 H 22 119/70 04/09/18 09:54 86 16 131/72 04/09/18 09:28 80 20 125/75 04/09/18 09:22 86 21 123/71 04/09/18 09:19 84 20 115/78 04/09/18 09:10 17 04/09/18 04:00 98.9 F 102 H 18 150/88 04/08/18 23:20 98.8 F 100 H 16 136/76 04/08/18 19:38 99.1 F H 102 H 18 130/78 04/08/18 16:00 98.0 F 104 H 12 133/76 Pulse Ox Pulse Ox 04/09/18 11:07 100 04/09/18 11:01 100 04/09/18 10:48 04/09/18 10:31 98 04/09/18 10:26 99 04/09/18 10:16 100 04/09/18 10:13 98 04/09/18 10:01 100 04/09/18 09:54 100 04/09/18 09:28 100 04/09/18 09:22 100 04/09/18 09:19 100 04/09/18 09:10 100 04/09/18 04:00 97 04/08/18 23:20 97 04/08/18 19:38 97 04/08/18 16:00 97 Intake and Output 0104/09/18 04/09/18 21:59 05:59 13:59 Intake Total 400 1 Output Total 1400 950 Balance -1400 -550 1 Intake: IV 1 Diprivan 100 ml @ 0 mls/hr IV . 1 STK-MED ONE Rx#:[id number] Oral 400 Output: Urine Catheter Amount 1400 950 Other: Meal Dinner Percent of Meal Consumed 100% Feeding Ability Assist with Tray Set Up Urine Appearance Clear Clear Uretheral ([place]) Clear Urine Color Pale Pale Uretheral ([place]iz) Bright Yellow Stool Size Small Small Stool Color Brown Brown Stool Consistency Liquid Loose # Bowel Movements 1 1 # of times incontinent of 1 Bowels Weight 60.781 kg 60.781 kg Patient Weight 04/10/18 05:59 Weight 60.781 kg Medical - DS: Data Labs on day of discharge: Labs from last 24 hours 04/09/18 04/09/18 04/09/18 10:27 10:27 10:27 WBC RBC Hgb Hct MCV MCH MCHC RDW Plt Count MPV Gran % Lymph % (Auto) [place] % (Auto) Eos % (Auto) Baso % (Auto) Gran # Lymph # (Auto) [place] # (Auto) Eos # (Auto) Baso # (Auto) Sodium Potassium Chloride Carbon Dioxide Anion Gap BUN Creatinine GFR Calculation Glucose Uric Acid Calcium Phosphorus Magnesium Total Bilirubin Direct Bilirubin GGT AST ALT Alkaline Phosphatase Alk Phos Iso-Intestine Alk Phos Iso-Bone Alk Phos Iso-Liver Alk Phos Iso-Macro Hepat Alk Phos Iso-Placenta ALP Isoenzymes Interp Lactate Dehydrogenase Total Creatine Kinase 41 CK-MB (CK-2) 2.6 Troponin T 0.18 H* TNP NT-Pro-B Natriuret Pep Total Protein Albumin Globulin Albumin/Globulin Ratio Triglycerides 04/09/18 04/09/18 04/09/18 10:27 04:02 04:02 WBC 5.2 RBC 3.79 L Hgb 11.5 L Hct 35.3 L MCV 93.1 MCH 30.4 MCHC 32.7 RDW 17.5 H Plt Count 178 MPV 8.6 Gran % 53.6 Lymph % (Auto) 28.9 [place] % (Auto) 11.7 Eos % (Auto) 5.4 Baso % (Auto) 0.4 Gran # 2.8 Lymph # (Auto) 1.5 [place] # (Auto) 0.6 Eos # (Auto) 0.3 Baso # (Auto) 0 Sodium 138 Potassium 4.2 Chloride 106 Carbon Dioxide 19 L Anion Gap 13.0 BUN 5 L Creatinine 1.0 GFR Calculation 74 Glucose 111 H Uric Acid 3.3 Calcium 8.5 L Phosphorus 2.6 L Magnesium 1.4 L Total Bilirubin 0.3 Direct Bilirubin < 0.2 GGT 169 H AST 13 ALT 25 Alkaline Phosphatase 175 H Alk Phos Iso-Intestine Alk Phos Iso-Bone Alk Phos Iso-Liver Alk Phos Iso-Macro Hepat Alk Phos Iso-Placenta ALP Isoenzymes Interp Lactate Dehydrogenase 202 Total Creatine Kinase CK-MB (CK-2) Troponin T NT-Pro-B Natriuret Pep 7750.0 H Total Protein 5.8 L Albumin 2.6 L Globulin 3.2 Albumin/Globulin Ratio 0.8 L Triglycerides 273 H 04/05/18 03:30 WBC RBC Hgb Hct MCV MCH MCHC RDW Plt Count MPV Gran % Lymph % (Auto) [place] % (Auto) Eos % (Auto) Baso % (Auto) Gran # Lymph # (Auto) [place] # (Auto) Eos # (Auto) Baso # (Auto) Sodium Potassium Chloride Carbon Dioxide Anion Gap BUN Creatinine GFR Calculation Glucose Uric Acid Calcium Phosphorus Magnesium Total Bilirubin Direct Bilirubin GGT AST ALT Alkaline Phosphatase 292 H Alk Phos Iso-Intestine 0 L Alk Phos Iso-Bone 35 Alk Phos Iso-Liver 65 Alk Phos Iso-Macro Hepat Not Reportable Alk Phos Iso-Placenta 0 ALP Isoenzymes Interp Not Reportable Lactate Dehydrogenase Total Creatine Kinase CK-MB (CK-2) Troponin T NT-Pro-B Natriuret Pep Total Protein Albumin Globulin Albumin/Globulin Ratio Triglycerides Preliminary micro results at discharge 04/06/18 04:05 Blood Culture - Preliminary Blood 04/06/18 04:00 Blood Culture - Preliminary Blood 04/05/18 05:11 Stool Culture - Preliminary Stool 04/04/18 12:06 Blood Culture - Preliminary Blood Gram negative bacillus Medical - DS: A/P - Patient/Caregiver Discharge Instructions Activity: increase activity as tolerated Diet: Cardiac - Follow up Plan Follow up with: Refugio Isidro MD [Primary Care Provider] - Disposition: [facility] Prognosis: Serious Rehab Potential: Fair Medical - DS: Qual - VTE Deep Vein Thrombosis/Pulmonary Embolism Present on Admission: No
[2018-04-09] MEDS: DEXTROSE 5%-LR 1,000 ML IV SCH (13:10)
[2018-04-09] MEDS: ASPIRIN 81 MG TAB.CHEW PO SCH (13:11)
[2018-04-09] MEDS: HEPARIN 5,000 UNIT/ML VIAL SQ SCH (13:11)
[2018-04-09] MEDS: TAMSULOSIN 0.4 MG CAPSULE PO SCH (13:11)
[2018-04-09] MEDS: NEUTRA PHOS 1 PACKET PO SCH (13:12)
[2018-04-09] MEDS: TROSPIUM CHLORIDE 60 MG PO SCH (13:12)
[2018-04-09] MEDS: LEVOFLOXACIN 750 MG TABLET PO SCH (13:12)
[2018-04-09] MEDS: VANCOMYCIN ORAL SOL 1,000 MG/10 ML BOTTLE PO SCH (13:13)
[2018-04-09] MEDS ORDERED: 0.9 % SODIUM CHLORIDE 10 ML SYRINGE IV SCH ×2 (14:00)
[2018-04-09] MEDS ORDERED: HEPARIN 5,000 UNIT/ML VIAL SQ SCH (21:00)
[2018-04-09] MEDS ORDERED: SIMVASTATIN 20 MG TABLET PO SCH (21:00)
[2018-04-10] MEDS ORDERED: CLOPIDOGREL 75 MG TABLET PO SCH ×2 (09:00)
[2018-04-10] MEDS ORDERED: ASPIRIN 81 MG TAB.CHEW PO SCH (09:00)
[2018-04-10] MEDS ORDERED: LEVOFLOXACIN 750 MG TABLET PO SCH (09:00)
[2018-04-10] MEDS ORDERED: BISOPROLOL 5 MG TABLET PO SCH (09:00)
== END 2018-04-09 13:53 | disposition short-term general hospital (02) | DRG 853 ==
LOC: ED 11:45 → ICU 16:40 → MEDSUR 04-06 13:21 → ICU 04-09 09:10
PROVIDERS: ADMIT Internal Medicine; ATTEND Internal Medicine

== ENCOUNTER 2018-07-16 09:27 | Inpatient (IN) ==
[2018-07-16] MEDS ORDERED: LACTATED RINGERS 1,000 ML IV ONE (09:37)
--- NOTE | 2018-07-16 09:45 | Emergency Department Note ---
Chest Pain HPI - General Chief Complaint: Chest Pain Stated Complaint: Chest pain Time Seen by Provider: 07/16/18 09:33 Source: patient, family Mode of arrival: wheelchair Limitations: no limitations - History of Present Illness HPI Narrative: This patient comes in for chest pain for the last hour. He is not a very good this historian and the pain seems somewhat diffuse in the chest. He also has a temperature 102.7 and was not aware of that. He does have some chronic wound issues in the left heel and was supposed to see wound care today. A friend with him says that the heel wound actually is improving and looks good. Patient denies cough or bladder symptoms. He is HIV positive from a previous blood transfusion in 1984. He also has a history of dementia. - Related Data Home Medications Medication Instructions Recorded Confirmed aspirin 81 mg tablet,delayed 81 mg PO QDAY 08/20/16 07/13/18 release HYDROcodone/APAP 10/325MG [[place] 10 mg PO Q6HP PRN 12/07/17 07/13/18 10-325Mg] ketorolac 0.5 % eye drops 1 drp OPHTHALMIC Q8H PRN 12/15/17 07/13/18 testosterone cypionate 200 mg/mL 400 mg IM Q28D ml 12/15/17 07/13/18 intramuscular oil fentanyl 50 mcg/hr transdermal 50 mcg TRANSDERMA Q72H 03/23/18 07/13/18 patch Carvedilol [Coreg] 12.5 mg PO BID 04/04/18 07/13/18 Ferrous Sulfate [Iron] 325 mg PO HS 04/08/18 07/13/18 Memantine HCl/Donepezil HCl 1 each PO HS 04/08/18 07/13/18 [Namzaric 28 mg-10 mg Capsule] Pregabalin [Lyrica] 75 mg PO HS 04/08/18 07/13/18 Rosuvastatin Calcium 40 mg PO DAILY 04/08/18 07/13/18 methocarbamol 500 mg tablet 500 mg PO TID 06/22/18 07/13/18 oxandrolone 2.5 mg tablet PO #60 tab 06/29/18 07/13/18 Previous Rx's Medication Instructions Recorded Wheelchair #1 ea 04/07/18 Clopidogrel Bisulfate [Plavix] 75 mg PO DAILY #30 tab 04/09/18 dolutegravir 50 mg tablet 50 mg PO 1500 #90 tab 04/20/18 emtricitabine 200 mg-tenofovir 1 tab PO 1500 90 Days #90 tab 04/20/18 alafenamide fumarate 25 mg tablet meningoc vac A,C,Y,W-135 dip (PF) 0.5 ml IM ONCE #0.5 ml 04/21/18 4 mcg/0.5 mL intramuscular solution losartan 50 mg tablet 50 mg PO QDAY #90 tab 05/05/18 sodium polystyrene sulfonate 15 60 ml PO ONCE #60 ml 05/05/18 gram/60 mL oral suspension amlodipine 2.5 mg tablet 2.5 mg PO QDAY #90 tab 05/19/18 Promethazine HCl 12.5 mg RC QD-BID PRN #20 supp.rect 06/05/18 dextroamphetamine-amphetamine 20 20 mg PO BID #60 tab 06/08/18 mg tablet dronabinol 5 mg capsule 5 mg PO BID #60 cap 06/22/18 tamsulosin 0.4 mg capsule 0.4 mg PO QDAY #90 cap 06/22/18 trospium ER 60 mg capsule,extended 60 mg PO QAM #90 cap 06/22/18 release 24 hr ondansetron 4 mg disintegrating 4 mg PO Q4-6HP PRN #20 tab 06/29/18 tablet Allergies Allergy/AdvReac Type Severity Reaction Status Date / Time codeine AdvReac Mild Itching Verified 07/16/18 09:28 Review of Systems All systems ED: reviewed and negative except as stated. Chest Pain PMH - Past Medical History [facility] Narrative: Medical History (Last Reviewed 06/22/18 @ 13:10 by Deepika Carreon RN) Esophageal stricture (Acute) Gastritis (Acute) Duodenitis (Acute) Esophagitis (Acute) History of non-ST elevation myocardial infarction (NSTEMI) (Resolved) Idiopathic hypertension (Chronic) Chronic anticoagulation (Chronic) Renal failure (ARF), acute on chronic (Resolved) History of osteomyelitis (Resolved) Intraparenchymal hematoma of brain (Resolved) ST elevation myocardial infarction (STEMI) (Resolved) Cholelithiasis with acute cholecystitis with biliary obstruction (Chronic) Bacteremia due to Klebsiella pneumoniae (Resolved) Coronary artery disease due to calcified coronary lesion (Chronic) Cholecystitis (Chronic) Degenerative joint disease of knee (Chronic) Osteopenia (Chronic) Low back pain (Chronic) Anemia, unspecified (Chronic) Macrocytic anemia (Chronic) Overactive bladder (Chronic) Chronic pain syndrome (Chronic) 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) Osteoarthritis of ankle (Chronic) Degenerative joint disease (DJD) of lumbar spine (Chronic) Hip pain (Chronic) Hyperlipidemia (Chronic) Pressure ulcer, stage III (Resolved) Unspecified osteomyelitis, site unspecified (Resolved) Dysphagia (Chronic) Mental status change (Chronic) Dementia (Chronic) Hypogonadism (Chronic) Osteoarthritis of both hips (Chronic) Benign prostatic hyperplasia with lower urinary tract symptoms (Chronic) Acquired immune deficiency syndrome (Chronic) Nocturia (Chronic) Pressure ulcer of coccygeal region (Resolved) Degenerative joint disease of left shoulder (Chronic) Degenerative joint disease of left hip (Chronic) Other acute osteomyelitis, left tibia and fibula (Chronic) Degenerative joint disease of left knee (Chronic) Osteoarthritis of shoulder (Chronic) Chronic hip pain (Chronic) Testosterone deficiency (Chronic) Osteoporosis (Chronic) Wears partial dentures (Chronic) HIV (human immunodeficiency virus infection) (Chronic) DJD (degenerative joint disease) (Chronic) GERD (gastroesophageal reflux disease) (Chronic) Hard of hearing (Chronic) Joint pain (Chronic) Incontinence (Chronic) Fatigue (Chronic) Anemia due to acute blood loss (Resolved) Cellulitis of left knee (Resolved) Cellulitis of left leg (Resolved) Dyspnea (Resolved) Effusion of left knee (Resolved) Renal insufficiency (Resolved) Actinic keratosis (Inactive) Past Surgical History (Last Reviewed 06/22/18 @ 13:10 by Deepika Carreon RN) Cleft palate (Chronic) History of total left hip replacement (Chronic) Family History (Last Reviewed 06/22/18 @ 13:10 by Deepika Carreon RN) Mother Malignant neoplasm High blood pressure Father Myocardial infarction High blood pressure Medical history: Reports: chronic anticoagulation, chronic narcotics, CAD (coronary artery disease), CVA, dementia, GERD, HIV/AIDS, hypertension, liver disease, osteoporosis, pneumonia, renal disease, other (long history of wound care left foot) Psychiatric history: Denies: anxiety, depression - Social History smoking status: Never smoker Alcohol use: Reports: Rarely Drug use: Reports: none. Denies: marijuana Physical Exam He has a small wound in the left heel that has been draining some but does not look very infected at this time. Limitations: no limitations General appearance: alert Head: atraumatic Eye: Present: normal appearance ENT: normal exam Neck: Present: normal inspection Chest: Present: normal inspection Respiratory: Present: normal lung sounds bilaterally Cardiovascular: Present: regular rate, normal rhythm, normal heart sounds Abdominal: Present: soft. Absent: distention, tenderness Neurological: Present: alert Psychiatric: Present: normal affect Skin: Present: warm, dry, other Course Vital Signs Temperature 102.7 F H 07/16/18 09:28 Pulse Rate 120 H 07/16/18 09:28 Respiratory Rate 14 07/16/18 09:28 Blood Pressure 121/91 07/16/18 09:28 Pulse Oximetry (%) 97 07/16/18 09:28 Temperature 101.6 F H 07/16/18 12:12 Pulse Rate 107 H 07/16/18 12:30 Respiratory Rate 16 07/16/18 12:30 Blood Pressure 116/68 07/16/18 12:17 Pulse Oximetry (%) 92 07/16/18 12:30 Chest Pain - MDM Narrative Medical decision making narrative: This patient's initial EKG showed atrial fibrillation RVR but that resolved with some diltiazem. Opponent was negative on 2 occasions. His chest x-ray was unr emarkable but his urinalysis is infected. This high fever and white count we will presume urosepsis. He has been treated with Levaquin and blood cultures were obtained. He will be admitted to the hospitalist by the hospitalist service. - Lab Data Lab results reviewed: Yes I reviewed the patient's lab results. Result diagrams: 07/16/18 09:39 07/16/18 09:39 Lab Results 07/16/18 07/16/18 07/16/18 Range/Units 09:39 09:39 09:39 WBC 17.3 H (4.5-11.0) K/mcL RBC 3.67 L (4.50-5.90) M/mcL Hgb 11.1 L (13.5-16.5) g/dL Hct 33.6 L (41.0-55.0) % MCV 91.7 (80.0-100.0) fL MCH 30.1 (26.0-34.0) pg MCHC 32.8 (31.0-36.0) g/dL RDW 16.7 H (11.5-14.5) % Plt Count 216 (140-440) K/mcL MPV 9.2 (7.4-10.4) fL Gran % 84.8 H (38.0-78.0) % Lymph % (Auto) 8.0 L (15.5-49.0) % [place] % (Auto) 5.7 (1.0-12.0) % Eos % (Auto) 1.5 (0.0-7.0) % Baso % (Auto) 0 (0.0-2.0) % Gran # 14.7 H (1.8-8.0) K/mcL Lymph # (Auto) 1.4 L (1.5-4.8) K/mcL [place] # (Auto) 1.0 H (0.1-0.9) K/mcL Eos # (Auto) 0.3 (0.0-0.7) K/mcL Baso # (Auto) 0 (0.0-0.3) K/mcL VBG Lactic Acid (0.5-2.0) mmol/L Sodium 141 (133-145) mmol/L Potassium 5.1 (3.3-5.1) mmol/L Chloride 108 (96-108) mmol/L Carbon Dioxide 19 L (22-30) mmol/L Anion Gap 14.0 (8-16) BUN 24 H (8-23) mg/dl Creatinine 1.3 H (0.7-1.2) mg/dl GFR Calculation 54 Glucose 79 (70-105) mg/dL Calcium 9.1 (8.6-10.4) mg/dl Total Bilirubin 0.2 (0.0-1.0) mg/dL AST 13 (0-37) U/l ALT 7 (0-40) U/l Alkaline Phosphatase 86 (39-117) U/L Total Creatine Kinase 39 (24-195) IU/L CK-MB (CK-2) 1.4 (0-4.9) ng/ml Myoglobin 36 (28-72) ng/ml Troponin T < 0.01 (0-0.03) ng/ml Total Protein 6.6 (5.9-8.4) gm/dL Albumin 3.5 (3.2-5.2) gm/dL Globulin 3.1 (2.2-3.7) gm/dL Albumin/Globulin Ratio 1.1 (1.0-2.3) Urine Color Urine Appearance Urine pH (5.0-9.0) Ur Specific [place] (1.000-1.035) Urine Protein (NEG) mg/dL Urine Glucose (UA) (NEG) mg/dL Urine Ketones (NEG) mg/dL Urine Occult Blood (<0.03) mg/dL Urine Nitrate (NEG) Urine Bilirubin (NEG) mg/dL Urine Urobilinogen (NEG) mg/dL Ur Leukocyte Esterase (NEG) /uL Urine RBC (0-1) /hpf Urine WBC (0-4) /hpf Ur Squamous Epith Cells (0-4) /hpf Urine Bacteria (0) /hpf Urine Mucus (0) /hpf Ur Culture Indicated? 07/16/18 07/16/18 07/16/18 Range/Units 09:39 11:45 13:05 WBC (4.5-11.0) K/mcL RBC (4.50-5.90) M/mcL Hgb (13.5-16.5) g/dL Hct (41.0-55.0) % MCV (80.0-100.0) fL MCH (26.0-34.0) pg MCHC (31.0-36.0) g/dL RDW (11.5-14.5) % Plt Count (140-440) K/mcL MPV (7.4-10.4) fL Gran % (38.0-78.0) % Lymph % (Auto) (15.5-49.0) % [place] % (Auto) (1.0-12.0) % Eos % (Auto) (0.0-7.0) % Baso % (Auto) (0.0-2.0) % Gran # (1.8-8.0) K/mcL Lymph # (Auto) (1.5-4.8) K/mcL [place] # (Auto) (0.1-0.9) K/mcL Eos # (Auto) (0.0-0.7) K/mcL Baso # (Auto) (0.0-0.3) K/mcL VBG Lactic Acid 1.3 (0.5-2.0) mmol/L Sodium (133-145) mmol/L Potassium (3.3-5.1) mmol/L Chloride (96-108) mmol/L Carbon Dioxide (22-30) mmol/L Anion Gap (8-16) BUN (8-23) mg/dl Creatinine (0.7-1.2) mg/dl GFR Calculation Glucose (70-105) mg/dL Calcium (8.6-10.4) mg/dl Total Bilirubin (0.0-1.0) mg/dL AST (0-37) U/l ALT (0-40) U/l Alkaline Phosphatase (39-117) U/L Total Creatine Kinase (24-195) IU/L CK-MB (CK-2) (0-4.9) ng/ml Myoglobin (28-72) ng/ml Troponin T 0.01 (0-0.03) ng/ml Total Protein (5.9-8.4) gm/dL Albumin (3.2-5.2) gm/dL Globulin (2.2-3.7) gm/dL Albumin/Globulin Ratio (1.0-2.3) Urine Color Yellow Urine Appearance Clear Urine pH 6.0 (5.0-9.0) Ur Specific [place] 1.012 (1.000-1.035) Urine Protein Neg (NEG) mg/dL Urine Glucose (UA) Negative (NEG) mg/dL Urine Ketones 5/tr A (NEG) mg/dL Urine Occult Blood 0.03 A (<0.03) mg/dL Urine Nitrate Pos A (NEG) Urine Bilirubin Neg (NEG) mg/dL Urine Urobilinogen Neg (NEG) mg/dL Ur Leukocyte Esterase 250 A (NEG) /uL Urine RBC 21 H (0-1) /hpf Urine WBC 146 H (0-4) /hpf Ur Squamous Epith Cells 1 (0-4) /hpf Urine Bacteria Mod A (0) /hpf Urine Mucus Few (0) /hpf Ur Culture Indicated? Yes - Radiology Data Radiology results reviewed: Yes I reviewed the patient's radiology results. Disposition Pt seen by [facility] [facility]/PA only: No Clinical Impression: UTI (urinary tract infection) Disposition: Xfer As Outpt/Obs ([facility]) Condition: Good Referrals: Refugio Isidro MD [Primary Care Provider] - Time of Disposition: 15:17
[2018-07-16] MEDS ORDERED: DILTIAZEM 25 MG/5 ML VIAL IV ONE (09:46)
--- NOTE | 2018-07-16 09:56 | XRay Report ---
INDICATION: Chest pain TECHNIQUE: AP chest x-ray,portable upright COMPARISON: Previous chest x-rays dated 04/04/2018, 03/02/2018 FINDINGS:No focal pulmonary parenchymal infiltrate or mass. Heart size and vascularity are normal. No pulmonary congestion or pulmonary edema. Tiarra and mediastinum are negative. No acute abnormality. Degenerative disease shoulders, right worse than left. IMPRESSION: 1. No acute abnormality. 2. No interval change since 04/04/2018 Interpreted and Authenticated by: Harrison Mcallister 07/16/18
[2018-07-16] MEDS ORDERED: DILTIAZEM 125 MG in DEXTROSE 5% IN WATER 100 ML IV SCH (10:00)
[2018-07-16 10:11] LABS: Basophils # (Auto) 0 K/mcL (0.0-0.3); Basophils % (Auto) 0 % (0.0-2.0); Eosinophils # (Auto) 0.3 K/mcL (0.0-0.7); Eosinophils % (Auto) 1.5 % (0.0-7.0); Granulocytes % (Auto) 84.8 % (38.0-78.0); Lymphocytes # (Auto) 1.4 K/mcL (1.5-4.8); Mean Cell Volume 91.7 fL (80.0-100.0); Mean Corpuscular HGB Conc 32.8 g/dL (31.0-36.0); Monocytes % (Auto) 5.7 % (1.0-12.0); Platelet Count 216 K/mcL (140-440); RBC 3.67 M/mcL (4.50-5.90); Red Cell Distribution Width 16.7 % (11.5-14.5)
[2018-07-16 10:56] LABS: Creatine Kinase MB 1.4 ng/ml (0-4.9); Myoglobin 36 ng/ml (28-72)
[2018-07-16 11:05] LABS: ALT/SGPT 7 U/l (0-40); Albumin 3.5 gm/dL (3.2-5.2); Albumin/Globulin Ratio 1.1 (1.0-2.3); Alkaline Phosphatase 86 U/L (39-117); Blood Urea Nitrogen 24 mg/dl (8-23); Creatine Kinase 39 IU/L (24-195)
[2018-07-16] MEDS ORDERED: ACETAMINOPHEN 325 MG TABLET PO ONE (11:23)
[2018-07-16] MEDS ORDERED: LEVOFLOXACIN 750 MG/150 ML BAG IV ONE (11:43)
[2018-07-16 12:51] LABS: Appearance,Urine CLEAR; Bacteria,Urine MOD /hpf (0); Bilirubin,Urine NEG (NEG); Color,Urine YELLOW; Glucose,Urine (UA) NEGATIVE (NEG); Leukocyte Esterase,Urine 250 /uL (NEG); Mucus,Urine FEW /hpf (0); Protein,Urine NEG (NEG); Specific Gravity,Urine 1.012 (1.000-1.035); Urine Blood 0.03 mg/dL (<0.03); Urine RBC 21 /hpf (0-1); Urine Squamous Epithelial Cell 1 /hpf (0-4); Urine WBC 146 /hpf (0-4); Urobilinogen,Urine NEG (NEG)
[2018-07-16] MEDS ORDERED: IBUPROFEN 600 MG TABLET PO ONE (13:34)
[2018-07-16] MEDS ORDERED: HYDROmorphone 2 MG/ML VIAL IV ONE (15:38)
[2018-07-16] MEDS ORDERED: HYDROmorphone 2 MG/ML VIAL IV PRN (16:05)
--- NOTE | 2018-07-16 16:26 | Internal Med History&Physical ---
Medical - H&P: HPI Patient information: Note initiated : 07/16/18 at 4:20 pm Service Date, if different from initiated Date: [] Patient: Taz Parra 73 y/o M admitted on for Chest pain. Chief Complaint: [] History of present illness: Mr. Parra is a 73 year old M who presents to the ED with what is reported to be chest pain, However the patient denies chest pain when I evaluated him. Per old notes he does have a history of dementia. He was last admitted in March for sepsis felt to be biliary related, he is not a surgical candidate, in fact had a cardiac ischemic event during induction for surgery, developing hypotension and a subsequent tachycardia with a bump in his troponin. Patient was transferred over to [facility] for a few days no surgery or cardiac interventions undertaken. Per the notes patient complained of chest pain for the hour previous to his visit as well as nausea. Sounds like his chest pain was somewhat diffuse. He was noted to be febrile with a temperature of 102.7. He was noted to have chronic wounds of left heel which she was to see wound care today and per friend who brought him inside the wounds were improving. Patient denies any chest pains to me but complains of left heel pain and told me that is the reason why he came in. Denies any recent illness. No shortness of breath or coughing. He is wheelchair-bound and is able to transfer from bed to wheelchair but not able to ambulate even with a walker. In the ED he had a chest x-ray which was unremarkable. He was noted to have leukocytosis and mild elevation in his creatinine. His lactate was okay. Troponin was unremarkable x2. Urinalysis showed nitrates leukocyte esterase, WBCs. He was tachycardic when he came in and tachypneic as well. Review of Systems: Pertinent positives as above. Denies headache/fever/chills/nausea/vomiting/chest or abdominal pain/cough/dyspnea/di arrhea. Remaining 10 point review of systems reviewed negative Medical - H&P: PMH Medical history: Medical History (Last Reviewed 06/22/18 @ 13:10 by Deepika Carreon RN) Esophageal stricture (Acute) Gastritis (Acute) Duodenitis (Acute) Esophagitis (Acute) History of non-ST elevation myocardial infarction (NSTEMI) (Resolved) Idiopathic hypertension (Chronic) Chronic anticoagulation (Chronic) Renal failure (ARF), acute on chronic (Resolved) History of osteomyelitis (Resolved) Intraparenchymal hematoma of brain (Resolved) ST elevation myocardial infarction (STEMI) (Resolved) Cholelithiasis with acute cholecystitis with biliary obstruction (Chronic) Bacteremia due to Klebsiella pneumoniae (Resolved) Coronary artery disease due to calcified coronary lesion (Chronic) Cholecystitis (Chronic) Degenerative joint disease of knee (Chronic) Osteopenia (Chronic) Low back pain (Chronic) Anemia, unspecified (Chronic) Macrocytic anemia (Chronic) Overactive bladder (Chronic) Chronic pain syndrome (Chronic) 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) Osteoarthritis of ankle (Chronic) Degenerative joint disease (DJD) of lumbar spine (Chronic) Hip pain (Chronic) Hyperlipidemia (Chronic) Pressure ulcer, stage III (Resolved) Unspecified osteomyelitis, site unspecified (Resolved) Dysphagia (Chronic) Mental status change (Chronic) Dementia (Chronic) Hypogonadism (Chronic) Osteoarthritis of both hips (Chronic) Benign prostatic hyperplasia with lower urinary tract symptoms (Chronic) Acquired immune deficiency syndrome (Chronic) Nocturia (Chronic) Pressure ulcer of coccygeal region (Resolved) Degenerative joint disease of left shoulder (Chronic) Degenerative joint disease of left hip (Chronic) Other acute osteomyelitis, left tibia and fibula (Chronic) Degenerative joint disease of left knee (Chronic) Osteoarthritis of shoulder (Chronic) Chronic hip pain (Chronic) Testosterone deficiency (Chronic) Osteoporosis (Chronic) Wears partial dentures (Chronic) HIV (human immunodeficiency virus infection) (Chronic) DJD (degenerative joint disease) (Chronic) GERD (gastroesophageal reflux disease) (Chronic) Hard of hearing (Chronic) Joint pain (Chronic) Incontinence (Chronic) Fatigue (Chronic) Anemia due to acute blood loss (Resolved) Cellulitis of left knee (Resolved) Cellulitis of left leg (Resolved) Dyspnea (Resolved) Effusion of left knee (Resolved) Renal insufficiency (Resolved) Actinic keratosis (Inactive) Past Surgical History (Last Reviewed 06/22/18 @ 13:10 by Deepika Carreon RN) Cleft palate (Chronic) History of total left hip replacement (Chronic) Family History (Last Reviewed 06/22/18 @ 13:10 by Deepika Carreon RN) Mother Malignant neoplasm High blood pressure Father Myocardial infarction High blood pressure Social History (Last Updated 07/13/18 @ 15:34 by Refugio Isidro MD) Denies tobacco Drinks alcohol occasionally He is wheelchair-bound, able to transfer by himself from wheelchair to bed Lives at home with partner Medical - H&P: Meds Home Medications Medication Instructions Recorded Confirmed Type aspirin 81 mg tablet,delayed 81 mg PO QDAY 08/20/16 07/16/18 History release HYDROcodone/APAP 10/325MG [[place] 1 - 2 tablet PO Q4-6HP PRN 12/07/17 07/16/18 History 10-325Mg] ketorolac 0.5 % eye drops 1 drp OPHTHALMIC Q8H PRN 12/15/17 07/13/18 History testosterone cypionate 200 mg/mL 400 mg IM Q28D ml 12/15/17 07/13/18 History intramuscular oil fentanyl 50 mcg/hr transdermal 50 mcg TRANSDERMA Q72H 03/23/18 07/16/18 History patch Carvedilol [Coreg] 12.5 mg PO BID 04/04/18 07/16/18 History Wheelchair #1 ea 04/07/18 07/13/18 Rx Ferrous Sulfate [Iron] 325 mg PO HS 04/08/18 07/16/18 History Pregabalin [Lyrica] 75 mg PO HS 04/08/18 07/16/18 History Rosuvastatin Calcium 40 mg PO DAILY 04/08/18 07/16/18 History Clopidogrel Bisulfate [Plavix] 75 mg PO DAILY #30 tab 04/09/18 07/13/18 Rx meningoc vac A,C,Y,W-135 dip (PF) 0.5 ml IM ONCE #0.5 ml 04/21/18 07/16/18 Rx 4 mcg/0.5 mL intramuscular solution losartan 50 mg tablet 50 mg PO QDAY #90 tab 05/05/18 07/16/18 Rx sodium polystyrene sulfonate 15 60 ml PO ONCE #60 ml 05/05/18 07/16/18 Rx gram/60 mL oral suspension amlodipine 2.5 mg tablet 2.5 mg PO QDAY #90 tab 05/19/18 07/16/18 Rx Promethazine HCl 12.5 mg RC QD-BID PRN #20 supp.rect 06/05/18 07/16/18 Rx dextroamphetamine-amphetamine 20 20 mg PO BID #60 tab 06/08/18 07/16/18 Rx mg tablet dronabinol 5 mg capsule 5 mg PO BID #60 cap 06/22/18 07/16/18 Rx methocarbamol 500 mg tablet 500 mg PO QID 06/22/18 07/16/18 History tamsulosin 0.4 mg capsule 0.4 mg PO QDAY #90 cap 06/22/18 07/16/18 Rx trospium ER 60 mg capsule,extended 60 mg PO QAM #90 cap 06/22/18 07/16/18 Rx release 24 hr ondansetron 4 mg disintegrating 4 mg PO Q4-6HP PRN #20 tab 06/29/18 07/16/18 Rx tablet oxandrolone 2.5 mg tablet 1 tablet PO Q12H #60 tab 06/29/18 07/16/18 History Dolutegravir Sodium [Tivicay] 50 mg PO DAILY 07/16/18 07/16/18 History Emtricitabine/Tenofov Alafenam 1 tab PO DAILY 07/16/18 07/16/18 History [Descovy 200-25 mg Tablet] Memantine HCl/Donepezil HCl 1 each PO DAILY 07/16/18 07/16/18 History [Namzaric 28 mg-10 mg Capsule] Peg 3350/Na Sulf,Bicarb,Cl/KCl 4,000 ml PO PRN PRN 07/16/18 07/16/18 History [Gavilyte-C Solution] Rosuvastatin Calcium [Crestor] 5 mg PO DAILY 07/16/18 07/16/18 History Allergies Allergy/AdvReac Type Severity Reaction Status Date / Time codeine AdvReac Mild Itching Verified 07/16/18 09:28 Medical - H&P: Exam - Constitutional Vitals: Temp Pulse Resp BP Pulse Ox 101.6 F H 89 5 L 102/53 94 07/16/18 12:12 07/16/18 16:04 07/16/18 16:07 07/16/18 16:04 07/16/18 16:04 Exam: General: Alert, Awake, No acute Distress Eyes/N/T: EOMI, PEERL, Head/Neck: neck supple, normocephalic atraumatic CV: RRR, No murmurs, normal s1/s2 Pulm: Clear b/l, no wheezing/rhonchi/rales Abd: soft, nontender, +BS x4, protuberant Ext: no clubbing/cyanosis/edema, chronic wound left heel. Neuro: A&Ox4 but confused as to why he is here, no focal deficits, CN 2-12 grossly intact, symmetrical strength b/l upper, sensations intact b/l upper/low er Skin: warm/dry Medical - H&P: Reslt - Labs CBC & Chem 7: 07/16/18 09:39 07/16/18 09:39 Labs: Short CBC 07/16/18 Range/Units 09:39 WBC 17.3 H (4.5-11.0) K/mcL Hgb 11.1 L (13.5-16.5) g/dL Hct 33.6 L (41.0-55.0) % Plt Count 216 (140-440) K/mcL BMP 07/16/18 09:39 Sodium 141 Potassium 5.1 Chloride 108 Carbon Dioxide 19 L BUN 24 H Creatinine 1.3 H Glucose 79 Calcium 9.1 Cardiac Enzymes 07/16/18 07/16/18 07/16/18 Range/Units 09:39 09:39 13:05 Total Creatine Kinase 39 (24-195) IU/L CK-MB (CK-2) 1.4 (0-4.9) ng/ml Troponin T < 0.01 0.01 (0-0.03) ng/ml Liver Function 07/16/18 Range/Units 09:39 Total Bilirubin 0.2 (0.0-1.0) mg/dL AST 13 (0-37) U/l ALT 7 (0-40) U/l Alkaline Phosphatase 86 (39-117) U/L Albumin 3.5 (3.2-5.2) gm/dL Urine 07/16/18 Range/Units 11:45 Urine Color Yellow Urine Appearance Clear Urine pH 6.0 (5.0-9.0) Ur Specific [place] 1.012 (1.000-1.035) Urine Protein Neg (NEG) mg/dL Urine Glucose (UA) Negative (NEG) mg/dL - Impressions Chest x-ray no acute EKG with sinus tach Medical - H&P: A/P - Narrative A/P Narrative: A: *UTI: *Sepsis: qSOFA with tachypnea/confusion, although I do not know what his baseli ne is given his underlying dementia. SIRS w/Source and MARIANNE. 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 Elmore *History of CAD w/RCA stent last February: *Dementia: *DJD/Chr pain: *Hypothyroid: *Deconditioning/debility/poor functional status: Patient is wheelchair bound at baseline * P: -IVF's -Zosyn; pending BC/UC -ID consult -HIV meds per ID -wound care -cont home ASA/Plavix/Statin -hold ARB, start BB in AM, monitor BP as low-normal currently -probiotic - -ppx: heparin DNR
[2018-07-16] MEDS ORDERED: LACTULOSE 20 GM/30 ML ORAL.SOL PO PRN (17:01)
[2018-07-16] MEDS ORDERED: IPRATROPIUM/ALBUTEROL 3 ML AMPUL.NEB NEB PRN (17:01)
[2018-07-16] MEDS ORDERED: HYDROcodone/APAP 10/325MG TABLET PO PRN (17:01)
[2018-07-16] MEDS ORDERED: POTASSIUM CHLORIDE 20 MEQ TABLET PO PRN ×2 (17:01)
[2018-07-16] MEDS ORDERED: POLYETHYLENE GLYCOL 3350 17 GM PACKET PO PRN (17:01)
[2018-07-16] MEDS ORDERED: PROMETHAZINE HCL 25 MG SUPP.RECT RC PRN (17:01)
[2018-07-16] MEDS ORDERED: POTASSIUM CHLORIDE 40 MEQ in DEXTROSE 5% IN WATER 500 ML IV PRN (17:01)
[2018-07-16] MEDS ORDERED: 0.9 % SODIUM CHLORIDE 1,000 ML IV SCH (17:01)
[2018-07-16] MEDS ORDERED: PEG 3350/NA SULF,BICARB,CL/KCL 4,000 ML ORAL.SOL PO PRN (17:01)
[2018-07-16] MEDS ORDERED: MAGNESIUM SULFATE 2 GM/50 ML BAG IV PRN (17:01)
[2018-07-16] MEDS: 0.9 % SODIUM CHLORIDE 10 ML SYRINGE IV SCH ×3 (17:30→21:32)
[2018-07-16] MEDS ORDERED: 0.9 % SODIUM CHLORIDE 250 ML IV ONE ×2 (17:35→17:53)
[2018-07-16] MEDS: PIPERACILLIN SODIUM/TAZOBACTAM 3.375 GM in DEXTROSE 5% IN WATER 50 ML IV SCH (18:10)
[2018-07-16] MEDS ORDERED: SENNOSIDES 1 TABLET PO PRN (21:00)
[2018-07-16] MEDS: PREGABALIN 75 MG CAPSULE PO SCH (21:31)
[2018-07-16] MEDS: DOCUSATE SODIUM 100 MG CAPSULE PO SCH (21:31)
[2018-07-16] MEDS: METHOCARBAMOL 500 MG TABLET PO SCH ×2 (21:31)
[2018-07-16] MEDS: LACTOBACILLUS 1 CAPSULE PO SCH (21:31)
[2018-07-16] MEDS: HEPARIN 5,000 UNIT/ML VIAL SQ SCH (21:32)
[2018-07-16] MEDS: DRONABINOL 2.5 MG CAPSULE PO SCH (21:33)
[2018-07-16] MEDS ORDERED: ACETAMINOPHEN 650 MG/65 ML BOTTLE IV PRN (22:46)
[2018-07-16] MEDS ORDERED: ACETAMINOPHEN 1,000 MG/100 ML BOTTLE IV ONE (23:13)
[2018-07-16] MEDS ORDERED: HYDROmorphone 2 MG/ML VIAL ONE (23:43)
[2018-07-17] MEDS: PIPERACILLIN SODIUM/TAZOBACTAM 3.375 GM in DEXTROSE 5% IN WATER 50 ML IV SCH ×4 (00:11→18:05)
[2018-07-17] MEDS ORDERED: 0.9 % SODIUM CHLORIDE 250 ML IV ONE (01:04)
[2018-07-17] MEDS: 0.9 % SODIUM CHLORIDE 10 ML SYRINGE IV SCH ×7 (05:06→20:42)
[2018-07-17 05:41] LABS: Basophils # (Auto) 0 K/mcL (0.0-0.3); Basophils % (Auto) 0.1 % (0.0-2.0); Eosinophils # (Auto) 0.1 K/mcL (0.0-0.7); Eosinophils % (Auto) 0.7 % (0.0-7.0); Granulocytes % (Auto) 83.6 % (38.0-78.0); Lymphocytes # (Auto) 1.4 K/mcL (1.5-4.8); Mean Cell Volume 93.6 fL (80.0-100.0); Monocytes % (Auto) 6.6 % (1.0-12.0); Platelet Count 173 K/mcL (140-440); RBC 2.94 M/mcL (4.50-5.90); Red Cell Distribution Width 16.3 % (11.5-14.5)
[2018-07-17 06:09] LABS: ALT/SGPT < 5 U/l (0-40); Albumin 2.7 gm/dL (3.2-5.2); Alkaline Phosphatase 72 U/L (39-117); Bilirubin,Direct < 0.2 mg/dL (0.0-0.3); Blood Urea Nitrogen 20 mg/dl (8-23); Gamma Glutamyl Transpeptidase 13 U/L (8-61); Uric Acid 5.2 mg/dL (2.5-8.0)
[2018-07-17] MEDS ORDERED: HYDROmorphone 2 MG/ML VIAL ONE (07:15)
[2018-07-17] MEDS: ONDANSETRON 4 MG/2 ML VIAL IV PRN (07:46)
[2018-07-17] MEDS: TROSPIUM CHLORIDE 60 MG PO SCH (07:46)
--- NOTE | 2018-07-17 08:19 | Internal Med Progress Note ---
Medical - PN: Subj Patient information: Note initiated : 07/17/18 at 8:13 am Service Date, if different from initiated Date: [] Patient: Taz Parra 73 y/o M admitted on 07/16/18 for Chest pain. Chief Complaint: [] Interval history: Mr. Parra is a 73 year old M who presents to the ED with what is reported to be chest pain, However the patient denies chest pain when I evaluated him. Per old notes he does have a history of dementia. He was last admitted in March for sepsis felt to be biliary related, he is not a surgical candidate, in fact had a cardiac ischemic event during induction for surgery, developing hypotension and a subsequent tachycardia with a bump in his troponin. Patient was transferred over to [facility] for a few days no surgery or cardiac interventions undertaken. Per the notes patient complained of chest pain for the hour previous to his visit as well as nausea. Sounds like his chest pain was somewhat diffuse. He was noted to be febrile with a temperature of 102.7. He was noted to have chronic wounds of left heel which she was to see wound care today and per friend who brought him inside the wounds were improving. Patient denies any chest pains to me but complains of left heel pain and told me that is the reason why he came in. Denies any recent illness. No shortness of breath or coughing. He is wheelchair-bound and is able to transfer from bed to wheelchair but not able to ambulate even with a walker. In the ED he had a chest x-ray which was unremarkable. He was noted to have leukocytosis and mild elevation in his creatinine. His lactate was okay. Troponin was unremarkable x2. Urinalysis showed nitrates leukocyte esterase, WBCs. He was tachycardic when he came in and tachypneic as well. 5/4 No issues overnight. Slept well. Partner brought in HIV medications last night. Urine growing gram-negative bacillus. Review of Systems: denies headache/fever/chills/nausea/vomiting/chest or abdominal pain/cough/dyspnea/diarrhea. Otherwise see above. - Constitutional Vitals: Vital Signs Temp Pulse Resp BP Pulse Ox 99.8 F H 104 H 16 109/60 91 07/17/18 07:01 07/17/18 05:01 07/17/18 07:01 07/17/18 07:01 07/17/18 07:01 Period Temp Pulse Resp BP Sys/Celis Pulse Ox Last 24 Hr 99.8 F-102.7 F 43-124 5-25 81-164/47-119 87-97 Intake and Output 07/16/18 07/17/18 07/17/18 21:59 05:59 13:59 Intake Total 550 1465 50 Output Total 100 875 Balance 450 590 50 Weight 56.608 kg Intake & Output: Intake & Output 07/16/18 07/17/18 07/17/18 21:59 05:59 13:59 Intake Total 550 1465 50 Output Total 100 875 Balance 450 590 50 Weight 56.608 kg Intake: IV 550 1365 50 Sodium Chloride 0.9% 250 ml @ 500 250 Wide Open IV BOLUS ONE Rx#: [id number] OFIRMEV 1,000 mg In 100 ml @ 0 65 mls/hr IV .STK-MED ONE Rx#: [id number] Zosyn 3.375 gm In Dextrose 5% 50 50 50 in Water 50 ml @ 100 mls/hr IV Q6H J[facility] Rx#:[id number] Oral 100 Output: Void Amount 100 875 Other: Urine Appearance Clear Cloudy Urine Color Dark Yellow Dark Yellow # Voids 1 Exam: General: Alert, Awake, No acute Distress Eyes/N/T: EOMI, , Head/Neck: neck supple, CV: RRR, No murmurs, Pulm: Clear b/l, no wheezing/rhonchi/rales Abd: soft, nontender, +BS x4, protuberant Ext: no clubbing/cyanosis/edema, chronic wound left heel. Neuro: Alert and oriented, no focal deficits, Skin: warm/dry Medical - PN: Obj Da - Labs CBC & Chem 7: 07/17/18 04:20 07/17/18 04:20 Labs: Abnormal Lab Results 07/17/18 07/17/18 07/16/18 04:20 04:20 11:45 WBC 15.9 H RBC 2.94 L Hgb 8.8 L Hct 27.5 L RDW 16.3 H Gran % 83.6 H Lymph % (Auto) 9.0 L Gran # 13.3 H Lymph # (Auto) 1.4 L [place] # (Auto) 1.0 H Chloride 111 H Carbon Dioxide 19 L BUN Creatinine Glucose 62 L Calcium 8.0 L Magnesium 1.5 L Total Protein 5.4 L Albumin 2.7 L Urine Ketones 5/tr A Urine Occult Blood 0.03 A Urine Nitrate Pos A Ur Leukocyte Esterase 250 A Urine RBC 21 H Urine WBC 146 H Urine Bacteria Mod A 07/16/18 07/16/18 09:39 09:39 WBC 17.3 H RBC 3.67 L Hgb 11.1 L Hct 33.6 L RDW 16.7 H Gran % 84.8 H Lymph % (Auto) 8.0 L Gran # 14.7 H Lymph # (Auto) 1.4 L [place] # (Auto) 1.0 H Chloride Carbon Dioxide 19 L BUN 24 H Creatinine 1.3 H Glucose Calcium Magnesium Total Protein Albumin Urine Ketones Urine Occult Blood Urine Nitrate Ur Leukocyte Esterase Urine RBC Urine WBC Urine Bacteria Meds: Medications Acetaminophen (Tylenol) 650 mg PO Q4-6HP PRN PRN Reason: PAIN/FEVER > 101 Hydrocodone Bitart/Acetaminophen ([place] 10/325mg) 0 tab PO Q4-6HP PRN PRN Reason: Pain Albuterol/Ipratropium (Duoneb) 3 ml NEB Q4HP PRN PRN Reason: Shortness Of Breath Aspirin (Aspirin) 81 mg PO DAILY [facility] Atorvastatin Calcium (Lipitor) 80 mg PO DAILY [facility] Carvedilol (Coreg) 12.5 mg PO BID [facility] Clopidogrel Bisulfate (Plavix) 75 mg PO DAILY [facility] Docusate Sodium (Colace) 100 mg PO BID [facility] Last Admin: 07/16/18 21:31 Dose: 100 mg Documented by: Dronabinol (Marinol) 5 mg PO BID [facility] Last Admin: 07/16/18 21:33 Dose: Not Given Documented by: Fentanyl (Duragesic) 50 mcg TD Q72H [facility] Heparin Sodium (Porcine) (Heparin) 5,000 unit SQ Q12 [facility] Last Admin: 07/16/18 21:32 Dose: 5,000 unit Documented by: Hydromorphone HCl (Dilaudid) 0.5 mg IV Q2HP PRN PRN Reason: PAIN LEVEL > 6 Potassium Chloride 40 meq/ (Dextrose) 520 mls @ 130 mls/hr IV UD PRN PRN Reason: Potassium < 3 Magnesium Sulfate (Magnesium Sulfate) 2 gm in 50 mls @ 50 mls/hr IV UD PRN PRN Reason: Magnesium </= 1.6 Last Admin: 07/17/18 08:07 Dose: 50 mls/hr Documented by: Piperacillin Sod/Tazobactam (Sod 3.375 gm/ Dextrose) 50 mls @ 100 mls/hr IV Q6H [facility]; Protocol Last Infusion: 07/17/18 06:23 Dose: Infused Documented by: Acetaminophen (Ofirmev) 650 mg in 65 mls @ 130 mls/hr IV Q6HP PRN PRN Reason: PAIN/FEVER > 101 Lactobacillus Rhamnosus (Culturelle) 1 cap PO BID [facility] Last Admin: 07/16/18 21:31 Dose: 1 cap Documented by: Lactulose (Cephulac) 10 gm PO DAILYP PRN PRN Reason: Constipation Methocarbamol (Robaxin) 500 mg PO QID [facility] Last Admin: 07/16/18 21:31 Dose: 500 mg Documented by: Ondansetron HCl (Zofran) 4 mg IV Q4HP PRN PRN Reason: Nausea And Vomiting Last Admin: 07/17/18 07:46 Dose: 4 mg Documented by: Dolutegravir Sodium [Tivicay] 50 Mg Tablet 1 dose PO DAILY [facility] Emtricitabine/Tenofov Alafenam [ Descovy 200-25 Mg] Tablet 1 dose PO DAILY [facility] Memantine Hcl/Donepezil Hcl [ Namzaric 28 Mg-10 Mg Capsule 1 dose PO DAILY [facility] Trospium Chloride [ Trospium Chloride Er ] 60 Mg Capsule 1 dose PO 1HRACB [facility] Last Admin: 07/17/18 07:46 Dose: 1 dose Documented by: Polyethylene Glycol (Miralax) 17 gm PO DAILYP PRN PRN Reason: Constipation Polyethylene Glycol/Electrolytes (Golytely) 4,000 ml PO PRN PRN PRN Reason: Constipation Potassium Chloride (Kdur) 40 meq PO UD PRN PRN Reason: Potssium is 3-3.5 Potassium Chloride (Kdur) 40 meq PO UD PRN PRN Reason: Potassium < 3 Pregabalin (Lyrica) 75 mg PO HS [facility] Last Admin: 07/16/18 21:31 Dose: 75 mg Documented by: Promethazine HCl (Phenergan) 12.5 mg RC QD-BID PRN PRN Reason: Nausea Senna (Senokot) 2 tab PO HSP PRN PRN Reason: Constipation Sodium Chloride (Saline Flush) 10 ml IV Q8 [facility] Last Admin: 07/17/18 08:08 Dose: 10 ml Documented by: Tamsulosin HCl (Flomax) 0.4 mg PO QDAY [facility] Medical - PN: A/P - Time Spent With Patient Total time spent is greater than 50% in coordination of care (as documented) at patient's floor/unit and/or counseling patient: - Narrative A/P Narrative: A: *UTI(GNB): *Sepsis: qSOFA with tachypnea/confusion, although I do not know what his baseline is given his underlying dementia. SIRS w/Source and MARIANNE. 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 Elmore *History of CAD w/RCA stent last February: *Dementia: *DJD/Chr pain: *Hypothyroid: *Deconditioning/debility/poor functional status/contractures: Patient is wheelchair bound at baseline * P: -Zosyn; pending BC/UC -ID consult -HIV meds per ID, continued -wound care -cont home ASA/Plavix/Statin -hold ARB/CCB, start BB in AM at lower dose, monitor BP as low-normal currently -probiotic - -ppx: heparin DNR Medical - PN: Qual - Stroke Symptom Onset Unknown: No - VTE Deep Vein Thrombosis/Pulmonary Embolism Present on Admission: No
[2018-07-17] MEDS ORDERED: CARVEDILOL 12.5 MG TABLET PO SCH (09:00)
[2018-07-17] MEDS ORDERED: CARVEDILOL 6.25 MG TABLET PO SCH (09:00)
[2018-07-17] MEDS: CLOPIDOGREL 75 MG TABLET PO SCH (09:09)
[2018-07-17] MEDS: DOCUSATE SODIUM 100 MG CAPSULE PO SCH ×2 (09:09→20:41)
[2018-07-17] MEDS: ASPIRIN 81 MG TAB.CHEW PO SCH (09:09)
[2018-07-17] MEDS: TAMSULOSIN 0.4 MG CAPSULE PO SCH (09:09)
[2018-07-17] MEDS: DRONABINOL 2.5 MG CAPSULE PO SCH ×2 (09:10→20:42)
[2018-07-17] MEDS: HEPARIN 5,000 UNIT/ML VIAL SQ SCH ×2 (09:10→20:42)
[2018-07-17] MEDS: EMTRICITABINE PO SCH (09:13)
[2018-07-17] MEDS: TENOFOV ALAFENAM PO SCH (09:13)
[2018-07-17] MEDS: MEMANTINE HCL PO SCH (09:14)
[2018-07-17] MEDS: DONEPEZIL HCL PO SCH (09:14)
[2018-07-17] MEDS: ATORVASTATIN 20 MG TABLET PO SCH (09:18)
[2018-07-17] MEDS: METHOCARBAMOL 500 MG TABLET PO SCH ×4 (09:18→20:41)
[2018-07-17] MEDS: LACTOBACILLUS 1 CAPSULE PO SCH ×2 (09:18→20:41)
[2018-07-17] MEDS: HYDROmorphone 2 MG/ML VIAL IV PRN ×3 (10:46→19:35)
[2018-07-17] MEDS: ACETAMINOPHEN 325 MG TABLET PO PRN ×2 (10:53→22:36)
[2018-07-17] MEDS: PREGABALIN 75 MG CAPSULE PO SCH (20:41)
[2018-07-17] MEDS ORDERED: CARVEDILOL 3.125 MG TABLET PO SCH (21:00)
[2018-07-18] MEDS ORDERED: 0.9 % SODIUM CHLORIDE 250 ML IV ONE ×3 (00:05→19:52)
[2018-07-18] MEDS: PIPERACILLIN SODIUM/TAZOBACTAM 3.375 GM in DEXTROSE 5% IN WATER 50 ML IV SCH ×5 (00:13→23:24)
[2018-07-18] MEDS: 0.9 % SODIUM CHLORIDE 10 ML SYRINGE IV SCH ×3 (05:09→22:09)
[2018-07-18 05:12] LABS: Basophils # (Auto) 0 K/mcL (0.0-0.3); Basophils % (Auto) 0.2 % (0.0-2.0); Eosinophils # (Auto) 0.2 K/mcL (0.0-0.7); Eosinophils % (Auto) 2.4 % (0.0-7.0); Granulocytes % (Auto) 76.3 % (38.0-78.0); Lymphocytes # (Auto) 1.4 K/mcL (1.5-4.8); Lymphocytes % (Auto) 14.5 % (15.5-49.0); Mean Cell Volume 93.3 fL (80.0-100.0); Mean Corpuscular HGB Conc 31.9 g/dL (31.0-36.0); Monocytes # (Auto) 0.7 K/mcL (0.1-0.9); Monocytes % (Auto) 6.6 % (1.0-12.0); Platelet Count 157 K/mcL (140-440); RBC 2.73 M/mcL (4.50-5.90); Red Cell Distribution Width 16.5 % (11.5-14.5)
[2018-07-18 05:24] LABS: ALT/SGPT 6 U/l (0-40); Albumin 2.4 gm/dL (3.2-5.2); Albumin/Globulin Ratio 0.9 (1.0-2.3); Alkaline Phosphatase 64 U/L (39-117); Bilirubin,Direct < 0.2 mg/dL (0.0-0.3); Blood Urea Nitrogen 24 mg/dl (8-23); Gamma Glutamyl Transpeptidase 11 U/L (8-61)
[2018-07-18] MEDS: TROSPIUM CHLORIDE 60 MG PO SCH (07:35)
--- NOTE | 2018-07-18 07:52 | Internal Med Progress Note ---
Medical - PN: Subj Patient information: Note initiated : 07/18/18 at 7:44 am Service Date, if different from initiated Date: [] Patient: Taz Parra 73 y/o M admitted on 07/16/18 for Chest pain. Chief Complaint: [] Interval history: Mr. Parra is a 73 year old M who presents to the ED with what is reported to be chest pain, However the patient denies chest pain when I evaluated him. Per old notes he does have a history of dementia. He was last admitted in March for sepsis felt to be biliary related, he is not a surgical candidate, in fact had a cardiac ischemic event during induction for surgery, developing hypotension and a subsequent tachycardia with a bump in his troponin. Patient was transferred over to [facility] for a few days no surgery or cardiac interventions undertaken. Per the notes patient complained of chest pain for the hour previous to his visit as well as nausea. Sounds like his chest pain was somewhat diffuse. He was noted to be febrile with a temperature of 102.7. He was noted to have chronic wounds of left heel which she was to see wound care today and per friend who brought him inside the wounds were improving. Patient denies any chest pains to me but complains of left heel pain and told me that is the reason why he came in. Denies any recent illness. No shortness of breath or coughing. He is wheelchair-bound and is able to transfer from bed to wheelchair but not able to ambulate even with a walker. In the ED he had a chest x-ray which was unremarkable. He was noted to have leukocytosis and mild elevation in his creatinine. His lactate was okay. Troponin was unremarkable x2. Urinalysis showed nitrates leukocyte esterase, WBCs. He was tachycardic when he came in and tachypneic as well. 07/17 No issues overnight. Slept well. Partner brought in HIV medications last night. Urine growing gram-negative bacillus. 07/18 Slept on and off through night. No new complaints. Did have fever overnight. Has low blood pressure when he sleeps. Leukocytosis resolved. E. coli growing in urine. Still feels weak and tired. Review of Systems: denies headache/fever/chills/nausea/vomiting/chest or abdominal pain/cough/dyspnea/diarrhea. Otherwise see above. - Constitutional Vitals: Vital Signs Temp Pulse Resp BP Pulse Ox 99.2 F H 90 16 90/58 96 07/18/18 04:01 07/17/18 20:11 07/18/18 04:01 07/18/18 05:01 07/18/18 04:01 Period Temp Pulse Resp BP Sys/Celis Pulse Ox Last 24 Hr 99.2 F-102.0 F 87-99 16-18 69-123/45-58 92-96 Intake and Output 07/17/18 07/18/18 07/18/18 21:59 05:59 13:59 Intake Total 250 520 Output Total 225 250 Balance 25 270 Weight 58.196 kg Intake & Output: Intake & Output 07/17/18 07/18/18 07/18/18 21:59 05:59 13:59 Intake Total 250 520 Output Total 225 250 Balance 25 270 Weight 58.196 kg Intake: Nourishment/Supplement quantity 200 (ml) IV 50 100 Zosyn 3.375 gm In Dextrose 5% 50 100 in Water 50 ml @ 100 mls/hr IV Q6H [facility] Rx#:[id number] Oral 420 Output: Void Amount 225 250 Other: Meal Dinner Percent of Meal Consumed 25% Feeding Ability Independent Nourishment/Supplement name Boost Urine Appearance Clear Urine Color Bright Yellow Urine Odor Normal Exam: General: Awake, No acute Distress Eyes/N/T: EOMI, , Head/Neck: neck supple, CV: RRR, No murmurs, Pulm: Clear b/l, no wheezing/rhonchi/rales Abd: soft, nontender, +BS x4, protuberant Ext: no clubbing/cyanosis/edema, chronic wound left heel and left hip. Neuro: Alert and oriented, no focal deficits, Skin: warm/dry Medical - PN: Obj Da - Labs CBC & Chem 7: 07/18/18 04:05 07/18/18 03:50 Labs: Abnormal Lab Results 07/18/18 07/18/18 07/17/18 04:05 03:50 04:20 WBC RBC 2.73 L Hgb 8.1 L Hct 25.5 L RDW 16.5 H Gran % Lymph % (Auto) 14.5 L Gran # Lymph # (Auto) 1.4 L [place] # (Auto) Chloride 111 H Carbon Dioxide 20 L 19 L BUN 24 H Creatinine 1.5 H Glucose 62 L Calcium 8.2 L 8.0 L Magnesium 1.5 L Total Protein 5.2 L 5.4 L Albumin 2.4 L 2.7 L Albumin/Globulin Ratio 0.9 L Urine Ketones Urine Occult Blood Urine Nitrate Ur Leukocyte Esterase Urine RBC Urine WBC Urine Bacteria 07/17/18 07/16/18 07/16/18 04:20 11:45 09:39 WBC 15.9 H RBC 2.94 L Hgb 8.8 L Hct 27.5 L RDW 16.3 H Gran % 83.6 H Lymph % (Auto) 9.0 L Gran # 13.3 H Lymph # (Auto) 1.4 L [place] # (Auto) 1.0 H Chloride Carbon Dioxide 19 L BUN 24 H Creatinine 1.3 H Glucose Calcium Magnesium Total Protein Albumin Albumin/Globulin Ratio Urine Ketones 5/tr A Urine Occult Blood 0.03 A Urine Nitrate Pos A Ur Leukocyte Esterase 250 A Urine RBC 21 H Urine WBC 146 H Urine Bacteria Mod A 07/16/18 09:39 WBC 17.3 H RBC 3.67 L Hgb 11.1 L Hct 33.6 L RDW 16.7 H Gran % 84.8 H Lymph % (Auto) 8.0 L Gran # 14.7 H Lymph # (Auto) 1.4 L [place] # (Auto) 1.0 H Chloride Carbon Dioxide BUN Creatinine Glucose Calcium Magnesium Total Protein Albumin Albumin/Globulin Ratio Urine Ketones Urine Occult Blood Urine Nitrate Ur Leukocyte Esterase Urine RBC Urine WBC Urine Bacteria Meds: Medications Acetaminophen (Tylenol) 650 mg PO Q4-6HP PRN PRN Reason: PAIN/FEVER > 101 Last Admin: 07/17/18 22:36 Dose: 650 mg Documented by: Hydrocodone Bitart/Acetaminophen ([place] 10/325mg) 0 tab PO Q4-6HP PRN PRN Reason: Pain Albuterol/Ipratropium (Duoneb) 3 ml NEB Q4HP PRN PRN Reason: Shortness Of Breath Aspirin (Aspirin) 81 mg PO DAILY [facility] Last Admin: 07/17/18 09:09 Dose: 81 mg Documented by: Atorvastatin Calcium (Lipitor) 80 mg PO DAILY [facility] Last Admin: 07/17/18 09:18 Dose: 80 mg Documented by: Carvedilol (Coreg) 3.125 mg PO BID [facility] Last Admin: 07/17/18 20:41 Dose: 3.125 mg Documented by: Clopidogrel Bisulfate (Plavix) 75 mg PO DAILY [facility] [place] Last Admin: 07/17/18 09:09 Dose: 75 mg Documented by: Docusate Sodium (Colace) 100 mg PO BID [facility] Last Admin: 07/17/18 20:41 Dose: 100 mg Documented by: Dronabinol (Marinol) 5 mg PO BID [facility] [place] Last Admin: 07/17/18 20:42 Dose: 5 mg Documented by: Fentanyl (Duragesic) 50 mcg TD Q72H [facility] [place] Heparin Sodium (Porcine) (Heparin) 5,000 unit SQ Q12 [facility] Last Admin: 07/17/18 20:42 Dose: 5,000 unit Documented by: Hydromorphone HCl (Dilaudid) 0.5 mg IV Q2HP PRN PRN Reason: PAIN LEVEL > 6 Last Admin: 07/17/18 19:35 Dose: 0.5 mg Documented by: Potassium Chloride 40 meq/ (Dextrose) 520 mls @ 130 mls/hr IV UD PRN PRN Reason: Potassium < 3 Magnesium Sulfate (Magnesium Sulfate) 2 gm in 50 mls @ 50 mls/hr IV UD PRN PRN Reason: Magnesium </= 1.6 Last Infusion: 07/17/18 09:08 Dose: Infused Documented by: Piperacillin Sod/Tazobactam (Sod 3.375 gm/ Dextrose) 50 mls @ 100 mls/hr IV Q6H [facility]; Protocol Last Infusion: 07/18/18 05:40 Dose: Infused Documented by: Acetaminophen (Ofirmev) 650 mg in 65 mls @ 130 mls/hr IV Q6HP PRN PRN Reason: PAIN/FEVER > 101 Lactobacillus Rhamnosus (Culturelle) 1 cap PO BID [facility] Last Admin: 07/17/18 20:41 Dose: 1 cap Documented by: Lactulose (Cephulac) 10 gm PO DAILYP PRN PRN Reason: Constipation Methocarbamol (Robaxin) 500 mg PO QID [facility] Last Admin: 07/17/18 20:41 Dose: 500 mg Documented by: Ondansetron HCl (Zofran) 4 mg IV Q4HP PRN PRN Reason: Nausea And Vomiting Last Admin: 07/17/18 07:46 Dose: 4 mg Documented by: Dolutegravir Sodium [Tivicay] 50 Mg Tablet 1 dose PO DAILY [facility] Last Admin: 07/17/18 09:12 Dose: 1 dose Documented by: Emtricitabine/Tenofov Alafenam [ Descovy 200-25 Mg] Tablet 1 dose PO DAILY [facility] Last Admin: 07/17/18 09:13 Dose: 1 dose Documented by: Memantine Hcl/Donepezil Hcl [ Namzaric 28 Mg-10 Mg Capsule 1 dose PO DAILY [facility] Last Admin: 07/17/18 09:14 Dose: 1 dose Documented by: Trospium Chloride [ Trospium Chloride Er ] 60 Mg Capsule 1 dose PO 1HRACB [facility] Last Admin: 07/18/18 07:35 Dose: 1 dose Documented by: Polyethylene Glycol (Miralax) 17 gm PO DAILYP PRN PRN Reason: Constipation Polyethylene Glycol/Electrolytes (Golytely) 4,000 ml PO PRN PRN PRN Reason: Constipation Potassium Chloride (Kdur) 40 meq PO UD PRN PRN Reason: Potssium is 3-3.5 Potassium Chloride (Kdur) 40 meq PO UD PRN PRN Reason: Potassium < 3 Pregabalin (Lyrica) 75 mg PO HS [facility] Last Admin: 07/17/18 20:41 Dose: 75 mg Documented by: Promethazine HCl (Phenergan) 12.5 mg RC QD-BID PRN PRN Reason: Nausea Senna (Senokot) 2 tab PO HSP PRN PRN Reason: Constipation Sodium Chloride (Saline Flush) 10 ml IV Q8 [facility] Last Admin: 07/18/18 05:09 Dose: 10 ml Documented by: Tamsulosin HCl (Flomax) 0.4 mg PO QDAY [facility] Last Admin: 07/17/18 09:09 Dose: 0.4 mg Documented by: Medical - PN: A/P - Time Spent With Patient Total time spent is greater than 50% in coordination of care (as documented) at patient's floor/unit and/or counseling patient: - Narrative A/P Narrative: A: *UTI(E. coli): -e. coli resistent to Amp/Fluoroquinolones/Bactrim *Sepsis: qSOFA with tachypnea/confusion, although I do not know what his baseline is given his underlying dementia. SIRS w/Source and MARIANNE. -still having intermittent fevers, leukocytosis resolved *AMS: superimposed on underlying dementia. 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 Elmore *History of CAD w/RCA stent last February: *Dementia: *DJD/Chr pain: *Hypothyroid: *Deconditioning/debility/poor functional status/contractures: Patient is wheelchair bound at baseline *HTN: on losartan/amlodipine/carvedilol at home P: -Zosyn -ID consult -HIV meds per ID, continued -wound care -cont home ASA/Plavix/Statin -hold ARB/CCB, hold BB, for low BP -probiotic -pt -ppx: heparin DNR Medical - PN: Qual - Stroke Symptom Onset Unknown: No - VTE Deep Vein Thrombosis/Pulmonary Embolism Present on Admission: No
[2018-07-18] MEDS: TAMSULOSIN 0.4 MG CAPSULE PO SCH (09:03)
[2018-07-18] MEDS: ATORVASTATIN 20 MG TABLET PO SCH (09:09)
[2018-07-18] MEDS: HEPARIN 5,000 UNIT/ML VIAL SQ SCH ×2 (09:13→20:20)
[2018-07-18] MEDS: DOCUSATE SODIUM 100 MG CAPSULE PO SCH ×2 (09:13→20:20)
[2018-07-18] MEDS: ASPIRIN 81 MG TAB.CHEW PO SCH (09:13)
[2018-07-18] MEDS: CLOPIDOGREL 75 MG TABLET PO SCH (09:13)
[2018-07-18] MEDS: LACTOBACILLUS 1 CAPSULE PO SCH ×2 (09:13→20:21)
[2018-07-18] MEDS: MEMANTINE HCL PO SCH (09:14)
[2018-07-18] MEDS: DONEPEZIL HCL PO SCH (09:14)
[2018-07-18] MEDS: HYDROmorphone 2 MG/ML VIAL IV PRN ×3 (09:15→23:23)
[2018-07-18] MEDS: ONDANSETRON 4 MG/2 ML VIAL IV PRN (09:21)
[2018-07-18] MEDS: METHOCARBAMOL 500 MG TABLET PO SCH ×4 (09:25→20:21)
[2018-07-18] MEDS: EMTRICITABINE PO SCH (09:29)
[2018-07-18] MEDS: TENOFOV ALAFENAM PO SCH (09:29)
[2018-07-18] MEDS: DRONABINOL 2.5 MG CAPSULE PO SCH ×2 (09:29→20:26)
[2018-07-18] MEDS: LACTATED RINGERS 500 ML IV SCH ×4 (09:41→19:21)
[2018-07-18] MEDS ORDERED: fentaNYL 50 MCG PATCH TD SCH (10:00)
[2018-07-18 12:53] LABS: Appearance,Urine CLEAR; Bacteria,Urine FEW /hpf (0); Bilirubin,Urine NEG (NEG); Color,Urine YELLOW; Glucose,Urine (UA) NEGATIVE (NEG); Leukocyte Esterase,Urine 75 /uL (NEG); Protein,Urine NEG (NEG); Specific Gravity,Urine 1.014 (1.000-1.035); Urine Blood NEG mg/dL (<0.03); Urine RBC 1 /hpf (0-1); Urine Squamous Epithelial Cell < 1 /hpf (0-4); Urine WBC 38 /hpf (0-4); Urobilinogen,Urine NEG (NEG)
[2018-07-18] MEDS ORDERED: LACTATED RINGERS 250 ML IV ONE (16:19)
[2018-07-18] MEDS ORDERED: MIDODRINE 5 MG TABLET PO ONE ×2 (17:57→18:22)
[2018-07-18] MEDS ORDERED: POTASSIUM CHLORIDE 40 MEQ in DEXTROSE 5% IN WATER 500 ML IV PRN (18:22)
[2018-07-18] MEDS ORDERED: ACETAMINOPHEN 650 MG/65 ML BOTTLE IV PRN (18:22)
[2018-07-18] MEDS ORDERED: IPRATROPIUM/ALBUTEROL 3 ML AMPUL.NEB NEB PRN (18:22)
[2018-07-18] MEDS ORDERED: MAGNESIUM SULFATE 2 GM/50 ML BAG IV PRN (18:22)
[2018-07-18] MEDS ORDERED: POTASSIUM CHLORIDE 20 MEQ TABLET PO PRN ×2 (18:22)
[2018-07-18] MEDS ORDERED: ACETAMINOPHEN 325 MG TABLET PO PRN (18:22)
[2018-07-18] MEDS ORDERED: SENNOSIDES 1 TABLET PO PRN (18:22)
[2018-07-18] MEDS ORDERED: LACTULOSE 20 GM/30 ML ORAL.SOL PO PRN (18:22)
[2018-07-18] MEDS ORDERED: PROMETHAZINE HCL 25 MG SUPP.RECT RC PRN (18:22)
[2018-07-18] MEDS ORDERED: ONDANSETRON 4 MG/2 ML VIAL IV PRN (18:22)
[2018-07-18] MEDS ORDERED: PEG 3350/NA SULF,BICARB,CL/KCL 4,000 ML ORAL.SOL PO PRN (18:22)
[2018-07-18] MEDS ORDERED: ALBUMIN HUMAN 12.5 GM/50 ML BAG IV ONE (19:54)
[2018-07-18 20:15] LABS: Cortisol,AM 3.5 ug/dl (6.2-19.4)
[2018-07-18] MEDS: PREGABALIN 75 MG CAPSULE PO SCH (20:20)
[2018-07-18] MEDS ORDERED: COSYNTROPIN 0.25 MG VIAL IV ONE (20:49)
[2018-07-18] MEDS: HYDROCORTISONE SOD SUCC 100 MG VIAL IV SCH (22:57)
[2018-07-18] MEDS: HYDROcodone/APAP 10/325MG TABLET PO PRN (23:05)
[2018-07-19] MEDS: 0.9 % SODIUM CHLORIDE 10 ML SYRINGE IV SCH ×3 (05:00→21:02)
[2018-07-19] MEDS: HYDROCORTISONE SOD SUCC 100 MG VIAL IV SCH ×3 (05:00→21:02)
[2018-07-19] MEDS: PIPERACILLIN SODIUM/TAZOBACTAM 3.375 GM in DEXTROSE 5% IN WATER 50 ML IV SCH ×2 (05:01→12:22)
[2018-07-19 05:55] LABS: ALT/SGPT 6 U/l (0-40); Albumin 2.7 gm/dL (3.2-5.2); Albumin/Globulin Ratio 0.9 (1.0-2.3); Alkaline Phosphatase 60 U/L (39-117); Bilirubin,Direct < 0.2 mg/dL (0.0-0.3); Blood Urea Nitrogen 23 mg/dl (8-23); Gamma Glutamyl Transpeptidase 12 U/L (8-61); Uric Acid 4.7 mg/dL (2.5-8.0)
--- NOTE | 2018-07-19 06:33 | Internal Med Progress Note ---
Medical - PN: Subj Patient information: Note initiated : 07/19/18 at 6:30 am Service Date, if different from initiated Date: [] Patient: Taz Parra 73 y/o M admitted on 07/16/18 for Chest pain. Chief Complaint: [] Interval history: Mr. Parra is a 73 year old M who presents to the ED with what is reported to be chest pain, However the patient denies chest pain when I evaluated him. Per old notes he does have a history of dementia. He was last admitted in March for sepsis felt to be biliary related, he is not a surgical candidate, in fact had a cardiac ischemic event during induction for surgery, developing hypotension and a subsequent tachycardia with a bump in his troponin. Patient was transferred over to [facility] for a few days no surgery or cardiac interventions undertaken. Per the notes patient complained of chest pain for the hour previous to his visit as well as nausea. Sounds like his chest pain was somewhat diffuse. He was noted to be febrile with a temperature of 102.7. He was noted to have chronic wounds of left heel which she was to see wound care today and per friend who brought him inside the wounds were improving. Patient denies any chest pains to me but complains of left heel pain and told me that is the reason why he came in. Denies any recent illness. No shortness of breath or coughing. He is wheelchair-bound and is able to transfer from bed to wheelchair but not able to ambulate even with a walker. In the ED he had a chest x-ray which was unremarkable. He was noted to have leukocytosis and mild elevation in his creatinine. His lactate was okay. Troponin was unremarkable x2. Urinalysis showed nitrates leukocyte esterase, WBCs. He was tachycardic when he came in and tachypneic as well. 5/4 No issues overnight. Slept well. Partner brought in HIV medications last night. Urine growing gram-negative bacillus. /5 Slept on and off through night. No new complaints. Did have fever overnight. Has low blood pressure when he sleeps. Leukocytosis resolved. E. coli growing in urine. Still feels weak and tired. 5/6 Sitting at side of bed eating breakfast. Feeling better. Afebrile overnight. Blood pressures improved, Started hydrocortisone after endocrine labs indicative of adrenal insufficiency. No overnight events and patient improved with no new complaints other than cold syrup. Review of Systems: denies headache/fever/chills/nausea/vomiting/chest or abdominal pain/cough/dyspnea/diarrhea. Otherwise see above. - Constitutional Vitals: Vital Signs Temp Pulse Resp BP Pulse Ox 98.6 F 76 9 L 113/68 96 07/19/18 04:00 07/19/18 00:13 07/19/18 05:31 07/19/18 05:00 07/19/18 05:49 Period Temp Pulse Resp BP Sys/Celis Pulse Ox Last 24 Hr 98.4 F-99.7 F 76-82 8-16 60-119/42-82 93-98 Intake and Output 07/18/18 07/19/18 07/19/18 21:59 05:59 13:59 Intake Total 1710 150 Output Total 400 651 Balance 1310 -501 Weight 59.92 kg Intake & Output: Intake & Output 07/18/18 07/19/18 07/19/18 21:59 05:59 13:59 Intake Total 1710 150 Output Total 400 651 Balance 1310 -501 Weight 59.92 kg Intake: IV 1350 100 Lactated Ringers 500 ml @ 75 800 mls/hr IV .Q6H40M JULIA Rx#: [id number] Zosyn 3.375 gm In Dextrose 5% 50 50 in Water 50 ml @ 100 mls/hr IV Q6H JULIA Rx#:[id number] Oral 360 50 Output: Void Amount 400 650 # of times incontinent of urine 1 Other: Meal Dinner Percent of Meal Consumed 90 Urine Appearance Clear Clear Urine Color Straw Straw # Bowel Movements 0 Exam: General: Awake, No acute Distress Eyes/N/T: EOMI, , Head/Neck: neck supple, CV: RRR, No murmurs, Pulm: Clear b/l, no wheezing/rhonchi/rales Abd: soft, nontender, +BS x4, protuberant Ext: no clubbing/cyanosis/edema, chronic wound left heel and left hip. Neuro: Alert and oriented, no focal deficits, Skin: warm/dry Medical - PN: Obj Da - Labs CBC & Chem 7: 07/18/18 04:05 07/19/18 04:10 Labs: Abnormal Lab Results 0507/19/18 07/18/18 04:10 04:10 11:30 WBC RBC Hgb Hct RDW Gran % Lymph % (Auto) Gran # Lymph # (Auto) [place] # (Auto) Potassium 5.6 H Chloride Carbon Dioxide 19 L BUN Creatinine 1.4 H Glucose 152 H Calcium 8.3 L Magnesium Total Protein 5.7 L Albumin 2.7 L Albumin/Globulin Ratio 0.9 L Cortisol AM Sample 51.2 H Urine Ketones Urine Occult Blood Urine Nitrate Ur Leukocyte Esterase 75 A Urine RBC Urine WBC 38 H Urine Bacteria Few A 07/18/18 07/18/18 07/18/18 04:05 03:50 03:50 WBC RBC 2.73 L Hgb 8.1 L Hct 25.5 L RDW 16.5 H Gran % Lymph % (Auto) 14.5 L Gran # Lymph # (Auto) 1.4 L [place] # (Auto) Potassium Chloride Carbon Dioxide 20 L BUN 24 H Creatinine 1.5 H Glucose Calcium 8.2 L Magnesium Total Protein 5.2 L Albumin 2.4 L Albumin/Globulin Ratio 0.9 L Cortisol AM Sample 3.5 L Urine Ketones Urine Occult Blood Urine Nitrate Ur Leukocyte Esterase Urine RBC Urine WBC Urine Bacteria 07/17/18 07/17/18 07/16/18 04:20 04:20 11:45 WBC 15.9 H RBC 2.94 L Hgb 8.8 L Hct 27.5 L RDW 16.3 H Gran % 83.6 H Lymph % (Auto) 9.0 L Gran # 13.3 H Lymph # (Auto) 1.4 L [place] # (Auto) 1.0 H Potassium Chloride 111 H Carbon Dioxide 19 L BUN Creatinine Glucose 62 L Calcium 8.0 L Magnesium 1.5 L Total Protein 5.4 L Albumin 2.7 L Albumin/Globulin Ratio Cortisol AM Sample Urine Ketones 5/tr A Urine Occult Blood 0.03 A Urine Nitrate Pos A Ur Leukocyte Esterase 250 A Urine RBC 21 H Urine WBC 146 H Urine Bacteria Mod A 07/16/18 07/16/18 09:39 09:39 WBC 17.3 H RBC 3.67 L Hgb 11.1 L Hct 33.6 L RDW 16.7 H Gran % 84.8 H Lymph % (Auto) 8.0 L Gran # 14.7 H Lymph # (Auto) 1.4 L [place] # (Auto) 1.0 H Potassium Chloride Carbon Dioxide 19 L BUN 24 H Creatinine 1.3 H Glucose Calcium Magnesium Total Protein Albumin Albumin/Globulin Ratio Cortisol AM Sample Urine Ketones Urine Occult Blood Urine Nitrate Ur Leukocyte Esterase Urine RBC Urine WBC Urine Bacteria Meds: Medications Acetaminophen (Tylenol) 650 mg PO Q4-6HP PRN PRN Reason: PAIN/FEVER > 101 Hydrocodone Bitart/Acetaminophen ([place] 10/325mg) 0 tab PO Q4-6HP PRN PRN Reason: Pain Last Admin: 07/18/18 23:05 Dose: 2 tab Documented by: Albuterol/Ipratropium (Duoneb) 3 ml NEB Q4HP PRN PRN Reason: Shortness Of Breath Aspirin (Aspirin) 81 mg PO DAILY [facility] Atorvastatin Calcium (Lipitor) 80 mg PO DAILY [facility] Clopidogrel Bisulfate (Plavix) 75 mg PO DAILY [facility] Docusate Sodium (Colace) 100 mg PO BID [facility] Last Admin: 07/18/18 20:20 Dose: 100 mg Documented by: Dronabinol (Marinol) 5 mg PO BID [facility] Last Admin: 07/18/18 20:26 Dose: 5 mg Documented by: Fentanyl (Duragesic) 50 mcg TD Q72H [facility] Heparin Sodium (Porcine) (Heparin) 5,000 unit SQ Q12 [facility] Last Admin: 07/18/18 20:20 Dose: 5,000 unit Documented by: Hydrocortisone Sodium Succinate (Solu-Cortef) 100 mg IV Q8 [facility] Last Admin: 07/19/18 05:00 Dose: 100 mg Documented by: Hydromorphone HCl (Dilaudid) 0.5 mg IV Q2HP PRN PRN Reason: PAIN LEVEL > 6 Last Admin: 07/18/18 23:23 Dose: 0.5 mg Documented by: Potassium Chloride 40 meq/ (Dextrose) 520 mls @ 130 mls/hr IV UD PRN PRN Reason: Potassium < 3 Magnesium Sulfate (Magnesium Sulfate) 2 gm in 50 mls @ 50 mls/hr IV UD PRN PRN Reason: Magnesium </= 1.6 Acetaminophen (Ofirmev) 650 mg in 65 mls @ 130 mls/hr IV Q6HP PRN PRN Reason: PAIN/FEVER > 101 Piperacillin Sod/Tazobactam (Sod 3.375 gm/ Dextrose) 50 mls @ 100 mls/hr IV Q6H [facility]; Protocol Last Admin: 07/19/18 05:01 Dose: 100 mls/hr Documented by: Lactobacillus Rhamnosus (Culturelle) 1 cap PO BID [facility] Last Admin: 07/18/18 20:21 Dose: 1 cap Documented by: Lactulose (Cephulac) 10 gm PO DAILYP PRN PRN Reason: Constipation Methocarbamol (Robaxin) 500 mg PO QID [facility] Last Admin: 07/18/18 20:21 Dose: 500 mg Documented by: Ondansetron HCl (Zofran) 4 mg IV Q4HP PRN PRN Reason: Nausea And Vomiting Dolutegravir Sodium (Tivicay) 50 Mg Tablet 1 dose PO DAILY [facility] Emtricitabine/Tenofov Alafenam ( [place] 200-25mg) Tablet 1 dose PO DAILY [facility] Memantine Hcl/Donepezil Hcl ( Namzaric 28 Mg-10 Mg ] Capsule 1 dose PO DAILY [facility] Trospium Chloride Er (60 Mg Capsule) 1 dose PO 1HRACB [facility] Polyethylene Glycol (Miralax) 17 gm PO DAILYP PRN PRN Reason: Constipation Polyethylene Glycol/Electrolytes (Golytely) 4,000 ml PO PRN PRN PRN Reason: Constipation Potassium Chloride (Kdur) 40 meq PO UD PRN PRN Reason: Potssium is 3-3.5 Potassium Chloride (Kdur) 40 meq PO UD PRN PRN Reason: Potassium < 3 Pregabalin (Lyrica) 75 mg PO HS [facility] Last Admin: 07/18/18 20:20 Dose: 75 mg Documented by: Promethazine HCl (Phenergan) 12.5 mg RC QD-BID PRN PRN Reason: Nausea Senna (Senokot) 2 tab PO HSP PRN PRN Reason: Constipation Last Admin: 07/18/18 20:21 Dose: 2 tab Documented by: Sodium Chloride (Saline Flush) 10 ml IV Q8 [facility] Last Admin: 07/19/18 05:00 Dose: 10 ml Documented by: Tamsulosin HCl (Flomax) 0.4 mg PO QDAY [facility] Medical - PN: A/P - Time Spent With Patient Total time spent is greater than 50% in coordination of care (as documented) at patient's floor/unit and/or counseling patient: - Narrative A/P Narrative: A: *UTI(E. coli): -e. coli resistent to Amp/Fluoroquinolones/Bactrim *Sepsis: qSOFA with tachypnea/confusion, although I do not know what his baseline is given his underlying dementia. SIRS w/Source and MARIANNE. -Afebrile last night, leukocytosis resolved *Adrenal Insufficiency, Primary vs secondary / Crisis: ?related HIV vs other -suboptimal response from ACTH Stimulation test test *Hypotension: 2/2 above, improved *AMS: superimposed on underlying dementia. Appears at baseline *MARIANNE on CKD II: improved, *?Chest pain ROAD BOSS: denies, trop neg x2 *HIV: Follows with Dr. Elmore *History of CAD w/RCA stent last February: *Dementia: *DJD/Chr pain: *?h/o Hypothyroid: mentioned in old chart, but do not see any h/o levothyroxine given. tsh pending *Deconditioning/debility/poor functional status/contractures: Patient is wheelchair bound at baseline *HTN: on losartan/amlodipine/carvedilol at home -has been hypotensive or low P: -Zosyn -ID following -HIV meds per ID, continued -wound care -Hydrocortisone 100q8h today then will start tapering -pending endocrine labs including autoimmune, then may need further imaging; a recent CT abd showed unremarkable adrenals -cont home ASA/Plavix/Statin -hold ARB/CCB, hold BB, for low BP -probiotic -pt -ppx: heparin DNR Medical - PN: Qual - Stroke Symptom Onset Unknown: No - VTE Deep Vein Thrombosis/Pulmonary Embolism Present on Admission: No
[2018-07-19] MEDS: ASPIRIN 81 MG TAB.CHEW PO SCH (07:11)
[2018-07-19] MEDS: METHOCARBAMOL 500 MG TABLET PO SCH ×4 (07:11→20:32)
[2018-07-19] MEDS: TROSPIUM CHLORIDE 60 MG PO SCH ×2 (07:12→10:00)
[2018-07-19] MEDS: DOCUSATE SODIUM 100 MG CAPSULE PO SCH ×2 (07:15→20:32)
[2018-07-19] MEDS: TAMSULOSIN 0.4 MG CAPSULE PO SCH (07:15)
[2018-07-19] MEDS: LACTOBACILLUS 1 CAPSULE PO SCH ×2 (07:40→20:32)
[2018-07-19 09:30] LABS: Blood Urea Nitrogen 21 mg/dl (8-23)
[2018-07-19] MEDS: HEPARIN 5,000 UNIT/ML VIAL SQ SCH ×2 (09:35→20:33)
[2018-07-19] MEDS: CLOPIDOGREL 75 MG TABLET PO SCH (09:37)
[2018-07-19] MEDS: ATORVASTATIN 20 MG TABLET PO SCH (09:42)
[2018-07-19] MEDS: TENOFOV ALAFENAM PO SCH (09:55)
[2018-07-19] MEDS: DRONABINOL 2.5 MG CAPSULE PO SCH (09:55)
[2018-07-19] MEDS: EMTRICITABINE PO SCH (09:55)
[2018-07-19] MEDS: MEMANTINE HCL PO SCH (09:56)
[2018-07-19] MEDS: DOLUTEGRAVIR SODIUM 50 MG PO SCH (09:56)
[2018-07-19] MEDS: DONEPEZIL HCL PO SCH (09:56)
[2018-07-19] MEDS: INSULIN LISPRO 1 UNIT/0.01 ML UNIT SQ SCH ×3 (11:46→21:02)
[2018-07-19] MEDS: CADEXOMER IODINE TOPICAL SCH (12:30)
--- NOTE | 2018-07-19 13:54 | Infectious Disease Consult ---
History of Present Illness Patient information: Note initiated : 07/19/18 at 1:44 pm Service Date, if different from initiated Date: [] Patient: Taz Parra 73 y/o M admitted on 07/16/18 for Chest pain. Chief Complaint: [] Consult date: 07/19/18 Requesting Physician: Otto Mccabe Reason for Consult: E. coli urinary tract infection Chief complaint: I had fever and burning while urination History of present illness: 73 year old and well-known to the from his follow-up infectious disease clinic for HIV. Is admitted to [facility] on 07/16/18 who presents to the ED with complaints of chest pain for the hour previous to his visit as well as nausea. Patient also reported burning while urination prior to admission for few days. In the ED his temperature was 102.7 F. Patient denied any flank pain, vomiting, diarrhea. In the ED, his WBC was 17.3 with 84% neutrophils, creatinine 1.3, UA with positive nitrate and leukocyte esterase, venous blood lactate of 1.3. He had a chest x-ray which was unremarkable. Troponin was unremarkable x2. He received a dose of levofloxacin and was admitted. I was contacted over the phone on the weekend by Dr. Mccabe and plan was to start him on IV Zosyn. His urine cultures sent admission came back positive for E. coli [resistance to fluoroquinolones, Bactrim, sensitive to Zosyn, cephalosporins, nitrofurantoin]. At the time of visit today, patient reports feeling better. He has been afebrile for more than 24 hours. Denied any burning with urination. Is taking his HIV medications without missing any doses. Denies any flank pain, nausea, vomiting, diarrhea. Review of Systems All systems PM: reviewed and no additional remarkable complaints except as stated Past History Past medical history: HIV: On once daily descovy and Tivicay, and follow-up with me Past social history: Lives along with his friend [Quin[place]] in [place] Medications and Allergies Home Medications Medication Instructions Recorded Confirmed Type aspirin 81 mg tablet,delayed 81 mg PO QDAY 08/20/16 07/16/18 History release HYDROcodone/APAP 10/325MG [[place] 1 - 2 tablet PO Q4-6HP PRN 12/07/17 07/16/18 History 10-325Mg] ketorolac 0.5 % eye drops 1 drp OPHTHALMIC Q8H PRN 12/15/17 07/16/18 History testosterone cypionate 200 mg/mL 400 mg IM Q28D ml 12/15/17 07/17/18 History intramuscular oil fentanyl 50 mcg/hr transdermal 50 mcg TRANSDERMA Q72H 03/23/18 07/17/18 History patch Carvedilol [Coreg] 12.5 mg PO BID 04/04/18 07/16/18 History Wheelchair #1 ea 04/07/18 07/13/18 Rx Ferrous Sulfate [Iron] 325 mg PO HS 04/08/18 07/16/18 History Pregabalin [Lyrica] 75 mg PO HS 04/08/18 07/16/18 History Rosuvastatin Calcium 40 mg PO DAILY 04/08/18 07/16/18 History Clopidogrel Bisulfate [Plavix] 75 mg PO DAILY #30 tab 04/09/18 07/16/18 Rx losartan 50 mg tablet 50 mg PO QDAY #90 tab 05/05/18 07/16/18 Rx amlodipine 2.5 mg tablet 2.5 mg PO QDAY #90 tab 05/19/18 07/16/18 Rx Promethazine HCl 12.5 mg RC QD-BID PRN #20 supp.rect 06/05/18 07/17/18 Rx dextroamphetamine-amphetamine 20 20 mg PO BID #60 tab 06/08/18 07/17/18 Rx mg tablet dronabinol 5 mg capsule 5 mg PO BID #60 cap 06/22/18 07/16/18 Rx methocarbamol 500 mg tablet 500 mg PO QID 06/22/18 07/17/18 History tamsulosin 0.4 mg capsule 0.4 mg PO QDAY #90 cap 06/22/18 07/16/18 Rx trospium ER 60 mg capsule,extended 60 mg PO QAM #90 cap 06/22/18 07/16/18 Rx release 24 hr ondansetron 4 mg disintegrating 4 mg PO Q4-6HP PRN #20 tab 06/29/18 07/16/18 Rx tablet oxandrolone 2.5 mg tablet 1 tablet PO Q12H #60 tab 06/29/18 07/17/18 History Dolutegravir Sodium [Tivicay] 50 mg PO DAILY 07/16/18 07/16/18 History Emtricitabine/Tenofov Alafenam 1 tab PO DAILY 07/16/18 07/16/18 History [Descovy 200-25 mg Tablet] Memantine HCl/Donepezil HCl 1 each PO DAILY 07/16/18 07/16/18 History [Namzaric 28 mg-10 mg Capsule] Peg 3350/Na Sulf,Bicarb,Cl/KCl 4,000 ml PO PRN PRN 07/16/18 07/17/18 History [Gavilyte-C Solution] Allergies Allergy/AdvReac Type Severity Reaction Status Date / Time codeine AdvReac Mild Itching Verified 07/16/18 09:28 Physical Examination Vital signs: Temp Pulse Resp BP Pulse Ox 37.1 C 86 18 123/74 98 07/19/18 12:52 07/19/18 09:01 07/19/18 12:01 07/19/18 12:52 07/19/18 12:01 General appearance: no acute distress Eyes pulmonary: nonicteric Auscultation: bilateral: clear Cardiovascular: other (S1, S2 normal, no murmurs) Gastrointestinal: normoactive bowel sounds, other (Distended, nontender, has small umbilical hernia) Extremities: no edema, other (Has a superficial ulcer over the right hip with no active drainage. Has some dry sores over the right foot heel) Results - Laboratory Findings CBC and BMP: 07/18/18 04:05 07/19/18 08:03 Abnormal lab findings: Abnormal Labs 07/16/18 07/16/18 07/16/18 09:39 09:39 11:45 WBC 17.3 H RBC 3.67 L Hgb 11.1 L Hct 33.6 L RDW 16.7 H Gran % 84.8 H Lymph % (Auto) 8.0 L Gran # 14.7 H Lymph # (Auto) 1.4 L [place] # (Auto) 1.0 H Potassium Chloride Carbon Dioxide 19 L BUN 24 H Creatinine 1.3 H Glucose Calcium Magnesium Total Protein Albumin Albumin/Globulin Ratio Cortisol AM Sample Urine Ketones 5/tr A Urine Occult Blood 0.03 A Urine Nitrate Pos A Ur Leukocyte Esterase 250 A Urine RBC 21 H Urine WBC 146 H Urine Bacteria Mod A 05/04/19 05/04/19 05/05/19 04:20 04:20 03:50 WBC 15.9 H RBC 2.94 L Hgb 8.8 L Hct 27.5 L RDW 16.3 H Gran % 83.6 H Lymph % (Auto) 9.0 L Gran # 13.3 H Lymph # (Auto) 1.4 L [place] # (Auto) 1.0 H Potassium Chloride 111 H Carbon Dioxide 19 L 20 L BUN 24 H Creatinine 1.5 H Glucose 62 L Calcium 8.0 L 8.2 L Magnesium 1.5 L Total Protein 5.4 L 5.2 L Albumin 2.7 L 2.4 L Albumin/Globulin Ratio 0.9 L Cortisol AM Sample Urine Ketones Urine Occult Blood Urine Nitrate Ur Leukocyte Esterase Urine RBC Urine WBC Urine Bacteria 07/18/18 07/18/18 07/18/18 03:50 04:05 11:30 WBC RBC 2.73 L Hgb 8.1 L Hct 25.5 L RDW 16.5 H Gran % Lymph % (Auto) 14.5 L Gran # Lymph # (Auto) 1.4 L [place] # (Auto) Potassium Chloride Carbon Dioxide BUN Creatinine Glucose Calcium Magnesium Total Protein Albumin Albumin/Globulin Ratio Cortisol AM Sample 3.5 L Urine Ketones Urine Occult Blood Urine Nitrate Ur Leukocyte Esterase 75 A Urine RBC Urine WBC 38 H Urine Bacteria Few A 07/19/18 07/19/18 07/19/18 04:10 04:10 08:03 WBC RBC Hgb Hct RDW Gran % Lymph % (Auto) Gran # Lymph # (Auto) [place] # (Auto) Potassium 5.6 H 5.3 H Chloride Carbon Dioxide 19 L BUN Creatinine 1.4 H 1.4 H Glucose 152 H 173 H Calcium 8.3 L Magnesium Total Protein 5.7 L Albumin 2.7 L Albumin/Globulin Ratio 0.9 L Cortisol AM Sample 51.2 H Urine Ketones Urine Occult Blood Urine Nitrate Ur Leukocyte Esterase Urine RBC Urine WBC Urine Bacteria Microbiology: Microbiology 07/18/18 11:30 Urine - Clean Void Mid-Stream Urine Culture - Preliminary 07/16/18 09:51 Blood Blood Culture - Preliminary 07/16/18 10:00 Blood Blood Culture - Preliminary 07/16/18 12:56 Urine - Clean Void Mid-Stream Urine Culture - Final Escherichia coli 07/16/18 17:22 Nose MRSA (PCR) - Final Assessment and Plan - Narrative A/P Narrative: Assessment: 1. E. coli UTI with sepsis [sofa score of 6 resuming PaO2/FiO2 of 500] Resolving No bacteremia Given history of acute interstitial cystitis with cephalosporins in the past and resistance to fluoroquinolones and Bactrim, will continue with Zosyn 2. Chronic HIV infection: In follow-up with myself last HIV viral load was 24, CD4 count of 633 in 01/18/18 3. CKD: Cr 1.4, CRCL per formulla is 39 ml/min Recommendations: We will order an ultrasound of both kidneys to rule out any fluid collecti on/pyelonephritis. If ultrasound suggests kidney infection, patient would need to be on IV antibiotics for 7 days at least as the other oral options such as fluoroquinolones or resistant Patient counseled to drink adequate fluids [around 1.2 to 1.5 L daily] Continue IV Zosyn. Change dosing to 2.25 gm q6 hrs for now, day 4 out of 7 Continue once daily oral descovy and Tivicay for HIV Will follow Rolly Elmore MD Infectious disease
[2018-07-19] MEDS: POLYETHYLENE GLYCOL 3350 17 GM PACKET PO PRN (14:52)
[2018-07-19] MEDS: PIPERACILLIN SODIUM/TAZOBACTAM 2.25 GM in DEXTROSE 5% IN WATER 50 ML IV SCH ×2 (17:52→23:25)
--- NOTE | 2018-07-19 17:58 | Ultrasound Report ---
CLINICAL INFORMATION: Sepsis TECHNIQUE: Grayscale and color flow Doppler spectral imaging COMPARISON: Previous CT scan dated 05/31/2018 FINDINGS: Right kidney measures 10.4 x 4.5 x 3.8 cm. Right renal cortex is atrophic. Right renal contour is irregular. Appearance suggests previous renal infarctions. There are 2 benign cysts. Largest cyst is midpole and measures 1.5 cm. There is no hydronephrosis. No pyelonephrosis. No obstructing or nonobstructing calculus identified. Left kidney measures 9.7 x 5.4 x 5.0 cm. Left renal parenchyma is thinned and irregular. There is no solid mass. There is echogenic left renal collecting system and medulla. No definite hydronephrosis. No detectable calculi. Echogenic parenchyma may indicate pyelonephritis. There is no evidence for renal abscess. There is no perinephric abnormality. Urinary bladder volume measures 140 mL. No bladder calculus. IMPRESSION: 1. Atrophic and irregular renal cortex bilaterally 2. No hydronephrosis or pyelonephrosis 3. Echogenic central parenchyma, especially on the left. Pyelonephritis is possible. Interpreted and Authenticated by: Harrison Mcallister 07/19/18
[2018-07-19] MEDS: HYDROmorphone 2 MG/ML VIAL IV PRN (18:40)
[2018-07-19] MEDS: HYDROcodone/APAP 10/325MG TABLET PO PRN (19:04)
[2018-07-19] MEDS: PREGABALIN 75 MG CAPSULE PO SCH (20:32)
[2018-07-19] MEDS: DRONABINOL 5 MG CAPSULE PO SCH (20:33)
[2018-07-20] MEDS: HYDROCORTISONE SOD SUCC 100 MG VIAL IV SCH ×3 (05:02→22:36)
[2018-07-20] MEDS: PIPERACILLIN SODIUM/TAZOBACTAM 2.25 GM in DEXTROSE 5% IN WATER 50 ML IV SCH ×2 (05:02→11:57)
[2018-07-20 06:14] LABS: Basophils # (Auto) 0 K/mcL (0.0-0.3); Basophils % (Auto) 0.2 % (0.0-2.0); Eosinophils # (Auto) 0 K/mcL (0.0-0.7); Eosinophils % (Auto) 0 % (0.0-7.0); Granulocytes % (Auto) 85.6 % (38.0-78.0); Lymphocytes # (Auto) 0.7 K/mcL (1.5-4.8); Lymphocytes % (Auto) 11.6 % (15.5-49.0); Mean Cell Volume 93.5 fL (80.0-100.0); Mean Corpuscular HGB Conc 31.3 g/dL (31.0-36.0); Monocytes # (Auto) 0.2 K/mcL (0.1-0.9); Monocytes % (Auto) 2.6 % (1.0-12.0); Platelet Count 212 K/mcL (140-440); RBC 2.91 M/mcL (4.50-5.90); Red Cell Distribution Width 16.1 % (11.5-14.5)
[2018-07-20 06:45] LABS: ALT/SGPT 5 U/l (0-40); Albumin 2.5 gm/dL (3.2-5.2); Albumin/Globulin Ratio 0.8 (1.0-2.3); Alkaline Phosphatase 56 U/L (39-117); Bilirubin,Direct < 0.2 mg/dL (0.0-0.3); Blood Urea Nitrogen 20 mg/dl (8-23); Gamma Glutamyl Transpeptidase 11 U/L (8-61); Uric Acid 3.9 mg/dL (2.5-8.0)
[2018-07-20] MEDS: ASPIRIN 81 MG TAB.CHEW PO SCH (07:23)
[2018-07-20] MEDS: LACTOBACILLUS 1 CAPSULE PO SCH ×2 (07:23→20:16)
[2018-07-20] MEDS: TAMSULOSIN 0.4 MG CAPSULE PO SCH (07:23)
[2018-07-20] MEDS: DOCUSATE SODIUM 100 MG CAPSULE PO SCH ×3 (07:24→20:26)
[2018-07-20] MEDS: TROSPIUM CHLORIDE 60 MG PO SCH (07:25)
[2018-07-20] MEDS: DRONABINOL 5 MG CAPSULE PO SCH ×2 (07:46→17:45)
[2018-07-20] MEDS: POLYETHYLENE GLYCOL 3350 17 GM PACKET PO PRN (08:14)
[2018-07-20] MEDS: INSULIN LISPRO 1 UNIT/0.01 ML UNIT SQ SCH ×3 (08:16→20:30)
[2018-07-20] MEDS: ATORVASTATIN 20 MG TABLET PO SCH (08:46)
[2018-07-20] MEDS: TENOFOV ALAFENAM PO SCH (09:00)
[2018-07-20] MEDS: MEMANTINE HCL PO SCH (09:00)
[2018-07-20] MEDS: EMTRICITABINE PO SCH (09:00)
[2018-07-20] MEDS: DONEPEZIL HCL PO SCH (09:00)
[2018-07-20] MEDS: DOLUTEGRAVIR SODIUM 50 MG PO SCH (09:00)
[2018-07-20] MEDS: CLOPIDOGREL 75 MG TABLET PO SCH (09:01)
[2018-07-20] MEDS: HEPARIN 5,000 UNIT/ML VIAL SQ SCH ×2 (09:02→20:15)
[2018-07-20] MEDS: METHOCARBAMOL 500 MG TABLET PO SCH ×4 (09:05→20:16)
[2018-07-20] MEDS: 0.9 % SODIUM CHLORIDE 10 ML SYRINGE IV SCH ×3 (09:24→22:37)
--- NOTE | 2018-07-20 10:41 | Internal Med Progress Note ---
Medical - PN: Subj Patient information: Note initiated : 07/20/18 at 10:38 am Service Date, if different from initiated Date: [] Patient: Taz Parra 73 y/o M admitted on 07/16/18 for Chest pain. Chief Complaint: [] Interval history: Mr. Parra is a 73 year old M who presents to the ED with what is reported to be chest pain, However the patient denies chest pain when I evaluated him. Per old notes he does have a history of dementia. He was last admitted in March for sepsis felt to be biliary related, he is not a surgical candidate, in fact had a cardiac ischemic event during induction for surgery, developing hypotension and a subsequent tachycardia with a bump in his troponin. Patient was transferred over to [facility] for a few days no surgery or cardiac interventions undertaken. Per the notes patient complained of chest pain for the hour previous to his visit as well as nausea. Sounds like his chest pain was somewhat diffuse. He was noted to be febrile with a temperature of 102.7. He was noted to have chronic wounds of left heel which she was to see wound care today and per friend who brought him inside the wounds were improving. Patient denies any chest pains to me but complains of left heel pain and told me that is the reason why he came in. Denies any recent illness. No shortness of breath or coughing. He is wheelchair-bound and is able to transfer from bed to wheelchair but not able to ambulate even with a walker. In the ED he had a chest x-ray which was unremarkable. He was noted to have leukocytosis and mild elevation in his creatinine. His lactate was okay. Troponin was unremarkable x2. Urinalysis showed nitrates leukocyte esterase, WB Cs. He was tachycardic when he came in and tachypneic as well. 5/4 No issues overnight. Slept well. Partner brought in HIV medications last night. Urine growing gram-negative bacillus. 5/5 Slept on and off through night. No new complaints. Did have fever overnight. Has low blood pressure when he sleeps. Leukocytosis resolved. E. coli growing in urine. Still feels weak and tired. 5/6 Sitting at side of bed eating breakfast. Feeling better. Afebrile overnight. Blood pressures improved, Started hydrocortisone after endocrine labs indicative of adrenal insufficiency. No overnight events and patient improved with no new complaints other than cold syrup. No overnight events. Continue antibiotic coverage as per ID recommendations for additional 48 hours. We'll get echo and CTA with contrast left ankle. 08/20- patient doing well. No overnight events. On antibiotic coverage as per ID specialist. Ongoing wound care. Dr. Seth recommends further imaging to rule out left heel osteomyelitis . No other concerns per staff. - Constitutional Vitals: Vital Signs Temp Pulse Resp BP Pulse Ox 99.1 F H 76 12 119/67 98 07/20/18 07:01 07/20/18 05:31 07/20/18 10:01 07/20/18 10:01 07/20/18 07:01 Period Temp Pulse Resp BP Sys/Celis Pulse Ox Last 24 Hr 98.6 F-99.6 F 76-98 12-18 103-138/59-89 95-100 Intake and Output 07/19/18 07/20/18 07/20/18 21:59 05:59 13:59 Intake Total 510 350 360 Output Total 775 400 Balance -265 -50 360 Weight 133 lb 6.4 oz Intake & Output: Intake & Output 07/19/18 07/20/18 07/20/18 21:59 05:59 13:59 Intake Total 510 350 360 Output Total 775 400 Balance -265 -50 360 Weight 133 lb 6.4 oz Intake: Nourishment/Supplement quantity 240 240 (ml) IV 50 100 Zosyn 2.25 gm In Dextrose 5% in 50 100 Water 50 ml @ 100 mls/hr IV Q6H [facility] Rx#:[id number] Oral 220 250 120 Output: Void Amount 775 400 Other: Meal Dinner Breakfast Percent of Meal Consumed 75% Feeding Ability Assist with Tray Set Up Nourishment/Supplement name Breeze breeze Stool Size Small Small Stool Color Brown Brown Stool Consistency Dry and Hard Dry and Hard Lori Lori # Bowel Movements 1 1 General appearance: cooperative Exam: Alert and oriented Nonlabored breathing No anxiety Left Heel ulcer Medical - PN: Obj Da - Labs CBC & Chem 7: 07/20/18 03:53 07/20/18 03:53 Labs: Abnormal Lab Results 07/20/18 07/20/18 07/19/18 03:53 03:53 08:03 RBC 2.91 L Hgb 8.5 L Hct 27.2 L RDW 16.1 H Gran % 85.6 H Lymph % (Auto) 11.6 L Lymph # (Auto) 0.7 L Potassium 5.3 H Carbon Dioxide 20 L BUN Creatinine 1.4 H Glucose 132 H 173 H Calcium 8.3 L Phosphorus 2.1 L Total Protein 5.5 L Albumin 2.5 L Albumin/Globulin Ratio 0.8 L Cortisol AM Sample Ur Leukocyte Esterase Urine WBC Urine Bacteria 07/19/18 07/19/18 07/18/18 04:10 04:10 11:30 RBC Hgb Hct RDW Gran % Lymph % (Auto) Lymph # (Auto) Potassium 5.6 H Carbon Dioxide 19 L BUN Creatinine 1.4 H Glucose 152 H Calcium 8.3 L Phosphorus Total Protein 5.7 L Albumin 2.7 L Albumin/Globulin Ratio 0.9 L Cortisol AM Sample 51.2 H Ur Leukocyte Esterase 75 A Urine WBC 38 H Urine Bacteria Few A 07/18/18 07/18/18 07/18/18 04:05 03:50 03:50 RBC 2.73 L Hgb 8.1 L Hct 25.5 L RDW 16.5 H Gran % Lymph % (Auto) 14.5 L Lymph # (Auto) 1.4 L Potassium Carbon Dioxide 20 L BUN 24 H Creatinine 1.5 H Glucose Calcium 8.2 L Phosphorus Total Protein 5.2 L Albumin 2.4 L Albumin/Globulin Ratio 0.9 L Cortisol AM Sample 3.5 L Ur Leukocyte Esterase Urine WBC Urine Bacteria Meds: Medications Acetaminophen (Tylenol) 650 mg PO Q4-6HP PRN PRN Reason: PAIN/FEVER > 101 Hydrocodone Bitart/Acetaminophen ([place]mo 10/325mg) 0 tab PO Q4-6HP PRN PRN Reason: Pain Last Admin: 07/19/18 19:04 Dose: 2 tab Documented by: Albuterol/Ipratropium (Duoneb) 3 ml NEB Q4HP PRN PRN Reason: Shortness Of Breath Aspirin (Aspirin) 81 mg PO DAILY [facility] Last Admin: 07/20/18 07:23 Dose: 81 mg Documented by: Atorvastatin Calcium (Lipitor) 80 mg PO DAILY [facility] Last Admin: 07/20/18 08:46 Dose: 80 mg Documented by: Cadexomer Iodine (Iodosorb) 1 gm TOPICAL DAILY [facility] Last Admin: 07/19/18 12:30 Dose: 1 gm Documented by: Clopidogrel Bisulfate (Plavix) 75 mg PO DAILY [facility] Last Admin: 07/20/18 09:01 Dose: 75 mg Documented by: Diagnostic Test (Pha) (Accu-Chek) 1 each FS ACHS [facility] Last Admin: 07/20/18 08:16 Dose: Not Given Documented by: Docusate Sodium (Colace) 100 mg PO BID [facility] Last Admin: 07/20/18 07:24 Dose: 100 mg Documented by: Fentanyl (Duragesic) 50 mcg TD Q72H [facility] Heparin Sodium (Porcine) (Heparin) 5,000 unit SQ Q12 [facility] Last Admin: 07/20/18 09:02 Dose: 5,000 unit Documented by: Hydrocortisone Sodium Succinate (Solu-Cortef) 100 mg IV Q8 [facility] Last Admin: 07/20/18 05:02 Dose: 100 mg Documented by: Hydromorphone HCl (Dilaudid) 0.5 mg IV Q2HP PRN PRN Reason: PAIN LEVEL > 6 Last Admin: 07/19/18 18:40 Dose: 0.5 mg Documented by: Potassium Chloride 40 meq/ (Dextrose) 520 mls @ 130 mls/hr IV UD PRN PRN Reason: Potassium < 3 Magnesium Sulfate (Magnesium Sulfate) 2 gm in 50 mls @ 50 mls/hr IV UD PRN PRN Reason: Magnesium </= 1.6 Acetaminophen (Ofirmev) 650 mg in 65 mls @ 130 mls/hr IV Q6HP PRN PRN Reason: PAIN/FEVER > 101 Piperacillin Sod/Tazobactam (Sod 2.25 gm/ Dextrose) 50 mls @ 100 mls/hr IV Q6H [facility]; Protocol Last Infusion: 07/20/18 05:35 Dose: Infused Documented by: Insulin Human Lispro (Humalog) 0 unit SQ [facility]; Protocol Last Admin: 07/20/18 08:16 Dose: Not Given Documented by: Lactobacillus Rhamnosus (Culturelle) 1 cap PO BID [facility] Last Admin: 07/20/18 07:23 Dose: 1 cap Documented by: Lactulose (Cephulac) 10 gm PO DAILYP PRN PRN Reason: Constipation Last Admin: 07/19/18 07:48 Dose: 10 gm Documented by: Methocarbamol (Robaxin) 500 mg PO QID [facility] Last Admin: 07/20/18 09:05 Dose: 500 mg Documented by: Ondansetron HCl (Zofran) 4 mg IV Q4HP PRN PRN Reason: Nausea And Vomiting Dolutegravir Sodium (Tivicay) 50 Mg Tablet 1 dose PO DAILY [facility] Last Admin: 07/20/18 09:00 Dose: 1 dose Documented by: Emtricitabine/Tenofov Alafenam ( Descovy 200-25mg) Tablet 1 dose PO DAILY [facility] Last Admin: 07/20/18 09:00 Dose: 1 dose Documented by: Memantine Hcl/Donepezil Hcl ( Namzaric 28 Mg-10 Mg ] Capsule 1 dose PO DAILY [facility] Last Admin: 07/20/18 09:00 Dose: 1 dose Documented by: Trospium Chloride Er (60 Mg Capsule) 1 dose PO 1HRACB [facility] Last Admin: 07/20/18 07:25 Dose: 1 dose Documented by: Dronabinol 5 Mg (Capsule) 1 dose PO BID [facility] Last Admin: 07/20/18 07:46 Dose: 1 dose Documented by: Polyethylene Glycol (Miralax) 17 gm PO DAILYP PRN PRN Reason: Constipation Last Admin: 07/20/18 08:14 Dose: 17 gm Documented by: Polyethylene Glycol/Electrolytes (Golytely) 4,000 ml PO PRN PRN PRN Reason: Constipation Potassium Chloride (Kdur) 40 meq PO UD PRN PRN Reason: Potssium is 3-3.5 Potassium Chloride (Kdur) 40 meq PO UD PRN PRN Reason: Potassium < 3 Pregabalin (Lyrica) 75 mg PO HS [facility] Last Admin: 07/19/18 20:32 Dose: 75 mg Documented by: Promethazine HCl (Phenergan) 12.5 mg RC QD-BID PRN PRN Reason: Nausea Senna (Senokot) 2 tab PO HSP PRN PRN Reason: Constipation Last Admin: 07/18/18 20:21 Dose: 2 tab Documented by: Sodium Chloride (Saline Flush) 10 ml IV Q8 [facility] Last Admin: 07/20/18 09:24 Dose: 10 ml Documented by: Tamsulosin HCl (Flomax) 0.4 mg PO QDAY [facility] Last Admin: 07/20/18 07:23 Dose: 0.4 mg Documented by: Medical - PN: A/P - Time Spent With Patient Total time spent is greater than 50% in coordination of care (as documented) at patient's floor/unit and/or counseling patient: 25 - 35 minutes (1) UTI (urinary tract infection) Status: Acute Assessment and plan: * MDR Escherichia coli UTI-on antibiotic coverage per ID * Sepsis secondary to above continuing to improve * Adrenal insufficiency on hydrocortisone status post ACTH stim test. Likely NSAID related * Underlying dementia with mild AMS now at baseline * Acute and chronic kidney disease-secondary to sepsis clinically improved now at baseline * History of HIV in good control managed by ID specialist * History of hypertension-on home medications * Left heel ulceration managed by wound care. loan documentation specialist recommends further imaging to rule out osteomyelitis * Deconditioning with wheelchair-bound at baseline * Full code Plan * Antibiotic coverage as per ID * Wound care management as per maintenance specialist * Existing medical condition management as above * PT OT/nutrition support * Discharge planning Current Visit: Yes Medical - PN: Qual - Stroke Symptom Onset Unknown: No - VTE Deep Vein Thrombosis/Pulmonary Embolism Present on Admission: No
[2018-07-20] MEDS: CADEXOMER IODINE TOPICAL SCH (11:59)
[2018-07-20] MEDS ORDERED: MAGNESIUM SULFATE 2 GM/50 ML BAG IV PRN (12:36)
[2018-07-20] MEDS ORDERED: ACETAMINOPHEN 325 MG TABLET PO PRN (12:36)
[2018-07-20] MEDS ORDERED: POTASSIUM CHLORIDE 20 MEQ TABLET PO PRN ×2 (12:36)
[2018-07-20] MEDS ORDERED: IPRATROPIUM/ALBUTEROL 3 ML AMPUL.NEB NEB PRN (12:36)
[2018-07-20] MEDS ORDERED: PEG 3350/NA SULF,BICARB,CL/KCL 4,000 ML ORAL.SOL PO PRN (12:36)
[2018-07-20] MEDS ORDERED: HYDROmorphone 2 MG/ML VIAL IV PRN (12:36)
[2018-07-20] MEDS ORDERED: ONDANSETRON 4 MG/2 ML VIAL IV PRN (12:36)
[2018-07-20] MEDS ORDERED: POTASSIUM CHLORIDE 40 MEQ in DEXTROSE 5% IN WATER 500 ML IV PRN (12:36)
[2018-07-20] MEDS ORDERED: ACETAMINOPHEN 650 MG/65 ML BOTTLE IV PRN (12:36)
[2018-07-20] MEDS ORDERED: PROMETHAZINE HCL 25 MG SUPP.RECT RC PRN (12:36)
[2018-07-20] MEDS ORDERED: SENNOSIDES 1 TABLET PO PRN (12:36)
[2018-07-20] MEDS ORDERED: LACTULOSE 20 GM/30 ML ORAL.SOL PO PRN (12:36)
[2018-07-20] MEDS ORDERED: POLYETHYLENE GLYCOL 3350 17 GM PACKET PO PRN (12:36)
--- NOTE | 2018-07-20 15:32 | Cat Scan Report ---
CLINICAL INFORMATION: CT scan left leg and foot. Possible osteomyelitis TECHNIQUE: Axial images from the distal femur through the left foot COMPARISON: None. FINDINGS: Previous left total knee arthroplasty. Metallic hardware causes streak artifact There is soft tissue wasting within the left calf. There is very little muscular tissue. No soft tissue gas or radiopaque foreign body. No focal fluid collection. There is extensive atherosclerotic calcification consistent with diabetes. No evidence for soft tissue abscess. Left tibia and fibula are negative. There is no bone destruction. No evidence for osteomyelitis. There is no acute fracture. There is an apparent dressing overlying the calcaneal tuberosity. There is no soft tissue gas. There is no cortical destruction. No CT evidence for osteomyelitis. Patient has undergone previous surgery. The talus and calcaneus have apparently been fused. There is arthrodesis at the talonavicular joint and calcaneocuboid joint. No evidence for osteomyelitis. No acute cortical destruction. No fracture. No soft tissue gas bubbles or radiopaque foreign body. Bones appear diffusely demineralized consistent with osteopenia or osteoporosis IMPRESSION: 1. No cortical destruction or periosteal new bone formation. No evidence for osteomyelitis 2. No soft tissue gas or radiopaque foreign body 3. Findings consistent with generalized demineralization 4. No soft tissue abscess. There is vascular calcification consistent with atherosclerosis and diabetes Interpreted and Authenticated by: Harrison Mcallister 07/20/18
[2018-07-20] MEDS ORDERED: INSULIN LISPRO 1 UNIT/0.01 ML UNIT SQ SCH (17:00)
[2018-07-20] MEDS ORDERED: PIPERACILLIN SODIUM/TAZOBACTAM 2.25 GM in DEXTROSE 5% IN WATER 50 ML IV SCH (18:00)
--- NOTE | 2018-07-20 18:35 | General Surgery Consult Note ---
History of Present Illness Patient information: Note initiated : 07/20/18 at 6:34 pm Service Date, if different from initiated Date: [] Patient: Taz Parra 73 y/o M admitted on 07/16/18 for Chest pain. Chief Complaint: [] Consult date: 07/19/18 Requesting physician: Waqar Douglas (Left heel and lower leg ulcer ) History of present illness: 73/M I saw Mr. Parra along with Shirley RN in ICU 120/C . He presented to ER with chest pain and Fever. Evaluated and admitted to ICU with Fever, Leucocytosis and Urosepsis. He improved with supportive care and systemic intravenous antibiotics. This morning he was complaining of LEFT heel and lower posterior leg pain and swelling. Patient has dementia, HIV and multiple other co-morbid medical problems. He has undergone multiple wound related, debridement, exposed tendon excision, and toe amputation of left foot. Fore foot wounds and toe amputation site healed after a very long period of wound care and wound debridement/s. Patient has had a pressure ulcer of LEFT posterior heel at site of Achilles tendon insertion. He is now symptomatic with pain and swelling at this site. Medications and Allergies Home Medications Medication Instructions Recorded Confirmed Type aspirin 81 mg tablet,delayed 81 mg PO QDAY 08/20/16 07/16/18 History release HYDROcodone/APAP 10/325MG [[place] 1 - 2 tablet PO Q4-6HP PRN 12/07/17 07/16/18 History 10-325Mg] ketorolac 0.5 % eye drops 1 drp OPHTHALMIC Q8H PRN 12/15/17 07/16/18 History testosterone cypionate 200 mg/mL 400 mg IM Q28D ml 12/15/17 07/17/18 History intramuscular oil fentanyl 50 mcg/hr transdermal 50 mcg TRANSDERMA Q72H 03/23/18 07/17/18 History patch Carvedilol [Coreg] 12.5 mg PO BID 04/04/18 07/16/18 History Ferrous Sulfate [Iron] 325 mg PO HS 04/08/18 07/16/18 History Pregabalin [Lyrica] 75 mg PO HS 04/08/18 07/16/18 History Rosuvastatin Calcium 40 mg PO DAILY 04/08/18 07/16/18 History Clopidogrel Bisulfate [Plavix] 75 mg PO DAILY #30 tab 04/09/18 07/16/18 Rx losartan 50 mg tablet 50 mg PO QDAY #90 tab 05/05/18 07/16/18 Rx amlodipine 2.5 mg tablet 2.5 mg PO QDAY #90 tab 05/19/18 07/16/18 Rx Promethazine HCl 12.5 mg RC QD-BID PRN #20 supp.rect 06/05/18 07/17/18 Rx dextroamphetamine-amphetamine 20 20 mg PO BID #60 tab 06/08/18 07/17/18 Rx mg tablet dronabinol 5 mg capsule 5 mg PO BID #60 cap 06/22/18 07/16/18 Rx methocarbamol 500 mg tablet 500 mg PO QID 06/22/18 07/17/18 History tamsulosin 0.4 mg capsule 0.4 mg PO QDAY #90 cap 06/22/18 07/16/18 Rx trospium ER 60 mg capsule,extended 60 mg PO QAM #90 cap 06/22/18 07/16/18 Rx release 24 hr ondansetron 4 mg disintegrating 4 mg PO Q4-6HP PRN #20 tab 06/29/18 07/16/18 Rx tablet oxandrolone 2.5 mg tablet 1 tablet PO BID #60 tab 06/29/18 07/20/18 History Dolutegravir Sodium [Tivicay] 50 mg PO DAILY 07/16/18 07/16/18 History Emtricitabine/Tenofov Alafenam 1 tab PO DAILY 07/16/18 07/16/18 History [Descovy 200-25 mg Tablet] Memantine HCl/Donepezil HCl 1 each PO DAILY 07/16/18 07/16/18 History [Namzaric 28 mg-10 mg Capsule] Peg 3350/Na Sulf,Bicarb,Cl/KCl 4,000 ml PO PRN PRN 07/16/18 07/17/18 History [Gavilyte-C Solution] Ertapenem [Invanz] 1 gm IM Q24H #1 vial 07/21/18 Rx Piperacillin Sodium/Tazobactam 3.375 gm IV Q6H #5 vial 07/21/18 Rx [Zosyn] Allergies Allergy/AdvReac Type Severity Reaction Status Date / Time cefepime AdvReac Mild Other Verified 07/20/18 11:50 codeine AdvReac Mild Itching Verified 07/16/18 09:28 Exam Temp Pulse Resp BP Pulse Ox 98.5 F 84 16 137/82 99 07/20/18 16:00 07/20/18 16:00 07/20/18 16:00 07/20/18 16:00 07/20/18 16:00 - General physical appearance well developed, well nourished, no distress, chronically ill - Eyes PERRL, normal ocular movement - ENT normal pinna, normal nares, normal mucosa, no congestion - Head Head exam IM: Present: normal inspection, normocephalic - Neck no masses, trachea midline, no venous distension - Cardiovascular Cardiovascular exam IM: Present: normal rate and rhythm - Respiratory normal expansion, clear to auscultation - Abdomen Abdomen: Present: soft, non tender, bowel sounds - Integumentary Present: no rash, other (Thin attenuated skin around adherent eschar to posterior heel at site of achilles tendon insertion. NO evidence of acute infection, suppuration, crepitation. ) - Musculoskeletal Present: other (Wheel chair / bed confined. H/O multiple orthopedic surgeries LE. ) - Psychiatric Present: oriented to time, oriented to person, oriented to place, speech is normal, memory intact Results - Labs 07/20/18 03:53 07/20/18 03:53 Abnormal lab results 07/20/18 07/20/18 Range/Units 03:53 03:53 RBC 2.91 L (4.50-5.90) M/mcL Hgb 8.5 L (13.5-16.5) g/dL Hct 27.2 L (41.0-55.0) % RDW 16.1 H (11.5-14.5) % Gran % 85.6 H (38.0-78.0) % Lymph % (Auto) 11.6 L (15.5-49.0) % Lymph # (Auto) 0.7 L (1.5-4.8) K/mcL Carbon Dioxide 20 L (22-30) mmol/L Glucose 132 H (70-105) mg/dL Calcium 8.3 L (8.6-10.4) mg/dl Phosphorus 2.1 L (2.7-4.5) mg/dL Total Protein 5.5 L (5.9-8.4) gm/dL Albumin 2.5 L (3.2-5.2) gm/dL Albumin/Globulin Ratio 0.8 L (1.0-2.3) Diabetes panel 07/20/18 Range/Units 03:53 Sodium 143 (133-145) mmol/L Potassium 4.6 (3.3-5.1) mmol/L Chloride 108 (96-108) mmol/L Carbon Dioxide 20 L (22-30) mmol/L BUN 20 (8-23) mg/dl Creatinine 1.1 (0.7-1.2) mg/dl Glucose 132 H (70-105) mg/dL Calcium 8.3 L (8.6-10.4) mg/dl AST 15 (0-37) U/l ALT 5 (0-40) U/l Alkaline Phosphatase 56 (39-117) U/L Total Protein 5.5 L (5.9-8.4) gm/dL Albumin 2.5 L (3.2-5.2) gm/dL Triglycerides 108 (<150) mg/dl Calcium panel 07/20/18 Range/Units 03:53 Calcium 8.3 L (8.6-10.4) mg/dl Phosphorus 2.1 L (2.7-4.5) mg/dL Albumin 2.5 L (3.2-5.2) gm/dL Pituitary panel 07/20/18 Range/Units 03:53 Sodium 143 (133-145) mmol/L Potassium 4.6 (3.3-5.1) mmol/L Chloride 108 (96-108) mmol/L Carbon Dioxide 20 L (22-30) mmol/L BUN 20 (8-23) mg/dl Creatinine 1.1 (0.7-1.2) mg/dl Glucose 132 H (70-105) mg/dL Calcium 8.3 L (8.6-10.4) mg/dl Adrenal panel 07/20/18 Range/Units 03:53 Sodium 143 (133-145) mmol/L Potassium 4.6 (3.3-5.1) mmol/L Chloride 108 (96-108) mmol/L Carbon Dioxide 20 L (22-30) mmol/L BUN 20 (8-23) mg/dl Creatinine 1.1 (0.7-1.2) mg/dl Glucose 132 H (70-105) mg/dL Calcium 8.3 L (8.6-10.4) mg/dl Total Bilirubin 0.2 (0.0-1.0) mg/dL AST 15 (0-37) U/l ALT 5 (0-40) U/l Alkaline Phosphatase 56 (39-117) U/L Total Protein 5.5 L (5.9-8.4) gm/dL Albumin 2.5 L (3.2-5.2) gm/dL All other labs normal. Assessment and Plan (1) Chronic pain of left heel Assessment: Chronic heel pain. Patient feels that heel is swollen. CT scan of foot heel and lower leg. ( NEGATIVE for osteo an NO free air ) Osteopenia, Chronic. Plan: Patient reassured. Continue local wound care. FOAM dressing Heel protectors. Wound care clinic follow up after discharge. Status: Chronic Priority: Low (2) UTI (urinary tract infection) Assessment: UTI / Urosepsis. Responded well to supportive care and IV antibiotics. Plan: Further management as per ID and Hospitalist Will f/u at wound center after discharge. Status: Acute Priority: High Qualifiers: Urinary tract infection type: acute cystitis Hematuria presence: without hematuria Qualified Code(s): N30.00 - Acute cystitis without hematuria
[2018-07-20] MEDS ORDERED: NITROGLYCERIN 0.4 MG TAB.SUBL SL PRN (20:22)
[2018-07-20] MEDS ORDERED: NITROGLYCERIN 0.4 MG TAB.SUBL SL ONE (20:25)
--- NOTE | 2018-07-20 20:32 | Infectious Disease Prog Note ---
Subjective Patient information: Note initiated : 07/20/18 at 8:30 pm Service Date, if different from initiated Date: [] Patient: Taz Parra 73 y/o M admitted on 07/16/18 for Chest pain. Chief Complaint: [] Interval history: Patient feels better. Denies any fever, chills, nausea, vomiting, diarrhea. Requested he be discharged to home soon. Objective Objective Narrative: Alert, oriented x3 No thrush Chest clear to auscultation Heart sounds normal, no murmurs Bowel sounds present, has a small umbilical hernia No CVA tenderness The heel wounds look dry Has some pressure sores on the hip and sacrum which do not look infected - Vital Signs Vital signs: Vital Signs Temp Pulse Pulse Resp BP BP Pulse Ox 07/20/18 16:00 36.9 C 84 16 137/82 99 07/20/18 12:05 37.0 C 80 16 112/67 99 07/20/18 10:01 12 119/67 07/20/18 08:02 138/88 07/20/18 07:30 98 07/20/18 07:01 37.3 C H 16 134/79 98 07/20/18 06:01 118/64 07/20/18 05:31 76 99 07/20/18 05:02 117/68 07/20/18 04:23 37.1 C 16 114/73 97 07/20/18 04:00 114/73 07/20/18 03:48 119/67 07/20/18 03:00 119/67 95 07/20/18 02:01 114/66 100 07/20/18 01:01 12 113/66 97 07/20/18 00:30 78 98 07/20/18 00:00 37.5 C H 16 113/71 99 07/19/18 23:00 116/72 100 07/19/18 22:01 121/89 99 07/19/18 21:24 94 H 07/19/18 21:23 91 H 07/19/18 21:00 91 H 116/70 99 Intake and Output 07/20/18 07/20/18 07/20/18 05:59 13:59 21:59 Intake Total 350 650 180 Output Total 400 1 Balance -50 650 179 Intake: Nourishment/Supplement quantity 240 (ml) IV 100 50 Zosyn 2.25 gm In Dextrose 5% in 100 50 Water 50 ml @ 100 mls/hr IV Q6H [facility] Rx#:[id number] Oral 250 360 180 Output: Void Amount 400 # of times incontinent of urine 1 Other: Meal Lunch Percent of Meal Consumed 100% Feeding Ability Assist with Tray Set Up Nourishment/Supplement name breeze Urine Appearance Clear Urine Color Bright Yellow Urine Odor Normal Stool Size Small Moderate Small Stool Color Brown Brown Brown Stool Consistency Dry and Hard Soft Soft Lori Formed Loose # Bowel Movements 1 1 # of times incontinent of 1 Bowels Weight 60.509 kg Patient Weight 07/21/18 05:59 Weight 60.509 kg Intake & Output: Intake & Output 07/20/18 07/20/18 07/20/18 05:59 13:59 21:59 Intake Total 350 650 180 Output Total 400 1 Balance -50 650 179 Weight 60.509 kg Intake: Nourishment/Supplement quantity 240 (ml) IV 100 50 Zosyn 2.25 gm In Dextrose 5% in 100 50 Water 50 ml @ 100 mls/hr IV Q6H [facility] Rx#:[id number] Oral 250 360 180 Output: Void Amount 400 # of times incontinent of urine 1 Other: Meal Lunch Percent of Meal Consumed 100% Feeding Ability Assist with Tray Set Up Nourishment/Supplement name breeze Urine Appearance Clear Urine Color Bright Yellow Urine Odor Normal Stool Size Small Moderate Small Stool Color Brown Brown Brown Stool Consistency Dry and Hard Soft Soft Lori Formed Loose # Bowel Movements 1 1 # of times incontinent of 1 Bowels - Lab 07/20/18 03:53 07/20/18 03:53 Most recent lab results Calcium 8.3 mg/dl (8.6-10.4) L 07/20/18 03:53 Phosphorus 2.1 mg/dL (2.7-4.5) L 07/20/18 03:53 Magnesium 1.8 mg/dL (1.6-2.5) 07/20/18 03:53 Microbiology 07/16/18 09:51 Blood Blood Culture - Preliminary 07/16/18 10:00 Blood Blood Culture - Preliminary 07/18/18 11:30 Urine - Clean Void Mid-Stream Urine Culture - Final 07/16/18 12:56 Urine - Clean Void Mid-Stream Urine Culture - Final Escherichia coli 07/16/18 17:22 Nose MRSA (PCR) - Final Medications Active Medications: Acetaminophen (Tylenol) 650 mg PO Q4-6HP PRN PRN Reason: PAIN/FEVER > 101 Hydrocodone Bitart/Acetaminophen ([place] 10/325mg) 0 tab PO Q4-6HP PRN PRN Reason: Pain Albuterol/Ipratropium (Duoneb) 3 ml NEB Q4HP PRN PRN Reason: Shortness Of Breath Aspirin (Aspirin) 81 mg PO DAILY [facility] Atorvastatin Calcium (Lipitor) 80 mg PO DAILY [facility] Cadexomer Iodine (Iodosorb) 1 gm TOPICAL DAILY [facility] Clopidogrel Bisulfate (Plavix) 75 mg PO DAILY [facility] Diagnostic Test (Pha) (Accu-Chek) 1 each FS BID [facility] Last Admin: 07/20/18 20:28 Dose: 1 each Documented by: SEFERINO Docusate Sodium (Colace) 100 mg PO BID [facility] Last Admin: 07/20/18 20:26 Dose: Not Given Documented by: SEFERINO Non-Admin Reason: Loose Stool Fentanyl (Duragesic) 50 mcg TD Q72H [facility] Heparin Sodium (Porcine) (Heparin) 5,000 unit SQ Q12 [facility] Last Admin: 07/20/18 20:15 Dose: 5,000 unit Documented by: SEFERINO Hydrocortisone Sodium Succinate (Solu-Cortef) 100 mg IV Q8 [facility] Last Admin: 07/20/18 14:32 Dose: 100 mg Documented by: ROSAS Cosigned by: MGARRED Hydromorphone HCl (Dilaudid) 0.5 mg IV Q2HP PRN PRN Reason: PAIN LEVEL > 6 Potassium Chloride 40 meq/ (Dextrose) 520 mls @ 130 mls/hr IV UD PRN PRN Reason: Potassium < 3 Magnesium Sulfate (Magnesium Sulfate) 2 gm in 50 mls @ 50 mls/hr IV UD PRN PRN Reason: Magnesium </= 1.6 Acetaminophen (Ofirmev) 650 mg in 65 mls @ 130 mls/hr IV Q6HP PRN PRN Reason: PAIN/FEVER > 101 Piperacillin Sod/Tazobactam (Sod 2.25 gm/ Dextrose) 50 mls @ 100 mls/hr IV Q6H [facility]; Protocol Last Admin: 07/20/18 17:44 Dose: 100 mls/hr Documented by: MGARRED Insulin Human Lispro (Humalog) 0 unit SQ BID [facility]; Protocol Lactobacillus Rhamnosus (Culturelle) 1 cap PO BID [facility] Last Admin: 07/20/18 20:16 Dose: 1 cap Documented by: SEFERINO Lactulose (Cephulac) 10 gm PO DAILYP PRN PRN Reason: Constipation Methocarbamol (Robaxin) 500 mg PO QID [facility] Last Admin: 07/20/18 20:16 Dose: 500 mg Documented by: Admin: 07/20/18 17:45 Dose: 500 mg Documented by: MGARRARABELLA Admin: 07/20/18 12:50 Dose: 500 mg Documented by: ROSAS Cosigned by: MGARRARABELLA Nitroglycerin (Nitrostat) 0.4 mg SL Q5M PRN PRN Reason: Chest Pain Ondansetron HCl (Zofran) 4 mg IV Q4HP PRN PRN Reason: Nausea And Vomiting Oxandrolone (Oxandrin) 2.5 mg PO BID [facility] Memantine Hcl/Donepezil Hcl [ Namzaric 28 Mg-10 Mg Capsule 1 dose PO DAILY [facility] Dronabinol 5 Mg (Capsule) 1 dose PO BID@0900,1500 [facility] Last Admin: 07/20/18 17:45 Dose: 1 dose Documented by: MGARRED Dolutegravir Sodium [Tivicay] 50 Mg Tablet 1 dose PO 1500 [facility] Emtricitabine/Tenofov Alafenam [ Descovy 200-25 Mg] Tablet 1 dose PO 1500 [facility] Trospium Chloride Er (60 Mg Capsule) 1 dose PO 1500 [facility] Polyethylene Glycol (Miralax) 17 gm PO DAILYP PRN PRN Reason: Constipation Potassium Chloride (Kdur) 40 meq PO UD PRN PRN Reason: Potssium is 3-3.5 Potassium Chloride (Kdur) 40 meq PO UD PRN PRN Reason: Potassium < 3 Pregabalin (Lyrica) 75 mg PO HS [facility] Last Admin: 07/20/18 20:16 Dose: 75 mg Documented by: SEFERINO Promethazine HCl (Phenergan) 12.5 mg RC QD-BID PRN PRN Reason: Nausea Senna (Senokot) 2 tab PO HSP PRN PRN Reason: Constipation Sodium Chloride (Saline Flush) 10 ml IV Q8 [facility] Last Admin: 07/20/18 14:32 Dose: 10 ml Documented by: ROSAS Cosigned by: DUNIA Tamsulosin HCl (Flomax) 0.4 mg PO DAILY@1500 [facility] Assessment and Plan - Narrative A/P Narrative: Assessment: 1. E. coli pyelonephritis with sepsis: resolving No bacteremia Given history of acute interstitial cystitis with cephalosporins in the past and resistance to fluoroquinolones and Bactrim, will continue with Zosyn 2. Chronic HIV infection: In follow-up with myself last HIV viral load was 24, CD4 count of 633 in 01/18/18 3. CKD: Cr 1.4, CRCL per formulla is 39 ml/min 4. Chronic heel wounds: do not look infected Recommendations: Continue IV Zosyn. Change dosing to 3.375 gm q6 hrs for now, day 5 out of 7 Continue once daily oral descovy and Tivicay for HIV - regular pressure sore care per wound care Will follow Rolly Elmore MD Infectious disease
[2018-07-20] MEDS ORDERED: PREGABALIN 75 MG CAPSULE PO SCH (21:00)
[2018-07-20] MEDS ORDERED: traZODone HCL 50 MG TABLET PO PRN (22:50)
[2018-07-20] MEDS: PIPERACILLIN SODIUM/TAZOBACTAM 3.375 GM in DEXTROSE 5% IN WATER 50 ML IV SCH (23:40)
[2018-07-21] MEDS: HYDROcodone/APAP 10/325MG TABLET PO PRN ×2 (02:21→10:02)
[2018-07-21] MEDS: 0.9 % SODIUM CHLORIDE 10 ML SYRINGE IV SCH ×2 (05:34→16:33)
[2018-07-21] MEDS: HYDROCORTISONE SOD SUCC 100 MG VIAL IV SCH ×2 (05:34→16:32)
[2018-07-21] MEDS: PIPERACILLIN SODIUM/TAZOBACTAM 3.375 GM in DEXTROSE 5% IN WATER 50 ML IV SCH ×2 (05:34→14:44)
[2018-07-21] MEDS: METHOCARBAMOL 500 MG TABLET PO SCH ×2 (08:54→16:32)
[2018-07-21] MEDS: DOCUSATE SODIUM 100 MG CAPSULE PO SCH (08:54)
[2018-07-21] MEDS: LACTOBACILLUS 1 CAPSULE PO SCH (08:55)
[2018-07-21] MEDS: HEPARIN 5,000 UNIT/ML VIAL SQ SCH (08:55)
[2018-07-21] MEDS: INSULIN LISPRO 1 UNIT/0.01 ML UNIT SQ SCH (08:57)
[2018-07-21] MEDS ORDERED: TENOFOV ALAFENAM PO SCH ×2 (09:00→15:00)
[2018-07-21] MEDS ORDERED: EMTRICITABINE PO SCH ×2 (09:00→15:00)
[2018-07-21] MEDS ORDERED: CADEXOMER IODINE TOPICAL SCH (09:00)
[2018-07-21] MEDS ORDERED: MEMANTINE HCL PO SCH (09:00)
[2018-07-21] MEDS ORDERED: ASPIRIN 81 MG TAB.CHEW PO SCH (09:00)
[2018-07-21] MEDS ORDERED: DONEPEZIL HCL PO SCH (09:00)
[2018-07-21] MEDS ORDERED: TAMSULOSIN 0.4 MG CAPSULE PO SCH ×2 (09:00→15:00)
[2018-07-21] MEDS ORDERED: ATORVASTATIN 20 MG TABLET PO SCH (09:00)
[2018-07-21] MEDS ORDERED: OXANDROLONE 2.5 MG TABLET PO SCH (09:00)
[2018-07-21] MEDS ORDERED: CLOPIDOGREL 75 MG TABLET PO SCH (09:00)
[2018-07-21] MEDS ORDERED: fentaNYL 50 MCG PATCH TD SCH ×2 (10:00)
--- NOTE | 2018-07-21 10:33 | Discharge Summary ---
Medical - DS: Prov Patient information: Note initiated : 07/21/18 at 10:30 am Service Date, if different from initiated Date: [] Patient: Taz Parra 73 y/o M admitted on 07/16/18 for Chest pain. Chief Complaint: [] Date of admission: 07/16/18 16:50 Discharge date: 07/21/18 Primary care physician: Refugio Isidro Consults: 07/16/18 Consult to Physician [CONS] Stat Comment: Consulting Provider: Otto Mccabe Reason For Exam: Physician to Consult 07/16/18 17:01 Consult to Physician [CONS] Routine Comment: hiv fever Consulting Provider: Rolly Elmore Reason For Exam: Physician to Consult 07/19/18 09:36 Consult to Physician [CONS] Routine Comment: Consulting Provider: Adrián Seth Reason For Exam: pressure ulcers Medical - DS: Meds - Discharge Medications Prescriptions: Piperacillin Sodium/Tazobactam [Zosyn] 3.375 gm IV Q6H #5 vial Active and Home Medications: Home Medications aspirin 81 mg tablet,delayed release 81 mg PO QDAY 08/20/16 [History Confirmed 07/16/18 Last Taken 04/03/18 20:00] HYDROcodone/APAP 10/325MG [[place] 10-325Mg] 1 - 2 tablet PO Q4-6HP PRN 12/07/17 [History Confirmed 07/16/18 Last Taken Unknown] ketorolac 0.5 % eye drops 1 drp OPHTHALMIC Q8H PRN 12/15/17 [History Confirmed 07/16/18 Last Taken 04/03/18] testosterone cypionate 200 mg/mL intramuscular oil 400 mg IM Q28D ml 12/15/17 [History Confirmed 07/17/18 Last Taken 06/28/18 08:00] fentanyl 50 mcg/hr transdermal patch 50 mcg TRANSDERMA Q72H 03/23/18 [History Confirmed 07/17/18 Last Taken 07/15/18 08:00] Carvedilol [Coreg] 12.5 mg PO BID 04/04/18 [History Confirmed 07/16/18 Last Taken 04/03/18 20:00] Ferrous Sulfate [Iron] 325 mg PO HS 04/08/18 [History Confirmed 07/16/18 Last Taken 04/03/18 20:00] Pregabalin [Lyrica] 75 mg PO HS 04/08/18 [History Confirmed 07/16/18 Last Taken 04/03/18 20:00] Rosuvastatin Calcium 40 mg PO DAILY 04/08/18 [History Confirmed 07/16/18 Last Taken 04/03/18 08:00] Clopidogrel Bisulfate [Plavix] 75 mg PO DAILY #30 tab 04/09/18 [Rx Confirmed 07/16/18 Last Taken Unknown] losartan 50 mg tablet 50 mg PO QDAY #90 tab 05/05/18 [Rx Confirmed 07/16/18 Last Taken Unknown] amlodipine 2.5 mg tablet 2.5 mg PO QDAY #90 tab 05/19/18 [Rx Confirmed 07/16/18 Last Taken Unknown] Promethazine HCl 12.5 mg RC QD-BID PRN #20 supp.rect 06/05/18 [Rx Confirmed 07/17/18 Last Taken Unknown] dextroamphetamine-amphetamine 20 mg tablet 20 mg PO BID #60 tab 06/08/18 [Rx Confirmed 07/17/18 Last Taken Unknown] dronabinol 5 mg capsule 5 mg PO BID #60 cap 06/22/18 [Rx Confirmed 07/16/18 Last Taken Unknown] methocarbamol 500 mg tablet 500 mg PO QID 06/22/18 [History Confirmed 07/17/18 Last Taken Unknown] tamsulosin 0.4 mg capsule 0.4 mg PO QDAY #90 cap 06/22/18 [Rx Confirmed 07/16/18 Last Taken Unknown] trospium ER 60 mg capsule,extended release 24 hr 60 mg PO QAM #90 cap 06/22/18 [Rx Confirmed 07/16/18 Last Taken Unknown] ondansetron 4 mg disintegrating tablet 4 mg PO Q4-6HP PRN #20 tab 06/29/18 [Rx Confirmed 07/16/18 Last Taken Unknown] oxandrolone 2.5 mg tablet 1 tablet PO BID #60 tab 06/29/18 [History Confirmed 07/20/18 Last Taken Unknown] Dolutegravir Sodium [Tivicay] 50 mg PO DAILY 07/16/18 [History Confirmed 07/16/18 Last Taken Unknown] Emtricitabine/Tenofov Alafenam [Descovy 200-25 mg Tablet] 1 tab PO DAILY 07/16/18 [History Confirmed 07/16/18 Last Taken Unknown] Memantine HCl/Donepezil HCl [Namzaric 28 mg-10 mg Capsule] 1 each PO DAILY 07/16/18 [History Confirmed 07/16/18 Last Taken Unknown] Peg 3350/Na Sulf,Bicarb,Cl/KCl [Gavilyte-C Solution] 4,000 ml PO PRN PRN 07/16/18 [History Confirmed 07/17/18 Last Taken Unknown] Piperacillin Sodium/Tazobactam [Zosyn] 3.375 gm IV Q6H #5 vial 07/21/18 [Rx Last Taken Unknown] Medical - DS: Hosp Hospital course: Discharge diagnosis * MDR Escherichia coli UTI -clinical improvement noted on Zosyn based on culture sensitivities. Discharge with additional 5 doses of Zosyn as outpatient * Sepsis secondary to above-clinically resolved * Adrenal insufficiency -status post ACTH stim test. Continue Solu-Cortef * Underlying dementia with mild AMS now at baseline * Acute and chronic kidney disease-secondary to sepsis clinically improved now at baseline, creatinine 1.1 * History of HIV in good control managed by ID specialist * History of hypertension-on home medications * Left heel ulceration managed by wound care. CT foot no evidence of osteomyelitis * Deconditioning with wheelchair-bound at baseline. Continue outpatient rehabilitation Brief hospital course Mr. Parra is a 73 year old M who presents to the ED with what is reported to be chest pain, However the patient denies chest pain when I evaluated him. Per old notes he does have a history of dementia. He was last admitted in March for sepsis felt to be biliary related, he is not a surgical candidate, in fact had a cardiac ischemic event during induction for surgery, developing hypotension and a subsequent tachycardia with a bump in his troponin. Patient was transferred over to [facility] for a few days no surgery or cardiac interventions undertaken. Per the notes patient complained of chest pain for the hour previous to his visit as well as nausea. Sounds like his chest pain was somewhat diffuse. He was noted to be febrile with a temperature of 102.7. He was noted to have chronic wounds of left heel which she was to see wound care today and per friend who brought him inside the wounds were improving. Patient denies any chest pains to me but complains of left heel pain and told me that is the reason why he came in. Denies any recent illness. No shortness of breath or coughing. He is wheelchair-bound and is able to transfer from bed to wheelchair but not able to ambulate even with a walker. In the ED he had a chest x-ray which was unremarkable. He was noted to have leukocytosis and mild elevation in his creatinine. His lactate was okay. Troponin was unremarkable x2. Urinalysis showed nitrates leukocyte esterase, WBCs. He was tachycardic when he came in and tachypneic as well. 07/17 No issues overnight. Slept well. Partner brought in HIV medications last night. Urine growing gram-negative bacillus. 07/18 Slept on and off through night. No new complaints. Did have fever overnight. Has low blood pressure when he sleeps. Leukocytosis resolved. E. coli growing in urine. Still feels weak and tired. 07/19 Sitting at side of bed eating breakfast. Feeling better. Afebrile overnight. Blood pressures improved, Started hydrocortisone after endocrine labs indicative of adrenal insufficiency. No overnight events and patient improved with no new complaints other than cold syrup. No overnight events. Continue antibiotic coverage as per ID recommendations for additional 48 hours. We'll get echo and CTA with contrast left ankle. 07/20- patient doing well. No overnight events. On antibiotic coverage as per ID specialist. Ongoing wound care. Dr. Seth recommends further imaging to rule out left heel osteomyelitis . No other concerns per staff. 07/21-patient doing well. Discharging home with advice to continue antibiotic as outpatient for additional 5 doses of Zosyn. Recommend follow primary care physician. Detailed discharge instructions and recommendations as below. White count normalized 5.9, creatinine normalized to 1.1. Continue follow-up with wound care as an outpatient for left heel chronic wound. MRI no evidence of osteomyelitis or abscess. Discharge diagnosis: . - Time Spent with Patient Total time spent providing and/or coordinating discharge services: Greater than 30 minutes Medical - DS: Exam - Constitutional Vitals: Vital Signs Temp Pulse Pulse Resp BP BP BP 07/21/18 08:00 98.9 F 74 16 142/84 07/21/18 04:00 98.5 F 74 16 151/86 07/21/18 00:00 98.7 F 86 12 154/87 07/20/18 20:00 97.6 F 94 H 20 147/84 05/07/19 16:00 98.5 F 84 16 137/82 07/20/18 12:05 98.6 F 80 16 112/67 Pulse Ox 07/21/18 08:00 97 07/21/18 04:00 99 07/21/18 00:00 98 07/20/18 20:00 98 07/20/18 16:00 99 07/20/18 12:05 99 Intake and Output 07/20/18 07/21/18 07/21/18 21:59 05:59 13:59 Intake Total 230 150 290 Output Total 402 401 Balance -172 150 -111 Intake: IV 50 50 50 Zosyn 2.25 gm In Dextrose 5% in 50 Water 50 ml @ 100 mls/hr IV Q6H [facility] Rx#:[id number] Zosyn 3.375 gm In Dextrose 5% 50 50 in Water 50 ml @ 100 mls/hr IV Q6H [facility] Rx#:[id number] Oral 180 100 240 Output: Void Amount 400 400 # of times incontinent of urine 2 1 Other: Meal Breakfast Percent of Meal Consumed 75% Urine Appearance Clear Urine Color Light Juli Stool Size Moderate Large Stool Color Brown Brown Stool Consistency Soft Soft # Bowel Movements 1 # of times incontinent of 2 1 Bowels Weight 133 lb 4 oz Medical - DS: A/P - Patient/Caregiver Discharge Instructions Activity: increase activity as tolerated Diet: Regular Diet Additional Instructions: Follow-up PCP in 5 days Follow wound care in 5-7 days Antibiotics for additional 5 doses Zosyn Continue follow-up with ID specialist for HIV management Continue aggressive bowel regimen to prevent constipation Continue fall precautions All meals on chair sitting upright at 90 degrees to prevent aspiration Return to ER if worsening fever chills shortness of breath, diarrhea, bleeding Review risk and side effect profile of medications including antibiotics. Side effect may include mild to severe reaction including rash, diarrhea, cdiff and even which can be prevented by close follow-up with PCP and monitoring for side effects Refrain from smoking and alcohol Continue diet and activity as advised Discussed importance of medication adherence Please review medication list with patient prior to discharge Please schedule follow-up with PCP/Providers prior to discharge and provide printouts Prescriptions: Piperacillin Sodium/Tazobactam [Zosyn] 3.375 gm IV Q6H #5 vial - Follow up Plan Follow up with: Refugio Isidro MD [Primary Care Provider] - Disposition: Home Health Service Prognosis: Good Rehab Potential: Fair I certify that the patient requires SNF services: No Overall status at discharge: patient is back to baseline Medical - DS: Qual - VTE Deep Vein Thrombosis/Pulmonary Embolism Present on Admission: No
[2018-07-21] MEDS: DRONABINOL 5 MG CAPSULE PO SCH (10:42)
[2018-07-21] MEDS ORDERED: ERTAPENEM 1 GM in 0.9 % SODIUM CHLORIDE 50 ML IV SCH (11:00)
--- NOTE | 2018-07-21 17:17 | Infectious Disease Prog Note ---
Subjective Patient information: Note initiated : 07/21/18 at 5:14 pm Service Date, if different from initiated Date: [] Patient: Taz Parra 73 y/o M admitted on 07/16/18 for Chest pain. Chief Complaint: [] Interval history: Patient doing fine. Insisting that come what may he would leave the [facility] today to go to home. No fever, chills, nausea, vomiting, diarrhea. I tried to explain to him that he did not have oral options for antibiotics given his resistant E. coli and will have to give him IV. He has 1 day more to finish his therapy. He agreed to come to the hospital to get his antibiotics until tomorrow evening. Objective Objective Narrative: Alert, oriented x3 No thrush Chest clear to auscultation Heart sounds normal, no murmurs Bowel sounds present, has a small umbilical hernia No CVA tenderness - Vital Signs Vital signs: Vital Signs Temp Pulse Resp BP BP Pulse Ox 07/21/18 16:00 37.1 C 75 16 136/79 96 07/21/18 12:00 36.7 C 72 16 138/81 96 07/21/18 08:00 37.2 C 76 16 142/84 96 07/21/18 04:00 36.9 C 74 16 151/86 99 07/21/18 00:00 37.1 C 86 12 154/87 98 07/20/18 20:00 36.4 C 94 H 20 147/84 98 Intake and Output 07/21/18 07/21/18 07/21/18 05:59 13:59 21:59 Intake Total 150 290 Output Total 401 Balance 150 -111 Intake: IV 50 50 Zosyn 3.375 gm In Dextrose 5% 50 50 in Water 50 ml @ 100 mls/hr IV Q6H [facility] Rx#:[id number] Oral 100 240 Output: Void Amount 400 # of times incontinent of urine 1 Other: Meal Breakfast Percent of Meal Consumed 75% Stool Size Large Stool Color Black Stool Consistency Soft # Bowel Movements 2 # of times incontinent of 1 Bowels Intake & Output: Intake & Output 07/21/18 07/21/18 07/21/18 05:59 13:59 21:59 Intake Total 150 290 Output Total 401 Balance 150 -111 Intake: IV 50 50 Zosyn 3.375 gm In Dextrose 5% 50 50 in Water 50 ml @ 100 mls/hr IV Q6H [facility] Rx#:[id number] Oral 100 240 Output: Void Amount 400 # of times incontinent of urine 1 Other: Meal Breakfast Percent of Meal Consumed 75% Stool Size Large Stool Color Black Stool Consistency Soft # Bowel Movements 2 # of times incontinent of 1 Bowels - Lab 07/20/18 03:53 07/20/18 03:53 Most recent lab results Calcium 8.3 mg/dl (8.6-10.4) L 07/20/18 03:53 Phosphorus 2.1 mg/dL (2.7-4.5) L 07/20/18 03:53 Magnesium 1.8 mg/dL (1.6-2.5) 07/20/18 03:53 Microbiology 07/16/18 09:51 Blood Blood Culture - Final 07/16/18 10:00 Blood Blood Culture - Final 07/18/18 11:30 Urine - Clean Void Mid-Stream Urine Culture - Final 07/16/18 12:56 Urine - Clean Void Mid-Stream Urine Culture - Final Escherichia coli 07/16/18 17:22 Nose MRSA (PCR) - Final Medications Active Medications: Acetaminophen (Tylenol) 650 mg PO Q4-6HP PRN PRN Reason: PAIN/FEVER > 101 Hydrocodone Bitart/Acetaminophen ([place] 10/325mg) 0 tab PO Q4-6HP PRN PRN Reason: Pain Last Admin: 07/21/18 10:02 Dose: 2 tab Documented by: Admin: 07/21/18 02:21 Dose: 2 tab Documented by: SEFERINO Albuterol/Ipratropium (Duoneb) 3 ml NEB Q4HP PRN PRN Reason: Shortness Of Breath Aspirin (Aspirin) 81 mg PO DAILY [facility] Last Admin: 07/21/18 08:55 Dose: 81 mg Documented by: GRAHAM Atorvastatin Calcium (Lipitor) 80 mg PO DAILY [facility] Last Admin: 07/21/18 08:53 Dose: 80 mg Documented by: GRAHAM Cadexomer Iodine (Iodosorb) 1 gm TOPICAL DAILY [facility] Last Admin: 07/21/18 15:32 Dose: 1 gm Documented by: STEPHANIE Clopidogrel Bisulfate (Plavix) 75 mg PO DAILY [facility] Last Admin: 07/21/18 08:53 Dose: 75 mg Documented by: GRAHAM Diagnostic Test (Pha) (Accu-Chek) 1 each FS BID [facility] Last Admin: 07/21/18 08:56 Dose: Not Given Documented by: GRAHAM Non-Admin Reason: Patient Refused Admin: 07/20/18 20:28 Dose: 1 each Documented by: SEFERINO Docusate Sodium (Colace) 100 mg PO BID [facility] Last Admin: 07/21/18 08:54 Dose: Not Given Documented by: GRAHAM Non-Admin Reason: Loose Stool Admin: 07/20/18 20:26 Dose: Not Given Documented by: SEFERINO Non-Admin Reason: Loose Stool Fentanyl (Duragesic) 50 mcg TD Q72H [facility] Last Admin: 07/21/18 09:06 Dose: 50 mcg Documented by: GRAHAM Heparin Sodium (Porcine) (Heparin) 5,000 unit SQ Q12 [facility] Last Admin: 07/21/18 08:55 Dose: 5,000 unit Documented by: Admin: 07/20/18 20:15 Dose: 5,000 unit Documented by: SEFERINO Hydrocortisone Sodium Succinate (Solu-Cortef) 100 mg IV Q8 [facility] Last Admin: 07/21/18 16:32 Dose: 100 mg Documented by: Admin: 07/21/18 05:34 Dose: 100 mg Documented by: Admin: 07/20/18 22:36 Dose: 100 mg Documented by: Admin: 07/20/18 14:32 Dose: 100 mg Documented by: ROSAS Cosigned by: MGARRARABELLA Hydromorphone HCl (Dilaudid) 0.5 mg IV Q2HP PRN PRN Reason: PAIN LEVEL > 6 Last Admin: 07/21/18 01:06 Dose: 0.5 mg Documented by: SEFERINO Potassium Chloride 40 meq/ (Dextrose) 520 mls @ 130 mls/hr IV UD PRN PRN Reason: Potassium < 3 Magnesium Sulfate (Magnesium Sulfate) 2 gm in 50 mls @ 50 mls/hr IV UD PRN PRN Reason: Magnesium </= 1.6 Acetaminophen (Ofirmev) 650 mg in 65 mls @ 130 mls/hr IV Q6HP PRN PRN Reason: PAIN/FEVER > 101 Ertapenem 1 gm/ Sodium (Chloride) 50 mls @ 100 mls/hr IV Q24H [facility]; Protocol Last Admin: 07/21/18 12:41 Dose: 100 mls/hr Documented by: GRAHAM Insulin Human Lispro (Humalog) 0 unit SQ BID [facility]; Protocol Last Admin: 07/21/18 08:57 Dose: Not Given Documented by: GRAHAM Non-Admin Reason: Patient Refused Admin: 07/20/18 20:30 Dose: Not Given Documented by: SEFERINO Non-Admin Reason: Not eating - spot check later Lactobacillus Rhamnosus (Culturelle) 1 cap PO BID [facility] Last Admin: 07/21/18 08:55 Dose: 1 cap Documented by: Admin: 07/20/18 20:16 Dose: 1 cap Documented by: SEFERINO Lactulose (Cephulac) 10 gm PO DAILYP PRN PRN Reason: Constipation Methocarbamol (Robaxin) 500 mg PO QID [facility] Last Admin: 07/21/18 16:32 Dose: 500 mg Documented by: Admin: 07/21/18 08:54 Dose: 500 mg Documented by: Admin: 07/20/18 20:16 Dose: 500 mg Documented by: Admin: 07/20/18 17:45 Dose: 500 mg Documented by: Admin: 07/20/18 12:50 Dose: 500 mg Documented by: ROSAS Cosigned by: DUNIA Nitroglycerin (Nitrostat) 0.4 mg SL Q5M PRN PRN Reason: Chest Pain Last Admin: 07/21/18 10:40 Dose: 0.4 mg Documented by: GRAHAM Ondansetron HCl (Zofran) 4 mg IV Q4HP PRN PRN Reason: Nausea And Vomiting Oxandrolone (Oxandrin) 2.5 mg PO BID [facility] Last Admin: 07/21/18 08:43 Dose: 2.5 mg Documented by: GRAHAM Memantine Hcl/Donepezil Hcl [ Namzaric 28 Mg-10 Mg Capsule 1 dose PO DAILY [facility] Last Admin: 07/21/18 09:02 Dose: 1 dose Documented by: GRAHAM Dronabinol 5 Mg (Capsule) 1 dose PO BID@0900,1500 [facility] Last Admin: 07/21/18 10:42 Dose: 1 dose Documented by: Admin: 07/20/18 17:45 Dose: 1 dose Documented by: DUNIA Dolutegravir Sodium [Tivicay] 50 Mg Tablet 1 dose PO 1500 [facility] Last Admin: 07/21/18 16:32 Dose: 1 dose Documented by: STEPHANIE Emtricitabine/Tenofov Alafenam [ Descovy 200-25 Mg] Tablet 1 dose PO 1500 [facility] Last Admin: 07/21/18 16:32 Dose: 1 dose Documented by: STEPHANIE Trospium Chloride Er (60 Mg Capsule) 1 dose PO 1500 [facility] Last Admin: 07/21/18 16:31 Dose: 1 dose Documented by: STEPHANIE Polyethylene Glycol (Miralax) 17 gm PO DAILYP PRN PRN Reason: Constipation Potassium Chloride (Kdur) 40 meq PO UD PRN PRN Reason: Potssium is 3-3.5 Potassium Chloride (Kdur) 40 meq PO UD PRN PRN Reason: Potassium < 3 Pregabalin (Lyrica) 75 mg PO [facility] Last Admin: 07/20/18 20:16 Dose: 75 mg Documented by: SEFERINO Promethazine HCl (Phenergan) 12.5 mg RC QD-BID PRN PRN Reason: Nausea Senna (Senokot) 2 tab PO HSP PRN PRN Reason: Constipation Sodium Chloride (Saline Flush) 10 ml IV Q8 [facility] Last Admin: 07/21/18 16:33 Dose: 10 ml Documented by: Admin: 07/21/18 05:34 Dose: 10 ml Documented by: Admin: 07/20/18 22:37 Dose: 10 ml Documented by: Admin: 07/20/18 14:32 Dose: 10 ml Documented by: ROSAS Cosigned by: DUNIA Tamsulosin HCl (Flomax) 0.4 mg PO DAILY@1500 [facility] Last Admin: 07/21/18 16:33 Dose: 0.4 mg Documented by: STEPHANIE Trazodone HCl (Desyrel) 50 mg PO HSP PRN PRN Reason: Insomnia Assessment and Plan - Narrative A/P Narrative: Assessment: 1. E. coli pyelonephritis with sepsis: resolving No bacteremia Given history of acute interstitial cystitis with cephalosporins in the past and resistance to fluoroquinolones and Bactrim, will continue with non- cephalosporin based alternatives [Zosyn, ertapenem] 2. Chronic HIV infection: In follow-up with myself last HIV viral load was 24, CD4 count of 633 in 01/18/18 3. CKD: Cr 1.1, CRCL per formulla is 51 ml/min 4. Chronic heel wounds: do not look infected Recommendations: Stop IV Zosyn. Given patient's extreme insistence on leaving and for ease of dosing [once daily with ertapenem versus 4 times daily with Zosyn], patient can get a dose of ertapenem 1 g today and 1 tomorrow in the short stay [as outpatient] Continue once daily oral descovy and Tivicay for HIV - regular pressure sore care per wound care Patient to follow-up in ID clinic in about 2 weeks Rolly Elmore MD Infectious disease
== END 2018-07-21 17:40 | disposition home health service (06) | DRG 871 ==
LOC: ED 09:27 → ICU 16:50 → MEDSUR 07-20 12:26
PROVIDERS: ADMIT Internal Medicine; ATTEND Internal Medicine